=== PATIENT | female | born 1930 | race Caucasian/White ===

== ENCOUNTER 2016-09-05 10:21 | Outpatient (RCR) | payer MEDICARE ==
[~2016-09-05 10:21] MED LIST: AC500T PO; ACET-77 PO; AMLO10TA4 PO; AMLO5TAB2 PO; ASP325T PO; ASPI-586 PO; Acetaminophen PO; CHOL100045 PO; CHOL200041 PO; CHOL500050 PO; DCS100C PO; DENOSUMAB 60 MG/1 ML (PROLIA) CANCER CTR SQ SCH; FOSI10TA PO; FOSI10TA3 PO; HYDR-3812 PO; Hydrocodone Bit/Acetaminophen PO; LETR2.5T5 PO; LISI-552 PO; LOTEMAX 0.5% OS; LVT.025T PO; METO25TA PO; METO25TA2 PO; MULT1CAP27 PO; NIAC250T17 PO; OMG1KC PO; PANT40TA2 PO; SALI45SP MM; SOLI10TA2 PO; SOLI5TAB4 PO; Tramadol Hcl PO; [UNRECOGNIZED DRUG - CODE] PO; [UNRECOGNIZED DRUG - CODE] PO
--- OUTSIDE RECORDS SUMMARY | 2016-09-05 10:24 | XMS REPORT | Continuity of Care Document ---
Author Author [facility] Organization [facility] Address Unknown Phone Unavailable Care Team Providers Care Administrative Technician Name Role Phone CASH GUAN MD PCP Insurance Providers Payer Name Policy Number Subscriber Name Relationship Wps Medicare [id number] Trinity Slade 18 Self / Same As Patient Blue Cross [facility] Supp [id number] Trinity Slade 18 Self / Same As Patient Advance Directives Directive Response Recorded Date/Time Advance Directives No 10/14/14 2:41pm Health Care Power of Canvas Marker No 10/14/14 2:41pm Organ Donor No 10/14/14 2:41pm Problems No known problems or medical conditions. Medications Medication Dose Route Sig Days/Qty Instructions Order Date Discontinued Date Status Levothyroxine Sodium (Levothroid) 1 Each PO DAILY 04/13/12 Active Solifenacin 5 Mg PO DAILY 04/13/12 Active Fosinopril Sodium (Monopril) 2 Each PO DAILY 04/13/12 Active Amlodipine Besylate (Norvasc 5 Mg) 5 Mg PO DAILY 04/13/12 Active Multivitamins 1 Each PO DAILY 04/13/12 Active Cholecalciferol (Vitamin D3) 2,000 Unit PO DAILY 04/13/12 Active Metoprolol Succinate 12.5 Mg PO BEDTIME 04/13/12 10/24/14 Discontinued Calcium Carbonate 1,000 Mg PO BEDTIME 04/13/12 Active Docusate Sodium 100 Mg PO BEDTIME 04/13/12 Active Niacin 250 Mg PO DAILY 05/05/12 Active Aspirin 325 Mg PO DAILY 05/05/12 Active Acetaminophen 500 Mg PO BEDTIME 05/05/12 10/21/14 Discontinued [Acetaminophen] 500 Mg PO THREE TIMES A DAY 100 Qty 10/21/14 Active [Tramadol Hcl] 100 Mg PO GIVE EVERY 6 HR ON SCHEDULE PRN PAIN 60 Qty Active Metoprolol Tartrate 25 Mg PO BEDTIME 30 Qty 10/24/14 Active [Hydrocodone Bit/Acetaminophen] 1 Tab PO EVERY 4HRS PRN PAIN 90 Qty Active Social History Social History Problem Response Recorded Date/Time Alcohol Use Denies Use 10/14/2014 2:47pm Recreational Drug Use No 10/14/2014 2:47pm Recent Foreign Travel N [place] 03/09/2015 10:06am Sexually Transmitted Disease No 10/14/2014 2:47pm Hospital Discharge Instructions No hospital discharge instructions. Plan of Care No plan of care. Functional Status No functional status results. Allergies, Adverse Reactions, Alerts Allergen Type Severity Reaction Status Last Updated No Known Drug Allergies Active 10/15/11 Immunizations No immunization records. Vital Signs No known vital signs results. Results No known relevant diagnostic tests, laboratory data and/or discharge summary. Procedures No known history of procedures. Encounters Encounter Location Date/Time Discharged [facility] 03/09/15 10:06am
[2016-09-05 10:37] LABS: BASOPHILS % (AUTO) 1 % (0-10); EOSINOPHILS # (AUTO) 0.1 10^3/uL (0.0-0.3); EOSINOPHILS % (AUTO) 2 % (0-10); LYMPHOCYTES # (AUTO) 1.2 X 10^3 (1.0-4.0); LYMPHOCYTES % (AUTO) 24 % (12-44); MEAN CORPUSCULAR HEMOGLOBIN 32 PG (25-34); MEAN CORPUSCULAR HGB CONC 32 G/DL (32-36); MEAN CORPUSCULAR VOLUME 100 FL (80-99); MEAN PLATELET VOLUME 9.8 FL (7.4-10.4); MONOCYTES # (AUTO) 0.6 X 10^3 (0.0-1.0); MONOCYTES % (AUTO) 12 % (0-12); NEUTROPHILS # (AUTO) 3.1 X 10^3 (1.8-7.8); NEUTROPHILS % (AUTO) 61 % (42-75); PLATELET COUNT 179 10^3/uL (130-400); RED BLOOD COUNT 4.14 10^6/uL (4.35-5.85); RED CELL DISTRIBUTION WIDTH 13.3 % (10.0-14.5); WHITE BLOOD COUNT 5.1 10^3/uL (4.3-11.0)
[2016-09-05 11:06] LABS: ALANINE AMINOTRANSFERASE 18 U/L (0-55); ALBUMIN 3.9 G/DL (3.2-4.5); ANION GAP 12 MMOL/L (5-14); ASPARTATE AMINO TRANSFERASE 20 U/L (5-34); BILIRUBIN,TOTAL 0.5 MG/DL (0.1-1.0); BLOOD UREA NITROGEN 17 MG/DL (7-18); BUN/CREATININE RATIO 22; CALCIUM 9.6 MG/DL (8.5-10.1); CARBON DIOXIDE 24 MMOL/L (21-32); CHLORIDE 106 MMOL/L (98-107); CREATININE SERUM 0.76 MG/DL (0.60-1.30); GFR ESTIMATED > 60; GLUCOSE 143 MG/DL (70-105); POTASSIUM 4.1 MMOL/L (3.6-5.0); SODIUM 142 MMOL/L (135-145); TOTAL PROTEIN 6.3 G/DL (6.4-8.2)
[2016-12-03] MEDS ORDERED: AMLO10TA2 PO (10:49)
[2016-12-03] MEDS ORDERED: METO-270 PO (10:49)
[2016-12-03] MEDS ORDERED: FOSI20TA3 PO (10:49)
[2016-12-03] MEDS ORDERED: LETR2.5T5 PO (10:49)
[2016-12-03] MEDS ORDERED: LEVO25TA5 PO (10:49)
[2016-12-03] MEDS ORDERED: LOTE5GEL OU (10:49)
[2016-12-03] MEDS ORDERED: OMEG-160 PO (11:01)
[2016-12-03] MEDS ORDERED: VIT1CAPS5 PO (11:01)
[2016-12-03] MEDS ORDERED: NIAC250T8 PO (11:01)
[2016-12-03] MEDS ORDERED: [UNRECOGNIZED DRUG - CODE] OU (11:01)
[2016-12-03] MEDS ORDERED: VITAMIN B12 (11:01)
[2016-12-03] MEDS ORDERED: ASPI-983 PO (11:01)
[2016-12-03] MEDS ORDERED: SOLI10TA2 PO (11:01)
[2016-12-03] MEDS ORDERED: CHOL500050 PO (11:01)
[2016-12-22] MEDS ORDERED: SENN-20 PO (09:44)
[2016-12-22] MEDS ORDERED: ACET-77 PO (09:44)
== END 2016-12-04 | disposition home or self-care (01) ==
LOC: ONC 10:21
PROVIDERS: ATTEND Internal Medicine Hematology & Oncology
DX: C50.411 Malignant neoplasm of upper-outer quadrant of right female breast (principal); M81.0 Age-related osteoporosis without current pathological fracture; Z17.0 Estrogen receptor positive status [ER+]; Z92.3 Personal history of irradiation; Z79.899 Other long term (current) drug therapy
CPT/HCPCS: 36415; 80053; 85025; 96372; 99213

== ENCOUNTER 2016-12-02 11:12 | Inpatient (IN) | payer MEDICARE ==
[~2016-12-02] VITALS: Ht 162.6 cm; Wt 72.6 kg
[~2016-12-02 11:12] MED LIST changes: -DENOSUMAB 60 MG/1 ML (PROLIA) CANCER CTR SQ SCH
--- NOTE | 2016-12-02 12:17 | Diagnostic Imaging Report ---
EXAM: CHEST 1 VIEW, AP/PA ONLY INDICATION: Hip fracture. COMPARISON: FINDINGS: Normal heart size and pulmonary vascularity. Hyperinflation. No focal pulmonary opacity, pleural effusion or pneumothorax. Calcified aorta. Degenerative changes in the spine. Postoperative changes in the right axilla. IMPRESSION: No acute cardiopulmonary findings. Dictated by: Dictated on workstation # [id number]
--- NOTE | 2016-12-02 12:18 | Diagnostic Imaging Report ---
INDICATION: Fall with right hip pain. DISCUSSION: A single AP view of the pelvis was obtained with no comparison. There is an acute comminuted right intertrochanteric fracture with mild displacement of the lesser trochanteric process. Post traumatic valgus deformity is noted. No dislocation. Mild to moderate degenerative changes are present within the bilateral hips. The soft tissues are unremarkable. IMPRESSION: Angulated comminuted right femoral intertrochanteric fracture. Dictated by: Dictated on workstation # [id number]
--- NOTE | 2016-12-02 12:20 | Diagnostic Imaging Report ---
EXAM: HIP, RIGHT, 2 VIEWS. INDICATION: Fall. Right hip pain. COMPARISON: None. FINDINGS: There is a comminuted intertrochanteric moderately displaced hip fracture with varus angulation. No other fractures. Moderate degenerative changes in the right hip. IMPRESSION: Comminuted intertrochanteric moderately displaced hip fracture with varus angulation. Dictated by: Dictated on workstation # [id number]
[2016-12-02 12:22] LABS: BASOPHILS % (AUTO) 0 % (0-10); EOSINOPHILS # (AUTO) 0.1 10^3/uL (0.0-0.3); EOSINOPHILS % (AUTO) 1 % (0-10); LYMPHOCYTES # (AUTO) 1.2 X 10^3 (1.0-4.0); LYMPHOCYTES % (AUTO) 14 % (12-44); MEAN CORPUSCULAR HEMOGLOBIN 33 PG (25-34); MEAN CORPUSCULAR HGB CONC 34 G/DL (32-36); MEAN CORPUSCULAR VOLUME 97 FL (80-99); MEAN PLATELET VOLUME 11.2 FL (7.4-10.4); MONOCYTES # (AUTO) 0.6 X 10^3 (0.0-1.0); MONOCYTES % (AUTO) 7 % (0-12); NEUTROPHILS # (AUTO) 6.4 X 10^3 (1.8-7.8); NEUTROPHILS % (AUTO) 77 % (42-75); PLATELET COUNT 148 10^3/uL (130-400); RED BLOOD COUNT 4.23 10^6/uL (4.35-5.85); RED CELL DISTRIBUTION WIDTH 13.1 % (10.0-14.5); WHITE BLOOD COUNT 8.3 10^3/uL (4.3-11.0)
[2016-12-02 12:26] LABS: PROTHROMBIN TIME PATIENT 12.9 SEC (12.2-14.7)
[2016-12-02 12:36] LABS: ALANINE AMINOTRANSFERASE 20 U/L (0-55); ALBUMIN 4.1 G/DL (3.2-4.5); ANION GAP 8 MMOL/L (5-14); ASPARTATE AMINO TRANSFERASE 22 U/L (5-34); BILIRUBIN,TOTAL 0.5 MG/DL (0.1-1.0); BLOOD UREA NITROGEN 17 MG/DL (7-18); BUN/CREATININE RATIO 23; CALCIUM 9.5 MG/DL (8.5-10.1); CARBON DIOXIDE 28 MMOL/L (21-32); CHLORIDE 105 MMOL/L (98-107); CREATININE SERUM 0.73 MG/DL (0.60-1.30); GFR ESTIMATED > 60; GLUCOSE 149 MG/DL (70-105); POTASSIUM 3.9 MMOL/L (3.6-5.0); SODIUM 141 MMOL/L (135-145); TOTAL PROTEIN 6.5 G/DL (6.4-8.2)
--- NOTE | 2016-12-02 13:25 | Consultation ---
History of Present Illness History of Present Illness Patient Consulted On(anu/time) 12/02/16 13:22 Date of Admission 12/02/16 Reason for Visit: FALL AT HOME WITH HIP FRACTURE History of Present Illness PT IS AN 85 Y/O FEMALE WHO IS WELL KNOWN TO ME FROM CLINIC. TRINITY HAS HISTORY OF OSTEOARTHRITIS - HAS HAD KNEE REPLACEMENT IN THE PAST YEAR. APPARENTLY TRINITY WAS AT HOME DOING THE LAUNDRY - STARTED TO LOOSE HER BALANCE - ATTEMPTED TO SEAT HERSELF ON A STOOL, MISSED THE SEAT AND FELL TO THE FLOOR HITTING HER RIGHT HIP. SHE HAD SIGNIFICANT PAIN AND WAS SENT TO THE EMERGENCY DEPARTMENT WHERE XRAYS SHOWED HIP FRACTURE. PT HAS BEEN ADMITTED TO [facility]GE[facility]. Allergies and Home Medications Allergies Coded Allergies: No Known Drug Allergies (Unverified , 12/02/16) Past Xymqdrh-Yrnldw-Nlsirn Hx Patient Social History Alcohol Use: Denies Use Recreational Drug Use: No Smoking Status: Never a Smoker 2nd Hand Smoke Exposure: No Recent Foreign Travel: No Contact w/Someone Who Travel: No Recent Infectious Disease Expo: No Recent Hopitalizations: No Physical Abuse Screen: No Sexual Abuse: No Seasonal Allergies Seasonal Allergies: No Surgeries HX Surgeries: Yes (CATARACT,) Surgeries: Lumpectomy, Orthopedic Respiratory Hx Respiratory Disorders: No Cardiovascular Hx Cardiac Disorders: Yes Cardiac Disorders: Hypertension Neurological Hx Neurological Disorders: No Reproductive System : No Hx Reproductive Disorders: No Sexually Transmitted Disease: No HIV/AIDS: No Female Reproductive Disorders: Denies 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 Genitourinary Hx Genitourinary Disorders: No Gastrointestinal Hx Gastrointestinal Disorders: No Musculoskeletal Hx Musculoskeletal Disorders: Yes Musculoskeletal Disorders: Arthritis Endocrine Hx Endocrine Disorders: No HEENT Loss of Vision: Denies Hearing Impairment: Denies Cancer Hx Cancer: Yes Cancer: Breast Psychosocial Hx Psychiatric Problems: No Behavioral Health Disorders: Anxiety (INTERMITTENT) Integumentary HX Skin/Integumentary Disorder: No Blood Transfusions Hx Blood Disorders: No Adverse Reaction to a Blood Tr: No Reviewed Nursing Assessment Reviewed/Agree w Nursing PMH: Yes Family Medical History Significant Family History: Heart Disease, Hypertension Review of Systems-General Constitutional: No dizziness, No fever, No malaise, No weakness EENTM: No hoarseness, No mouth pain, No throat pain, No throat swelling Respiratory: No cough, No dyspnea on exertion, No short of breath Cardiovascular: No chest pain, No edema, No palpitations Gastrointestinal: No abdominal pain, No constipation, No diarrhea, No loss of appetite, nausea Genitourinary: no symptoms reported Musculoskeletal: joint pain Skin: No lesions, No rash Psychiatric/Neurological: Denies Anxiety, Denies Depressed, Denies Weakness All Other Systems Reviewed Negative Unless Noted: Yes Physical Exam-General Problems Physical Exam Vital Signs Vital Sign - Last 12Hours 12/02/16 11:12 Temp 98.7 Pulse 73 Resp 18 B/P 176/81 Pulse Ox 94 Capillary Refill : Less Than 3 Seconds General Appearance: WD/WN no apparent distress Eyes: Bilateral Eye EOMI, Bilateral Eye Normal Inspection, Bilateral Eye PERRL HEENT: PERRL/EOMI pharynx normal Neck: non-tender normal inspection Respiratory: chest non-tender lungs clear normal breath sounds no respiratory distress no accessory muscle use Cardiovascular: normal peripheral pulses regular rate, rhythm no gallop other (TRACE EDEMA AT ANKLES) Gastrointestinal: normal bowel sounds non tender soft no organomegaly no pulsatile mass Rectal: deferred Extremities: normal capillary refill other (RIGHT LEG WITH EXTERNAL ROTATION) 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 CASH GUAN MD Dec 02, 2016 13:25
[2016-12-02 13:36] LABS: BILIRUBIN,URINE NEGATIVE (NEGATIVE); KETONES,URINE NEGATIVE (NEGATIVE); LEUKOCYTE ESTERASE ,URINE NEGATIVE (NEGATIVE); NITRITE,URINE NEGATIVE (NEGATIVE); PH,URINE 8 (5-9); PROTEIN,URINE NEGATIVE (NEGATIVE); UROBILINOGEN,URINE NORMAL (NORMAL)
[2016-12-02] MEDS ORDERED: fentaNYL INJECTION 100 MCG/2 ML AMP IVP PRN (13:45)
[2016-12-02] MEDS ORDERED: D5 1/2 NS 1000 ML IV SOLUTION 1,000 ML IV SCH (13:45)
[2016-12-02] MEDS ORDERED: proPOfol 200 MG/20 ML (DIPRIVAN) VIAL IV ONE (15:36)
[2016-12-02] MEDS ORDERED: fentaNYL INJECTION 100 MCG/2 ML AMP ONE (15:36)
[2016-12-02] MEDS ORDERED: ceFAZolin 2 GM IV (SDC ONLY) 50 ML IV NR (16:04)
--- NOTE | 2016-12-02 16:05 | History & Physicial ---
History of Present Illness History of Present Illness Reason for visit/HPI Chief complaint- right hip pain HPI- This in an 85 year old female who ate breakfast at 8:30 AM and then went to sit on a stool and missed it and landed on the floor. She hurt the right hip. She was seen in the ER with an intertrochanteric femur fracture. She denies any other injury or loss of consciousness. Date of Admission Dec 02, 2016 at 12:10 I consulted on this patient on 12/02/16 15:59 Attending Physician Fide Gamboa MD Admitting Physician Fide Gamboa MD Consult Dr. Crow Allergies and Home Medications Allergies Coded Allergies: No Known Drug Allergies (Unverified , 12/02/16) Past Mmqrxol-Lncebi-Mowokx Hx Patient Social History Marrital Status: Employed/Student: retired Alcohol Use: Denies Use Recreational Drug Use: No Smoking Status: Never a Smoker 2nd Hand Smoke Exposure: No Physical Abuse Screen: No Sexual Abuse: No Recent Foreign Travel: No Contact w/other who traveled: No Recent Hopitalizations: No Recent Infectious Disease Expo: No Immunizations Up To Date Date of Pneumonia Vaccine: Dec 02, 2009 Date of Influenza Vaccine: Oct 15, 2017 Seasonal Allergies Seasonal Allergies: No Surgeries HX Surgeries: Yes (CATARACT,) Surgeries: Lumpectomy, Orthopedic Respiratory Hx Respiratory Disorders: No Cardiovascular Hx Cardiovascular Disorders: Yes Cardiac Disorders: Hypertension Neurological Hx Neurological Disorders: No Reproductive System : No Hx Reproductive Disorders: No Sexually Transmitted Disease: No HIV/AIDS: No Female Reproductive Disorders: Denies Genitourinary Hx Genitourinary Disorders: No Gastrointestinal Hx Gastrointestinal Disorders: No Gastrointestinal Disorders: Chronic Constipation Musculoskeletal Hx Musculoskeletal Disorders: Yes Musculoskeletal Disorders: Arthritis Endocrine Hx Endocrine Disorders: No Endocrine Disorders: Hypothyroidsim HEENT HX ENT Disorders: Yes HEENT Disorders: Cataract Loss of Vision: Denies Hearing Impairment: Denies Cancer Hx Cancer: Yes Cancer: Breast Psychosocial Hx Psychiatric Problems: No Behavioral Health Disorders: Anxiety (INTERMITTENT) Integumentary HX Skin/Integumentary Disorder: No Blood Transfusions Hx Blood Disorders: No Adverse Reaction to a Blood Tr: No Reviewed Nursing Assessment Reviewed/Agree w Nursing PMH: Yes Family Medical History Significant Family History: Heart Disease, Hypertension Family Hx: Cardiovascular disease 19 FATHER Osteoporosis 19 MOTHER Constitutional: no symptoms reported EENTM: no symptoms reported Respiratory: no symptoms reported Cardiovascular: no symptoms reported Gastrointestinal: no symptoms reported Musculoskeletal: see HPI Skin: no symptoms reported Psychiatric/Neurological: No Symptoms Reported Physical Exam Vital Signs Vital Sign - Last 12Hours 12/02/16 11:12 Temp 98.7 Pulse 73 Resp 18 B/P 176/81 Pulse Ox 94 Capillary Refill : Less Than 3 SecondsLess Than 3 Seconds General Appearance: No Apparent Distress Eyes: Bilateral Eye Normal Inspection HEENT: PERRL/EOMI Neck: Full Range of Motion Respiratory: Chest Non Tender Lungs Clear Cardiovascular: Regular Rate, Rhythm Gastrointestinal: Normal Bowel Sounds Rectal: Deferred Extremity: No Calf Tenderness No Pedal Edema Other (Right hip tender. Right lower extremity is shortened and externally rotated.) Neurologic/Psychiatric: Oriented x3 No Motor/Sensory Deficits Skin: Normal Color Warm/Dry Assessment/Plan Assessment and Plan Right comminuted intertrochanteric femur fracture-- will go to the OR for surgical repair. She seems very spry for her age and will probably do well going to rehab her in a few days. Admission Diagnosis Right comminuted intertrochanteric femur fracture Clinical Quality Measures DVT/VTE Risk/Contraindication: Risk Factor Score Per Nursin RFS Level Per Nursing on Admit: 4+=Very High FIDE GAMBOA MD Dec 02, 2016 16:05
[2016-12-02] MEDS ORDERED: morphine INJ 4 MG/ML 1 ML (VIAL/SYRINGE) IVP PRN (16:15)
[2016-12-02] MEDS ORDERED: morphine INJ 10 MG/ML 1ML (SYR OR VIAL) ONE (17:02)
[2016-12-02] MEDS ORDERED: LACTATED RINGERS 1,000 ML IV PRN (17:26)
[2016-12-02] MEDS ORDERED: LIDOCAINE 2% 20 ML (XYLOCAINE) VIAL ONE (17:27)
[2016-12-02] MEDS ORDERED: SEVOFLURANE (ULTANE) 15 ML INHAL SOLN ONE (17:27)
[2016-12-02] MEDS ORDERED: LIDOCAINE PF 2% 10 ML (XYLOCAINE) AMP ONE (17:27)
[2016-12-02] MEDS ORDERED: FAMOTIDINE 20MG/2ML IV (PEPCID) ONE (17:27)
[2016-12-02] MEDS ORDERED: ceFAZolin 1,000 MG (ANCEF) VIAL ONE (17:28)
[2016-12-02] MEDS ORDERED: DEXAMETHASONE PF 10 MG/ML (DECADRON) VIAL ONE (17:28)
[2016-12-02] MEDS ORDERED: fentaNYL INJECTION 100 MCG/2 ML AMP IV PRN (17:30)
[2016-12-02] MEDS ORDERED: ONDANSETRON 4 MG/2 ML (SDV) Z0FRAN IV ONE (17:30)
--- NOTE | 2016-12-02 17:34 | Progress Note-Post Operative ---
Post-Operative Progess Note Rn Invasive Gilberto Muller PA-C Pre-Operative Diagnosis Comminuted displaced right intertrochanteric femur fracture Post-Operative Diagnosis same Post-Op Procedure Note Date of Procedure: Dec 02, 2016 Name of Procedure: Open treatment right intertrochanteric femur fracture with trochanteric femoral nail. Procedure Note/Findings See dictation Anesthesia Type General Estimated blood loss (mL): 200 ml Packing: none Specimen(s) collected none FIDE TUCKER MD Dec 02, 2016 17:34
[2016-12-02] MEDS: morphine INJ 10 MG/ML 1ML (SYR OR VIAL) IV PRN ×3 (17:59→18:12)
--- NOTE | 2016-12-02 18:15 | Diagnostic Imaging Report ---
INDICATION: Fracture, undergoing fixation. TECHNIQUE: 4 intraoperative views of the right hip 4:18 PM. CORRELATION STUDY: None FINDINGS: Intraoperative imaging demonstrates placement of the internal fixation hardware to include gamma nail and intramedullary ksenia transfixing the displaced comminuted intertrochanteric femur fracture. There is slight superficial subluxation of the femoral shaft. There is medial displacement of the lesser trochanter. Fluoroscopy time: 2 minutes 38 seconds IMPRESSION: 1. Internal fixation is performed of the multipart proximal right femur fracture. Dictated by: Dictated on workstation # [id number]
[2016-12-02 19:00] VITALS: BP 111/65
[2016-12-02 19:01] VITALS: BP 111/65
[2016-12-02] MEDS: 1/2 NS IV SOLUTION 1,000 ML IV SCH (19:47)
--- NOTE | 2016-12-02 20:06 | ED Hip Pain/Injury ---
General Chief Complaint: Hip/Pelvic Problems Stated Complaint: R HIP FRACTURE Nursing Triage Note: PT ATTEMPTED TO SIT ON STOOL AND MISSED LANDING ON R HIP. ARRIVES PER EMS WITH R HIP PAIN, EXTERNAL ROTATION AND SHORTENING NOTED. Source: patient History of Present Illness Time seen by provider: 11:25 Initial Comments PT ARRIVES VIA EMS FROM HOME PT STATES SHE WAS SORTING CLOTHES AND STARTED TO SIT DOWN ON A VANITY STOOL, BUT MISSED IT/ SAT DOWN ON EDGE OF IT AND LANDED ON RIGHT HIP OCCURRED AT HOME AT 0930 THIS AM PT WAS UNABLE TO GET UP AND WAS ABLE TO GET HER OFF THE FLOOR, PT IS UNABLE TO BEAR WEIGHT ON RIGHT LEG. PT DENIES ANY PAIN WHILE AT REST--PAIN IS ONLY WITH ATTEMPTS TO BEAR WEIGHT NO PARESTHESIAS OR MOTOR DEFICITS PT DENIES HITTING HER HEAD OR LOSS OF CONSCIOUSNESS NO NECK OR BACK PAIN NO PRIOR INJURY TO THIS HIP LAST FOOD INTAKE WAS OATMEAL AT 08:30 Other PCP: DR. GUAN Allergies and Home Medications Allergies Coded Allergies: No Known Drug Allergies (Unverified , 12/02/16) Constitutional: no symptoms reported EENTM: no symptoms reported Respiratory: no symptoms reported Cardiovascular: no symptoms reported Gastrointestinal: no symptoms reported Genitourinary: no symptoms reported Musculoskeletal: see HPI Skin: no symptoms reported Psychiatric/Neurological: No Symptoms Reported Past Pofhhbo-Omcpmd-Siqqgn Hx Patient Social History Alcohol Use: Denies Use Recreational Drug Use: No Smoking Status: Never a Smoker 2nd Hand Smoke Exposure: No Recent Foreign Travel: No Contact w/Someone Who Travel: No Recent Infectious Disease Expo: No Recent Hopitalizations: No Physical Abuse Screen: No Sexual Abuse: No Immunizations Up To Date Date of Pneumonia Vaccine: Dec 02, 2009 Date of Influenza Vaccine: Oct 15, 2017 Seasonal Allergies Seasonal Allergies: No Surgeries HX Surgeries: Yes (CATARACT, BILATERAL TOTAL KNEE REPLACEMENTS; BILATERAL VARICOSE VEIN LIGATION) Surgeries: Lumpectomy, Orthopedic, Vascular Surgery Respiratory Hx Respiratory Disorders: No Cardiovascular Hx Cardiac Disorders: Yes Cardiac Disorders: Hypertension Neurological Hx Neurological Disorders: No Reproductive System : No Hx Reproductive Disorders: No Sexually Transmitted Disease: No HIV/AIDS: No Female 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 Genitourinary Hx Genitourinary Disorders: No Gastrointestinal Hx Gastrointestinal Disorders: No Gastrointestinal Disorders: Chronic Constipation Musculoskeletal Hx Musculoskeletal Disorders: Yes Musculoskeletal Disorders: Arthritis Endocrine Hx Endocrine Disorders: No Endocrine Disorders: Hypothyroidsim HEENT HX ENT Disorders: Yes HEENT Disorders: Cataract Loss of Vision: Denies Hearing Impairment: Denies Cancer Hx Cancer: Yes Cancer: Breast Psychosocial Hx Psychiatric Problems: No Behavioral Health Disorders: Anxiety (INTERMITTENT) Integumentary HX Skin/Integumentary Disorder: No Blood Transfusions Hx Blood Disorders: No Adverse Reaction to a Blood Tr: No Reviewed Nursing Assessment Reviewed/Agree w Nursing PMH: Yes Family Medical History Significant Family History: Heart Disease, Hypertension Family Medial History: Cardiovascular disease 19 FATHER Osteoporosis 19 MOTHER Physical Exam Vital Signs Vital Sign - Last 12Hours 12/02/16 11:12 Temp 98.7 Pulse 73 Resp 18 B/P 176/81 Pulse Ox 94 Capillary Refill : Less Than 3 SecondsLess Than 3 Seconds General Appearance: No Apparent Distress WD/WN HEENT: PERRL/EOMI Neck: Full Range of Motion Normal Inspection Non Tender Supple Cardiovascular: Regular Rate, Rhythm No Edema No JVD No Murmur Normal Peripheral Pulses Respiratory: Chest Non Tender Normal Breath Sounds No Accessory Muscle Use No Respiratory Distress Gastrointestinal: Normal Bowel Sounds No Organomegaly No Pulsatile Mass Non Tender Soft Back: Normal Inspection No CVA Tenderness No Vertebral Tenderness Extremity: Normal Capillary Refill No Pedal Edema Other (RIGHT LEG SHORTENED AND EXTERNALLY ROTATED. 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 Skin: Normal Color Warm/Dry Progress/Results/Core Measures Results/Orders Lab Results Laboratory Tests Test 12/02/16 11:15 12/02/16 11:35 Range/Units Activated Partial Thromboplast Time 30 24-35 SEC Alanine Aminotransferase (ALT/SGPT) 20 0-55 U/L Albumin 4.1 3.2-4.5 G/DL Alkaline Phosphatase 73 40-136 U/L Anion Gap 8 5-14 MMOL/L Aspartate Amino Transf (AST/SGOT) 22 5-34 U/L BUN/Creatinine Ratio 23 Basophils # (Auto) 0.0 0.0-0.1 10^3/uL Basophils (%) (Auto) 0 0-10 % Blood Urea Nitrogen 17 7-18 MG/DL Calcium Level 9.5 8.5-10.1 MG/DL Carbon Dioxide Level 28 21-32 MMOL/L Chloride Level 105 98-107 MMOL/L Creatinine 0.73 0.60-1.30 MG/DL Eosinophils # (Auto) 0.1 0.0-0.3 10^3/uL Eosinophils (%) (Auto) 1 0-10 % Estimat Glomerular Filtration Rate > 60 Glucose Level 149 H 70-105 MG/DL Hematocrit 41 35-52 % Hemoglobin 14.1 11.5-16.0 G/DL INR Comment 1.0 0.8-1.4 Lymphocytes # (Auto) 1.2 1.0-4.0 X 10^3 Lymphocytes (%) (Auto) 14 12-44 % Mean Corpuscular Hemoglobin 33 25-34 PG Mean Corpuscular Hemoglobin Concent 34 32-36 G/DL Mean Corpuscular Volume 97 80-99 FL Mean Platelet Volume 11.2 H 7.4-10.4 FL Monocytes # (Auto) 0.6 0.0-1.0 X 10^3 Monocytes (%) (Auto) 7 0-12 % Neutrophils # (Auto) 6.4 1.8-7.8 X 10^3 Neutrophils (%) (Auto) 77 H 42-75 % Platelet Count 148 130-400 10^3/uL Potassium Level 3.9 3.6-5.0 MMOL/L Prothrombin Time 12.9 12.2-14.7 SEC Red Blood Count 4.23 L 4.35-5.85 10^6/uL Red Cell Distribution Width 13.1 10.0-14.5 % Sodium Level 141 135-145 MMOL/L Total Bilirubin 0.5 0.1-1.0 MG/DL Total Protein 6.5 6.4-8.2 G/DL White Blood Count 8.3 4.3-11.0 10^3/uL Urine Amorphous Sediment LARGE PATSY PHOSPHATE H /LPF Urine Bacteria NEGATIVE /HPF Urine Bilirubin NEGATIVE NEGATIVE Urine Casts NONE /LPF Urine Clarity SLIGHTLY CLOUDY Urine Color YELLOW Urine Crystals NONE /LPF Urine Culture Indicated NO Urine Glucose (UA) NEGATIVE NEGATIVE Urine Ketones NEGATIVE NEGATIVE Urine Leukocyte Esterase NEGATIVE NEGATIVE Urine Mucus NEGATIVE /LPF Urine Nitrite NEGATIVE NEGATIVE Urine Protein NEGATIVE NEGATIVE Urine RBC NONE /HPF Urine RBC (Auto) NEGATIVE NEGATIVE Urine Specific [place] 1.015 L 1.016-1.022 Urine Squamous Epithelial Cells NONE /HPF Urine Urobilinogen NORMAL NORMAL MG/DL Urine WBC NONE /HPF Urine pH 8 5-9 My Orders Orders-MEGA,BRANDY K DO Pelvis (12/02/16 11:29) Hip, Right, 2 Views (12/02/16 11:29) Chest 1 View, Ap/Pa Only (12/02/16 12:01) Vital Signs/I&O Vital Sign - Last 12Hours 12/02/16 11:12 Temp 98.7 Pulse 73 Resp 18 B/P 176/81 Pulse Ox 94 Blood Pressure Mean: 80 Progress Note : Progress Note UNEVENTFUL ER STAY. PT DECLINES PAIN MEDICATIONS DURING ER STAY Diagnostic Imaging Comments XRAYS RIGHT HIP/PELVIS--COMMINUTED, ANGULATED/DISPLACED INTERTROCHANTERIC FRACTURE--PER RADIOLOGIST REPORT @ 1228 CXR--NO ACUTE PROCESS Reviewed: Reviewed by Me Departure Communication Progress Notes 1206--SPOKE WITH DR. TUCKER, ACCEPTS PT FOR ADMIT 1210--SPOKE WITH DR. GUAN, FOR MEDICAL MANAGEMENT Impression Impression: Primary Impression: Fracture, intertrochanteric, right femur Disposition: ADMITTED INPATIENT Condition: Stable Decision to Admit Reason: Admit from ER (Trauma) Decision to Admit/Date: Dec 02, 2016 Time/Decision to Admit Time: 12:10 Departure-Patient Inst. Referrals: CASH GUAN MD (PCP) Primary Care Physician BRANDY AYOUB DO Dec 02, 2016 20:06
[2016-12-02] MEDS: ceFAZolin 2 GM IV (SDC ONLY) 50 ML IV SCH (22:31)
[2016-12-03] VITALS: BP 96/54
[2016-12-03 04:00] VITALS: BP 101/52
[2016-12-03] MEDS: 1/2 NS IV SOLUTION 1,000 ML IV SCH ×3 (05:26→23:47)
[2016-12-03 05:34] LABS: BASOPHILS % (AUTO) 0 % (0-10); EOSINOPHILS % (AUTO) 0 % (0-10); LYMPHOCYTES # (AUTO) 0.9 X 10^3 (1.0-4.0); LYMPHOCYTES % (AUTO) 10 % (12-44); MEAN CORPUSCULAR HEMOGLOBIN 32 PG (25-34); MEAN CORPUSCULAR HGB CONC 32 G/DL (32-36); MEAN CORPUSCULAR VOLUME 99 FL (80-99); MEAN PLATELET VOLUME 10.6 FL (7.4-10.4); MONOCYTES # (AUTO) 0.8 X 10^3 (0.0-1.0); MONOCYTES % (AUTO) 9 % (0-12); NEUTROPHILS # (AUTO) 7.8 X 10^3 (1.8-7.8); NEUTROPHILS % (AUTO) 81 % (42-75); PLATELET COUNT 131 10^3/uL (130-400); RED BLOOD COUNT 3.24 10^6/uL (4.35-5.85); RED CELL DISTRIBUTION WIDTH 12.9 % (10.0-14.5); WHITE BLOOD COUNT 9.5 10^3/uL (4.3-11.0)
[2016-12-03] MEDS: ceFAZolin 2 GM IV (SDC ONLY) 50 ML IV SCH (05:56)
[2016-12-03 05:57] LABS: ALANINE AMINOTRANSFERASE 16 U/L (0-55); ALBUMIN 3.2 G/DL (3.2-4.5); ANION GAP 11 MMOL/L (5-14); ASPARTATE AMINO TRANSFERASE 19 U/L (5-34); BILIRUBIN,TOTAL 0.5 MG/DL (0.1-1.0); BLOOD UREA NITROGEN 25 MG/DL (7-18); BUN/CREATININE RATIO 29; CALCIUM 7.9 MG/DL (8.5-10.1); CARBON DIOXIDE 21 MMOL/L (21-32); CHLORIDE 107 MMOL/L (98-107); CREATININE SERUM 0.87 MG/DL (0.60-1.30); GFR ESTIMATED > 60; GLUCOSE 167 MG/DL (70-105); POTASSIUM 4.7 MMOL/L (3.6-5.0); SODIUM 139 MMOL/L (135-145); TOTAL PROTEIN 4.9 G/DL (6.4-8.2)
[2016-12-03] MEDS: ONDANSETRON 4 MG/2 ML (SDV) Z0FRAN IV PRN ×2 (06:29→13:39)
[2016-12-03] MEDS: HYDROcodone/APAP 5 MG/325 MG (LORTAB) TAB PO PRN ×4 (06:29→23:48)
--- NOTE | 2016-12-03 07:33 | Progress Note (SOAP) ---
Subjective Subjective/Events-last exam PT IS AN 85 Y/O FEMALE WHO IS WELL KNOWN TO ME FROM THE OFFICE. SHE STATES THAT THIS MORNING SHE IS SEVERELY NAUSEATED. SHE REPORTS THAT SHE HAS NOT TAKEN ANY PAIN MEDICATION OTHER THAN TYLENOL AND DOES NOT THINK THIS NAUSEA IS RELATED TO PAIN MEDICATION USAGE. Review of Systems General: No Chills, Fatigue Malaise HEENT: No Head Aches Pulmonary: No Dyspnea, No Cough Cardiovascular: No: Chest Pain Gastrointestinal: : NauseaNo: Abdominal Pain Genitourinary: Other (HERRERA IN PLACE) Musculoskeletal: : leg pain (RIGHT HIP) Neurological: : Weakness Objective Exam Vital Signs Date Time Temp Pulse Resp B/P Pulse Ox O2 Delivery O2 Flow Rate FiO2 12/03/16 04:00 97.2 69 18 101/52 96 Nasal Cannula 2.00 12/03/16 00:00 96.8 68 18 96/54 95 Nasal Cannula 2.00 12/02/16 21:00 Nasal Cannula 2.00 12/02/16 19:08 96 Nasal Cannula 4.00 12/02/16 19:01 98.5 64 18 111/65 95 Nasal Cannula 2.00 12/02/16 13:05 65 16 96 12/02/16 11:12 98.7 73 18 176/81 94 I & O 12/03/16 07:00 Intake Total 1300 ml Output Total 515 ml Balance 785 ml Capillary Refill : Less Than 3 SecondsLess Than 3 Seconds General Appearance: Mild Distress (DUE TO NAUSEA) HEENT: PERRL/EOMI Pharynx Normal Neck: Supple Respiratory: Chest Non Tender Lungs Clear Normal Breath Sounds No Accessory Muscle Use Cardiovascular: Regular Rate, Rhythm Gastrointestinal: normal bowel sounds non tender soft Extremity: No Pedal Edema Neurologic/Psychiatric: Alert Oriented x3 No Motor/Sensory Deficits Normal Mood/Affect application spec II-XII Norm as Tested Skin: Warm/Dry Other (RIGHT HIP WITH SURIGCAL DRESSING IN PLACE) Lymphatic: No Adenopathy Results Lab Laboratory Tests 12/02/16 11:15: Activated Partial Thromboplast Time 30, Alanine Aminotransferase (ALT/SGPT) 20, Albumin 4.1, Alkaline Phosphatase 73, Anion Gap 8, Aspartate Amino Transf (AST/ SGOT) 22, BUN/Creatinine Ratio 23, Basophils # (Auto) 0.0, Basophils (%) (Auto) 0, Blood Urea Nitrogen 17, Calcium Level 9.5, Carbon Dioxide Level 28, Chloride Level 105, Creatinine 0.73, Eosinophils # (Auto) 0.1, Eosinophils (%) (Auto) 1, Estimat Glomerular Filtration Rate > 60, Glucose Level 149H, Hematocrit 41, Hemoglobin 14.1, INR Comment 1.0, Lymphocytes # (Auto) 1.2, Lymphocytes (%) ( Auto) 14, Mean Corpuscular Hemoglobin 33, Mean Corpuscular Hemoglobin Concent 34 , Mean Corpuscular Volume 97, Mean Platelet Volume 11.2H, Monocytes # (Auto) 0.6 , Monocytes (%) (Auto) 7, Neutrophils # (Auto) 6.4, Neutrophils (%) (Auto) 77H, Platelet Count 148, Potassium Level 3.9, Prothrombin Time 12.9, Red Blood Count 4.23L, Red Cell Distribution Width 13.1, Sodium Level 141, Total Bilirubin 0.5, Total Protein 6.5, White Blood Count 8.3 12/02/16 11:35: Urine Amorphous Sediment LARGE PATSY PHOSPHATEH, Urine Bacteria NEGATIVE, Urine Bilirubin NEGATIVE, Urine Casts NONE, Urine Clarity SLIGHTLY CLOUDY, Urine Color YELLOW, Urine Crystals NONE, Urine Culture Indicated NO, Urine Glucose (UA ) NEGATIVE, Urine Ketones NEGATIVE, Urine Leukocyte Esterase NEGATIVE, Urine Mucus NEGATIVE, Urine Nitrite NEGATIVE, Urine Protein NEGATIVE, Urine RBC NONE, Urine RBC (Auto) NEGATIVE, Urine Specific [place] 1.015L, Urine Squamous Epithelial Cells NONE, Urine Urobilinogen NORMAL, Urine WBC NONE, Urine pH 8 12/03/16 04:45: Alanine Aminotransferase (ALT/SGPT) 16, Albumin 3.2, Alkaline Phosphatase 50, Anion Gap 11, Aspartate Amino Transf (AST/SGOT) 19, BUN/Creatinine Ratio 29, Basophils # (Auto) 0.0, Basophils (%) (Auto) 0, Blood Urea Nitrogen 25H, Calcium Level 7.9L, Carbon Dioxide Level 21, Chloride Level 107, Creatinine 0.87 , Eosinophils # (Auto) 0.0, Eosinophils (%) (Auto) 0, Estimat Glomerular Filtration Rate > 60, Glucose Level 167H, Hematocrit 32L, Hemoglobin 10.4#L, Lymphocytes # (Auto) 0.9L, Lymphocytes (%) (Auto) 10L, Mean Corpuscular Hemoglobin 32, Mean Corpuscular Hemoglobin Concent 32, Mean Corpuscular Volume 99, Mean Platelet Volume 10.6H, Monocytes # (Auto) 0.8, Monocytes (%) (Auto) 9, Neutrophils # (Auto) 7.8, Neutrophils (%) (Auto) 81H, Platelet Count 131, Potassium Level 4.7, Red Blood Count 3.24L, Red Cell Distribution Width 12.9, Sodium Level 139, Total Bilirubin 0.5, Total Protein 4.9L, White Blood Count 9.5 Assessment/Plan Assessment/Plan Assess & Plan/Chief Complaint COMMINUTED INTERTROCHANTERIC MODERATELY DISPLACED HIP FRACTURE ON THE RIGHT HYPERTENSION CHRONIC OA HIP FRACTURE -POST-OP HIP FRACTURE REPAIR HTN - WILL RESTART HOME MEDS CHRONIC OA - SUPPORTIVE CARE PT WILL NEED REHAB FOR THERAPIES AND REHAB TO BE ABLE TO BE DISCHARGED TO HOME. Diagnosis/Problems: Clinical Quality Measures DVT/VTE Risk/Contraindication: Risk Factor Score Per Nursin RFS Level Per Nursing on Admit: 4+=Very High CASH GUAN MD Dec 03, 2016 07:33
--- NOTE | 2016-12-03 07:47 | Progress Note (SOAP) ---
Subjective Subjective/Events-last exam Patient complaining of mild nausea. Objective Exam Vital Signs Date Time Temp Pulse Resp B/P Pulse Ox O2 Delivery O2 Flow Rate FiO2 12/03/16 04:00 97.2 69 18 101/52 96 Nasal Cannula 2.00 12/03/16 00:00 96.8 68 18 96/54 95 Nasal Cannula 2.00 12/02/16 21:00 Nasal Cannula 2.00 12/02/16 19:08 96 Nasal Cannula 4.00 12/02/16 19:01 98.5 64 18 111/65 95 Nasal Cannula 2.00 12/02/16 13:05 65 16 96 12/02/16 11:12 98.7 73 18 176/81 94 I & O 12/03/16 06:59 Intake Total 1300 ml Output Total 515 ml Balance 785 ml Capillary Refill : Less Than 3 SecondsLess Than 3 Seconds General Appearance: No Apparent Distress WD/WN Peripheral Pulses: 3+ Dorsalis Pedis (R) Extremity: Normal Capillary Refill Normal Inspection Normal Range of Motion Non Tender No Pedal Edema Neurologic/Psychiatric: Alert Oriented x3 No Motor/Sensory Deficits Normal Mood/Affect Other comments Incision dry clean and intact. Results Lab Laboratory Tests 12/02/16 11:15: Activated Partial Thromboplast Time 30, Alanine Aminotransferase (ALT/SGPT) 20, Albumin 4.1, Alkaline Phosphatase 73, Anion Gap 8, Aspartate Amino Transf (AST/ SGOT) 22, BUN/Creatinine Ratio 23, Basophils # (Auto) 0.0, Basophils (%) (Auto) 0, Blood Urea Nitrogen 17, Calcium Level 9.5, Carbon Dioxide Level 28, Chloride Level 105, Creatinine 0.73, Eosinophils # (Auto) 0.1, Eosinophils (%) (Auto) 1, Estimat Glomerular Filtration Rate > 60, Glucose Level 149H, Hematocrit 41, Hemoglobin 14.1, INR Comment 1.0, Lymphocytes # (Auto) 1.2, Lymphocytes (%) ( Auto) 14, Mean Corpuscular Hemoglobin 33, Mean Corpuscular Hemoglobin Concent 34 , Mean Corpuscular Volume 97, Mean Platelet Volume 11.2H, Monocytes # (Auto) 0.6 , Monocytes (%) (Auto) 7, Neutrophils # (Auto) 6.4, Neutrophils (%) (Auto) 77H, Platelet Count 148, Potassium Level 3.9, Prothrombin Time 12.9, Red Blood Count 4.23L, Red Cell Distribution Width 13.1, Sodium Level 141, Total Bilirubin 0.5, Total Protein 6.5, White Blood Count 8.3 12/02/16 11:35: Urine Amorphous Sediment LARGE PATSY PHOSPHATEH, Urine Bacteria NEGATIVE, Urine Bilirubin NEGATIVE, Urine Casts NONE, Urine Clarity SLIGHTLY CLOUDY, Urine Color YELLOW, Urine Crystals NONE, Urine Culture Indicated NO, Urine Glucose (UA ) NEGATIVE, Urine Ketones NEGATIVE, Urine Leukocyte Esterase NEGATIVE, Urine Mucus NEGATIVE, Urine Nitrite NEGATIVE, Urine Protein NEGATIVE, Urine RBC NONE, Urine RBC (Auto) NEGATIVE, Urine Specific [place] 1.015L, Urine Squamous Epithelial Cells NONE, Urine Urobilinogen NORMAL, Urine WBC NONE, Urine pH 8 12/03/16 04:45: Alanine Aminotransferase (ALT/SGPT) 16, Albumin 3.2, Alkaline Phosphatase 50, Anion Gap 11, Aspartate Amino Transf (AST/SGOT) 19, BUN/Creatinine Ratio 29, Basophils # (Auto) 0.0, Basophils (%) (Auto) 0, Blood Urea Nitrogen 25H, Calcium Level 7.9L, Carbon Dioxide Level 21, Chloride Level 107, Creatinine 0.87 , Eosinophils # (Auto) 0.0, Eosinophils (%) (Auto) 0, Estimat Glomerular Filtration Rate > 60, Glucose Level 167H, Hematocrit 32L, Hemoglobin 10.4#L, Lymphocytes # (Auto) 0.9L, Lymphocytes (%) (Auto) 10L, Mean Corpuscular Hemoglobin 32, Mean Corpuscular Hemoglobin Concent 32, Mean Corpuscular Volume 99, Mean Platelet Volume 10.6H, Monocytes # (Auto) 0.8, Monocytes (%) (Auto) 9, Neutrophils # (Auto) 7.8, Neutrophils (%) (Auto) 81H, Platelet Count 131, Potassium Level 4.7, Red Blood Count 3.24L, Red Cell Distribution Width 12.9, Sodium Level 139, Total Bilirubin 0.5, Total Protein 4.9L, White Blood Count 9.5 Assessment/Plan Assessment/Plan Assess & Plan/Chief Complaint A: right intertrochanteric fracture with ORIF with femoral nail. P: PT today. Patient wants to go to SNU after discharge which should not be a problem. Diagnosis/Problems: Clinical Quality Measures DVT/VTE Risk/Contraindication: Risk Factor Score Per Nursin RFS Level Per Nursing on Admit: 4+=Very High SARA MANN Dec 03, 2016 07:47
[2016-12-03] MEDS: ENOXAPARIN 40 MG/0.4 ML (LOVENOX) SYR SC SCH (07:59)
--- NOTE | 2016-12-03 08:12 | OPERATIVE REPORT ---
PROCEDURE PHYSICIAN: FIDE GAMBOA DATE OF PROCEDURE: 12/02/2016 PREOPERATIVE DIAGNOSIS: Right displaced comminuted intertrochanteric femoral fracture. POSTOPERATIVE DIAGNOSIS: Right displaced comminuted intertrochanteric femoral fracture. PROCEDURE: Open treatment of right intertrochanteric femoral fracture with trochanteric femoral nail. SURGEON: Dr. Gamboa ASSISTING: TEDDY Espino. PROGRAM ANALYST SURGEON DUTIES: Patient positioning, retraction, use of internal fixation devices, wound closure, application sterile dressings. The use of clinical services assistant is medically indicated. ANESTHESIA: General. BLOOD LOSS: 200 mL COMPLICATIONS: None. IMPLANTS: 1. Synthes 11 mm diameter, 340 mm length. 2. Long trochanteric femoral nail with a 130 degree neck angle. 3. 95 mm helical blade. 4. Single 36 mm distal locking screw. INDICATIONS: This lady fell at home fracturing her right hip, comes in for surgical repair. PROCEDURE IN DETAIL: After informed consent, the patient was transported to the operating room. She was placed on the operating table in the supine position where general anesthesia was induced. She is positioned on the fracture table with the pubis against the peroneal post. The left leg in the leg licona and the right foot in the traction boot. Traction was applied to the right lower extremity along with slight internal rotation. The fracture could be reduced. There were some posterior sag present that could be corrected on the lateral view by upward pressure on the buttock. Right lower extremity then was prepped with DuraPrep and draped in the sterile fashion. The C-arm was brought in for AP view. Starting incision was made over the lateral hip proximal to the greater trochanter. The deep fascia was split and the greater trochanter was palpated, it was comminuted. Due to the amount of comminution, multiple attempts were made at that placing the guide pin down the proximal femur down the shaft. This was facilitated by looking upward on the buttock. Placement was confirmed on the C-arm AP and lateral views. The rigid reamer was used to ream over the proximal femur and then the flexible guidewire then was passed through the proximal femur down the shaft of the femur. A guide pin was removed. The shaft was reamed with a 12 mm reamer. Guidepin was placed all the way to the distal femur and it was used to measure off of. The appropriate length trochanteric femoral nail was chosen. It was placed on the insertion device and placed down the femoral shaft. The flexible guidewire was removed. The nail was impacted to the appropriate depth while visualizing C-arm images of the proximal femur. Next, the aiming device was placed on the insertion device and a separate incision was made over the lateral hip. The guide pin then was drilled through the lateral femoral cortex up the femoral neck and after making several adjustments of the ksenia position and rotation, it was drilled into the center portion of the head and neck on the lateral view and slightly inferior to the central portion on the AP view. Pin was measured, the appropriate length helical blade was chosen. The lateral cortex reamer was used and then the helical blade was impacted. The proximal locking screw was tightened down and then the insertion device for the helical blade was used to compress the fracture and this was viewed under the C-arm, the insertion device was removed. The guide pin was removed. Hardcopy AP and lateral C-arm images were saved of the proximal femur documenting satisfactory reduction. An AP view was made at the distal femur. The ksenia appeared to be well above the total knee prosthesis. I then adjusted the C-arm for a lateral view to visualize the circular locking screw hole in the distal femur. A separate incision was made and the drill bit was used to drill across the distal femur under C-arm guidance through the distal locking screw hole. It was measured and the appropriate length distal locking screw was chosen. It was tightened down to the bone and C-arm images were made confirming the screw had gone through the locking hole. These were saved to the PACS system. The wounds were thoroughly irrigated. The deep fascia was closed with interrupted number 1 Vicryl followed by interrupted running 2-0 Vicryl, james on the skin. A bulky dressing was applied. She was then taken to the recovery room in stable condition having tolerated this procedure well. Job ID: [id number] Dictated Date: 12/02/2016 17:30:03 Drawbridge Operator Date: 12/03/2016 08:00:00 / patricio
--- NOTE | 2016-12-03 10:06 | Anesthesia-General Post-Op ---
General Patient Condition Mental Status/LOC: Same as Preop Cardiovascular: Satisfactory Nausea/Vomiting: Absent Respiratory: Satisfactory Pain: Controlled Complications: Absent Post Op Complications Complications None Follow Up Care/Instructions Patient Instructions None needed. Anesthesia/Patient Condition Patient Condition Patient is doing well, no complaints, stable vital signs, no apparent adverse anesthesia problems. No complications reported per nursing. CHASITY IBARRA CRNA Dec 03, 2016 10:06
[2016-12-03] MEDS ORDERED: LETR2.5T5 PO (10:49)
[2016-12-03] MEDS ORDERED: AMLO10TA2 PO (10:49)
[2016-12-03] MEDS ORDERED: METO-270 PO (10:49)
[2016-12-03] MEDS ORDERED: LEVO25TA5 PO (10:49)
[2016-12-03] MEDS ORDERED: FOSI20TA3 PO (10:49)
[2016-12-03] MEDS ORDERED: LOTE5GEL OU (10:49)
[2016-12-03] MEDS ORDERED: ONDANSETRON 4 MG/2 ML (SDV) Z0FRAN IVP NR (11:00)
[2016-12-03] MEDS ORDERED: ASPI-983 PO (11:01)
[2016-12-03] MEDS ORDERED: OMEG-160 PO (11:01)
[2016-12-03] MEDS ORDERED: [UNRECOGNIZED DRUG - CODE] OU (11:01)
[2016-12-03] MEDS ORDERED: NIAC250T8 PO (11:01)
[2016-12-03] MEDS ORDERED: SOLI10TA2 PO (11:01)
[2016-12-03] MEDS ORDERED: VITAMIN B12 (11:01)
[2016-12-03] MEDS ORDERED: VIT1CAPS5 PO (11:01)
[2016-12-03] MEDS ORDERED: CHOL500050 PO (11:01)
--- NOTE | 2016-12-03 11:57 | Physical Therapy Evaluation ---
PT Evaluation-General Medical Diagnosis Admission Date Dec 02, 2016 at 12:10 Medical Diagnosis: right hip fracture Onset Date: Dec 02, 2016 Therapy Diagnosis Therapy Diagnosis: general debility and weakness Height/Weight Height (Feet): 5 Height (Inches): 4.00 Weight (Pounds): 160 Weight (Ounces): 0.0 Precautions Precautions/Isolations: Fall Prevention, Standard Precautions Weight Bear Status Weight Bearing Restriction: Touch Toe Bearing (strict) Location Restriction: R LE Referral Physician: Bee Reason for Referral: Evaluation/Treatment Medical History Pertinent Medical History: HTN, OA (bilateral TKR) Additional Medical History fall at home, LOB doing laundry, tried to sit on stool and missed landing on right hip Current History s/p right ORIF femoral nail Reviewed History: Yes Social History Home: Single Level Current Living Status: Spouse (severely [place]) Entry Into Home: Stairs With Railing PT Steps Into Home: 2 Prior/Core FIM Prior Level of Function Functional [place] Measure 0=Not Assessed/NA 4=Minimal Assistance 1=Total Assistance 5=Supervision or Setup 2=Maximal Assistance 6=Modified [place] 3=Moderate Assistance 7=Complete [place] Bed Mobility: 6 Transfers (B,C,W/C) (FIM): 6 Gait: 6 uses FWW at home PLOF PT Evaluation-Current Subjective Patient is in bed and agrees to PT. Pain Numeric Pain Scale: 5-Moderate Pain Location: Right Location Body Site: Hip Pain Description: Acute Objective Patient Orientation: Person, Time, Situation Problem Solving: Fair Attachments: Oxygen, Coy Catheter, IV ROM/Strength ROM Lower Extremities left LE WFL all planes in supine; right LE limited due to pain and immobility Strenght Lower Extremities left LE 3/5 knee flexion and extension; right LE 3-/5 grossly Integumentary/Posture Integumentary refer to nursing notes Bowel Incontinence: No Bladder Incontinence: Coy Cath Posture kyphotic Neuromuscular (Tone, Coordination, Reflexes) diminished coordination due to age Sensory Vision: Functional Hearing: Impaired Sensation Right Lower Extremit: Intact Sensation Left Lower Extremity: Intact Transfers Functional [place] Measure 0=Not Assessed/NA 4=Minimal Assistance 1=Total Assistance 5=Supervision or Setup 2=Maximal Assistance 6=Modified [place] 3=Moderate Assistance 7=Complete [place] Transfers (B, C, W/C) (FIM): 3 Scootin Rollin Supine to/from Sit: 3 Sit to/from Stand: 4 bed t/f WC(FIM only if WC use): 4 This PT had patient place right foot on my foot to determine TTWB. Patient is unable to maintain TTWB right LE with transfer bed to chair ambulating 3'. Patient is strict TTWB right LE to allow proper healing. Gait Mode of Locomotion: Walk Anticipated Mode of Locomotion: Both Gait (FIM): 1 Distance (FIM): 1=up to 49 ft Distance: 3' Gait Level of Assist: 3 Gait Persons Needed: 2 Gait Assistive Device: FWW Comments/Gait Description SBA x 1 for tubing. Patient unable to safely maintain TTWB right LE. Balance Sitting Static: Normal Sitting Dynamic: Normal Standing Static: Fair Standing Dynamic: Fair Assessment/Needs 85 y.o. female, will benefit from skilled PT to address functional strength and mobility to ensure healing of right hip fracture. From a PT standpoint, patient is unable to maintain TTWB right LE and will require extended time ( skilled LTC) to recover and heal. Rehab Potential: Fair Post Rehab Potential-Barriers: age PT Retirement Goals Retirement Goals PT Rn Emergency Goals Time Frame: Dec 13, 2016 Transfers (B,C,W/C) (FIM): 5 Gait (FIM): 1 Gait distance (FIM): 1=up to 49 ft Distance: 15' Gait Level of Assist: 4 (with patient maintaining TTWB right LE) Gait Assistive Device: FWW PT Plan Problem List Problem List: Activity Tolerance, Functional Strength, Safety, Balance, Gait, Transfer, Bed Mobility, ROM, Other (strict TTWB right LE) Treatment/Plan Treatment Plan: Continue Plan of Care Treatment Plan: Bed Mobility, Education, Functional Activity [place], Functional Strength, Gait, Safety, Therapeutic Exercise, Transfers Treatment Duration: Dec 13, 2016 # of days/week 6 Visits Per Week: 11 Pt/Family Agrees w/Plan: Yes Safety Risks/Education Patient Education: Gait Training, Transfer Techniques, Safety Issues Teaching Recipient: Patient Teaching Methods: Demonstration, Discussion Response to Teaching: Verbalize Understanding, Reinforcement Needed Discharge Recommendations Therapy D/C Recommendations: Fpc (TCU/NH) Time/GCodes Time In: 1010 Time Out: 1035 Total Billed Treatment Time: 25 Total Billed Treatment 1 visit EVM 25 min G Codes Necessary: AMISH Grissom PT Dec 03, 2016 11:57
[2016-12-03] MEDS ORDERED: FLEET ENEMA ADULT 1 EA BTL PR PRN (13:00)
[2016-12-03] MEDS: SENNA W/DOCUSATE (SENOKOT S) TABLET PO SCH ×2 (13:33→20:13)
--- NOTE | 2016-12-03 14:35 | Occupational Therapy Eval ---
OT Evaluation-General/PLF Medical Diagnosis Admission Date Dec 02, 2016 at 12:10 Medical Diagnosis: right hip fracture Onset Date: Dec 02, 2016 Therapy Diagnosis Therapy Diagnosis: weakness, Decreased ADL skills Height/Weight Height (Feet): 5 Height (Inches): 4.00 Weight (Pounds): 160 Weight (Ounces): 0.0 Precautions Precautions/Isolations: Fall Prevention, Standard Precautions Safety Interventions: None Weight Bear Status Weight Bearing Restriction: Touch Toe Bearing (strict) Location Restriction: R LE Referral Physician: Bee Referral Reason: Activity Tolerance, Self Care, Evaluation/Treatment, Strengthening/ROM Medical History Pertinent Medical History: HTN, OA (bilateral TKR) Additional Medical History hypothryroidism, cataracts, diverticulosis, lumpectomy, anxiety. Current History Pt. fell at home folding laundry at home, and fell off of a stool. Had just returned home from her daughters in [place] for [place]. Pt. had nailing in right femur and is TTWB. Reviewed History: Yes Social History Home: Single Level Current Living Status: Spouse (severely [employer]) Entry Into Home: Stairs With Railing Steps Into Home: 5 ADL-Prior Level of Function ADL PLOF Comments Pt. was independent with daily tasks. DME/Equipment: Bath Bench, Bath Chair, Tub/Shower DME/Equipment Comments Pt. states that she has both a transfer tub bench and a bath seat, but does not like either of these. Drive Self: No OT Current Status Subjective Pt. reports a headache, but does not report pain in hip. However, does moan when getting to side of bed. Still does not report pain level. Appearance Pt. is in bed and agrees to spongebathe with assist from OT. Mental Status/Objective Patient Orientation: Person, Place Current Glasses/Contacts: Yes Hand Dominance: Right Upper Extremity ROM WFL Upper Extremity Coordination intact Upper Extremity Strength Pt. demonstrates 2+/5 bilateral UE strength throughout. ADL-Treatment Functional [place] Measure 0=Not Assessed/NA 4=Minimal Assistance 1=Total Assistance 5=Supervision or Setup 2=Maximal Assistance 6=Modified [place] 3=Moderate Assistance 7=Complete IndependenceIRFPAI Quality Coding Scale 6 Independent with activity with or without an assistive device 5 Patient requires set up or clean up by helper. Patient completes activity by themselves 4 Supervision or touching assist (CGA). [place] provide cues , steadying assist 3 The helper provides less than half the effort to complete the activity 2 The helper provides more than half the effort to complete the activity 1 Dependent. The helper does all the effort to complete an activity 7 Patient refused to complete or attempt activity 9 The patient did not perform the activity before the current illness or injury 88 Not attempted due to Medical conditions or safety concerns Bathing (FIM): 3 (Pt. requires assistance to wash front anni area and bilateral feet.) Lower Body Dressing (FIM): 2 (Pt requires max assist to doff socks and to don them.) Transfers (B, C, W/C) (FIM): 2 (Pt. requires mod assist to transfer supine-sit and min assist for sit-stand. Pt. requires mod assist to get bilateral feet back into bed. Dependent assist needed for bed mobility.) Other Treatments No street clothing available. Pt. is able to participate in sponge bathing tasks on side of bed. Requires rest breaks and cues at times. Pt. unable to lift right leg or move it to position it in bed. All needs are met after pt. has participated in spongebathing task on side of bed. Hospital gown and socks applied. Education OT Patient Education: Exercise program, Modified ADL techniques, Progress toward Goal/Update tx plan, Purpose of tx/functional activities, Reviewed precautions, Rehab process, Transfer techniques Teaching Recipient: Patient, Friend Teaching Methods: Demonstration, Discussion Response to Teaching: Verbalize Understanding, Return Demonstration OT Short Term Goals Short Term Goals Time Frame: Dec 10, 2016 Eating(FIM): 5 Grooming(FIM): 5 Bathing(FIM): 4 Upper Body Dressing(FIM): 5 Lower Body Dressing(FIM): 4 Toileting(FIM): 4 Transfers (B,C,W/C) (FIM): 4 Toilet/Commode Transfer(FIM): 4 Additional Short Term Goals: 1-Demonstrate ADL Tasks, 2-Verbalize Understanding , 3-ImproveStrength/[place] 1=Demonstrate adherence to instructed precautions during ADL tasks. 2=Patient will verbalize/demonstrate understanding of assistive devices/ modifications for ADL. 3=Patient will improve strength/tolerance for activity to enable patient to perform ADL's. OT Reed Cleaner Goals Reed Cleaner Goals Time Frame: 12/17/15 Eating (FIM): 6 Grooming(FIM): 6 Bathing(FIM): 5 Upper Body Dressing(FIM): 5 Lower Body Dressing(FIM): 5 Toileting(FIM): 5 Transfers (B,C,W/C) (FIM): 6 Toilet/Commode Transfer(FIM): 6 Shower Transfer(FIM): 5 Additional Goals: 1-Demonstrate ADL Tasks, 2-Verbalize Understanding, 3- ImproveStrength/Corbin 1=Demonstrate adherence to instructed precautions during ADL tasks. 2=Patient will verbalize/demonstrate understanding of assistive devices/ modifications for ADL. 3=Patient will improve strength/tolerance for activity to enable patient to perform ADL's. OT Education/Plan Problem List/Assessment Assessment: Decreased Activ Tolerance, Decreased UE Strength, Dependent Transfers, Impaired Bed Mobility, Impaired Funct Balance, Impaired I ADL's, Impaired Self-Care Skills Discharge Recommendations Plan/Recommendations: Continue POC Therapy D/C Recommendations: Acute Rehab Target Placement Pt. states that she wants to come to acute rehab. Treatment Plan/Plan of Care Treatment,Training & Education: Yes Patient would benefit from OT for education, treatment and training to promote independence in ADL's, mobility, safety and/or upper extremity function for ADL' s. Plan of Care: ADL Retraining, Functional Mobility, UE Funct Exercise/Act Treatment Duration: Dec 17, 2016 # of days/week 5-6 Visits Per Week: 5-6 Agreement: Yes Rehab Potential: Fair Time/GCodes Start Time: 08:30 Stop Time: 09:15 Total Time Billed (hr/min): 45 Billed Treatment Time 1, EVMODCx 15minutes, ADL x 30minutes DEREK WALKER OT Dec 03, 2016 14:35
[2016-12-03] MEDS ORDERED: CATHETER FLUSH 10 ML SYR IV PRN (15:00)
--- NOTE | 2016-12-03 15:16 | Physical Therapy Progress Note ---
Therapy Progress Note Patient is in bed and adamantly declined PT this p.m. stating, "I'm tired and I don't feel like getting up or exercising." PT attempted to encourage patient to participate,however, patient continued to adamantly decline. Plan is to transfer to ARU for extensive therapies. 1 ref AMISH GOODRICH PT Dec 03, 2016 15:16
[2016-12-03 16:00] VITALS: BP 110/59
[2016-12-03 20:00] VITALS: BP 107/57
[2016-12-03] MEDS: EYE WASH 118 ML BTL OU SCH (20:13)
[2016-12-04] VITALS: BP 93/53
[2016-12-04] MEDS: HYDROcodone/APAP 5 MG/325 MG (LORTAB) TAB PO PRN (06:07)
[2016-12-04 07:30] VITALS: BP 111/53
[2016-12-04] MEDS ORDERED: LETROZOLE 2.5 MG (FEMARA) TAB PO SCH (09:00)
[2016-12-04] MEDS ORDERED: ASPIRIN E.C. 81 MG (ECOTRIN) TAB PO SCH (09:00)
[2016-12-04] MEDS ORDERED: NON-FORMULARY MEDICATION 1 EA EA (Cholecalciferol (Vitamin D3) (Vitamin D) 5,000 UNIT) PO SCH (09:00)
[2016-12-04] MEDS ORDERED: VITAMIN D3 5,000 UNITS (CHOLECALCIFEROL ) CAPSULE PO SCH (09:00)
[2016-12-04] MEDS ORDERED: NON-FORMULARY MEDICATION 1 EA EA (Loteprednol Etabonate (Lotemax) 1 DROP) OU SCH (09:00)
[2016-12-04] MEDS ORDERED: PRESERVISION AREDS SOFTGEL (BAUSH & LOMB) PO SCH (09:00)
[2016-12-04] MEDS: EYE WASH 118 ML BTL OU SCH (09:00)
[2016-12-04] MEDS: ENOXAPARIN 40 MG/0.4 ML (LOVENOX) SYR SC SCH (09:12)
[2016-12-04] MEDS: SENNA W/DOCUSATE (SENOKOT S) TABLET PO SCH (09:14)
--- NOTE | 2016-12-04 09:52 | Progress Note (SOAP) ---
Subjective Subjective/Events-last exam PT REPORTS THAT SHE FEELS BETTER AFTER SHE WAS DISIMPACTED YESTERDAY. SHE DENIES NAUSEA TODAY, BUT DOES FEEL FATIGUED TODAY COMPARED TO HER USUAL STATE OF HEALTH SHE DENIES CHEST PAIN, SHORTNESS OF BREATH, DIZZINESS Review of Systems General: No Fatigue, No Malaise HEENT: No Head Aches Pulmonary: No Dyspnea, No Cough Cardiovascular: No: Chest Pain, Palpitations Gastrointestinal: : ConstipationNo: Abdominal Pain, Nausea Musculoskeletal: : leg pain Neurological: : WeaknessNo: Confusion Objective Exam Vital Signs Date Time Temp Pulse Resp B/P Pulse Ox O2 Delivery O2 Flow Rate FiO2 12/04/16 09:00 Nasal Cannula 2.00 12/04/16 07:48 93 Nasal Cannula 2.00 12/04/16 00:00 99.8 78 20 93/53 93 Nasal Cannula 2.00 12/03/16 20:43 Nasal Cannula 2.00 12/03/16 20:00 99.4 89 18 107/57 98 Nasal Cannula 2.00 12/03/16 16:00 98.3 81 18 110/59 98 Nasal Cannula 2.00 I & O 12/04/16 07:00 Intake Total 1490 ml Output Total 1800 ml Balance -310 ml Capillary Refill : Less Than 3 SecondsLess Than 3 Seconds General Appearance: No Apparent Distress WD/WN HEENT: PERRL/EOMI Pharynx Normal Neck: Full Range of Motion Supple Respiratory: Chest Non Tender Lungs Clear Normal Breath Sounds No Accessory Muscle Use No Respiratory Distress Cardiovascular: Regular Rate, Rhythm No Edema Gastrointestinal: normal bowel sounds non tender soft no organomegaly no pulsatile mass Extremity: Pedal Edema (TRACE ON RIGHT LOWER LEG WITH DRESSING C/D/I) Neurologic/Psychiatric: Alert Oriented x3 No Motor/Sensory Deficits Normal 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 PT WILL NEED REHAB FOR THERAPIES - TRANSFER TODAY AND REHAB TO BE ABLE TO BE DISCHARGED TO HOME. Diagnosis/Problems: Clinical Quality Measures DVT/VTE Risk/Contraindication: Risk Factor Score Per Nursin RFS Level Per Nursing on Admit: 4+=Very High CASH GUAN MD Dec 04, 2016 09:52
--- NOTE | 2016-12-05 14:22 | Physician Query-General Query ---
Physician Query-General Query to Physician: 1. Please clarify the type of anemia the patient had. 2. What treatment was given for the anemia? PHYSICIAN RESPONSE: Based on the clinical findings in the record, please respond to the query above on this document as an addendum. Possible, probable, or questionable diagnosis can be coded for INPATIENTS ONLY. Physician Response: Physician Response POST-SURGICAL/HEMORRHAGIC ANEMIA TREATED WITH BLOOD TRANSFUSION If you have questions please contact: Data Security Coordinator: Kena Ext: [phone] Thank you for your time and cooperation. Clinical Card Services Specialist/Data Security Coordinator This is a permanent part of the medical record KENA NAVARRETE Dec 05, 2016 14:22 CASH GUAN MD Dec 23, 2016 16:25
[2016-12-22] MEDS ORDERED: ACET-77 PO (09:44)
[2016-12-22] MEDS ORDERED: SENN-20 PO (09:44)
--- NOTE | 2016-12-24 15:47 | Discharge Summary ---
Diagnosis/Chief Complaint Date of Admission Dec 02, 2016 at 12:10 Date of Discharge Dec 04, 2016 at 10:25 Discharge Date: Dec 04, 2016 Discharge Time: 1000 Admission Diagnosis Admission Diagnosis Right comminuted intertrochanteric femur fracture Discharge Diagnosis same Reason Hospital Visit Chief complaint- right hip pain HPI- This in an 85 year old female who ate breakfast at 8:30 AM and then went to sit on a stool and missed it and landed on the floor. She hurt the right hip. She was seen in the ER with an intertrochanteric femur fracture. She denies any other injury or loss of consciousness. Discharge Summary Procedures: Right trochanteric femoral nail 12/02/2016 Discharge Physical Examination Allergies: Coded Allergies: No Known Drug Allergies (Unverified , 12/02/16) General Appearance: Oriented X3 HEENT: Atraumatic Respiratory: Clear to Auscultation Cardiovascular: Regular Rate Abdominal: Normal Bowel Sounds Skin: No Rashes Neuro: Other (Right hip incision healing well.) Hospital Course This lady fell on the right hip and sustained an intertrochanteric fracture. She went to surgery that evening and had a TFN placed. She was given 24 hours of IV antibiotics postop. She was placed on IV narcotics and then weaned over to oral narcotics for pain control. Dr. Crow was consulted for medical management. She was mobilized with PT and moved slowly due to her age. Her wound healed well while in the hospital. Rehab was consulted and she was discharged and readmitted under rehab on 12-04-2016. Discussion & Recommendations She is DC'd to rehab. Discharge Condition at discharge stable Instructions to patient/family Please see electonic discharge instructions given to patient. Discharge Medications Reviewed and agree with Discharge Medication list on patient's Discharge Instruction sheet Clinical Quality Measures DVT/VTE Risk/Contraindication: Risk Factor Score Per Nursin RFS Level Per Nursing on Admit: 4+=Very High FIDE TUCKER MD Dec 24, 2016 15:46
== END 2016-12-04 10:25 | DRG 481 ==
LOC: EDUNIT# 11:12 → ER 11:16 → MERGE 12:10 → 4TH 12:10
PROVIDERS: ADMIT Orthopaedic Surgery; ATTEND Family Medicine
PROC: 0QS606Z Reposition Right Upper Femur with Intramedullary Internal Fixation Device, Open Approach (ICD-10-PCS; principal; 2016-12-02 15:56)
DX: S72.141A Displaced intertrochanteric fracture of right femur, initial encounter for closed fracture (principal); I10 Essential (primary) hypertension; M19.90 Unspecified osteoarthritis, unspecified site; E03.9 Hypothyroidism, unspecified; D62 Acute posthemorrhagic anemia; K59.00 Constipation, unspecified; W19.XXXA Unspecified fall, initial encounter; Y92.009 Unspecified place in unspecified non-institutional (private) residence as the place of occurrence of the external cause
CPT/HCPCS: 36415; 51702; 71010; 72170; 73502; 80053; 81000; 85014; 85018; 85025; 85027; 85610; 85730; 86850; 86900; 86901; 93005; 94664

== ENCOUNTER 2016-12-04 10:11 | Inpatient (IN) | payer MEDICARE ==
[~2016-12-04] VITALS: Ht 152.4 cm; Wt 67.1 kg
[~2016-12-04 10:11] MED LIST changes: +AMLO10TA2 PO; +ASPI-983 PO; +FOSI20TA3 PO; +LEVO25TA5 PO; +LOTE5GEL OU; +METO-270 PO; +NIAC250T8 PO; +OMEG-160 PO; +VIT1CAPS5 PO; +VITAMIN B12; +[UNRECOGNIZED DRUG - CODE] OU
[2016-12-04 11:00] VITALS: BP 126/62
--- OUTSIDE RECORDS SUMMARY | 2016-12-04 11:22 | XMS REPORT | Continuity of Care Document ---
Author Author [facility] Organization [facility] Address Unknown Phone Unavailable Care Team Providers Care Rack Pusher Name Role Phone CASH GUAN MD PCP Insurance Providers Payer Name Policy Number Subscriber Name Relationship Wps Medicare [id number] Trinity Slade 18 Self / Same As Patient Blue Cross [facility] Supp [id number] Trinity Slade 18 Self / Same As Patient Advance Directives Directive Response Recorded Date/Time Advance Directives No 10/14/14 2:41pm Health Care Power of Video Journalist No 10/14/14 2:41pm Organ Donor No 10/14/14 [...] Encounters Encounter Location Date/Time Discharged Recurring [facility] 03/09/15 10:06am
--- NOTE | 2016-12-04 11:52 | Physical Therapy Evaluation ---
PT Evaluation-General Medical Diagnosis Admission Date Dec 04, 2016 at 10:25 Medical Diagnosis: right hip fracture Onset Date: Dec 02, 2016 Therapy Diagnosis Therapy Diagnosis: impaired mobility, strength, endurance, ROM Height/Weight Height (Feet): 5 Height (Inches): 4.00 Weight (Pounds): 160 Weight (Ounces): 0.0 Weight Bear Status Weight Bearing Restriction: Touch Toe Bearing Location Restriction: R LE Referral Physician: Jer[place]o Reason for Referral: Evaluation/Treatment Medical History Pertinent Medical History: HTN, OA Additional Medical History bilateral TKA Current History fall at home, LOB doing laundry, tried to sit on stool and missed landing on right hip Reviewed History: Yes Social History Home: Single Level Current Living Status: Spouse Entry Into Home: Stairs With Railing PT Steps Into Home: 2 Prior/Core FIM Prior Level of Function Functional [place] Measure 0=Not Assessed/NA 4=Minimal Assistance 1=Total Assistance 5=Supervision or Setup 2=Maximal Assistance 6=Modified [place] 3=Moderate Assistance 7=Complete [place] Bed Mobility: 7 Transfers (B,C,W/C) (FIM): 7 Gait: 7 Patient may have been using a rolling walker at home, she is unclear on this issue and will not give a direct answer to it. PT Daily Note-Current Subjective Patient in bed pre tx, agrees to PT, will be transporting patient to the rehab floor. Pain Numeric Pain Scale: 0-No Pain Appearance Patient in wheelchair in therapy gym post tx, has OT right after PT. Mental Status Patient Orientation: Normal For Age Attachments: Oxygen 2L of O2 nasal canula Transfers Functional [place] Measure 0=Not Assessed/NA 4=Minimal Assistance 1=Total Assistance 5=Supervision or Setup 2=Maximal Assistance 6=Modified [place] 3=Moderate Assistance 7=Complete IndependenceIRFPAI Quality Coding Scale 6 Independent with activity with or without an assistive device 5 Patient requires set up or clean up by helper. Patient completes activity by themselves 4 Supervision or touching assist (CGA). [place] provide cues , steadying assist 3 The helper provides less than half the effort to complete the activity 2 The helper provides more than half the effort to complete the activity 1 Dependent. The helper does all the effort to complete an activity 7 Patient refused to complete or attempt activity 9 The patient did not perform the activity before the current illness or injury 88 Not attempted due to Medical conditions or safety concerns Transfers (B, C, W/C) (FIM): 4 Scootin Rollin Roll Left to Right (QC): 3 Supine to/from Sit: 4 Sit to/from Stand: 4 Bed to/from Chair: 4 Sit to Lying (QC): 3 Lying-Sitting/Side of Bed(QC): 3 Sit to Stand (QC): 3 Chair/Zxu-cg-Flomb Xfer(QC): 3 Car Transfer (QC): 88 Patient needs min assist to go from supine to sit and for sit to stand, needs min assist for guiding the walker and for cues to maintain weight bearing status. Weight Bearing Weight Bearing Restriction: Touch Toe Bearing Location Restriction: R LE Patient seems to bear too much weight on the right side, she does not bear full weight, but more than toe touch. Gait Training Does the Patient Walk?: Yes Gait (FIM): 1 Distance: 15' Walk 10 feet (QC): 3 Walk 50 ft with 2 Turns(QC): 88 Walk 150 ft (QC): 88 Walk 10ft-uneven surface(QC): 88 Gait Level of Assist: 4 Gait Persons Needed: 1 Gait Assistive Device: FWW Min assist to help guide walker when turning and for cues to maintain weight bearing status. Wheelchair Training Does the Pt Use a Wheelchair?: Yes Wheelchair (FIM): 2 Distance: 50' Wheelchair Level of Assist: 4 Wheel 50 ft with 2 turns (QC): 3 Wheel 150 ft (QC): 88 Type of Wheelchair: Manual Patient needs assist with turning, she cannot coordinate her arms to turn effectively Stair Training Stairs (FIM): 0 1 Step (curb) (QC): 88 4 Steps (QC): 88 12 Steps (QC): 88 No steps performed. Patient is not safe to perform steps at this time due to weakness and poor mobility. Balance Balance Sitting Static: Normal Balance Sitting Dynamic: Normal Balance-Standing Static: Fair Balance Standing Dynamic: Fair Picking up an Object (QC): 88 Neuromuscular Patient has intact light touch sensation bilateral lower extremities, strength not tested due to recent surgery. Treatments bed mobility and transfers, ambulation, wheelchair mobility, patient was toileted and required a diaper change and wiping which patient could not help with any of it because she had to hold onto the rail and walker. Assessment Patient has impaired mobility, ROM, strength, endurance post right hip fracture. PT Short Term Goals Short Term Goals Time Frame: Dec 11, 2016 Transfers (B,C,W/C) (FIM): 4 (CGA) Gait (FIM): 2 Gait Distance Comment: 50' Gait Level of Assist: 4 (CGA) Gait Assistive Device: FWW PT Building Architect Goals Building Architect Goals PT Mcc Goals Time Frame: Dec 25, 2016 Transfers (B,C,W/C) (FIM): 5 Sit to Lying (QC): 4 Lying-Sitting on Side/Bed(QC): 4 Sit to Stand (QC): 4 Rollin Roll Left to Right (QC): 4 Chair/[id number]-Vfkwl Xfer(QC): 4 Car Transfer (QC): 4 Does the Patient Walk: Yes Gait (FIM): 5 Distance: 150' Walk 10 feet (QC): 4 Walk 10ft-Uneven Surface(QC): 4 Walk 50ft with 2 Turns (QC): 4 Walk 150 ft (QC): 4 Gait Level of Assist: 5 Gait Assistive Device: FWW Stairs (FIM): 2 # of Steps: 4 1 Step (curb) (QC): 4 4 Steps (QC): 4 12 Steps (QC): 4 Stairs Level Of Assist: 5 Picking up an Object (QC): 88 PT Plan Problem List Problem List: Activity Tolerance, Functional Strength, Safety, Balance, Gait, Transfer, Bed Mobility, ROM Treatment/Plan Treatment Plan: Continue Plan of Care Treatment Plan: Bed Mobility, Education, Functional Activity [place], Functional Strength, Group Therapy, Gait, Safety, Therapeutic Exercise, Transfers Treatment Duration: Dec 25, 2016 # of days/week 5-6 Visits Per Week: 10-11 Minutes/Day (M-F): 60-90 Minutes/Day (Sat/Ortega): 15-30 Pt/Family Agrees w/Plan: Yes Safety Risks/Education Patient Education: Gait Training, Transfer Techniques, Correct Positioning, W/ C Management, Safety Issues Teaching Recipient: Patient Teaching Methods: Demonstration, Discussion Response to Teaching: Reinforcement Needed Discharge Recommendations Plan Patient will perform bed mobility and transfer training, balance and endurance training, functional strengthening, stair training, gait training, education, to improve functional mobility and independence at home. Therapy D/C Recommendations: Home w/ Family Support Time/GCodes Time In: 1025 Time Out: 1115 Total Billed Treatment Time: 50 Total Billed Treatment 1 visit attila low complexity 15' GT 15' FA 20' MIGUEL A MENDES PT Dec 04, 2016 11:52
--- NOTE | 2016-12-04 13:00 | Occupational Therapy Eval ---
OT Evaluation-General/PLF Medical Diagnosis Admission Date Dec 04, 2016 at 10:25 Medical Diagnosis: right hip fracture Onset Date: Dec 02, 2016 Therapy Diagnosis Therapy Diagnosis: decreased self care skills Height/Weight Height (Feet): 5 Height (Inches): 4.00 Weight (Pounds): 160 Weight (Ounces): 0.0 Weight Bear Status Weight Bearing Restriction: Touch Toe Bearing Location Restriction: R LE Referral Physician: Jericho Medical History Pertinent Medical History: Arthritis, HTN, Hypothroidism, OA Additional Medical History lumpectomy, chronic constipation, anxiety Current History Pt fell at home resulting in right hip fracture. Pt. had nailing in right femur and is TTWB. Reviewed History: Yes Social History Home: Single Level Current Living Status: Spouse Entry Into Home: Stairs With Railing Steps Into Home: 5 ADL-Prior Level of Function ADL PLOF Comments Pt reports being independent with basic self care and mobility. Pt states she does not use an AD for mobility. Pt does the cooking and laundry. DME/Equipment: Bath Bench, Tall Toilet, Tub/Shower Drive Self: Yes OT Current Status Subjective Pt agreeable to therapy this am. 01/10 right hip pain reported Mental Status/Objective Patient Orientation: Person, Place, Situation Current Glasses/Contacts: Yes Hearing Aids: No Dentures/Partials: No Hand Dominance: Right Upper Extremity ROM Grossly WFL Upper Extremity Coordination Intact Upper Extremity Sensation Intact per pt report Upper Extremity Strength Grossly 4-/5 ADL-Treatment ADL-Current Pt sitting in w/c for sponge bath. Upper body bathing completed with set up and increased time. Pt able to wash bilateral upper legs, but requires assist for lower legs and feet. Assist required to wash buttocks. Don pullover gown with set up. Pt does not have any pants here at this time. Pt requires total assist to doff/don socks. Grooming tasks completed seated at sink. Pt brushed teeth, combed hair after set up. Transfer to toilet with minimal assistance using FWW. Pt requires assist to pull depends down/ up and for toileting hygiene. Sit to stand from toilet with moderate assistance. Pt has difficulty maintaining TTWB during transfers. Pt requests to return to bed after session. Transfer to EOB with minimal assistance with FWW. Sit to supine with assist for bilateral LE. Pt in bed with needs met after session. Functional [place] Measure 0=Not Assessed/NA 4=Minimal Assistance 1=Total Assistance 5=Supervision or Setup 2=Maximal Assistance 6=Modified [place] 3=Moderate Assistance 7=Complete IndependenceIRFPAI Quality Coding Scale 6 Independent with activity with or without an assistive device 5 Patient requires set up or clean up by helper. Patient completes activity by themselves 4 Supervision or touching assist (CGA). [place] provide cues , steadying assist 3 The helper provides less than half the effort to complete the activity 2 The helper provides more than half the effort to complete the activity 1 Dependent. The helper does all the effort to complete an activity 7 Patient refused to complete or attempt activity 9 The patient did not perform the activity before the current illness or injury 88 Not attempted due to Medical conditions or safety concerns Eating (FIM): 5 (Pt reports receiving assist to open containers, but then feeds self ) Eating (QC): 5 Grooming (FIM): 5 Oral Hygiene (QC): 5 Bathing (FIM): 3 Shower/Bathe Self (QC): 3 Upper Body Dressing (FIM): 5 Upper Body Dressing (QC): 5 On/Off Footwear (QC): 1 Toileting (FIM): 1 Toileting Hygiene (QC): 1 Toilet/Commode Transfer (FIM): 3 Toilet Transfer (QC): 3 Education OT Patient Education: Rehab process Teaching Recipient: Patient Teaching Methods: Discussion Response to Teaching: Verbalize Understanding OT Short Term Goals Short Term Goals Time Frame: Dec 11, 2016 Lower Body Dressing(FIM): 3 Toileting(FIM): 3 Toilet/Commode Transfer(FIM): 4 Additional Short Term Goals: 1-Demonstrate ADL Tasks, 2-Verbalize Understanding , 3-ImproveStrength/[place] 1=Demonstrate adherence to instructed precautions during ADL tasks. 2=Patient will verbalize/demonstrate understanding of assistive devices/ modifications for ADL. 3=Patient will improve strength/tolerance for activity to enable patient to perform ADL's. OT Paleology Teacher Goals Paleology Teacher Goals Time Frame: Dec 25, 2016 Eating (FIM): 6 Eating (QC): 6 Oral Hygiene (QC): 6 Grooming(FIM): 6 Bathing(FIM): 5 Shower/Bathe Self (QC): 5 Upper Body Dressing(FIM): 5 Upper Body Dressing (QC): 5 Lower Body Dressing(FIM): 5 Lower Body Dressing (QC): 5 On/Off Footwear (QC): 5 Toileting(FIM): 5 Toileting Hygiene (QC): 5 Toilet/Commode Transfer(FIM): 5 Toilet/Commode Transfer (QC): 5 Shower Transfer(FIM): 5 Additional Goals: 1-Demonstrate ADL Tasks, 2-Verbalize Understanding, 3- ImproveStrength/[place] 1=Demonstrate adherence to instructed precautions during ADL tasks. 2=Patient will verbalize/demonstrate understanding of assistive devices/ modifications for ADL. 3=Patient will improve strength/tolerance for activity to enable patient to perform ADL's. Goals established to increase functional performance and allow safe return home. OT Education/Plan Problem List/Assessment Assessment: Decreased Activ Tolerance, Decreased UE Strength, Dependent Transfers, Impaired Self-Care Skills Pt demonstrates decreased mobility, strength, activity tolerance, and ADL performance. Pt to benefit from skilled OT intervention for ADL training, transfers, strengthening, and safety education to maximize level of function and allow safe discharge plan. Discharge Recommendations Plan/Recommendations: Continue POC Treatment Plan/Plan of Care Treatment,Training & Education: Yes Patient would benefit from OT for education, treatment and training to promote independence in ADL's, mobility, safety and/or upper extremity function for ADL' s. Plan of Care: ADL Retraining, Functional Mobility, Group Exercise/Act as Ind, UE Funct Exercise/Act Treatment Duration: Dec 25, 2016 # of days/week 5-6 Minutes/Day (M-F): 60-90 Minutes/Day (Sat/Ortega): PRN Agreement: Yes Rehab Potential: Fair Time/GCodes Start Time: 11:15 Stop Time: 12:15 Total Time Billed (hr/min): 60 Billed Treatment Time 1 visit, EVLOWC(15minutes), ADLx3(45minutes) SHRUTI ROBERTS OT Dec 04, 2016 13:00
--- NOTE | 2016-12-04 15:03 | Therapy Group Daily Note ---
Therapy Daily Group Note Patient Education Topic Other List Below (Rehab Process, Benefits of exercise/movement) Exercises LE Seated Exercise, UE Exercise Other/Notes Pt attended OT/PT group this pm. Pt to/from group via w/c. Pt on 2L O2 via nasal cannula. Pt introduced self to group and participated in group discussion. Education provided regarding rehab process/expectations and the benefits of exercise and activity. Pt led group in exercise that was written/ illustrated on card and participated in UE/LE exercises led by other group members. Pt participated in memory activity involving matching images and recalling information from introductions. Pt returned to room after session with needs met. Start Time: 13:00 Stop Time: 14:15 Total Billed Treatment Time: 75 Total Billed Treatment 1 visit, SHRUTI CARLIN OT Dec 04, 2016 15:03
--- NOTE | 2016-12-04 15:28 | Therapy Group Daily Note ---
Therapy Daily Group Note Patient Education Topic Other List Below (Rehab process, Benefits of exercise/movement) Exercises LE Seated Exercise, UE Exercise Other/Notes Pt attended OT/PT group this pm. Pt to/from group via w/c. Pt on 2L O2 via nasal cannula. Pt introduced self to group and participated in group discussion. Education provided regarding rehab process/expectations and the benefits of exercise and activity. Pt led group in exercise that was written/ illustrated on card and participated in UE/LE exercises led by other group members. Pt participated in memory activity involving matching images and recalling information from introductions. Pt returned to room after session with needs met. Start Time: 13:00 Stop Time: 14:15 Total Billed Treatment Time: 75 Total Billed Treatment 1, GRP SHRUTI ROBERTS OT Dec 04, 2016 15:28
--- NOTE | 2016-12-04 15:35 | ST Cognitive Linguistic Eval ---
Speech Evaluation-General Medical Diagnosis right hip fracture Onset Date: Dec 02, 2016 Therapy Diagnosis Therapy Diagnosis: Questionable Cognitive Impairment Precautions Precautions/Isolations: Fall Prevention, Standard Precautions Referral Referring Physician: Dr. Kirby Echavarria Reason for Referral: Evaluation/Treatment Cognitive Screen Medical History Pertinent Medical History: Arthritis, HTN, Hypothroidism, OA Reviewed History: Yes Social History Current Living Status: Spouse Speech PLF-Current Status Prior Level of Function The patient denied any difficulty with speech, language, or cognition prior to admission. Subjective The patient was recently admitted with a right hip fracture. The patient greeted the clinician appropriately and agreed to participate in the cognitive screen on this date. Language Eval: Auditory Comprehends Simple Yes/No Ques: Functional Indent/Objects Multiple June: Functional Ident/Pics in Multiple June: Functional Follows 1-Step Commands: Functional Follows Complex Directions: Functional Follows General Conversations: Functional Language Eval: Verbal Language Completes Spontaneous Greeting: Functional Produces Auto, Serial Info: Functional Imitates Simple Words/Phrases: Functional Word Finding: Functional Requests Basic Needs: Functional States Basic Personal Info: Functional Expresses Complex Ideas: Functional Cognitive Patient Orientation The patient is alert and oriented x3. Objective Cognitive Domain Attention: WNL Memory: WNL Executive Functions: WNL Objective Impression The patient demonstrated cognitive linguistic skills appropriate for completion of ADL's. Communication/Social Cognition Comprehension: 6 Expression: 6 Social Interaction: 6 Problem Solvin Memory: 5 Speech Patient Assess Expression of Ideas/Wants: Expression (4) Understanding [place] Content: Understands (4) Brief Interview-Mental Status: Yes Repetition of Three Words: Three (3) Temporal Orientation: Year: Correct (3) Temporal Orientation: Month: Accurate within 5 days(2) Temporal Orientation: Day: Correct (1) Recall : Wear: Yes, no cue required (2) Recall : Color: Yes, no cue required (2) Recall : Bed: Yes, no cue required (2) Speech-Plan Treatment Plan Speech Therapy Treatment Plan: Discontinue ST (Eval, only.) Rehab Potential: Good Safety Risks/Education Teaching Recipient: Patient Teaching Methods: Discussion Response to Teaching: Verbalize Understanding Education Topics Provided: Plan of Care Time Speech Therapy Time In: 15:15 Speech Therapy Time Out: 15:30 Total Billed Time: 15 Billed Treatment Time 1, RADHA DUONG Dec 04, 2016 15:35
[2016-12-04] MEDS: TROSPIUM 20 MG (SANCTURA) TAB PO SCH (17:56)
[2016-12-04 18:57] VITALS: BP 121/68
[2016-12-04] MEDS: EYE WASH 118 ML BTL OU SCH (20:51)
[2016-12-04] MEDS: SENNA W/DOCUSATE (SENOKOT S) TABLET PO SCH (20:51)
[2016-12-05] MEDS: HYDROcodone/APAP 5 MG/325 MG (LORTAB) TAB PO PRN (01:37)
[2016-12-05] MEDS: TROSPIUM 20 MG (SANCTURA) TAB PO SCH ×2 (05:16→18:31)
[2016-12-05 06:00] VITALS: BP 147/68
[2016-12-05 06:21] LABS: BASOPHILS % (AUTO) 0 % (0-10); EOSINOPHILS % (AUTO) 0 % (0-10); LYMPHOCYTES # (AUTO) 1.3 X 10^3 (1.0-4.0); LYMPHOCYTES % (AUTO) 17 % (12-44); MEAN CORPUSCULAR HEMOGLOBIN 32 PG (25-34); MEAN CORPUSCULAR HGB CONC 32 G/DL (32-36); MEAN CORPUSCULAR VOLUME 102 FL (80-99); MEAN PLATELET VOLUME 10.8 FL (7.4-10.4); MONOCYTES # (AUTO) 0.9 X 10^3 (0.0-1.0); MONOCYTES % (AUTO) 13 % (0-12); NEUTROPHILS # (AUTO) 5.1 X 10^3 (1.8-7.8); NEUTROPHILS % (AUTO) 70 % (42-75); PLATELET COUNT 107 10^3/uL (130-400); RED BLOOD COUNT 2.45 10^6/uL (4.35-5.85); RED CELL DISTRIBUTION WIDTH 13.2 % (10.0-14.5); WHITE BLOOD COUNT 7.4 10^3/uL (4.3-11.0)
[2016-12-05] MEDS: LEVOTHYROXINE 25 MCG (LEVOTHROID) TAB PO SCH (06:47)
[2016-12-05 06:50] LABS: ALANINE AMINOTRANSFERASE 12 U/L (0-55); ALBUMIN 3.1 G/DL (3.2-4.5); ANION GAP 5 MMOL/L (5-14); ASPARTATE AMINO TRANSFERASE 20 U/L (5-34); BILIRUBIN,TOTAL 0.5 MG/DL (0.1-1.0); BLOOD UREA NITROGEN 15 MG/DL (7-18); BUN/CREATININE RATIO 28; CALCIUM 7.7 MG/DL (8.5-10.1); CARBON DIOXIDE 25 MMOL/L (21-32); CHLORIDE 108 MMOL/L (98-107); CREATININE SERUM 0.54 MG/DL (0.60-1.30); GFR ESTIMATED > 60; GLUCOSE 110 MG/DL (70-105); SODIUM 138 MMOL/L (135-145); TOTAL PROTEIN 4.8 G/DL (6.4-8.2)
--- NOTE | 2016-12-05 07:25 | HISTORY AND PHYSICAL ---
DATE OF ADMISSION: 12/04/2016 CHIEF COMPLAINT: Difficulty with walking. HISTORY OF PRESENT ILLNESS: The patient is an 85-year-old female who had been independent living with her spouse in [place], [place] who went to sit on a stool and missed and landed on the floor. She sustained a right hip fracture. She was admitted to [facility] on 12/02 to the service of Dr. Gamboa. The patient had surgical repair of the right comminuted intertrochanteric femur fracture. She was made toe touch weight-bearing right lower extremity postoperatively. She is referred to Inpatient Rehabilitation Unit for ongoing therapies prior to discharge home with spouse. The case was discussed with Dr. Crow and Dr. Echavarria yesterday. Dr. Crow, PCP. The patient had postoperative anemia and Dr. Crow following that with follow-up labs. The patient is on a variety of medications for her blood pressure. PAST MEDICAL HISTORY: 1. Hypertension. 2. Arthritis. PAST SURGICAL HISTORY: Bilateral total knee replacements with rehab on this unit in the past as well. ALLERGIES: No known medication allergies. FAMILY HISTORY: Noncontributory. SOCIAL HISTORY: Retired. No tobacco or alcohol. REVIEW OF SYSTEMS: Ten-point review of systems significant for right hip pain. MEDICATIONS: 1. ASA 81 mg p.o. daily. 2. Letrozole 2.5 mg p.o. daily. 3. PreserVision 1 capsule p.o. daily. 4. Vitamine D3 5,000 units p.o. daily. 5. Lotemax one drop both eyes daily. 6. Amlodipine 10 mg p.o. daily. 7. Lisinopril 20 mg p.o. daily. 8. Toprol-XL 25 mg p.o. daily. 9. Lovenox 40 mg subcutaneous daily for DVT prophylaxis. 10. Synthroid 25 mcg p.o. daily. 11. Senokot-S 1 tablet p.o. b.i.d. 12. Boric acid eye wash 2 drops both eyes b.i.d. 13. Sanctura 20 mg p.o. b.i.d. 14. Lortab 5 one to two tablets p.o. q.4 hours p.r.n. moderate pain. 15. Tramadol 50 mg p.o. every 4 hours p.r.n. lesser pain. PHYSICAL EXAMINATION: Significant for a pleasant female, appearing her stated age, alert and oriented, lying in bed in no acute distress. She did have some postop respiratory insufficiency. She is currently on O2 by nasal cannula and I think that is more than 92%. She is afebrile. Pulse is 82, respirations 18, blood pressure 126/62, O2 sat 92% on 2 liters HEENT: Vision, speech, hearing, grossly intact. No oral lesion is noted. NECK: Supple without mass. HEART: Regular rhythm. LUNGS: Clear. ABDOMEN: Soft, nontender. Bowel sounds present. EXTREMITIES: The right hip has an [place] dressing. No drainage noted. Shows evidence of prior total knee replacement. Surgical incision sites well healed. No calf tenderness. MUSCULOSKELETAL: She has functional active range of motion in both upper extremities and left lower extremity. The right lower extremity limited at the hip due to some pain and guarding. She is able to plantar and dorsiflex at the right ankle. She has active knee flexion. NEUROLOGIC: Sensation is grossly intact to touch. Cognition grossly intact. Strength good in both upper extremities, left lower extremity is limited at the right lower extremity due to recent fracture and repair. Functional status - she is standby assist to set-up for eating and grooming, oral hygiene, dressing, mod assist for bathing, toilet commode transfers. The patient is mod assist for transfers and she ambulates 15 feet toe touch, toe-touch weight-bearing right lower extremity with a walker. She is min assist for bed mobility and she is reported to be continent of bowel and bladder. IMPRESSION: 1. Ambulatory dysfunction secondary to fall, fracture, right hip, status post repair Dr. Gamboa toe touch weight-bearing right lower extremity, [facility]. 2. Postoperative anemia to have follow-up labs. 3. Hypertension, controlled with medication. 4. DVT prophylaxis on Lovenox subcutaneous. 5. Osteoarthritis status post bilateral total knee replacements in recent past. 6. Postoperative respiratory insufficiency. PLAN: The patient will have a comprehensive program of inpatient rehabilitation with goal of maximizing level of functional dependence prior to discharge home with spouse and home health care. The patient will have PT/OT 90 minutes per day, each discipline, 5 days a week for gait strengthening, conditioning, balance, ADLs, any patient/family/caregiver training necessary, any adaptive equipment and training necessary. Speech therapy do cognitive assessment and treat as indicated. Rehabilitation nursing assist with bowel, bladder, skin, wound care, medication administration, pain management . Respiratory therapy to assist with O2 administration and weaning from O2 as able. Continue incentive spirometry. account services representative to assist with discharge planning, community reentry. Follow-up with Dr. Crow, PCP Dr. Gamboa, orthopedics as per their schedule. Check labs in a.m. therapy with cardiac and fall and weight-bearing restrictions. DIET: Regular. CODE STATUS: Full code. POST ADMISSION PHYSICIAN ASSESSMENT: The preadmission screen agrees with the post admission assessment that the patient is a good candidate for inpatient rehabilitation. She appears to be well motivated to participate in 3 hours of therapy a day. She should be able tolerate 3 hours of therapy a day from a medical and orthopedic standpoint. She should benefit from the 3 hours of therapy a day. Due to her limited weight-bearing status right lower extremity and her age, may need to focus on wheelchair level of functional mobility at this time. We will see now she progressed this. She did do well during prior stay on rehab after total knee replacements. Risks for this patient include: 1. Recurrent falls. 2. Fracture. 3. Skin breakdown. 4. Wound infection. 5. Contractures. 6. Poorly controlled pain. 7. Poorly controlled hypertension. 8. Worsening respiratory insufficiency. 9. DVT. 10. Pulmonary embolism. 11. Urinary retention. 12. UTI. 13. Respiratory infection. 14. Aspiration. Barriers to discharge - the patient needs to be prior level of function, modified independent to supervision for ADLs and mobility skills and weaning from O2 hopefully prior to discharge home so as to lessen the burden of the caregivers. Job ID: [id number] Dictated Date: 12/04/2016 15:35:52 [employer] Date: 12/05/2016 07:06:52/humberto
[2016-12-05] MEDS ORDERED: NS IV 500 ML 500 ML IV SCH (08:31)
[2016-12-05] MEDS ORDERED: diphenhydrAMINE 50 MG/ML INJ (BENADRYL) IVP SCH (08:45)
[2016-12-05] MEDS ORDERED: ACETAMINOPHEN 325 MG TABLET/CAPLET (TYLENOL) PO SCH (08:45)
[2016-12-05] MEDS: ONDANSETRON 4 MG/2 ML (SDV) Z0FRAN IVP PRN (08:52)
[2016-12-05] MEDS: EYE WASH 118 ML BTL OU SCH ×2 (09:00→19:33)
[2016-12-05] MEDS ORDERED: NON-FORMULARY MEDICATION 1 EA EA (Loteprednol Etabonate (Lotemax) 1 DROP) OU SCH (09:00)
[2016-12-05] MEDS: LETROZOLE 2.5 MG (FEMARA) TAB PO SCH (09:00)
[2016-12-05] MEDS: ASPIRIN E.C. 81 MG (ECOTRIN) TAB PO SCH (09:05)
[2016-12-05] MEDS: FOSINOPRIL 20 MG PO SCH (09:05)
[2016-12-05] MEDS: VITAMIN D3 5,000 UNITS (CHOLECALCIFEROL ) CAPSULE PO SCH (09:05)
[2016-12-05] MEDS: SENNA W/DOCUSATE (SENOKOT S) TABLET PO SCH ×2 (09:05→19:31)
[2016-12-05] MEDS: amLODIPine 5 MG (NORVASC) TAB PO SCH (09:05)
[2016-12-05] MEDS: PRESERVISION AREDS SOFTGEL (BAUSH & LOMB) PO SCH (09:06)
[2016-12-05] MEDS: ENOXAPARIN 40 MG/0.4 ML (LOVENOX) SYR SC SCH (09:06)
[2016-12-05] MEDS ORDERED: FUROSEMIDE 40 MG/4 ML INJ (LASIX) IVP NR (09:58)
--- NOTE | 2016-12-05 11:22 | Physical Therapy Daily Note ---
PT Daily Note-Current Subjective Pt. in bed with cloth over forehead and emesis montano in lap. C/o nausea and feels she may vomit. Agrees to try to do as much therapy as she can. Pain Numeric Pain Scale: 3 Location: Right Location Body Site: Hip Pain Description: Ache Mental Status Patient Orientation: Normal For Age Attachments: Oxygen (1.5 L) Transfers Functional [place] Measure 0=Not Assessed/NA 4=Minimal Assistance 1=Total Assistance 5=Supervision or Setup 2=Maximal Assistance 6=Modified [place] 3=Moderate Assistance 7=Complete IndependenceIRFPAI Quality Coding Scale 6 Independent with activity with or without an assistive device 5 Patient requires set up or clean up by helper. Patient completes activity by themselves 4 Supervision or touching assist (CGA). [place] provide cues , steadying assist 3 The helper provides less than half the effort to complete the activity 2 The helper provides more than half the effort to complete the activity 1 Dependent. The helper does all the effort to complete an activity 7 Patient refused to complete or attempt activity 9 The patient did not perform the activity before the current illness or injury 88 Not attempted due to Medical conditions or safety concerns Transfers (B, C, W/C) (FIM): 3 Scootin Rollin Supine to/from Sit: 3 Sit to/from Stand: 3 Bed to/from Chair: 4 SPT bed to BSC min assist using FWW TTWB right Weight Bearing Weight Bearing Restriction: Touch Toe Bearing Location Restriction: R LE Gait Training Does the Patient Walk?: Yes Gait (FIM): 1 Distance (FIM): 1=up to 49 ft (5ftx2) Gait Level of Assist: 3 Gait Persons Needed: 1 Gait Assistive Device: FWW maintained TTWB well Exercises Supine Ex: Bridging, Ankle pumps, Quad Set, Rolling, Glut sets, Heel Slides ( assist for right), Short Arc Quads (assist for right), Scooting, Straight leg raise (assist for right), Hip abd/add (assist for right) Supine Reps: 12 Seated Therapy Exercises: Long arc quads Seated Reps: 12 Treatments pt. nauseous entire Rx, Pt. required mod assist for briefs up down and cleaning after toileting Assessment Current Status: Fair Progress pt. with hgb 7.9, apparently to get transfusion, BP139/62, P 80, O2 sats 95% on 1.5 L. PT Short Term Goals Short Term Goals Time Frame: Dec 11, 2016 Transfers (B,C,W/C) (FIM): 4 (CGA) Gait (FIM): 2 Gait Distance Comment: 50' Gait Level of Assist: 4 (CGA) Gait Assistive Device: FWW Wheelchair Distance: 50' PT Assisted Goals Hair Or Beauty Salon Manager Goals PT Assisted Goals Time Frame: Dec 25, 2016 Transfers (B,C,W/C) (FIM): 5 Sit to Lying (QC): 4 Lying-Sitting on Side/Bed(QC): 4 Sit to Stand (QC): 4 Rollin Roll Left to Right (QC): 4 Chair/Iog-ng-Oiprd Xfer(QC): 4 Car Transfer (QC): 4 Does the Patient Walk: Yes Gait (FIM): 5 Distance: 150' Walk 10 feet (QC): 4 Walk 10ft-Uneven Surface(QC): 4 Walk 50ft with 2 Turns (QC): 4 Walk 150 ft (QC): 4 Gait Level of Assist: 5 Gait Assistive Device: FWW Stairs (FIM): 2 # of Steps: 4 1 Step (curb) (QC): 4 4 Steps (QC): 4 12 Steps (QC): 4 Stairs Level Of Assist: 5 Picking up an Object (QC): 88 PT Plan Treatment/Plan Treatment Plan: Continue Plan of Care Treatment Plan: Bed Mobility, Education, Functional Activity [place], Functional Strength, Group Therapy, Gait, Safety, Therapeutic Exercise, Transfers Treatment Duration: Dec 25, 2016 Visits Per Week: 10-11 Minutes/Day (M-F): 60-90 Minutes/Day (Sat/Ortega): 15-30 Safety Risks/Education Patient Education: Gait Training, Transfer Techniques, Correct Positioning, Disease Process, Safety Issues Teaching Recipient: Patient Teaching Methods: Demonstration, Discussion Response to Teaching: Verbalize Understanding, Return Demonstration, Reinforcement Needed Time/GCodes Time In: 1030 Time Out: 1130 Total Billed Treatment Time: 60 Total Billed Treatment 1,EX,FA35 G Codes Necessary: KAMARI Hagen PASTING MACHINE OPERATOR Dec 05, 2016 11:22
--- NOTE | 2016-12-05 13:01 | Occupational Ther Daily Note ---
OT Current Status-Daily Note Subjective Pt in bed, states she feels nauseous this morning, but agrees to therapy. RN notified of nausea and provides medication. At end of session RN reports pt will be receiving blood today. Mental Status/Objective Functional [place] Measure 0=Not Assessed/NA 4=Minimal Assistance 1=Total Assistance 5=Supervision or Setup 2=Maximal Assistance 6=Modified [place] 3=Moderate Assistance 7=Complete [place] Attachments: Oxygen ADL-Treatment Pt feeding self in bed after set up. Pt supine to sit with moderate assistance and increased time. Sit to stand with minimal assistance. Transfer to w/c with minimal assistance using FWW. Skilled cues required for TTWB. To restroom via w/ c. Pt completed grooming tasks while seated at sink. Pt washed face, combed hair , and brushed teeth with SBA and increased time. Pt instructed in use of adaptive equipment for LE dressing. Pt able to doff socks with SBA using dressing stick. Pt donned socks with SBA and increased time using sock aid. Pt transferred w/c to EOB with minimal assistance. Sit to supine with moderate assistance. Pt requires assist to reposition in bed. Pt requires increased time for all ADLs and mobility. Pt in bed with needs met and RN present after session. Functional [place] Measure 0=Not Assessed/NA 4=Minimal Assistance 1=Total Assistance 5=Supervision or Setup 2=Maximal Assistance 6=Modified [place] 3=Moderate Assistance 7=Complete IndependenceIRFPAI Quality Coding Scale 6 Independent with activity with or without an assistive device 5 Patient requires set up or clean up by helper. Patient completes activity by themselves 4 Supervision or touching assist (CGA). [place] provide cues , steadying assist 3 The helper provides less than half the effort to complete the activity 2 The helper provides more than half the effort to complete the activity 1 Dependent. The helper does all the effort to complete an activity 7 Patient refused to complete or attempt activity 9 The patient did not perform the activity before the current illness or injury 88 Not attempted due to Medical conditions or safety concerns Grooming (FIM): 5 OT Short Term Goals Short Term Goals Time Frame: Dec 11, 2016 Lower Body Dressing(FIM): 3 Toileting(FIM): 3 Transfers (B,C,W/C) (FIM): 4 (CGA) Toilet/Commode Transfer(FIM): 4 Additional Short Term Goals: 1-Demonstrate ADL Tasks, 2-Verbalize Understanding , 3-ImproveStrength/[place] 1=Demonstrate adherence to instructed precautions during ADL tasks. 2=Patient will verbalize/demonstrate understanding of assistive devices/ modifications for ADL. 3=Patient will improve strength/tolerance for activity to enable patient to perform ADL's. OT Half-Way Goals Half-Way Goals Time Frame: Dec 25, 2016 Eating (FIM): 6 Eating (QC): 6 Oral Hygiene (QC): 6 Grooming(FIM): 6 Bathing(FIM): 5 Shower/Bathe Self (QC): 5 Upper Body Dressing(FIM): 5 Upper Body Dressing (QC): 5 Lower Body Dressing(FIM): 5 Lower Body Dressing (QC): 5 On/Off Footwear (QC): 5 Toileting(FIM): 5 Toileting Hygiene (QC): 5 Toilet/Commode Transfer(FIM): 5 Toilet/Commode Transfer (QC): 5 Shower Transfer(FIM): 5 Additional Goals: 1-Demonstrate ADL Tasks, 2-Verbalize Understanding, 3- ImproveStrength/[place] 1=Demonstrate adherence to instructed precautions during ADL tasks. 2=Patient will verbalize/demonstrate understanding of assistive devices/ modifications for ADL. 3=Patient will improve strength/tolerance for activity to enable patient to perform ADL's. OT Education/Plan Problem List/Assessment Pt demonstrates decreased mobility, strength, activity tolerance, and ADL performance. Pt to benefit from skilled OT intervention for ADL training, transfers, strengthening, and safety education to maximize level of function and allow safe discharge plan. Discharge Recommendations Plan/Recommendations: Continue POC Treatment Plan/Plan of Care Patient would benefit from OT for education, treatment and training to promote independence in ADL's, mobility, safety and/or upper extremity function for ADL' s. Plan of Care: ADL Retraining, Functional Mobility, Group Exercise/Act as Ind, UE Funct Exercise/Act Treatment Duration: Dec 25, 2016 Minutes/Day (M-F): 60-90 Minutes/Day (Sat/Ortega): PRN Agreement: Yes Rehab Potential: Good Time/GCodes Start Time: 08:00 Stop Time: 09:00 Total Time Billed (hr/min): 60 Billed Treatment Time 1 visit, ADLx4(60minutes) SHRUTI ROBERTS OT Dec 05, 2016 13:01
--- NOTE | 2016-12-05 14:36 | PM & R (SOAP) Progress Note ---
Subjective Subjective/Events-last exam Patient was seen in her room this AM C/O nausea.Zofran provided.Patient also anemic with HGB 7.9 Dr Crow has ordered transfusion of PRBCS Patient participating in therapies as able Patient Mod assist for transfers. Review of Systems General: Fatigue Malaise Gastrointestinal: : Nausea Objective Exam Last Set of Vital Signs Vital Signs Date Time Temp Pulse Resp B/P Pulse Ox O2 Delivery O2 Flow Rate FiO2 12/05/16 06:00 98.4 96 20 147/68 94 Nasal Cannula 1.50 Capillary Refill : Less Than 3 Seconds I&O Bad tableGeneral: Alert, Oriented X3, Cooperative, No Acute Distress HEENT: Atraumatic, PERRLA, EOMI, Mucous Memb Moist/[place]der[place] Neck: Supple, No JVD Lungs: Clear to Auscultation Heart: Regular Rate Abdomen: Normal Bowel Sounds, Soft, No Tenderness Extremities: No Edema Neuro: Other (generalized weakness more so at operated hip) Results Lab Laboratory Tests 12/05/16 06:00: Alanine Aminotransferase (ALT/SGPT) 12, Albumin 3.1L, Alkaline Phosphatase 44, Anion Gap 5, Aspartate Amino Transf (AST/SGOT) 20, BUN/Creatinine Ratio 28, Basophils # (Auto) 0.0, Basophils (%) (Auto) 0, Blood Urea Nitrogen 15, Calcium Level 7.7L, Carbon Dioxide Level 25, Chloride Level 108H, Creatinine 0.54L, Eosinophils # (Auto) 0.0, Eosinophils (%) (Auto) 0, Estimat Glomerular Filtration Rate > 60, Glucose Level 110H, Hematocrit 25L, Hemoglobin 7.9L, Lymphocytes # (Auto) 1.3, Lymphocytes (%) (Auto) 17, Mean Corpuscular Hemoglobin 32, Mean Corpuscular Hemoglobin Concent 32, Mean Corpuscular Volume 102H, Mean Platelet Volume 10.8H, Monocytes # (Auto) 0.9, Monocytes (%) (Auto) 13H, Neutrophils # (Auto) 5.1, Neutrophils (%) (Auto) 70, Platelet Count 107L, Potassium Level 4.0, Red Blood Count 2.45L, Red Cell Distribution Width 13.2, Sodium Level 138, Total Bilirubin 0.5, Total Protein 4.8L, White Blood Count 7.4 Assessment/Plan Assessment S/P hip repair s/p fall Postop anemia Postop Nausea multifactorial Plan Continue PT/OT as tolerated F/U with Dr Crow Transfuse PRBCS Treat Nausea-See orders Team Conference next week MARCELL TYLER MD Dec 05, 2016 14:36
--- NOTE | 2016-12-05 14:37 | Occupational Ther Daily Note ---
OT Current Status-Daily Note Subjective Pt reports she is still having nausea, but agrees to therapy. Mental Status/Objective Functional [place] Measure 0=Not Assessed/NA 4=Minimal Assistance 1=Total Assistance 5=Supervision or Setup 2=Maximal Assistance 6=Modified [place] 3=Moderate Assistance 7=Complete [place] Attachments: Oxygen ADL-Treatment Pt preparing to get up to [facility] when therapist arrives. Pt supine to sit with moderate assistance and increase time. Sit to stand with minimal assistance. Transfer to BSC with minimal assistance using FWW, cues for TTWB status. Pt able to pull depends down, but requires assist for hygiene and to pull depends back up. Transfer back to EOB with min assist. Sit to supine with assist for bilateral LE. Pt moves slowly and requires increased time for mobility. Functional [place] Measure 0=Not Assessed/NA 4=Minimal Assistance 1=Total Assistance 5=Supervision or Setup 2=Maximal Assistance 6=Modified [place] 3=Moderate Assistance 7=Complete IndependenceIRFPAI Quality Coding Scale 6 Independent with activity with or without an assistive device 5 Patient requires set up or clean up by helper. Patient completes activity by themselves 4 Supervision or touching assist (CGA). [place] provide cues , steadying assist 3 The helper provides less than half the effort to complete the activity 2 The helper provides more than half the effort to complete the activity 1 Dependent. The helper does all the effort to complete an activity 7 Patient refused to complete or attempt activity 9 The patient did not perform the activity before the current illness or injury 88 Not attempted due to Medical conditions or safety concerns Toileting (FIM): 2 Toilet/Commode Transfer (FIM): 4 (to [facility]) Other Treatment Pt completed bilateral UE exercises at bed level. Pt performed shoulder flexion , forward press, and biceps curls x20 reps with dowel ksenia. Rest breaks between exercises. Bilateral hand med care manager exercises x 20 reps with resistance therapy foam to increase med care manager strength needed for ADL tasks. Pt supine in bed with needs met after session. Continue POC. OT Short Term Goals Short Term Goals Time Frame: Dec 11, 2016 Lower Body Dressing(FIM): 3 Toileting(FIM): 3 Transfers (B,C,W/C) (FIM): 4 (CGA) Toilet/Commode Transfer(FIM): 4 Additional Short Term Goals: 1-Demonstrate ADL Tasks, 2-Verbalize Understanding , 3-ImproveStrength/[place]bin 1=Demonstrate adherence to instructed precautions during ADL tasks. 2=Patient will verbalize/demonstrate understanding of assistive devices/ modifications for ADL. 3=Patient will improve strength/tolerance for activity to enable patient to perform ADL's. OT Hot Dip Tinning Supervisor Goals Hot Dip Tinning Supervisor Goals Time Frame: Dec 25, 2016 Eating (FIM): 6 Eating (QC): 6 Oral Hygiene (QC): 6 Grooming(FIM): 6 Bathing(FIM): 5 Shower/Bathe Self (QC): 5 Upper Body Dressing(FIM): 5 Upper Body Dressing (QC): 5 Lower Body Dressing(FIM): 5 Lower Body Dressing (QC): 5 On/Off Footwear (QC): 5 Toileting(FIM): 5 Toileting Hygiene (QC): 5 Toilet/Commode Transfer(FIM): 5 Toilet/Commode Transfer (QC): 5 Shower Transfer(FIM): 5 Additional Goals: 1-Demonstrate ADL Tasks, 2-Verbalize Understanding, 3- ImproveStrength/Corbin 1=Demonstrate adherence to instructed precautions during ADL tasks. 2=Patient will verbalize/demonstrate understanding of assistive devices/ modifications for ADL. 3=Patient will improve strength/tolerance for activity to enable patient to perform ADL's. OT Education/Plan Problem List/Assessment Pt demonstrates decreased mobility, strength, activity tolerance, and ADL performance. Pt to benefit from skilled OT intervention for ADL training, transfers, strengthening, and safety education to maximize level of function and allow safe discharge plan. Discharge Recommendations Plan/Recommendations: Continue POC Treatment Plan/Plan of Care Patient would benefit from OT for education, treatment and training to promote independence in ADL's, mobility, safety and/or upper extremity function for ADL' s. Plan of Care: ADL Retraining, Functional Mobility, Group Exercise/Act as Ind, UE Funct Exercise/Act Treatment Duration: Dec 25, 2016 Minutes/Day (M-F): 60-90 Minutes/Day (Sat/Ortega): PRN Agreement: Yes Rehab Potential: Good Time/GCodes Start Time: 13:30 Stop Time: 14:00 Total Time Billed (hr/min): 30 Billed Treatment Time 1 visit, ADL(15minutes), EX(15minutes) SHRUTI ROBERTS OT Dec 05, 2016 14:37
--- NOTE | 2016-12-05 14:39 | Physical Therapy Daily Note ---
PT Daily Note-Current Subjective Pt. c/o she is still nauseous, "but I have never vomited" Pain Numeric Pain Scale: 3 Location: Right Location Body Site: Hip Pain Description: Ache Mental Status Patient Orientation: Normal For Age Transfers Functional [place] Measure 0=Not Assessed/NA 4=Minimal Assistance 1=Total Assistance 5=Supervision or Setup 2=Maximal Assistance 6=Modified [place] 3=Moderate Assistance 7=Complete IndependenceIRFPAI Quality Coding Scale 6 Independent with activity with or without an assistive device 5 Patient requires set up or clean up by helper. Patient completes activity by themselves 4 Supervision or touching assist (CGA). [place] provide cues , steadying assist 3 The helper provides less than half the effort to complete the activity 2 The helper provides more than half the effort to complete the activity 1 Dependent. The helper does all the effort to complete an activity 7 Patient refused to complete or attempt activity 9 The patient did not perform the activity before the current illness or injury 88 Not attempted due to Medical conditions or safety concerns rolling in bed required mod to max assist. scooting up in bed max to mod assist Exercises Supine Ex: Ankle pumps, Quad Set, Rolling, Glut sets, Heel Slides, Short Arc Quads, Scooting, Straight leg raise, Hip abd/add Supine Reps: 15 (with assist for right) Assessment Current Status: Fair Progress continues nauseous, still awaiting blood transfusion PT Short Term Goals Short Term Goals Time Frame: Dec 11, 2016 Transfers (B,C,W/C) (FIM): 4 (CGA) Gait (FIM): 2 Gait Distance Comment: 50' Gait Level of Assist: 4 (CGA) Gait Assistive Device: FWW Wheelchair Distance: 50' PT Care Home Goals Care Home Goals PT Care Home Goals Time Frame: Dec 25, 2016 Transfers (B,C,W/C) (FIM): 5 Sit to Lying (QC): 4 Lying-Sitting on Side/Bed(QC): 4 Sit to Stand (QC): 4 Rollin Roll Left to Right (QC): 4 Chair/Jkj-kl-Hxoeg Xfer(QC): 4 Car Transfer (QC): 4 Does the Patient Walk: Yes Gait (FIM): 5 Distance: 150' Walk 10 feet (QC): 4 Walk 10ft-Uneven Surface(QC): 4 Walk 50ft with 2 Turns (QC): 4 Walk 150 ft (QC): 4 Gait Level of Assist: 5 Gait Assistive Device: FWW Stairs (FIM): 2 # of Steps: 4 1 Step (curb) (QC): 4 4 Steps (QC): 4 12 Steps (QC): 4 Stairs Level Of Assist: 5 Picking up an Object (QC): 88 PT Plan Treatment/Plan Treatment Plan: Continue Plan of Care Treatment Plan: Bed Mobility, Education, Functional Activity Corbin, Functional Strength, Group Therapy, Gait, Safety, Therapeutic Exercise, Transfers Treatment Duration: Dec 25, 2016 Visits Per Week: 10-11 Minutes/Day (M-F): 60-90 Minutes/Day (Sat/Ortega): 15-30 Safety Risks/Education Patient Education: Transfer Techniques, Issued Written HEP Teaching Recipient: Patient Teaching Methods: Demonstration, Discussion Response to Teaching: Verbalize Understanding, Return Demonstration, Reinforcement Needed Time/GCodes Time In: 1400 Time Out: 1430 Total Billed Treatment Time: 30 Total Billed Treatment 1,FA10m,EX20m G Codes Necessary: KAMARI Hagen YACHT CAPTAIN Dec 05, 2016 14:39
--- NOTE | 2016-12-05 15:22 | Individualized Plan of Care ---
Individualized Plan of Care Rehab Nursing IPOC Order Admission Date Dec 04, 2016 at 10:25 Current Orders Orders-MARCELL TYLER MD Admission Arrival Bed Request (12/04/16 10:51) Admission-Acute Rehab Unit (12/04/16 11:37) Vital Signs: Routine 08,16,00 (12/04/16 11:37) Social Service (12/04/16 11:37) Rehab Nursing Orders-Ipoc (12/04/16 11:37) Physical Therapy Rehab Orders (12/04/16 11:37) Occupational Therapy Rehab Ord (12/04/16 11:37) Speech Therapy Rehab Orders (12/04/16 11:37) Intake & Output Shift Assessme 06,14,22 (12/04/16 11:37) Weight Bearing Status (12/04/16 11:37) Precautions (Aru) (12/04/16 11:37) Weekly Weight (Lbs) WEEK (12/04/16 11:37) Code/Resuscitation (12/04/16 11:41) Sequential Compression Device 08,20 (12/04/16 11:41) Tim Hose 09,21 (12/04/16 11:41) Incentive Spirometry (Nursing) Q2H (12/04/16 11:41) Senna S Tablet (Senokot S Tablet) (12/04/16 21:00) Hydrocodone/Apap 5/325 Tablet (Lortab 5 (12/04/16 11:45) Tramadol Tablet (Ultram Tablet) (12/04/16 11:45) Enoxaparin Injection (Lovenox Injection) (12/05/16 08:00) Aspirin Enteric Coated Tablet (Ecotrin T (12/05/16 09:00) Boric Acid/Sodium Borate Ophth (Eye Wash (12/04/16 21:00) Letrozole (Non-Formulary) (Femara (Non-F (12/05/16 09:00) Vit A/C/E/Zinc/Co (Non-Form) (Preservisi (12/05/16 09:00) Cholecalciferol Capsule/Tablet (Vitamin (12/05/16 09:00) (Nf) Loteprednol Etabonate (Lotemax) (12/05/16 09:00) Consult Physician (12/04/16 11:46) Cbc With Automated Diff (12/05/16 06:00) Comprehensive Metabolic Panel (12/05/16 06:00) General/Regular (12/04/16 Lunch) Patient Visit (12/04/16 ) Speech Sound Lang Comp (12/04/16 ) Amlodipine Tablet (Norvasc Tablet) (12/05/16 09:00) Fosinopril Tablet (Monopril Tablet) (12/05/16 09:00) Levothyroxine Tablet (Synthroid Tablet) (12/05/16 06:30) Metoprolol Succinate (Xl) Tab (Toprol Xl (12/05/16 09:00) Pharmacy Communication (Pharmacy Communi (12/04/16 14:15) Oxygen Delivery Rt-Rfs (12/04/16 14:15) Trospium Tablet (Sanctura Tablet) (12/04/16 16:00) Patient Visit (12/04/16 ) Pt Eval Low Complexity (12/04/16 ) Gait Training, Ea 15 Min (12/04/16 ) Functional Activities, Ea 15 (12/04/16 ) Patient Visit (12/04/16 ) Patient Visit (12/05/16 ) Exercise Therap, Ea 15 Min (12/05/16 ) Functional Activities, Ea 15 (12/05/16 ) PT IPOC Problem List: Activity Tolerance, Functional Strength, Safety, Balance, Gait, Transfer, Bed Mobility, ROM Treatment Plan: Continue Plan of Care Bed Mobility, Education, Functional Activity [place], Functional Strength, Group Therapy, Gait, Safety, Therapeutic Exercise, Transfers Treatment Duration: Dec 25, 2016 Visits Per Week: 10-11 Minutes/Day (M-F): 60-90 Minutes/Day (Sat/Ortega): 15-30 OT IPOC Problems: Decreased Activ Tolerance, Decreased UE Strength, Dependent Transfers , Impaired Self-Care Skills OT Problems Pt demonstrates decreased mobility, strength, activity tolerance, and ADL performance. Pt to benefit from skilled OT intervention for ADL training, transfers, strengthening, and safety education to maximize level of function and allow safe discharge plan. Plan of Care: ADL Retraining, Functional Mobility, Group Exercise/Act as Ind, UE Funct Exercise/Act Treatment Duration: Dec 25, 2016 Visits Per Week: 10-11 Minutes/Day (M-F): 60-90 Minutes/Day (Sat/Ortega): PRN ST IPOC Speech Therapy Treatment Plan: Discontinue ST (Eval, only.) Physician IPOC Medical Issues being managed closely and that require the 24 hour availability of a physician: postop anemia requiring transfusion Postop nausea HTN Medical Issues: Bowel/Bladder Function, DVT Prophylaxis, Falls Precautions, Fluid/Electrolyte/Nutrition Balance, Infection Protection, Pain Management, Weight Bearing Precautions, Wound Care, Other (List) (as per above) Brief Synthesis of Preadmission Screen, Post-Admission Evaluation, and Therapy Evaluations: 85 yo female s/p fall with resulting rt comminuted intertrochanteric femur fracture s/p repair Dr [place] Toe touch WB RLE referred to IRU Had been Independent and living with spouse Dr Crow PCP Having postop anemia requiring Transfusion PRBCS today Has postop nausea multifactioral being treated symptomatically Home meds for treatment of HTN resumed. Therapy as tolerated today due to medical issues as per above. Medical Prognosis: good Anticipated Length of Stay: 3 weeks Rehab Goals Modified [place] for adls and Mobility at the W/C level due to limited WBS RLE Anticipated discharge destinat: Home with spouse and [facility] MARCELL TYLER MD Dec 05, 2016 15:22
[2016-12-05] MEDS ORDERED: diphenhydrAMINE 50 MG/ML INJ (BENADRYL) ONE (17:47)
[2016-12-05] MEDS ORDERED: ACETAMINOPHEN 325 MG TABLET/CAPLET (TYLENOL) ONE (17:47)
[2016-12-05] MEDS ORDERED: FLEET ENEMA ADULT 1 EA BTL PR NR (18:15)
[2016-12-05 18:20] VITALS: BP 122/53
[2016-12-05] MEDS: POLYETHYLENE GLYCOL 17 GM (MIRALAX) PACK PO SCH (18:30)
[2016-12-05 19:58] VITALS: BP 108/61
[2016-12-05 20:13] VITALS: BP 113/64
[2016-12-05] MEDS ORDERED: FUROSEMIDE 40 MG/4 ML INJ (LASIX) ONE (22:28)
[2016-12-05 22:31] VITALS: BP 116/62
[2016-12-06 05:49] VITALS: BP 121/67
[2016-12-06] MEDS: TROSPIUM 20 MG (SANCTURA) TAB PO SCH ×2 (06:14→16:39)
[2016-12-06] MEDS: LEVOTHYROXINE 25 MCG (LEVOTHROID) TAB PO SCH (06:14)
[2016-12-06] MEDS: FOSINOPRIL 20 MG PO SCH (08:36)
[2016-12-06] MEDS: LETROZOLE 2.5 MG (FEMARA) TAB PO SCH (08:36)
[2016-12-06] MEDS: ENOXAPARIN 40 MG/0.4 ML (LOVENOX) SYR SC SCH (08:36)
[2016-12-06] MEDS: ASPIRIN E.C. 81 MG (ECOTRIN) TAB PO SCH (08:36)
[2016-12-06] MEDS: VITAMIN D3 5,000 UNITS (CHOLECALCIFEROL ) CAPSULE PO SCH (08:37)
[2016-12-06] MEDS: SENNA W/DOCUSATE (SENOKOT S) TABLET PO SCH ×2 (08:37→20:39)
[2016-12-06] MEDS: amLODIPine 5 MG (NORVASC) TAB PO SCH (08:37)
[2016-12-06] MEDS: PRESERVISION AREDS SOFTGEL (BAUSH & LOMB) PO SCH (08:39)
[2016-12-06] MEDS: EYE WASH 118 ML BTL OU SCH ×2 (08:39→20:39)
--- NOTE | 2016-12-06 10:27 | Occupational Ther Daily Note ---
OT Current Status-Daily Note Subjective Pt sitting in chair, agrees to treatment,states she is feeling a much better today. Pt states she is not currently having any pain. Mental Status/Objective Functional [place] Measure 0=Not Assessed/NA 4=Minimal Assistance 1=Total Assistance 5=Supervision or Setup 2=Maximal Assistance 6=Modified [place] 3=Moderate Assistance 7=Complete [place] ADL-Treatment Pt states she would like a sponge bath today, not sure if she feels ready to try a shower. Pt completed sponge bath seated in chair. Upper body bathing completed with set up. Pt requires assist with lower body bathing. Stood with minimal assistance to wash buttocks. Pt donned bra and pullover shirt with set up. Pt used nub card tender to start pants over feet. Stood with minimal assistance for pant hike using FWW for balance, cues for weight bearing status. Doff socks with SBA using dressing stick. Don socks with SBA using sock aid. Sit to stand and transfer to w/c with minimal assistance using FWW. Grooming completed with SBA while seated at sink. Increased time required for ADLs. Functional [place] Measure 0=Not Assessed/NA 4=Minimal Assistance 1=Total Assistance 5=Supervision or Setup 2=Maximal Assistance 6=Modified [place] 3=Moderate Assistance 7=Complete IndependenceIRFPAI Quality Coding Scale 6 Independent with activity with or without an assistive device 5 Patient requires set up or clean up by helper. Patient completes activity by themselves 4 Supervision or touching assist (CGA). [place] provide cues , steadying assist 3 The helper provides less than half the effort to complete the activity 2 The helper provides more than half the effort to complete the activity 1 Dependent. The helper does all the effort to complete an activity 7 Patient refused to complete or attempt activity 9 The patient did not perform the activity before the current illness or injury 88 Not attempted due to Medical conditions or safety concerns Grooming (FIM): 5 Upper Body (FIM): 5 Lower Body Dressing (FIM): 4 Other Treatment To therapy gym via w/c. Pt performed bilateral UE exercises to increase strength needed for ADLs and transfers. Pt performed shoulder flexion, abduction , biceps curls, and triceps extension exercises x20 reps with mild resistance ( yellow) theraband. Rest breaks between exercises. Pt returned to room, transferred to chair with minimal assistance. Pt sitting in chair with needs met after session. OT Short Term Goals Short Term Goals Time Frame: Dec 11, 2016 Lower Body Dressing(FIM): 3 Toileting(FIM): 3 Transfers (B,C,W/C) (FIM): 4 (CGA) Toilet/Commode Transfer(FIM): 4 Additional Short Term Goals: 1-Demonstrate ADL Tasks, 2-Verbalize Understanding , 3-ImproveStrength/[place] 1=Demonstrate adherence to instructed precautions during ADL tasks. 2=Patient will verbalize/demonstrate understanding of assistive devices/ modifications for ADL. 3=Patient will improve strength/tolerance for activity to enable patient to perform ADL's. OT Detention Goals Detention Goals Time Frame: Dec 25, 2016 Eating (FIM): 6 Eating (QC): 6 Oral Hygiene (QC): 6 Grooming(FIM): 6 Bathing(FIM): 5 Shower/Bathe Self (QC): 5 Upper Body Dressing(FIM): 5 Upper Body Dressing (QC): 5 Lower Body Dressing(FIM): 5 Lower Body Dressing (QC): 5 On/Off Footwear (QC): 5 Toileting(FIM): 5 Toileting Hygiene (QC): 5 Toilet/Commode Transfer(FIM): 5 Toilet/Commode Transfer (QC): 5 Shower Transfer(FIM): 5 Additional Goals: 1-Demonstrate ADL Tasks, 2-Verbalize Understanding, 3- ImproveStrength/Corbin 1=Demonstrate adherence to instructed precautions during ADL tasks. 2=Patient will verbalize/demonstrate understanding of assistive devices/ modifications for ADL. 3=Patient will improve strength/tolerance for activity to enable patient to perform ADL's. OT Education/Plan Problem List/Assessment Pt demonstrates decreased mobility, strength, activity tolerance, and ADL performance. Pt to benefit from skilled OT intervention for ADL training, transfers, strengthening, and safety education to maximize level of function and allow safe discharge plan. Discharge Recommendations Plan/Recommendations: Continue POC Treatment Plan/Plan of Care Patient would benefit from OT for education, treatment and training to promote independence in ADL's, mobility, safety and/or upper extremity function for ADL' s. Plan of Care: ADL Retraining, Functional Mobility, Group Exercise/Act as Ind, UE Funct Exercise/Act Treatment Duration: Dec 25, 2016 Visits Per Week: 10-11 Minutes/Day (M-F): 60-90 Minutes/Day (Sat/Ortega): PRN Agreement: Yes Rehab Potential: Good Time/GCodes Start Time: 09:00 Stop Time: 10:00 Total Time Billed (hr/min): 60 Billed Treatment Time 1 visit, ADLx3(40minutes), EX(20minutes) SHRUTI ROBERTS OT Dec 06, 2016 10:27
--- NOTE | 2016-12-06 11:34 | Physical Therapy Daily Note ---
PT Daily Note-Current Subjective Pt. agrees to Rx. States she feels much better today. Comments that she fatigues during gait. Rates pain in right hip at 4/10 but increases at times with exercise. Pain Numeric Pain Scale: 4 Location: Right Location Body Site: Hip Pain Description: Ache Mental Status Patient Orientation: Normal For Age Transfers Functional [place] Measure 0=Not Assessed/NA 4=Minimal Assistance 1=Total Assistance 5=Supervision or Setup 2=Maximal Assistance 6=Modified [place] 3=Moderate Assistance 7=Complete IndependenceIRFPAI Quality Coding Scale 6 Independent with activity with or without an assistive device 5 Patient requires set up or clean up by helper. Patient completes activity by themselves 4 Supervision or touching assist (CGA). [place] provide cues , steadying assist 3 The helper provides less than half the effort to complete the activity 2 The helper provides more than half the effort to complete the activity 1 Dependent. The helper does all the effort to complete an activity 7 Patient refused to complete or attempt activity 9 The patient did not perform the activity before the current illness or injury 88 Not attempted due to Medical conditions or safety concerns Transfers (B, C, W/C) (FIM): 3 Scootin Rollin Supine to/from Sit: 3 Sit to/from Stand: 4 Bed to/from Chair: 4 trialed entering bed L and R as pt. enters bed at home with right 1st Weight Bearing Weight Bearing Restriction: Touch Toe Bearing Location Restriction: R LE Gait Training Does the Patient Walk?: Yes Gait (FIM): 2 Distance (FIM): 1=up to 49 ft (25x4) Gait Level of Assist: 4 Gait Persons Needed: 1 Gait Assistive Device: FWW w/c f/u Wheelchair Training Does the Pt Use a Wheelchair?: Yes Wheelchair (FIM): 2 Wheelchair Distance: 1=977-15 ft ([id number]) Wheelchair Level of Assist: 5 Exercises Supine Ex: Bridging, Ankle pumps, Quad Set, Rolling, Glut sets, Heel Slides, Short Arc Quads, Scooting, Straight leg raise, Hip abd/add Supine Reps: 15 (with assist) Assessment Current Status: Good Progress tolerated Rx well PT Short Term Goals Short Term Goals Time Frame: Dec 11, 2016 Transfers (B,C,W/C) (FIM): 4 (CGA) Gait (FIM): 2 Gait Distance Comment: 50' Gait Level of Assist: 4 (CGA) Gait Assistive Device: FWW Wheelchair Distance: 50' PT [facility] Goals Soil Science Professor Goals PT Soil Science Professor Goals Time Frame: Dec 25, 2016 Transfers (B,C,W/C) (FIM): 5 Sit to Lying (QC): 4 Lying-Sitting on Side/Bed(QC): 4 Sit to Stand (QC): 4 Rollin Roll Left to Right (QC): 4 Chair/[id number]-yc-Xvtzi Xfer(QC): 4 Car Transfer (QC): 4 Does the Patient Walk: Yes Gait (FIM): 5 Distance: 150' Walk 10 feet (QC): 4 Walk 10ft-Uneven Surface(QC): 4 Walk 50ft with 2 Turns (QC): 4 Walk 150 ft (QC): 4 Gait Level of Assist: 5 Gait Assistive Device: FWW Stairs (FIM): 2 # of Steps: 4 1 Step (curb) (QC): 4 4 Steps (QC): 4 12 Steps (QC): 4 Stairs Level Of Assist: 5 Picking up an Object (QC): 88 PT Plan Treatment/Plan Treatment Plan: Continue Plan of Care Treatment Plan: Bed Mobility, Education, Functional Activity [place], Functional Strength, Group Therapy, Gait, Safety, Therapeutic Exercise, Transfers Treatment Duration: Dec 25, 2016 Visits Per Week: 10-11 Minutes/Day (M-F): 60-90 Minutes/Day (Sat/Ortega): 15-30 Safety Risks/Education Patient Education: Gait Training, Transfer Techniques, Issued Written HEP, Correct Positioning, W/C Management, Disease Process, Safety Issues Teaching Recipient: Patient Teaching Methods: Demonstration, Discussion Response to Teaching: Verbalize Understanding, Return Demonstration, Reinforcement Needed Time/GCodes Time In: 1030 Time Out: 1130 Total Billed Treatment Time: 60 Total Billed Treatment 1,GT30,FA15,EX15 G Codes Necessary: KAMARI Hagen STRADDLE BUGGY OPERATOR Dec 06, 2016 11:34
--- NOTE | 2016-12-06 14:41 | Therapy Group Daily Note ---
Therapy Daily Group Note Patient Education Topic Other List Below ( review of Rehab process, music for relaxation) Exercises Other (relaxation and breathing) Other/Notes Pt. attended group PT OT session this date. Pt. to/from group in w/c with assist.. Pt. was very friendly and participated well. Explanation of Rehab and expectations were part of education this date. Focus of group was on relaxation through music with guest demonstration by [facility] family day care worker who played [employer] flute. Utilization of music through playing instrument, dancing and singing were all mentioned. Managing stress during time of medical crisis to facilitate healing was also covered. Pt. to room with jacob at hand after Rx. Start Time: 13:00 Stop Time: 14:15 Total Billed Treatment Time: 75 Total Billed Treatment 1,GRP KAMARI PAZ PRIZE FIGHTER Dec 06, 2016 14:41
[2016-12-06] MEDS: LOTEMAX 0.5% OU SCH (14:51)
[2016-12-06 17:29] VITALS: BP 130/67
[2016-12-06] MEDS: POLYETHYLENE GLYCOL 17 GM (MIRALAX) PACK PO SCH (20:39)
[2016-12-07] MEDS: TROSPIUM 20 MG (SANCTURA) TAB PO SCH ×2 (06:06→17:14)
[2016-12-07] MEDS: LEVOTHYROXINE 25 MCG (LEVOTHROID) TAB PO SCH (06:06)
[2016-12-07 06:38] VITALS: BP 122/62
[2016-12-07] MEDS: ASPIRIN E.C. 81 MG (ECOTRIN) TAB PO SCH (08:58)
[2016-12-07] MEDS: ENOXAPARIN 40 MG/0.4 ML (LOVENOX) SYR SC SCH (08:58)
[2016-12-07] MEDS: SENNA W/DOCUSATE (SENOKOT S) TABLET PO SCH ×2 (08:58→21:06)
[2016-12-07] MEDS: VITAMIN D3 5,000 UNITS (CHOLECALCIFEROL ) CAPSULE PO SCH (08:58)
[2016-12-07] MEDS: FOSINOPRIL 20 MG PO SCH (08:58)
[2016-12-07] MEDS: amLODIPine 5 MG (NORVASC) TAB PO SCH (08:59)
[2016-12-07] MEDS: LOTEMAX 0.5% OU SCH (09:00)
[2016-12-07] MEDS: PRESERVISION AREDS SOFTGEL (BAUSH & LOMB) PO SCH (09:00)
[2016-12-07] MEDS: EYE WASH 118 ML BTL OU SCH ×2 (09:00→21:06)
[2016-12-07] MEDS: LETROZOLE 2.5 MG (FEMARA) TAB PO SCH (09:01)
[2016-12-07 10:45] LABS: MEAN PLATELET VOLUME 10.3 FL (7.4-10.4); RED BLOOD COUNT 3.02 10^6/uL (4.35-5.85); WHITE BLOOD COUNT 9.1 10^3/uL (4.3-11.0)
[2016-12-07 11:01] LABS: ALANINE AMINOTRANSFERASE 19 U/L (0-55); ALBUMIN 3.5 G/DL (3.2-4.5); ANION GAP 9 MMOL/L (5-14); ASPARTATE AMINO TRANSFERASE 25 U/L (5-34); BILIRUBIN,TOTAL 1.1 MG/DL (0.1-1.0); BLOOD UREA NITROGEN 18 MG/DL (7-18); BUN/CREATININE RATIO 31; CALCIUM 8.6 MG/DL (8.5-10.1); CARBON DIOXIDE 25 MMOL/L (21-32); CHLORIDE 103 MMOL/L (98-107); CREATININE SERUM 0.59 MG/DL (0.60-1.30); GFR ESTIMATED > 60; GLUCOSE 118 MG/DL (70-105); POTASSIUM 4.2 MMOL/L (3.6-5.0); SODIUM 137 MMOL/L (135-145); TOTAL PROTEIN 5.7 G/DL (6.4-8.2)
--- NOTE | 2016-12-07 11:51 | Physical Therapy Daily Note ---
PT Daily Note-Current Subjective Pt. states she got up early and is ready to work and then nap. Pain Numeric Pain Scale: 0-No Pain Mental Status Patient Orientation: Normal For Age Transfers Functional [place] Measure 0=Not Assessed/NA 4=Minimal Assistance 1=Total Assistance 5=Supervision or Setup 2=Maximal Assistance 6=Modified [place] 3=Moderate Assistance 7=Complete IndependenceIRFPAI Quality Coding Scale 6 Independent with activity with or without an assistive device 5 Patient requires set up or clean up by helper. Patient completes activity by themselves 4 Supervision or touching assist (CGA). [place] provide cues , steadying assist 3 The helper provides less than half the effort to complete the activity 2 The helper provides more than half the effort to complete the activity 1 Dependent. The helper does all the effort to complete an activity 7 Patient refused to complete or attempt activity 9 The patient did not perform the activity before the current illness or injury 88 Not attempted due to Medical conditions or safety concerns Transfers (B, C, W/C) (FIM): 4 Scootin Rollin Supine to/from Sit: 4 Sit to/from Stand: 5 Bed to/from Chair: 4 Weight Bearing Weight Bearing Restriction: Touch Toe Bearing Location Restriction: R LE Gait Training Does the Patient Walk?: Yes Gait (FIM): 2 Distance (FIM): 1=807-96 ft (50,35x2) Gait Level of Assist: 4 Gait Persons Needed: 1 Gait Assistive Device: FWW skilled verbal instruction for sequence and safety Exercises Seated Therapy Exercises: Ankle pumps, Sit to stand, Long arc quads, Hip abd/ add Seated Reps: 10 Assessment Current Status: Good Progress PT Short Term Goals Short Term Goals Time Frame: Dec 11, 2016 Transfers (B,C,W/C) (FIM): 4 (CGA) Gait (FIM): 2 Gait Distance Comment: 50' Gait Level of Assist: 4 (CGA) Gait Assistive Device: FWW Wheelchair Distance: 50' PT Residential Goals Residential Goals PT [place] Goals Time Frame: Dec 25, 2016 Transfers (B,C,W/C) (FIM): 5 Sit to Lying (QC): 4 Lying-Sitting on Side/Bed(QC): 4 Sit to Stand (QC): 4 Rollin Roll Left to Right (QC): 4 Chair/Gba-vv-Frzdw Xfer(QC): 4 Car Transfer (QC): 4 Does the Patient Walk: Yes Gait (FIM): 5 Distance: 150' Walk 10 feet (QC): 4 Walk 10ft-Uneven Surface(QC): 4 Walk 50ft with 2 Turns (QC): 4 Walk 150 ft (QC): 4 Gait Level of Assist: 5 Gait Assistive Device: FWW Stairs (FIM): 2 # of Steps: 4 1 Step (curb) (QC): 4 4 Steps (QC): 4 12 Steps (QC): 4 Stairs Level Of Assist: 5 Picking up an Object (QC): 88 PT Plan Treatment/Plan Treatment Plan: Continue Plan of Care Treatment Plan: Bed Mobility, Education, Functional Activity [place], Functional Strength, Group Therapy, Gait, Safety, Therapeutic Exercise, Transfers Treatment Duration: Dec 25, 2016 Visits Per Week: 10-11 Minutes/Day (M-F): 60-90 Minutes/Day (Sat/Ortega): 15-30 Safety Risks/Education Patient Education: Gait Training, Transfer Techniques Teaching Recipient: Patient Teaching Methods: Demonstration, Discussion Response to Teaching: Verbalize Understanding, Return Demonstration, Reinforcement Needed Time/GCodes Time In: 1040 Time Out: 1100 Total Billed Treatment Time: 20 Total Billed Treatment 12,FA20m G Codes Necessary: No KAMARI PAZ CLOTH WORKER Dec 07, 2016 11:51
[2016-12-07] MEDS: HYDROcodone/APAP 5 MG/325 MG (LORTAB) TAB PO PRN (12:35)
[2016-12-07 18:20] VITALS: BP 123/54
[2016-12-07] MEDS: POLYETHYLENE GLYCOL 17 GM (MIRALAX) PACK PO SCH (21:06)
[2016-12-08 05:54] VITALS: BP 161/70
[2016-12-08] MEDS: TROSPIUM 20 MG (SANCTURA) TAB PO SCH ×2 (06:33→17:12)
[2016-12-08] MEDS: LEVOTHYROXINE 25 MCG (LEVOTHROID) TAB PO SCH (06:33)
[2016-12-08] MEDS: ENOXAPARIN 40 MG/0.4 ML (LOVENOX) SYR SC SCH (09:50)
[2016-12-08] MEDS: SENNA W/DOCUSATE (SENOKOT S) TABLET PO SCH ×2 (09:52→20:41)
[2016-12-08] MEDS: VITAMIN D3 5,000 UNITS (CHOLECALCIFEROL ) CAPSULE PO SCH (09:52)
[2016-12-08] MEDS: ASPIRIN E.C. 81 MG (ECOTRIN) TAB PO SCH (09:52)
[2016-12-08] MEDS: amLODIPine 5 MG (NORVASC) TAB PO SCH (09:52)
[2016-12-08] MEDS: FOSINOPRIL 20 MG PO SCH (09:52)
[2016-12-08] MEDS: LETROZOLE 2.5 MG (FEMARA) TAB PO SCH (09:54)
[2016-12-08] MEDS: EYE WASH 118 ML BTL OU SCH ×2 (10:23→20:42)
[2016-12-08] MEDS: PRESERVISION AREDS SOFTGEL (BAUSH & LOMB) PO SCH (10:23)
[2016-12-08] MEDS: LOTEMAX 0.5% OU SCH (10:24)
[2016-12-08 18:17] VITALS: BP 110/65
[2016-12-08] MEDS: POLYETHYLENE GLYCOL 17 GM (MIRALAX) PACK PO SCH (20:41)
[2016-12-08] MEDS: HYDROcodone/APAP 5 MG/325 MG (LORTAB) TAB PO PRN (21:48)
[2016-12-09 05:44] VITALS: BP 161/71
[2016-12-09] MEDS: LEVOTHYROXINE 25 MCG (LEVOTHROID) TAB PO SCH (06:18)
[2016-12-09] MEDS: TROSPIUM 20 MG (SANCTURA) TAB PO SCH ×2 (06:18→16:16)
[2016-12-09] MEDS: ENOXAPARIN 40 MG/0.4 ML (LOVENOX) SYR SC SCH (08:11)
[2016-12-09] MEDS: FOSINOPRIL 20 MG PO SCH (08:11)
[2016-12-09] MEDS: VITAMIN D3 5,000 UNITS (CHOLECALCIFEROL ) CAPSULE PO SCH (08:11)
[2016-12-09] MEDS: SENNA W/DOCUSATE (SENOKOT S) TABLET PO SCH ×2 (08:11→20:57)
[2016-12-09] MEDS: amLODIPine 5 MG (NORVASC) TAB PO SCH (08:11)
[2016-12-09] MEDS: ASPIRIN E.C. 81 MG (ECOTRIN) TAB PO SCH (08:11)
[2016-12-09] MEDS: LOTEMAX 0.5% OU SCH (08:12)
[2016-12-09] MEDS: PRESERVISION AREDS SOFTGEL (BAUSH & LOMB) PO SCH (08:13)
[2016-12-09] MEDS: EYE WASH 118 ML BTL OU SCH ×2 (08:13→20:57)
[2016-12-09] MEDS: LETROZOLE 2.5 MG (FEMARA) TAB PO SCH (08:45)
--- NOTE | 2016-12-09 10:54 | Occupational Ther Daily Note ---
OT Current Status-Daily Note Subjective Pt sitting in chair, agrees to treatment. Pt reports 1/10 pain in right LE Mental Status/Objective Functional [place] Measure 0=Not Assessed/NA 4=Minimal Assistance 1=Total Assistance 5=Supervision or Setup 2=Maximal Assistance 6=Modified [place] 3=Moderate Assistance 7=Complete [place] ADL-Treatment Pt requests shower this am. Sit to stand from chair with minimal assistance. Transfer to w/c with minimal assistance. To restroom via w/c. Transfer w/c <-> shower bench with minimal assistance using FWW and grab bars for balance. Seated bathing completed using hand held shower. Upper body bathing with set up. Pt able to wash bilateral upper legs, uses long handled sponge to wash lower legs and feet. Assist to wash buttocks. Pt requires assist to dry lower legs and feet. Don pullover shirt with set up. Pt donned depends and pants with minimal assistance using fly tier to start over feet. Stood with minimal assistance for balance during pant hike, cues for WB status. Minimal assistance to don socks using sock aid. Toilet transfer completed with minimal assistance. Pt requires assist for hygiene. Grooming completed with set up while seated at sink. Pt requires increased time for ADL and mobility tasks. Pt requests to return to bed after session. Transfer w/c to EOB with minimal assistance. Sit to supine with assist for LE. Pt in bed with needs met after session. Functional [place] Measure 0=Not Assessed/NA 4=Minimal Assistance 1=Total Assistance 5=Supervision or Setup 2=Maximal Assistance 6=Modified [place] 3=Moderate Assistance 7=Complete IndependenceIRFPAI Quality Coding Scale 6 Independent with activity with or without an assistive device 5 Patient requires set up or clean up by helper. Patient completes activity by themselves 4 Supervision or touching assist (CGA). [place] provide cues , steadying assist 3 The helper provides less than half the effort to complete the activity 2 The helper provides more than half the effort to complete the activity 1 Dependent. The helper does all the effort to complete an activity 7 Patient refused to complete or attempt activity 9 The patient did not perform the activity before the current illness or injury 88 Not attempted due to Medical conditions or safety concerns Grooming (FIM): 5 Bathing (FIM): 3 Bathing Location: L Arm, R Arm, L Upper Leg, R Upper Leg, Chest, Abdomen, Perineal Area Upper Body (FIM): 5 Lower Body Dressing (FIM): 4 Toileting (FIM): 3 Toilet/Commode Transfer (FIM): 4 Shower Transfer(FIM): 4 Education OT Patient Education: Modified ADL techniques Teaching Recipient: Patient Teaching Methods: Demonstration Response to Teaching: Return Demonstration OT Short Term Goals Short Term Goals Time Frame: Dec 11, 2016 Lower Body Dressing(FIM): 3 Toileting(FIM): 3 Transfers (B,C,W/C) (FIM): 4 (CGA) Toilet/Commode Transfer(FIM): 4 Additional Short Term Goals: 1-Demonstrate ADL Tasks, 2-Verbalize Understanding , 3-ImproveStrength/[place] 1=Demonstrate adherence to instructed precautions during ADL tasks. 2=Patient will verbalize/demonstrate understanding of assistive devices/ modifications for ADL. 3=Patient will improve strength/tolerance for activity to enable patient to perform ADL's. OT [facility] Goals [facility] Goals Time Frame: Dec 25, 2016 Eating (FIM): 6 Eating (QC): 6 Oral Hygiene (QC): 6 Grooming(FIM): 6 Bathing(FIM): 5 Shower/Bathe Self (QC): 5 Upper Body Dressing(FIM): 5 Upper Body Dressing (QC): 5 Lower Body Dressing(FIM): 5 Lower Body Dressing (QC): 5 On/Off Footwear (QC): 5 Toileting(FIM): 5 Toileting Hygiene (QC): 5 Toilet/Commode Transfer(FIM): 5 Toilet/Commode Transfer (QC): 5 Shower Transfer(FIM): 5 Additional Goals: 1-Demonstrate ADL Tasks, 2-Verbalize Understanding, 3- ImproveStrength/[place] 1=Demonstrate adherence to instructed precautions during ADL tasks. 2=Patient will verbalize/demonstrate understanding of assistive devices/ modifications for ADL. 3=Patient will improve strength/tolerance for activity to enable patient to perform ADL's. OT Education/Plan Problem List/Assessment Pt demonstrates decreased mobility, strength, activity tolerance, and ADL performance. Pt to benefit from skilled OT intervention for ADL training, transfers, strengthening, and safety education to maximize level of function and allow safe discharge plan. Discharge Recommendations Plan/Recommendations: Continue POC Treatment Plan/Plan of Care Patient would benefit from OT for education, treatment and training to promote independence in ADL's, mobility, safety and/or upper extremity function for ADL' s. Plan of Care: ADL Retraining, Functional Mobility, Group Exercise/Act as Ind, UE Funct Exercise/Act Treatment Duration: Dec 25, 2016 Visits Per Week: 10-11 Minutes/Day (M-F): 60-90 Minutes/Day (Sat/Ortega): PRN Agreement: Yes Rehab Potential: Good Time/GCodes Start Time: 07:45 Stop Time: 08:45 Total Time Billed (hr/min): 60 Billed Treatment Time 1 visit, ADLx4(60minutes) SHRUTI ROBERTS OT Dec 09, 2016 10:54
[2016-12-09] MEDS: HYDROcodone/APAP 5 MG/325 MG (LORTAB) TAB PO PRN (11:22)
--- NOTE | 2016-12-09 11:30 | Physical Therapy Daily Note ---
PT Daily Note-Current Subjective Pt. agrees to Rx but states she had pain this date at at level she has not had before. Pt. yelping out during movement. Nursing notified and states her pain meds have changed at that may be the reason. Pain Numeric Pain Scale: 5-Moderate Pain Location: Right Location Body Site: Hip Pain Description: Stabbing Comment: with movement, AAROM Mental Status Patient Orientation: Normal For Age Transfers Functional [place] Measure 0=Not Assessed/NA 4=Minimal Assistance 1=Total Assistance 5=Supervision or Setup 2=Maximal Assistance 6=Modified [place] 3=Moderate Assistance 7=Complete IndependenceIRFPAI Quality Coding Scale 6 Independent with activity with or without an assistive device 5 Patient requires set up or clean up by helper. Patient completes activity by themselves 4 Supervision or touching assist (CGA). [place] provide cues , steadying assist 3 The helper provides less than half the effort to complete the activity 2 The helper provides more than half the effort to complete the activity 1 Dependent. The helper does all the effort to complete an activity 7 Patient refused to complete or attempt activity 9 The patient did not perform the activity before the current illness or injury 88 Not attempted due to Medical conditions or safety concerns Transfers (B, C, W/C) (FIM): 3 Scootin Rollin Supine to/from Sit: 3 Sit to/from Stand: 4 Bed to/from Chair: 4 requires assist for RLE in out bed Weight Bearing Weight Bearing Restriction: Touch Toe Bearing Location Restriction: R LE appears to maintain well Gait Training Does the Patient Walk?: Yes Gait (FIM): 1 Distance (FIM): 1=up to 49 ft (15ftx3) Gait Level of Assist: 4 Gait Persons Needed: 1 Gait Assistive Device: FWW slow with c/o pain while advancing RLE Wheelchair Training Does the Pt Use a Wheelchair?: Yes Wheelchair (FIM): 2 Wheelchair Distance: 0=770-57 ft (75x2) Wheelchair Level of Assist: 4 Type of Wheelchair: Manual Exercises Supine Ex: Ankle pumps, Quad Set, Rolling, Glut sets, Heel Slides, Short Arc Quads, Scooting, Straight leg raise, Hip abd/add Supine Reps: 12 (with assist) Seated Therapy Exercises: Ankle pumps, Sit to stand, Long arc quads Seated Reps: 12 NuStep Minutes: 12 NuStep Workload: 3 Assessment Current Status: Fair Progress R hip and distal limb noted to be swollen, this was discussed with nursing as well as increased pain c/o PT Short Term Goals Short Term Goals Time Frame: Dec 11, 2016 Transfers (B,C,W/C) (FIM): 4 (CGA) Gait (FIM): 2 Gait Distance Comment: 50' Gait Level of Assist: 4 (CGA) Gait Assistive Device: FWW Wheelchair Distance: 50' PT Dictaphone Transcriber Goals Dictaphone Transcriber Goals PT Custodial Goals Time Frame: Dec 25, 2016 Transfers (B,C,W/C) (FIM): 5 Sit to Lying (QC): 4 Lying-Sitting on Side/Bed(QC): 4 Sit to Stand (QC): 4 Rollin Roll Left to Right (QC): 4 Chair/Qcx-rr-[place] Xfer(QC): 4 Car Transfer (QC): 4 Does the Patient Walk: Yes Gait (FIM): 5 Distance: 150' Walk 10 feet (QC): 4 Walk 10ft-Uneven Surface(QC): 4 Walk 50ft with 2 Turns (QC): 4 Walk 150 ft (QC): 4 Gait Level of Assist: 5 Gait Assistive Device: FWW Stairs (FIM): 2 # of Steps: 4 1 Step (curb) (QC): 4 4 Steps (QC): 4 12 Steps (QC): 4 Stairs Level Of Assist: 5 Picking up an Object (QC): 88 PT Plan Treatment/Plan Treatment Plan: Continue Plan of Care Treatment Plan: Bed Mobility, Education, Functional Activity [place], Functional Strength, Group Therapy, Gait, Safety, Therapeutic Exercise, Transfers Treatment Duration: Dec 25, 2016 Visits Per Week: 10-11 Minutes/Day (M-F): 60-90 Minutes/Day (Sat/Ortega): 15-30 Safety Risks/Education Patient Education: Gait Training, Transfer Techniques, Correct Positioning, W/ C Management, Safety Issues Teaching Recipient: Patient Teaching Methods: Demonstration, Discussion Response to Teaching: Verbalize Understanding, Return Demonstration, Reinforcement Needed Time/GCodes Time In: 1030 Time Out: 1130 Total Billed Treatment Time: 60 Total Billed Treatment 1,EX30m,GT15m,FA15m G Codes Necessary: KAMARI Hagen SENIOR ELECTRICAL CONTROLS ENGINEER Dec 09, 2016 11:30
--- NOTE | 2016-12-09 13:14 | PM & R (SOAP) Progress Note ---
Subjective Subjective/Events-last exam Patient was seen in her room this afternoon Patient c/o increased pain in rt hip with WB and PT note appreciated patient Mod assist for transfers Rt hip/ thigh does appear swollen will check Xray. Review of Systems Musculoskeletal: : leg pain Objective Exam Last Set of Vital Signs Vital Signs Date Time Temp Pulse Resp B/P Pulse Ox O2 Delivery O2 Flow Rate FiO2 12/09/16 09:00 Room Air 12/09/16 05:44 98.4 73 18 161/71 95 12/06/16 06:46 2.00 Capillary Refill : Less Than 3 Seconds I&O Intake and Output 12/09/16 00:00 Intake Total 1280 ml Balance 1280 ml Intake Oral 1280 ml # Voids 7 General: Alert, Oriented X3, Cooperative, No Acute Distress HEENT: Atraumatic, PERRLA, EOMI, Mucous Memb Moist/[place] Neck: Supple, No JVD Lungs: Clear to Auscultation Heart: Regular Rate Abdomen: Normal Bowel Sounds, Soft, No Tenderness Extremities: No Edema, Other (rt hip as per above) Neuro: Other (generalized weakness more so at operated hip) Results Lab Laboratory Tests 12/07/16 10:35: Alanine Aminotransferase (ALT/SGPT) 19, Albumin 3.5, Alkaline Phosphatase 60, Anion Gap 9, Aspartate Amino Transf (AST/SGOT) 25, BUN/Creatinine Ratio 31, Blood Urea Nitrogen 18, Calcium Level 8.6, Carbon Dioxide Level 25, Chloride Level 103, Creatinine 0.59L, Estimat Glomerular Filtration Rate > 60, Glucose Level 118H, Hematocrit 30L, Hemoglobin 9.6#L, Mean Corpuscular Hemoglobin 32, Mean Corpuscular Hemoglobin Concent 32, Mean Corpuscular Volume 99, Mean Platelet Volume 10.3, Platelet Count 191, Potassium Level 4.2, Red Blood Count 3.02L, Red Cell Distribution Width 15.0H, Sodium Level 137, Total Bilirubin 1.1H , Total Protein 5.7L, White Blood Count 9.1 Assessment/Plan Assessment S/P hip repair s/p fall with increased pain today Postop anemia Postop Nausea multifactorial-resolved Plan Continue PT/OT as tolerated F/U with Dr Crow Transfuse PRBCS-done labs noted Treat Nausea-See orders-done improved Team Conference 12/11/16 Xray rt hip see orders. MARCELL TYLER MD Dec 09, 2016 13:14
--- NOTE | 2016-12-09 13:20 | Physical Therapy Daily Note ---
PT Daily Note-Current Subjective Pt. up in w/c for lunch states she is not comfortable in the clothes she has on and doesnt really have any here that fit. Pt. requests to be changed back in to night gown. Pt asks to donate the crop blue kofi pants she has on to the unit clothing donation box Pain Numeric Pain Scale: 4 Location: Right Location Body Site: Hip Pain Description: Ache Mental Status Patient Orientation: Normal For Age Transfers Functional [place] Measure 0=Not Assessed/NA 4=Minimal Assistance 1=Total Assistance 5=Supervision or Setup 2=Maximal Assistance 6=Modified [place] 3=Moderate Assistance 7=Complete IndependenceIRFPAI Quality Coding Scale 6 Independent with activity with or without an assistive device 5 Patient requires set up or clean up by helper. Patient completes activity by themselves 4 Supervision or touching assist (CGA). [place] provide cues , steadying assist 3 The helper provides less than half the effort to complete the activity 2 The helper provides more than half the effort to complete the activity 1 Dependent. The helper does all the effort to complete an activity 7 Patient refused to complete or attempt activity 9 The patient did not perform the activity before the current illness or injury 88 Not attempted due to Medical conditions or safety concerns mod assist TRF sit to sup, sit to stand min to CGA Weight Bearing Weight Bearing Restriction: Touch Toe Bearing Location Restriction: R LE Gait Training Gait Assistive Device: FWW gait 25ft x1 CGA TTWB RLE Exercises Supine Ex: Ankle pumps, Quad Set, Glut sets, Heel Slides Supine Reps: 8 PT Short Term Goals Short Term Goals Time Frame: Dec 11, 2016 Transfers (B,C,W/C) (FIM): 4 (CGA) Gait (FIM): 2 Gait Distance Comment: 50' Gait Level of Assist: 4 (CGA) Gait Assistive Device: FWW Wheelchair Distance: 50' PT Fdc Goals Fdc Goals PT Plastic Top Assembler Goals Time Frame: Dec 25, 2016 Transfers (B,C,W/C) (FIM): 5 Sit to Lying (QC): 4 Lying-Sitting on Side/Bed(QC): 4 Sit to Stand (QC): 4 Rollin Roll Left to Right (QC): 4 Chair/Wrh-xo-[place] Xfer(QC): 4 Car Transfer (QC): 4 Does the Patient Walk: Yes Gait (FIM): 5 Distance: 150' Walk 10 feet (QC): 4 Walk 10ft-Uneven Surface(QC): 4 Walk 50ft with 2 Turns (QC): 4 Walk 150 ft (QC): 4 Gait Level of Assist: 5 Gait Assistive Device: FWW Stairs (FIM): 2 # of Steps: 4 1 Step (curb) (QC): 4 4 Steps (QC): 4 12 Steps (QC): 4 Stairs Level Of Assist: 5 Picking up an Object (QC): 88 PT Plan Treatment/Plan Treatment Plan: Continue Plan of Care Treatment Plan: Bed Mobility, Education, Functional Activity [place], Functional Strength, Group Therapy, Gait, Safety, Therapeutic Exercise, Transfers Treatment Duration: Dec 25, 2016 Visits Per Week: 10-11 Minutes/Day (M-F): 60-90 Minutes/Day (Sat/Ortega): 15-30 Safety Risks/Education Patient Education: Gait Training, Transfer Techniques, Correct Positioning, Safety Issues Teaching Recipient: Patient Teaching Methods: Demonstration, Discussion Response to Teaching: Verbalize Understanding, Return Demonstration, Reinforcement Needed Time/GCodes Time In: 1245 Time Out: 1315 Total Billed Treatment Time: 30 Total Billed Treatment 1,FA30m G Codes Necessary: KAMARI Hagen SERVICE OR WORK DISPATCHER CHIEF Dec 09, 2016 13:20
--- NOTE | 2016-12-09 14:42 | Occupational Ther Daily Note ---
OT Current Status-Daily Note Subjective Pt sitting in w/c, agrees to treatment. Pt reports 1/10 right hip pain. Mental Status/Objective Functional [place] Measure 0=Not Assessed/NA 4=Minimal Assistance 1=Total Assistance 5=Supervision or Setup 2=Maximal Assistance 6=Modified [place] 3=Moderate Assistance 7=Complete [place] ADL-Treatment Functional [place] Measure 0=Not Assessed/NA 4=Minimal Assistance 1=Total Assistance 5=Supervision or Setup 2=Maximal Assistance 6=Modified [place] 3=Moderate Assistance 7=Complete IndependenceIRFPAI Quality Coding Scale 6 Independent with activity with or without an assistive device 5 Patient requires set up or clean up by helper. Patient completes activity by themselves 4 Supervision or touching assist (CGA). [place] provide cues , steadying assist 3 The helper provides less than half the effort to complete the activity 2 The helper provides more than half the effort to complete the activity 1 Dependent. The helper does all the effort to complete an activity 7 Patient refused to complete or attempt activity 9 The patient did not perform the activity before the current illness or injury 88 Not attempted due to Medical conditions or safety concerns Other Treatment Pt performed w/c mobility to therapy gym with SBA and much increased time. Rest breaks as needed secondary to fatigue. Arm bike x10 minutes to increase overall strength and activity tolerance. Pt completed task with minimal resistance and slow pace. No rest breaks were taken during activity. Pt returned to room, sitting in w/c with needs met after session. OT Short Term Goals Short Term Goals Time Frame: Dec 11, 2016 Lower Body Dressing(FIM): 3 Toileting(FIM): 3 Transfers (B,C,W/C) (FIM): 4 (CGA) Toilet/Commode Transfer(FIM): 4 Additional Short Term Goals: 1-Demonstrate ADL Tasks, 2-Verbalize Understanding , 3-ImproveStrength/[place] 1=Demonstrate adherence to instructed precautions during ADL tasks. 2=Patient will verbalize/demonstrate understanding of assistive devices/ modifications for ADL. 3=Patient will improve strength/tolerance for activity to enable patient to perform ADL's. OT Meteorology Teacher Goals Meteorology Teacher Goals Time Frame: Dec 25, 2016 Eating (FIM): 6 Eating (QC): 6 Oral Hygiene (QC): 6 Grooming(FIM): 6 Bathing(FIM): 5 Shower/Bathe Self (QC): 5 Upper Body Dressing(FIM): 5 Upper Body Dressing (QC): 5 Lower Body Dressing(FIM): 5 Lower Body Dressing (QC): 5 On/Off Footwear (QC): 5 Toileting(FIM): 5 Toileting Hygiene (QC): 5 Toilet/Commode Transfer(FIM): 5 Toilet/Commode Transfer (QC): 5 Shower Transfer(FIM): 5 Additional Goals: 1-Demonstrate ADL Tasks, 2-Verbalize Understanding, 3- ImproveStrength/[place] 1=Demonstrate adherence to instructed precautions during ADL tasks. 2=Patient will verbalize/demonstrate understanding of assistive devices/ modifications for ADL. 3=Patient will improve strength/tolerance for activity to enable patient to perform ADL's. OT Education/Plan Problem List/Assessment Pt demonstrates decreased mobility, strength, activity tolerance, and ADL performance. Pt to benefit from skilled OT intervention for ADL training, transfers, strengthening, and safety education to maximize level of function and allow safe discharge plan. Discharge Recommendations Plan/Recommendations: Continue POC Treatment Plan/Plan of Care Patient would benefit from OT for education, treatment and training to promote independence in ADL's, mobility, safety and/or upper extremity function for ADL' s. Plan of Care: ADL Retraining, Functional Mobility, Group Exercise/Act as Ind, UE Funct Exercise/Act Treatment Duration: Dec 25, 2016 Visits Per Week: 10-11 Minutes/Day (M-F): 60-90 Minutes/Day (Sat/Ortega): PRN Agreement: Yes Rehab Potential: Good Time/GCodes Start Time: 11:45 Stop Time: 12:15 Total Time Billed (hr/min): 30 Billed Treatment Time 1 visit, FA(15minutes), EX(15minutes) SHRUTI ROBERTS OT Dec 09, 2016 14:42
--- NOTE | 2016-12-09 15:02 | Diagnostic Imaging Report ---
EXAMINATION: AP and frog lateral views of the right hip. INDICATION: Right hip fracture status post internal fixation with increasing right hip pain. FINDINGS: There is a right intertrochanteric fracture with comminution. The greater and lesser trochanters are fractured and mildly displaced. There is internal fixation locked intramedullary ksenia and femoral neck nailing with near-anatomic alignment of the major fragments. This appears stable from the intraoperative fluoroscopic view during hardware placement. No subluxation or dislocation. IMPRESSION: Stable open reduction and internal fixation for the intertrochanteric fracture. Dictated by: Dictated on workstation # [id number]
[2016-12-09 18:52] VITALS: BP 162/71
[2016-12-09] MEDS: POLYETHYLENE GLYCOL 17 GM (MIRALAX) PACK PO SCH (20:57)
[2016-12-09] MEDS: ONDANSETRON 4 MG/2 ML (SDV) Z0FRAN IVP PRN (21:01)
[2016-12-10 06:00] VITALS: BP 125/72
[2016-12-10] MEDS: LEVOTHYROXINE 25 MCG (LEVOTHROID) TAB PO SCH (06:25)
[2016-12-10] MEDS: TROSPIUM 20 MG (SANCTURA) TAB PO SCH ×2 (06:32→17:21)
[2016-12-10] MEDS: VITAMIN D3 5,000 UNITS (CHOLECALCIFEROL ) CAPSULE PO SCH (09:04)
[2016-12-10] MEDS: amLODIPine 5 MG (NORVASC) TAB PO SCH (09:04)
[2016-12-10] MEDS: ASPIRIN E.C. 81 MG (ECOTRIN) TAB PO SCH (09:04)
[2016-12-10] MEDS: ENOXAPARIN 40 MG/0.4 ML (LOVENOX) SYR SC SCH (09:04)
[2016-12-10] MEDS: FOSINOPRIL 20 MG PO SCH (09:04)
[2016-12-10] MEDS: SENNA W/DOCUSATE (SENOKOT S) TABLET PO SCH ×2 (09:05→20:52)
--- NOTE | 2016-12-10 09:05 | Physical Therapy Daily Note ---
PT Daily Note-Current Subjective Agreesl to PT. had pain meds prior to treatment. Pain Numeric Pain Scale: 2 Location: Right Location Body Site: Hip Pain Description: Ache (sore) Mental Status Patient Orientation: Person, Place, Time, Situation Transfers Functional [place] Measure 0=Not Assessed/NA 4=Minimal Assistance 1=Total Assistance 5=Supervision or Setup 2=Maximal Assistance 6=Modified [place] 3=Moderate Assistance 7=Complete IndependenceIRFPAI Quality Coding Scale 6 Independent with activity with or without an assistive device 5 Patient requires set up or clean up by helper. Patient completes activity by themselves 4 Supervision or touching assist (CGA). [place] provide cues , steadying assist 3 The helper provides less than half the effort to complete the activity 2 The helper provides more than half the effort to complete the activity 1 Dependent. The helper does all the effort to complete an activity 7 Patient refused to complete or attempt activity 9 The patient did not perform the activity before the current illness or injury 88 Not attempted due to Medical conditions or safety concerns Transfers (B, C, W/C) (FIM): 4 Supine to/from Sit: 4 (assist with right LE) Sit to/from Stand: 4 (CGa and skilled reminders for safety and hand placement) SPT x 2 with FWW with SBA and cues for safety. TTWB Weight Bearing Weight Bearing Restriction: Touch Toe Bearing Location Restriction: R LE Gait Training Gait (FIM): 2 Distance: 15 ft x 3 Gait Assistive Device: FWW Pt able to maintain TTWB with short distances Exercises Supine Ex: Ankle pumps, Quad Set, Heel Slides, Short Arc Quads, Hip abd/add Supine Reps: 15 (requires min assist with R LE) Seated Therapy Exercises: Ankle pumps, Long arc quads, Hip abd/add Seated Reps: 15 Assessment Current Status: Good Progress Progressing with fruncitonal mobility. PT Short Term Goals Short Term Goals Time Frame: Dec 11, 2016 Transfers (B,C,W/C) (FIM): 4 (CGA) Gait (FIM): 2 (met 12/10/16) Gait Distance Comment: 50' Gait Level of Assist: 4 (CGA) Gait Assistive Device: FWW Wheelchair Distance: 50' PT Alf Goals Alf Goals PT Alf Goals Time Frame: Dec 25, 2016 Transfers (B,C,W/C) (FIM): 5 Sit to Lying (QC): 4 Lying-Sitting on Side/Bed(QC): 4 Sit to Stand (QC): 4 Rollin Roll Left to Right (QC): 4 Chair/Fha-nc-Lmffd Xfer(QC): 4 Car Transfer (QC): 4 Does the Patient Walk: Yes Gait (FIM): 5 Distance: 150' Walk 10 feet (QC): 4 Walk 10ft-Uneven Surface(QC): 4 Walk 50ft with 2 Turns (QC): 4 Walk 150 ft (QC): 4 Gait Level of Assist: 5 Gait Assistive Device: FWW Stairs (FIM): 2 # of Steps: 4 1 Step (curb) (QC): 4 4 Steps (QC): 4 12 Steps (QC): 4 Stairs Level Of Assist: 5 Picking up an Object (QC): 88 PT Plan Problem List Problem List: Activity Tolerance, Functional Strength, Safety, Gait, Transfer Treatment/Plan Treatment Plan: Continue Plan of Care Treatment Plan: Bed Mobility, Education, Functional Activity [place], Functional Strength, Group Therapy, Gait, Safety, Therapeutic Exercise, Transfers Treatment Duration: Dec 25, 2016 Visits Per Week: 10-11 Minutes/Day (M-F): 60-90 Minutes/Day (Sat/Ortega): 15-30 Safety Risks/Education Patient Education: Transfer Techniques, Safety Issues Teaching Recipient: Patient Teaching Methods: Demonstration, Discussion Response to Teaching: Return Demonstration Time/GCodes Time In: 800 Time Out: 900 Total Billed Treatment Time: 60 Total Billed Treatment visit GT 25 EX 20 FA 15 ELLIOTT MIKE PT Dec 10, 2016 09:05
[2016-12-10] MEDS: PRESERVISION AREDS SOFTGEL (BAUSH & LOMB) PO SCH (09:06)
[2016-12-10] MEDS: LETROZOLE 2.5 MG (FEMARA) TAB PO SCH (09:14)
[2016-12-10] MEDS: EYE WASH 118 ML BTL OU SCH ×2 (09:16→20:52)
[2016-12-10] MEDS: LOTEMAX 0.5% OU SCH (09:16)
[2016-12-10] MEDS: ONDANSETRON 4 MG/2 ML (SDV) Z0FRAN IVP PRN (09:57)
--- NOTE | 2016-12-10 10:49 | PM & R (SOAP) Progress Note ---
Subjective Subjective/Events-last exam Patient was seen in her room this AM Patient min assist for transfers Rt Hip pain improved this AM Repeat Hip Xray done yesterday revealed satisfactory alignment Objective Exam Last Set of Vital Signs Vital Signs Date Time Temp Pulse Resp B/P Pulse Ox O2 Delivery O2 Flow Rate FiO2 12/10/16 08:21 97.4 12/10/16 06:00 71 19 125/72 98 Room Air 12/06/16 06:46 2.00 Capillary Refill : Less Than 3 Seconds I&O Intake and Output 12/10/16 00:00 Intake Total 1240 ml Balance 1240 ml Intake Oral 1240 ml # Voids 8 # Bowel Movements 1 General: Alert, Oriented X3, Cooperative, No Acute Distress HEENT: Atraumatic, PERRLA, EOMI, Mucous Memb Moist/[place] Neck: Supple, No JVD Lungs: Clear to Auscultation Heart: Regular Rate Abdomen: Normal Bowel Sounds, Soft, No Tenderness Extremities: No Edema, Other (rt hip as per above) Neuro: Other (generalized weakness more so at operated hip) Assessment/Plan Assessment S/P hip repair s/p fall with increased pain today Postop anemia Postop Nausea multifactorial-resolved Postop constipation meds adjusted Plan Continue PT/OT as tolerated F/U with Dr Crow Transfuse PRBCS-done labs noted Treat Nausea-See orders-done improved Team Conference tomorrow 12/11/16 Xray rt hip see orders-done no change rt hip pain improved. MARCELL TYLER MD Dec 10, 2016 10:49
--- NOTE | 2016-12-10 12:09 | Occupational Ther Daily Note ---
OT Current Status-Daily Note Subjective Pt sitting in chair, agrees to treatment. Pt reports 1/10 right hip pain. Toward end of session pt reports mild nausea. RN was notified and provided medication. Mental Status/Objective Functional [place] Measure 0=Not Assessed/NA 4=Minimal Assistance 1=Total Assistance 5=Supervision or Setup 2=Maximal Assistance 6=Modified [place] 3=Moderate Assistance 7=Complete [place] ADL-Treatment Pt transferred chair to w/c with minimal assistance using FWW, TTWB. Pt declined shower, but completed partial sponge bath seated at sink. Doff night gown without assistance. Pt bathed upper body with set up. Don pullover shirt with set up. Pt states she changed pants already this morning. Grooming completed seated in w/c. Pt brushed teeth, combed hair, and washed face with modified independence. Increased time for ADL tasks. Functional [place] Measure 0=Not Assessed/NA 4=Minimal Assistance 1=Total Assistance 5=Supervision or Setup 2=Maximal Assistance 6=Modified [place] 3=Moderate Assistance 7=Complete IndependenceIRFPAI Quality Coding Scale 6 Independent with activity with or without an assistive device 5 Patient requires set up or clean up by helper. Patient completes activity by themselves 4 Supervision or touching assist (CGA). [place] provide cues , steadying assist 3 The helper provides less than half the effort to complete the activity 2 The helper provides more than half the effort to complete the activity 1 Dependent. The helper does all the effort to complete an activity 7 Patient refused to complete or attempt activity 9 The patient did not perform the activity before the current illness or injury 88 Not attempted due to Medical conditions or safety concerns Upper Body (FIM): 5 Other Treatment Pt performed w/c mobility to therapy gym with increased time. Minimal assistance required to maneuver around corners. Pt performed bilateral UE exercises to increase strength needed for ADLs and transfers. Pt completed shoulder flexion, abduction, biceps curls, and triceps extension exercises x20 reps with moderate resistance (red) theraband. Rest breaks between exercises. Pt returned to room, transferred to EOB with minimal assistance. Sit to supine with minimal assistance for right LE. Pt in bed with needs met after session. OT Short Term Goals Short Term Goals Time Frame: Dec 11, 2016 Lower Body Dressing(FIM): 3 Toileting(FIM): 3 Transfers (B,C,W/C) (FIM): 4 (CGA) Toilet/Commode Transfer(FIM): 4 Additional Short Term Goals: 1-Demonstrate ADL Tasks, 2-Verbalize Understanding , 3-ImproveStrength/[place] 1=Demonstrate adherence to instructed precautions during ADL tasks. 2=Patient will verbalize/demonstrate understanding of assistive devices/ modifications for ADL. 3=Patient will improve strength/tolerance for activity to enable patient to perform ADL's. OT Fpc Goals Fpc Goals Time Frame: Dec 25, 2016 Eating (FIM): 6 Eating (QC): 6 Oral Hygiene (QC): 6 Grooming(FIM): 6 Bathing(FIM): 5 Shower/Bathe Self (QC): 5 Upper Body Dressing(FIM): 5 Upper Body Dressing (QC): 5 Lower Body Dressing(FIM): 5 Lower Body Dressing (QC): 5 On/Off Footwear (QC): 5 Toileting(FIM): 5 Toileting Hygiene (QC): 5 Toilet/Commode Transfer(FIM): 5 Toilet/Commode Transfer (QC): 5 Shower Transfer(FIM): 5 Additional Goals: 1-Demonstrate ADL Tasks, 2-Verbalize Understanding, 3- ImproveStrength/[place] 1=Demonstrate adherence to instructed precautions during ADL tasks. 2=Patient will verbalize/demonstrate understanding of assistive devices/ modifications for ADL. 3=Patient will improve strength/tolerance for activity to enable patient to perform ADL's. OT Education/Plan Problem List/Assessment Pt demonstrates decreased mobility, strength, activity tolerance, and ADL performance. Pt to benefit from skilled OT intervention for ADL training, transfers, strengthening, and safety education to maximize level of function and allow safe discharge plan. Discharge Recommendations Plan/Recommendations: Continue POC Treatment Plan/Plan of Care Patient would benefit from OT for education, treatment and training to promote independence in ADL's, mobility, safety and/or upper extremity function for ADL' s. Plan of Care: ADL Retraining, Functional Mobility, Group Exercise/Act as Ind, UE Funct Exercise/Act Treatment Duration: Dec 25, 2016 Visits Per Week: 10-11 Minutes/Day (M-F): 60-90 Minutes/Day (Sat/Ortega): PRN Agreement: Yes Rehab Potential: Good Time/GCodes Start Time: 09:05 Stop Time: 10:05 Total Time Billed (hr/min): 60 Billed Treatment Time 1 visit, ADLx2(30minutes), FA(10minutes), EX(20minutes) SHRUTI ROBERTS OT Dec 10, 2016 12:09
--- NOTE | 2016-12-10 14:45 | Occupational Ther Daily Note ---
OT Current Status-Daily Note Subjective Pt sitting in chair, agrees to treatment. Pt states she still has mild nausea. Mental Status/Objective Functional [place] Measure 0=Not Assessed/NA 4=Minimal Assistance 1=Total Assistance 5=Supervision or Setup 2=Maximal Assistance 6=Modified [place] 3=Moderate Assistance 7=Complete [place] ADL-Treatment Functional [place] Measure 0=Not Assessed/NA 4=Minimal Assistance 1=Total Assistance 5=Supervision or Setup 2=Maximal Assistance 6=Modified [place] 3=Moderate Assistance 7=Complete IndependenceIRFPAI Quality Coding Scale 6 Independent with activity with or without an assistive device 5 Patient requires set up or clean up by helper. Patient completes activity by themselves 4 Supervision or touching assist (CGA). [place] provide cues , steadying assist 3 The helper provides less than half the effort to complete the activity 2 The helper provides more than half the effort to complete the activity 1 Dependent. The helper does all the effort to complete an activity 7 Patient refused to complete or attempt activity 9 The patient did not perform the activity before the current illness or injury 88 Not attempted due to Medical conditions or safety concerns Other Treatment Sit to stand and transfer to w/c with minimal assistance using FWW, TTWB. To therapy gym via w/c. Pt performed fine motor activity with nuts and bolts with 1 # weights in place on bilateral UE to increase strength needed for ADLs and transfers. Graded clothespins with bilateral hands to increase dye automation operator/pinch strength. Arm bike x8 minutes to increase overall strength and activity tolerance. Pt performed activity with minimal resistance and slow pace, no rest breaks needed. Pt returned to room, transferred to EOB with minimal assistance. Sit to supine with minimal assistance for right LE. Pt in bed with needs met after session. OT Short Term Goals Short Term Goals Time Frame: Dec 11, 2016 Lower Body Dressing(FIM): 3 Toileting(FIM): 3 Transfers (B,C,W/C) (FIM): 4 (CGA) Toilet/Commode Transfer(FIM): 4 Additional Short Term Goals: 1-Demonstrate ADL Tasks, 2-Verbalize Understanding , 3-ImproveStrength/[place] 1=Demonstrate adherence to instructed precautions during ADL tasks. 2=Patient will verbalize/demonstrate understanding of assistive devices/ modifications for ADL. 3=Patient will improve strength/tolerance for activity to enable patient to perform ADL's. OT Fpc Goals Fpc Goals Time Frame: Dec 25, 2016 Eating (FIM): 6 Eating (QC): 6 Oral Hygiene (QC): 6 Grooming(FIM): 6 Bathing(FIM): 5 Shower/Bathe Self (QC): 5 Upper Body Dressing(FIM): 5 Upper Body Dressing (QC): 5 Lower Body Dressing(FIM): 5 Lower Body Dressing (QC): 5 On/Off Footwear (QC): 5 Toileting(FIM): 5 Toileting Hygiene (QC): 5 Toilet/Commode Transfer(FIM): 5 Toilet/Commode Transfer (QC): 5 Shower Transfer(FIM): 5 Additional Goals: 1-Demonstrate ADL Tasks, 2-Verbalize Understanding, 3- ImproveStrength/[place] 1=Demonstrate adherence to instructed precautions during ADL tasks. 2=Patient will verbalize/demonstrate understanding of assistive devices/ modifications for ADL. 3=Patient will improve strength/tolerance for activity to enable patient to perform ADL's. OT Education/Plan Problem List/Assessment Pt demonstrates decreased mobility, strength, activity tolerance, and ADL performance. Pt to benefit from skilled OT intervention for ADL training, transfers, strengthening, and safety education to maximize level of function and allow safe discharge plan. Discharge Recommendations Plan/Recommendations: Continue POC Treatment Plan/Plan of Care Patient would benefit from OT for education, treatment and training to promote independence in ADL's, mobility, safety and/or upper extremity function for ADL' s. Plan of Care: ADL Retraining, Functional Mobility, Group Exercise/Act as Ind, UE Funct Exercise/Act Treatment Duration: Dec 25, 2016 Visits Per Week: 10-11 Minutes/Day (M-F): 60-90 Minutes/Day (Sat/Ortega): PRN Agreement: Yes Rehab Potential: Good Time/GCodes Start Time: 13:30 Stop Time: 14:00 Total Time Billed (hr/min): 30 Billed Treatment Time 1 visit, EXx2(30minutes) SHRUTI ROBERTS OT Dec 10, 2016 14:45
--- NOTE | 2016-12-10 15:12 | Physical Therapy Daily Note ---
PT Daily Note-Current Subjective Pt sitting in recliner upon arrival. Pt reports feeling a little nauseated but agrees to PT. Pain Numeric Pain Scale: 0-No Pain Location: No Pain Reported Mental Status Patient Orientation: Person, Normal For Age Transfers Functional [place] Measure 0=Not Assessed/NA 4=Minimal Assistance 1=Total Assistance 5=Supervision or Setup 2=Maximal Assistance 6=Modified [place] 3=Moderate Assistance 7=Complete IndependenceIRFPAI Quality Coding Scale 6 Independent with activity with or without an assistive device 5 Patient requires set up or clean up by helper. Patient completes activity by themselves 4 Supervision or touching assist ([facility]). [place] provide cues , steadying assist 3 The helper provides less than half the effort to complete the activity 2 The helper provides more than half the effort to complete the activity 1 Dependent. The helper does all the effort to complete an activity 7 Patient refused to complete or attempt activity 9 The patient did not perform the activity before the current illness or injury 88 Not attempted due to Medical conditions or safety concerns Scootin Sit to/from Stand: 5 Weight Bearing Weight Bearing Restriction: Touch Toe Bearing Location Restriction: R LE Gait Training Does the Patient Walk?: Yes Distance (FIM): 1=up to 49 ft Distance: 30' Gait Level of Assist: 4 Gait Persons Needed: 1 Gait Assistive Device: FWW Pt walks short distances of approx. 15' using FWW at [facility]. Pt needs few VC for hand placement and remembering WB status. Pt has slow but steady gait with no LOB. Wheelchair Training Does the Pt Use a Wheelchair?: Yes Wheelchair Distance: 1=up to 49 ft Distance: 20' Wheelchair Level of Assist: 4 Type of Wheelchair: Manual Pt needs some VC for maneuvering W/C to correct location. Exercises Seated Therapy Exercises: Sit to stand Seated Reps: 10 Treatments Pt transfers from recliner to standing using FWW at [facility]. Pt ambulated using FWW at [facility] to room door before resting in W/C. Pt then propelled to [facility] for more transfer training. Pt practiced sit to stand transfers from W/ C to chair with arms and back for more practice. Pt then propelled back to room door to ambulate back to recliner to rest at end of tx. Pt practiced a couple more sit to stands from recliner using FWW at [facility]. Pt was left with all needs met at end of tx. Assessment Current Status: Good Progress Pt was able to complete transfers and ambulation with increased independence and strength. PT Short Term Goals Short Term Goals Time Frame: Dec 11, 2016 Transfers (B,C,W/C) (FIM): 4 (CGA) Gait (FIM): 2 (met 12/10/16) Gait Distance Comment: 50' Gait Level of Assist: 4 (CGA) Gait Assistive Device: FWW Wheelchair Distance: 50' PT Plastic Top Assembler Goals Usp Goals PT Plastic Top Assembler Goals Time Frame: Dec 25, 2016 Transfers (B,C,W/C) (FIM): 5 Sit to Lying (QC): 4 Lying-Sitting on Side/Bed(QC): 4 Sit to Stand (QC): 4 Rollin Roll Left to Right (QC): 4 Chair/Nle-zn-Dnikc Xfer(QC): 4 Car Transfer (QC): 4 Does the Patient Walk: Yes Gait (FIM): 5 Distance: 150' Walk 10 feet (QC): 4 Walk 10ft-Uneven Surface(QC): 4 Walk 50ft with 2 Turns (QC): 4 Walk 150 ft (QC): 4 Gait Level of Assist: 5 Gait Assistive Device: FWW Stairs (FIM): 2 # of Steps: 4 1 Step (curb) (QC): 4 4 Steps (QC): 4 12 Steps (QC): 4 Stairs Level Of Assist: 5 Picking up an Object (QC): 88 PT Plan Problem List Problem List: Activity Tolerance, Functional Strength, Safety, Balance, Gait, Transfer Treatment/Plan Treatment Plan: Continue Plan of Care Treatment Plan: Bed Mobility, Education, Functional Activity [place], Functional Strength, Group Therapy, Gait, Safety, Therapeutic Exercise, Transfers Treatment Duration: Dec 25, 2016 Visits Per Week: 10-11 Minutes/Day (M-F): 60-90 Minutes/Day (Sat/Ortega): 15-30 Safety Risks/Education Patient Education: Gait Training, Transfer Techniques, Reviewed Precautions, Correct Positioning, Safety Issues Teaching Recipient: Patient Teaching Methods: Discussion Response to Teaching: Verbalize Understanding Time/GCodes Time In: 1245 Time Out: 1315 Total Billed Treatment Time: 30 Total Billed Treatment visit, FA (15m) & GT (15m) AUSTEN FLORES TELEMETRY TECHNICIAN Dec 10, 2016 15:12
[2016-12-10] MEDS: ONDANSETRON 4 MG (ZOFRAN) ORAL DISSOLVE TAB PO PRN (17:50)
[2016-12-10 18:43] VITALS: BP 118/66
[2016-12-10] MEDS: POLYETHYLENE GLYCOL 17 GM (MIRALAX) PACK PO SCH (20:52)
[2016-12-11 06:00] VITALS: BP 129/69
[2016-12-11] MEDS: TROSPIUM 20 MG (SANCTURA) TAB PO SCH ×2 (06:00→15:32)
[2016-12-11] MEDS: LEVOTHYROXINE 25 MCG (LEVOTHROID) TAB PO SCH (06:26)
[2016-12-11] MEDS: ENOXAPARIN 40 MG/0.4 ML (LOVENOX) SYR SC SCH (08:59)
[2016-12-11] MEDS: LETROZOLE 2.5 MG (FEMARA) TAB PO SCH (09:00)
[2016-12-11] MEDS: VITAMIN D3 5,000 UNITS (CHOLECALCIFEROL ) CAPSULE PO SCH (09:00)
[2016-12-11] MEDS: amLODIPine 5 MG (NORVASC) TAB PO SCH (09:00)
[2016-12-11] MEDS: FOSINOPRIL 20 MG PO SCH (09:00)
[2016-12-11] MEDS: ASPIRIN E.C. 81 MG (ECOTRIN) TAB PO SCH (09:00)
[2016-12-11] MEDS: SENNA W/DOCUSATE (SENOKOT S) TABLET PO SCH ×2 (09:01→20:46)
[2016-12-11] MEDS: EYE WASH 118 ML BTL OU SCH ×2 (09:02→20:47)
[2016-12-11] MEDS: PRESERVISION AREDS SOFTGEL (BAUSH & LOMB) PO SCH (09:02)
[2016-12-11] MEDS: LOTEMAX 0.5% OU SCH (10:04)
--- NOTE | 2016-12-11 11:09 | Physical Therapy Daily Note ---
PT Daily Note-Current Subjective Agrees to Rx. had XR yesterday and it was "good' States she has 3/10 pain before and after Rx. Pain Numeric Pain Scale: 3 Location: Right Location Body Site: Hip Pain Description: Throbbing Mental Status Patient Orientation: Normal For Age Transfers Functional [place] Measure 0=Not Assessed/NA 4=Minimal Assistance 1=Total Assistance 5=Supervision or Setup 2=Maximal Assistance 6=Modified [place] 3=Moderate Assistance 7=Complete IndependenceIRFPAI Quality Coding Scale 6 Independent with activity with or without an assistive device 5 Patient requires set up or clean up by helper. Patient completes activity by themselves 4 Supervision or touching assist (CGA). [place] provide cues , steadying assist 3 The helper provides less than half the effort to complete the activity 2 The helper provides more than half the effort to complete the activity 1 Dependent. The helper does all the effort to complete an activity 7 Patient refused to complete or attempt activity 9 The patient did not perform the activity before the current illness or injury 88 Not attempted due to Medical conditions or safety concerns Transfers (B, C, W/C) (FIM): 4 Scootin Rollin Supine to/from Sit: 4 (assist RLE CGA in out bed) Sit to/from Stand: 5 Bed to/from Chair: 5 Weight Bearing Weight Bearing Restriction: Touch Toe Bearing Location Restriction: R LE Gait Training Does the Patient Walk?: Yes Gait (FIM): 2 Distance (FIM): 1=up to 49 ft (35ftx3) Gait Level of Assist: 4 Gait Persons Needed: 1 Gait Assistive Device: FWW w/c f/u Exercises Supine Ex: Ankle pumps, Quad Set, Rolling, Glut sets, Heel Slides, Short Arc Quads, Scooting, Straight leg raise (with assist), Hip abd/add (assist) Supine Reps: 15 Seated Therapy Exercises: Ankle pumps, Sit to stand, Long arc quads Seated Reps: 15 Assessment Current Status: Good Progress gait maintaining TTWB as well as further gait PT Short Term Goals Short Term Goals Time Frame: Dec 11, 2016 Transfers (B,C,W/C) (FIM): 4 (CGA) Gait (FIM): 2 (met 12/10/16) Gait Distance Comment: 50' Gait Level of Assist: 4 (CGA) Gait Assistive Device: FWW Wheelchair Distance: 20' PT Fpc Goals Fpc Goals PT [place] Roofer Helper Goals Time Frame: Dec 25, 2016 Transfers (B,C,W/C) (FIM): 5 Sit to Lying (QC): 4 Lying-Sitting on Side/Bed(QC): 4 Sit to Stand (QC): 4 Rollin Roll Left to Right (QC): 4 Chair/Xto-ss-Flatn Xfer(QC): 4 Car Transfer (QC): 4 Does the Patient Walk: Yes Gait (FIM): 5 Distance: 150' Walk 10 feet (QC): 4 Walk 10ft-Uneven Surface(QC): 4 Walk 50ft with 2 Turns (QC): 4 Walk 150 ft (QC): 4 Gait Level of Assist: 5 Gait Assistive Device: FWW Stairs (FIM): 2 # of Steps: 4 1 Step (curb) (QC): 4 4 Steps (QC): 4 12 Steps (QC): 4 Stairs Level Of Assist: 5 Picking up an Object (QC): 88 PT Plan Treatment/Plan Treatment Plan: Continue Plan of Care Treatment Plan: Bed Mobility, Education, Functional Activity [place], Functional Strength, Group Therapy, Gait, Safety, Therapeutic Exercise, Transfers Treatment Duration: Dec 25, 2016 Visits Per Week: 10-11 Minutes/Day (M-F): 60-90 Minutes/Day (Sat/Ortega): 15-30 Safety Risks/Education Patient Education: Gait Training, Transfer Techniques, Correct Positioning, Safety Issues Teaching Recipient: Patient Teaching Methods: Demonstration, Discussion Response to Teaching: Verbalize Understanding, Return Demonstration, Reinforcement Needed Time/GCodes Time In: 1015 Time Out: 1115 Total Billed Treatment Time: 60 Total Billed Treatment 1,EX20,FA15,GT25 G Codes Necessary: KAMARI Hagen TACKING MACHINE OPERATOR Dec 11, 2016 11:09
--- NOTE | 2016-12-11 11:51 | PM & R (SOAP) Progress Note ---
Subjective Subjective/Events-last exam Patient was seen in her room this AM Progressing well despite having limited WB in RLE.Patient is CGA for transfers Objective Exam Last Set of Vital Signs Vital Signs Date Time Temp Pulse Resp B/P Pulse Ox O2 Delivery O2 Flow Rate FiO2 12/11/16 06:00 98.7 75 18 129/69 92 Room Air 12/06/16 06:46 2.00 Capillary Refill : Less Than 3 Seconds I&O Intake and Output 12/11/16 00:00 Intake Total 730 ml Balance 730 ml Intake Oral 730 ml # Voids 5 # Bowel Movements 1 General: Alert, Oriented X3, Cooperative, No Acute Distress HEENT: Atraumatic, PERRLA, EOMI, Mucous Memb Moist/[place] Neck: Supple, No JVD Lungs: Clear to Auscultation Heart: Regular Rate Abdomen: Normal Bowel Sounds, Soft, No Tenderness Extremities: No Edema, Other (rt hip as per above) Neuro: Other (generalized weakness more so at operated hip) Assessment/Plan Assessment S/P rt hip frxsecondary to fall s/p repair with increased pain today Postop anemia Postop Nausea multifactorial-resolved Postop constipation meds adjusted Plan Continue PT/OT as tolerated F/U with Dr Crow Transfuse PRBCS-done labs noted Treat Nausea-See orders-done improved Xray rt hip see orders-done no change rt hip pain improved. Team Conference later today-See report for full functional update and POC and MARCELL PEREZ MD Dec 11, 2016 11:50
--- NOTE | 2016-12-11 12:01 | Occupational Ther Daily Note ---
OT Current Status-Daily Note Subjective Pt sitting in chair, agrees to treatment. Pt reports "very little" pain in right hip, but does not rate. Mental Status/Objective Functional [place] Measure 0=Not Assessed/NA 4=Minimal Assistance 1=Total Assistance 5=Supervision or Setup 2=Maximal Assistance 6=Modified [place] 3=Moderate Assistance 7=Complete [place] ADL-Treatment Pt sit to stand with supervision. Transfer to w/c with CGA with FWW. Pt transferred to walk in shower with CGA and cues for safety. Doffed clothing with SBA; uses dressing stick to doff pants and socks. Seated bathing completed using hand held shower. Upper body bathing completed with SBA. Pt uses long handled sponge to wash lower legs and feet. Pt requires assist to dry right LE. Don pullover shirt with SBA. Pt donned Depends and pants with CGA for balance during pant hike. Uses life support technician to start pants over feet. Assist required to don NANCY hose. Pt donned socks with SBA using sock aid. Grooming completed seated at sink with modified independence. Increased time required for ADLs. Pt sitting in w/c with needs met after session. Functional [place] Measure 0=Not Assessed/NA 4=Minimal Assistance 1=Total Assistance 5=Supervision or Setup 2=Maximal Assistance 6=Modified [place] 3=Moderate Assistance 7=Complete IndependenceIRFPAI Quality Coding Scale 6 Independent with activity with or without an assistive device 5 Patient requires set up or clean up by helper. Patient completes activity by themselves 4 Supervision or touching assist (CGA). [place] provide cues , steadying assist 3 The helper provides less than half the effort to complete the activity 2 The helper provides more than half the effort to complete the activity 1 Dependent. The helper does all the effort to complete an activity 7 Patient refused to complete or attempt activity 9 The patient did not perform the activity before the current illness or injury 88 Not attempted due to Medical conditions or safety concerns Grooming (FIM): 6 Bathing (FIM): 4 Upper Body (FIM): 5 Lower Body Dressing (FIM): 4 (CGA) Shower Transfer(FIM): 4 (CGA) OT Short Term Goals Short Term Goals Time Frame: Dec 11, 2016 Lower Body Dressing(FIM): 3 Toileting(FIM): 3 Transfers (B,C,W/C) (FIM): 4 (CGA) Toilet/Commode Transfer(FIM): 4 Additional Short Term Goals: 1-Demonstrate ADL Tasks, 2-Verbalize Understanding , 3-ImproveStrength/Corbin 1=Demonstrate adherence to instructed precautions during ADL tasks. 2=Patient will verbalize/demonstrate understanding of assistive devices/ modifications for ADL. 3=Patient will improve strength/tolerance for activity to enable patient to perform ADL's. OT Momd Teacher Goals Momd Teacher Goals Time Frame: Dec 25, 2016 Eating (FIM): 6 Eating (QC): 6 Oral Hygiene (QC): 6 Grooming(FIM): 6 Bathing(FIM): 5 Shower/Bathe Self (QC): 5 Upper Body Dressing(FIM): 5 Upper Body Dressing (QC): 5 Lower Body Dressing(FIM): 5 Lower Body Dressing (QC): 5 On/Off Footwear (QC): 5 Toileting(FIM): 5 Toileting Hygiene (QC): 5 Toilet/Commode Transfer(FIM): 5 Toilet/Commode Transfer (QC): 5 Shower Transfer(FIM): 5 Additional Goals: 1-Demonstrate ADL Tasks, 2-Verbalize Understanding, 3- ImproveStrength/Corbin 1=Demonstrate adherence to instructed precautions during ADL tasks. 2=Patient will verbalize/demonstrate understanding of assistive devices/ modifications for ADL. 3=Patient will improve strength/tolerance for activity to enable patient to perform ADL's. OT Education/Plan Problem List/Assessment Pt demonstrates decreased mobility, strength, activity tolerance, and ADL performance. Pt to benefit from skilled OT intervention for ADL training, transfers, strengthening, and safety education to maximize level of function and allow safe discharge plan. Discharge Recommendations Plan/Recommendations: Continue POC Treatment Plan/Plan of Care Patient would benefit from OT for education, treatment and training to promote independence in ADL's, mobility, safety and/or upper extremity function for ADL' s. Plan of Care: ADL Retraining, Functional Mobility, Group Exercise/Act as Ind, UE Funct Exercise/Act Treatment Duration: Dec 25, 2016 Visits Per Week: 10-11 Minutes/Day (M-F): 60-90 Minutes/Day (Sat/Ortega): PRN Agreement: Yes Rehab Potential: Good Time/GCodes Start Time: 09:00 Stop Time: 10:00 Total Time Billed (hr/min): 60 Billed Treatment Time 1 visit, ADLx4(60minutes) SHRUTI ROBERTS OT Dec 11, 2016 12:01
--- NOTE | 2016-12-11 14:13 | Occupational Ther Daily Note ---
OT Current Status-Daily Note Subjective Pt agrees to treatment this pm. Mental Status/Objective Functional [place] Measure 0=Not Assessed/NA 4=Minimal Assistance 1=Total Assistance 5=Supervision or Setup 2=Maximal Assistance 6=Modified [place] 3=Moderate Assistance 7=Complete [place] ADL-Treatment Pt sitting on BSC when therapist arrives. Pt completes toileting hygiene with SBA. Pt sit to stand with supervision. Pt able to pull pants up with SBA. Transfer to w/c with FWW, TTWB with CGA and cues for safety. Pt performed w/c mobility to therapy gym with SBA and increased time. Functional [place] Measure 0=Not Assessed/NA 4=Minimal Assistance 1=Total Assistance 5=Supervision or Setup 2=Maximal Assistance 6=Modified [place] 3=Moderate Assistance 7=Complete IndependenceIRFPAI Quality Coding Scale 6 Independent with activity with or without an assistive device 5 Patient requires set up or clean up by helper. Patient completes activity by themselves 4 Supervision or touching assist (CGA). [place] provide cues , steadying assist 3 The helper provides less than half the effort to complete the activity 2 The helper provides more than half the effort to complete the activity 1 Dependent. The helper does all the effort to complete an activity 7 Patient refused to complete or attempt activity 9 The patient did not perform the activity before the current illness or injury 88 Not attempted due to Medical conditions or safety concerns Other Treatment Arm bike x10 minutes to increase overall strength and activity tolerance needed for functional tasks. Pt completed task with minimal resistance and slow pace. No rest breaks needed. Pt completed peg activity with 1# weights in place to increase strength for ADLs and transfers. Pt has good participation in all activities. Pt sitting in w/c in commons area talking to visitor after session. OT Short Term Goals Short Term Goals Time Frame: Dec 11, 2016 Lower Body Dressing(FIM): 3 Toileting(FIM): 3 Transfers (B,C,W/C) (FIM): 4 (CGA) Toilet/Commode Transfer(FIM): 4 Additional Short Term Goals: 1-Demonstrate ADL Tasks, 2-Verbalize Understanding , 3-ImproveStrength/Corbin 1=Demonstrate adherence to instructed precautions during ADL tasks. 2=Patient will verbalize/demonstrate understanding of assistive devices/ modifications for ADL. 3=Patient will improve strength/tolerance for activity to enable patient to perform ADL's. OT Prison Goals Work Station Support Specialist Goals Time Frame: Dec 25, 2016 Eating (FIM): 6 Eating (QC): 6 Oral Hygiene (QC): 6 Grooming(FIM): 6 Bathing(FIM): 5 Shower/Bathe Self (QC): 5 Upper Body Dressing(FIM): 5 Upper Body Dressing (QC): 5 Lower Body Dressing(FIM): 5 Lower Body Dressing (QC): 5 On/Off Footwear (QC): 5 Toileting(FIM): 5 Toileting Hygiene (QC): 5 Toilet/Commode Transfer(FIM): 5 Toilet/Commode Transfer (QC): 5 Shower Transfer(FIM): 5 Additional Goals: 1-Demonstrate ADL Tasks, 2-Verbalize Understanding, 3- ImproveStrength/Corbin 1=Demonstrate adherence to instructed precautions during ADL tasks. 2=Patient will verbalize/demonstrate understanding of assistive devices/ modifications for ADL. 3=Patient will improve strength/tolerance for activity to enable patient to perform ADL's. OT Education/Plan Problem List/Assessment Pt demonstrates decreased mobility, strength, activity tolerance, and ADL performance. Pt to benefit from skilled OT intervention for ADL training, transfers, strengthening, and safety education to maximize level of function and allow safe discharge plan. Discharge Recommendations Plan/Recommendations: Continue POC Treatment Plan/Plan of Care Patient would benefit from OT for education, treatment and training to promote independence in ADL's, mobility, safety and/or upper extremity function for ADL' s. Plan of Care: ADL Retraining, Functional Mobility, Group Exercise/Act as Ind, UE Funct Exercise/Act Treatment Duration: Dec 25, 2016 Visits Per Week: 10-11 Minutes/Day (M-F): 60-90 Minutes/Day (Sat/Ortega): PRN Agreement: Yes Rehab Potential: Good Time/GCodes Start Time: 13:30 Stop Time: 14:00 Total Time Billed (hr/min): 30 Billed Treatment Time 1 visit, ADL(15minutes), EX(15minutes) SHRUTI ROBERTS OT Dec 11, 2016 14:13
--- NOTE | 2016-12-11 14:37 | Physical Therapy Daily Note ---
PT Daily Note-Current Subjective Pt. agrees to Rx. States she has 2/10 pain right hip Pain Numeric Pain Scale: 2 Location: Right Location Body Site: Hip Pain Description: Ache Mental Status Patient Orientation: Normal For Age Transfers Functional [place] Measure 0=Not Assessed/NA 4=Minimal Assistance 1=Total Assistance 5=Supervision or Setup 2=Maximal Assistance 6=Modified [place] 3=Moderate Assistance 7=Complete IndependenceIRFPAI Quality Coding Scale 6 Independent with activity with or without an assistive device 5 Patient requires set up or clean up by helper. Patient completes activity by themselves 4 Supervision or touching assist (CGA). [place] provide cues , steadying assist 3 The helper provides less than half the effort to complete the activity 2 The helper provides more than half the effort to complete the activity 1 Dependent. The helper does all the effort to complete an activity 7 Patient refused to complete or attempt activity 9 The patient did not perform the activity before the current illness or injury 88 Not attempted due to Medical conditions or safety concerns all TRFs sit to stand SBA Weight Bearing Weight Bearing Restriction: Touch Toe Bearing Location Restriction: R LE Gait Training Gait Assistive Device: FWW 35ftx4 CGA Exercises Seated Therapy Exercises: Ankle pumps, Sit to stand, Long arc quads Seated Reps: 10 Assessment Current Status: Good Progress PT Short Term Goals Short Term Goals Time Frame: Dec 11, 2016 Transfers (B,C,W/C) (FIM): 4 (CGA) Gait (FIM): 2 (met 12/10/16) Gait Distance Comment: 50' Gait Level of Assist: 4 (CGA) Gait Assistive Device: FWW Wheelchair Distance: 20' PT Waste Baler Goals Waste Baler Goals PT Waste Baler Goals Time Frame: Dec 25, 2016 Transfers (B,C,W/C) (FIM): 5 Sit to Lying (QC): 4 Lying-Sitting on Side/Bed(QC): 4 Sit to Stand (QC): 4 Rollin Roll Left to Right (QC): 4 Chair/Wef-bf-Mljpo Xfer(QC): 4 Car Transfer (QC): 4 Does the Patient Walk: Yes Gait (FIM): 5 Distance: 150' Walk 10 feet (QC): 4 Walk 10ft-Uneven Surface(QC): 4 Walk 50ft with 2 Turns (QC): 4 Walk 150 ft (QC): 4 Gait Level of Assist: 5 Gait Assistive Device: FWW Stairs (FIM): 2 # of Steps: 4 1 Step (curb) (QC): 4 4 Steps (QC): 4 12 Steps (QC): 4 Stairs Level Of Assist: 5 Picking up an Object (QC): 88 PT Plan Treatment/Plan Treatment Plan: Continue Plan of Care Treatment Plan: Bed Mobility, Education, Functional Activity [place], Functional Strength, Group Therapy, Gait, Safety, Therapeutic Exercise, Transfers Treatment Duration: Dec 25, 2016 Visits Per Week: 10-11 Minutes/Day (M-F): 60-90 Minutes/Day (Sat/Ortega): 15-30 Safety Risks/Education Patient Education: Gait Training, Transfer Techniques Teaching Recipient: Patient Teaching Methods: Demonstration, Discussion Response to Teaching: Verbalize Understanding, Return Demonstration, Reinforcement Needed Time/GCodes Time In: 1400 Time Out: 1430 Total Billed Treatment Time: 30 Total Billed Treatment 1,GT30m G Codes Necessary: KAMARI Hagen BUYER AGENT Dec 11, 2016 14:37
[2016-12-11 18:00] VITALS: BP 140/65
[2016-12-11] MEDS ORDERED: MILK OF MAGNESIA 400 MG/5 ML 30 ML UDC PO PRN (20:15)
[2016-12-11] MEDS ORDERED: BISACODYL 10 MG SUPP (DULCOLAX) PR PRN (20:15)
[2016-12-11] MEDS: POLYETHYLENE GLYCOL 17 GM (MIRALAX) PACK PO SCH (20:46)
[2016-12-12] MEDS: TROSPIUM 20 MG (SANCTURA) TAB PO SCH ×2 (05:44→16:00)
[2016-12-12] MEDS: LEVOTHYROXINE 25 MCG (LEVOTHROID) TAB PO SCH (05:45)
[2016-12-12 06:00] VITALS: BP 133/63
[2016-12-12 06:14] LABS: BASOPHILS % (AUTO) 0 % (0-10); EOSINOPHILS # (AUTO) 0.1 10^3/uL (0.0-0.3); EOSINOPHILS % (AUTO) 1 % (0-10); LYMPHOCYTES # (AUTO) 1.1 X 10^3 (1.0-4.0); LYMPHOCYTES % (AUTO) 10 % (12-44); MEAN CORPUSCULAR HEMOGLOBIN 32 PG (25-34); MEAN CORPUSCULAR HGB CONC 32 G/DL (32-36); MEAN CORPUSCULAR VOLUME 101 FL (80-99); MEAN PLATELET VOLUME 10.2 FL (7.4-10.4); MONOCYTES # (AUTO) 1.2 X 10^3 (0.0-1.0); MONOCYTES % (AUTO) 12 % (0-12); NEUTROPHILS % (AUTO) 77 % (42-75); PLATELET COUNT 256 10^3/uL (130-400); RED BLOOD COUNT 3.13 10^6/uL (4.35-5.85); RED CELL DISTRIBUTION WIDTH 15.4 % (10.0-14.5); WHITE BLOOD COUNT 10.4 10^3/uL (4.3-11.0)
[2016-12-12 06:39] LABS: ALANINE AMINOTRANSFERASE 33 U/L (0-55); ALBUMIN 3.7 G/DL (3.2-4.5); ANION GAP 9 MMOL/L (5-14); ASPARTATE AMINO TRANSFERASE 33 U/L (5-34); BILIRUBIN,TOTAL 1.5 MG/DL (0.1-1.0); BLOOD UREA NITROGEN 15 MG/DL (7-18); BUN/CREATININE RATIO 25; CALCIUM 8.8 MG/DL (8.5-10.1); CARBON DIOXIDE 26 MMOL/L (21-32); CHLORIDE 103 MMOL/L (98-107); CREATININE SERUM 0.59 MG/DL (0.60-1.30); GFR ESTIMATED > 60; GLUCOSE 120 MG/DL (70-105); POTASSIUM 4.1 MMOL/L (3.6-5.0); SODIUM 138 MMOL/L (135-145); TOTAL PROTEIN 5.9 G/DL (6.4-8.2)
[2016-12-12] MEDS: ENOXAPARIN 40 MG/0.4 ML (LOVENOX) SYR SC SCH (09:00)
[2016-12-12] MEDS: EYE WASH 118 ML BTL OU SCH ×2 (09:00→20:09)
--- NOTE | 2016-12-12 09:00 | Physical Therapy Daily Note ---
PT Daily Note-Current Subjective Patient needs to have a bowel movement, she has been up all night due to bowel issues. Has pain of 2/10 in her right hip. Appearance Patient in recliner post tx with feet up, has nurse call, phone, tray, all needs met. Mental Status Patient Orientation: Normal For Age Transfers Functional [place] Measure 0=Not Assessed/NA 4=Minimal Assistance 1=Total Assistance 5=Supervision or Setup 2=Maximal Assistance 6=Modified [place] 3=Moderate Assistance 7=Complete IndependenceIRFPAI Quality Coding Scale 6 Independent with activity with or without an assistive device 5 Patient requires set up or clean up by helper. Patient completes activity by themselves 4 Supervision or touching assist (CGA). [place] provide cues , steadying assist 3 The helper provides less than half the effort to complete the activity 2 The helper provides more than half the effort to complete the activity 1 Dependent. The helper does all the effort to complete an activity 7 Patient refused to complete or attempt activity 9 The patient did not perform the activity before the current illness or injury 88 Not attempted due to Medical conditions or safety concerns Transfers (B, C, W/C) (FIM): 4 Sit to/from Stand: 4 (CGA) cues for safety and hand placement, patient has a tendency to plop down into chair when sitting Gait Training Gait (FIM): 1 Distance: 40', 20'x2 Gait Level of Assist: 4 (CGA) Gait Persons Needed: 1 Gait Assistive Device: FWW patient fatigues quickly but seems to be much better at complying with her weight bearing status Wheelchair Training Does the Pt Use a Wheelchair?: Yes Wheelchair (FIM): 5 Distance: 150'x2 Wheelchair Level of Assist: 5 Type of Wheelchair: Manual Exercises Seated Therapy Exercises: Ankle pumps, Long arc quads, Hip flexion, Hip abd/add Seated Reps: 20 Treatments wheelchair mobility, ambulation, functional strengthening, patient was toileted once for a BM Assessment Current Status: Fair Progress poor endurance, could be better with safety when sitting PT Short Term Goals Short Term Goals Time Frame: Dec 11, 2016 Transfers (B,C,W/C) (FIM): 4 (CGA) Gait (FIM): 2 (met 12/10/16) Gait Distance Comment: 50' Gait Level of Assist: 4 (CGA) Gait Assistive Device: FWW Wheelchair Distance: 20' PT Detention Goals Gear Generator Set Up Operator Goals PT Gear Generator Set Up Operator Goals Time Frame: Dec 25, 2016 Transfers (B,C,W/C) (FIM): 5 Sit to Lying (QC): 4 Lying-Sitting on Side/Bed(QC): 4 Sit to Stand (QC): 4 Rollin Roll Left to Right (QC): 4 Chair/Bgb-az-Rwogp Xfer(QC): 4 Car Transfer (QC): 4 Does the Patient Walk: Yes Gait (FIM): 5 Distance: 150' Walk 10 feet (QC): 4 Walk 10ft-Uneven Surface(QC): 4 Walk 50ft with 2 Turns (QC): 4 Walk 150 ft (QC): 4 Gait Level of Assist: 5 Gait Assistive Device: FWW Stairs (FIM): 2 # of Steps: 4 1 Step (curb) (QC): 4 4 Steps (QC): 4 12 Steps (QC): 4 Stairs Level Of Assist: 5 Picking up an Object (QC): 88 PT Plan Problem List Problem List: Activity Tolerance, Functional Strength, Safety, Balance, Gait, Transfer, Bed Mobility Treatment/Plan Treatment Plan: Continue Plan of Care Treatment Plan: Bed Mobility, Education, Functional Activity [place], Functional Strength, Group Therapy, Gait, Safety, Therapeutic Exercise, Transfers Treatment Duration: Dec 25, 2016 Visits Per Week: 10-11 Minutes/Day (M-F): 60-90 Minutes/Day (Sat/Ortega): 15-30 Safety Risks/Education Patient Education: Gait Training, Transfer Techniques, W/C Management, Safety Issues Teaching Recipient: Patient Teaching Methods: Demonstration, Discussion Response to Teaching: Reinforcement Needed Time/GCodes Time In: 800 Time Out: 900 Total Billed Treatment Time: 60 Total Billed Treatment 1 visit FA 15 min WCH 15 min GT 15 min EX 15 min MIGUEL A MENDES PT Dec 12, 2016 09:00
--- NOTE | 2016-12-12 09:13 | PM & R (SOAP) Progress Note ---
Subjective Subjective/Events-last exam Patient was seen in her room this AM Patient had BM with Bowel meds adjusted using BSC.Patient min assist for transfers Objective Exam Last Set of Vital Signs Vital Signs Date Time Temp Pulse Resp B/P Pulse Ox O2 Delivery O2 Flow Rate FiO2 12/12/16 06:00 97.9 77 22 133/63 95 Room Air 12/06/16 06:46 2.00 Capillary Refill : Less Than 3 Seconds I&O Intake and Output 12/12/16 00:00 Intake Total 1020 ml Balance 1020 ml Intake Oral 1020 ml # Voids 9 # Bowel Movements 1 General: Alert, Oriented X3, Cooperative, No Acute Distress HEENT: Atraumatic, PERRLA, EOMI, Mucous Memb Moist/Manuel Garcia Ii Neck: Supple, No JVD Lungs: Clear to Auscultation Heart: Regular Rate Abdomen: Normal Bowel Sounds, Soft, No Tenderness Extremities: No Edema, Other (rt hip as per above) Neuro: Other (generalized weakness more so at operated hip) Results Lab Laboratory Tests 12/12/16 05:56: Alanine Aminotransferase (ALT/SGPT) 33, Albumin 3.7, Alkaline Phosphatase 80, Anion Gap 9, Aspartate Amino Transf (AST/SGOT) 33, BUN/Creatinine Ratio 25, Basophils # (Auto) 0.0, Basophils (%) (Auto) 0, Blood Urea Nitrogen 15, Calcium Level 8.8, Carbon Dioxide Level 26, Chloride Level 103, Creatinine 0.59L, Eosinophils # (Auto) 0.1, Eosinophils (%) (Auto) 1, Estimat Glomerular Filtration Rate > 60, Glucose Level 120H, Hematocrit 32L, Hemoglobin 10.0L, Lymphocytes # (Auto) 1.1, Lymphocytes (%) (Auto) 10L, Mean Corpuscular Hemoglobin 32, Mean Corpuscular Hemoglobin Concent 32, Mean Corpuscular Volume 101H, Mean Platelet Volume 10.2, Monocytes # (Auto) 1.2H, Monocytes (%) (Auto) 12, Neutrophils # (Auto) 8.0H, Neutrophils (%) (Auto) 77H, Platelet Count 256, Potassium Level 4.1, Red Blood Count 3.13L, Red Cell Distribution Width 15.4H, Sodium Level 138, Total Bilirubin 1.5H, Total Protein 5.9L, White Blood Count 10.4 Assessment/Plan Assessment S/P rt hip frxsecondary to fall s/p repair with increased pain today Postop anemia Postop Nausea multifactorial-resolved Postop constipation meds adjusted-improved Plan Continue PT/OT as tolerated F/U with Dr Crow Transfuse PRBCS-done labs noted Treat Nausea-See orders-done improved Xray rt hip see orders-done no change rt hip pain improved. Team Conference held yesterday-See report for full functional update and POC and ELOS Constipation improved with med adjustment MARCELL TYLER MD Dec 12, 2016 09:13
[2016-12-12] MEDS: VITAMIN D3 5,000 UNITS (CHOLECALCIFEROL ) CAPSULE PO SCH (09:59)
[2016-12-12] MEDS: FOSINOPRIL 20 MG PO SCH (10:00)
[2016-12-12] MEDS: ASPIRIN E.C. 81 MG (ECOTRIN) TAB PO SCH (10:00)
[2016-12-12] MEDS: LETROZOLE 2.5 MG (FEMARA) TAB PO SCH (10:00)
[2016-12-12] MEDS: amLODIPine 5 MG (NORVASC) TAB PO SCH (10:00)
[2016-12-12] MEDS: SENNA W/DOCUSATE (SENOKOT S) TABLET PO SCH ×2 (10:01→20:08)
[2016-12-12] MEDS: POLYETHYLENE GLYCOL 17 GM (MIRALAX) PACK PO SCH ×2 (10:01→20:09)
[2016-12-12] MEDS: LOTEMAX 0.5% OU SCH (10:02)
[2016-12-12] MEDS: PRESERVISION AREDS SOFTGEL (BAUSH & LOMB) PO SCH (10:02)
--- NOTE | 2016-12-12 12:56 | Occupational Ther Daily Note ---
OT Current Status-Daily Note Subjective Pt reports not sleeping well last night. Agrees to treatment this am. No pain reported. Mental Status/Objective Functional [place] Measure 0=Not Assessed/NA 4=Minimal Assistance 1=Total Assistance 5=Supervision or Setup 2=Maximal Assistance 6=Modified [place] 3=Moderate Assistance 7=Complete [place] ADL-Treatment Pt sit to stand with supervision. Transfer to w/c with CGA using FWW, TTWB. Pt sat at sink for ADL tasks. Pt doffed/donned shirt with SBA. Pt bathed upper body with set up. Pt has already donned pants, declined to change them at this time. Pt flossed and brushed teeth without assistance. Washed face and brushed hair with modified independence. Increased time for ADLs. Functional [place] Measure 0=Not Assessed/NA 4=Minimal Assistance 1=Total Assistance 5=Supervision or Setup 2=Maximal Assistance 6=Modified [place] 3=Moderate Assistance 7=Complete IndependenceIRFPAI Quality Coding Scale 6 Independent with activity with or without an assistive device 5 Patient requires set up or clean up by helper. Patient completes activity by themselves 4 Supervision or touching assist (CGA). [place] provide cues , steadying assist 3 The helper provides less than half the effort to complete the activity 2 The helper provides more than half the effort to complete the activity 1 Dependent. The helper does all the effort to complete an activity 7 Patient refused to complete or attempt activity 9 The patient did not perform the activity before the current illness or injury 88 Not attempted due to Medical conditions or safety concerns Grooming (FIM): 6 Upper Body (FIM): 5 Other Treatment Pt performed w/c mobility to therapy gym with increased time. Arm bike x10 minutes to increase overall strength and activity tolerance. Pt completed task with minimal assistance and slow pace. No rest breaks needed. Arc activity with bilateral UE with 1# weights in place to increase strength. Fine motor activity with nuts and bolts with 1# weights in place to increase strength and fine motor coordination. Pt performed bilateral UE exercises to increase strength needed for functional tasks. Pt performed shoulder flexion, abduction, biceps curls, and triceps extension exercises x20 reps with moderate resistance (red) theraband. Rest breaks between exercises. Putty activity to increase hand strength. Pt able to remove small beads from putty using bilateral hands. Hand cullet crusher and washer exercises x20 reps using resistance foam. Pt performed sit to stand x5 reps to increase strength and safety with transfers. Pt performed sit to stand with supervision; is TTWB right LE. Pt transferred w/c to chair with CGA using FWW. Pt sitting in chair with needs met after session. OT Short Term Goals Short Term Goals Time Frame: Dec 11, 2016 Lower Body Dressing(FIM): 3 Toileting(FIM): 3 Transfers (B,C,W/C) (FIM): 4 (CGA) Toilet/Commode Transfer(FIM): 4 Additional Short Term Goals: 1-Demonstrate ADL Tasks, 2-Verbalize Understanding , 3-ImproveStrength/[place]bin 1=Demonstrate adherence to instructed precautions during ADL tasks. 2=Patient will verbalize/demonstrate understanding of assistive devices/ modifications for ADL. 3=Patient will improve strength/tolerance for activity to enable patient to perform ADL's. OT Convention Planner Goals Care Home Goals Time Frame: Dec 25, 2016 Eating (FIM): 6 Eating (QC): 6 Oral Hygiene (QC): 6 Grooming(FIM): 6 Bathing(FIM): 5 Shower/Bathe Self (QC): 5 Upper Body Dressing(FIM): 5 Upper Body Dressing (QC): 5 Lower Body Dressing(FIM): 5 Lower Body Dressing (QC): 5 On/Off Footwear (QC): 5 Toileting(FIM): 5 Toileting Hygiene (QC): 5 Toilet/Commode Transfer(FIM): 5 Toilet/Commode Transfer (QC): 5 Shower Transfer(FIM): 5 Additional Goals: 1-Demonstrate ADL Tasks, 2-Verbalize Understanding, 3- ImproveStrength/Corbin 1=Demonstrate adherence to instructed precautions during ADL tasks. 2=Patient will verbalize/demonstrate understanding of assistive devices/ modifications for ADL. 3=Patient will improve strength/tolerance for activity to enable patient to perform ADL's. OT Education/Plan Problem List/Assessment Pt demonstrates decreased mobility, strength, activity tolerance, and ADL performance. Pt to benefit from skilled OT intervention for ADL training, transfers, strengthening, and safety education to maximize level of function and allow safe discharge plan. Discharge Recommendations Plan/Recommendations: Continue POC Treatment Plan/Plan of Care Patient would benefit from OT for education, treatment and training to promote independence in ADL's, mobility, safety and/or upper extremity function for ADL' s. Plan of Care: ADL Retraining, Functional Mobility, Group Exercise/Act as Ind, UE Funct Exercise/Act Treatment Duration: Dec 25, 2016 Visits Per Week: 10-11 Minutes/Day (M-F): 60-90 Minutes/Day (Sat/Ortega): PRN Agreement: Yes Rehab Potential: Good Time/GCodes Start Time: 09:00 Stop Time: 10:30 Total Time Billed (hr/min): 90 Billed Treatment Time 1 visit, ADLx2(30minutes), FA(15minutes), EXx3(45minutes) SHRUTI ROBERTS OT Dec 12, 2016 12:55
--- NOTE | 2016-12-12 14:46 | Physical Therapy Daily Note ---
PT Daily Note-Current Subjective Patient in bed pre tx, agrees to PT, pleasant and cooperative. Pain Numeric Pain Scale: 0-No Pain Appearance Patient in bed post tx, has nurse call, phone, tray, all needs met. Mental Status Patient Orientation: Normal For Age Transfers Functional [place] Measure 0=Not Assessed/NA 4=Minimal Assistance 1=Total Assistance 5=Supervision or Setup 2=Maximal Assistance 6=Modified [place] 3=Moderate Assistance 7=Complete IndependenceIRFPAI Quality Coding Scale 6 Independent with activity with or without an assistive device 5 Patient requires set up or clean up by helper. Patient completes activity by themselves 4 Supervision or touching assist (CGA). [place] provide cues , steadying assist 3 The helper provides less than half the effort to complete the activity 2 The helper provides more than half the effort to complete the activity 1 Dependent. The helper does all the effort to complete an activity 7 Patient refused to complete or attempt activity 9 The patient did not perform the activity before the current illness or injury 88 Not attempted due to Medical conditions or safety concerns Transfers (B, C, W/C) (FIM): 4 Scootin Rollin Supine to/from Sit: 4 Sit to/from Stand: 4 Bed to/from Chair: 4 cues for hand placement, tends to put hands on walker when standing up Gait Training Gait (FIM): 1 Distance: 25'x2 Gait Level of Assist: 4 Gait Persons Needed: 1 Gait Assistive Device: FWW slow ambulation, fatigues quickly Exercises no resistance on nustep due to weight bearing precautions NuStep Minutes: 15 NuStep Workload: 1 Treatments bed mobility and transfers, ambulation, functional strengthening Assessment Current Status: Fair Progress steady improvement PT Short Term Goals Short Term Goals Time Frame: Dec 11, 2016 Transfers (B,C,W/C) (FIM): 4 (CGA) Gait (FIM): 2 (met 12/10/16) Gait Distance Comment: 50' Gait Level of Assist: 4 (CGA) Gait Assistive Device: FWW Wheelchair Distance: 150'x2 PT Machinist Helper Marine Goals Machinist Helper Marine Goals PT Mcc Goals Time Frame: Dec 25, 2016 Transfers (B,C,W/C) (FIM): 5 Sit to Lying (QC): 4 Lying-Sitting on Side/Bed(QC): 4 Sit to Stand (QC): 4 Rollin Roll Left to Right (QC): 4 Chair/Rxd-ze-Hqlsr Xfer(QC): 4 Car Transfer (QC): 4 Does the Patient Walk: Yes Gait (FIM): 5 Distance: 150' Walk 10 feet (QC): 4 Walk 10ft-Uneven Surface(QC): 4 Walk 50ft with 2 Turns (QC): 4 Walk 150 ft (QC): 4 Gait Level of Assist: 5 Gait Assistive Device: FWW Stairs (FIM): 2 # of Steps: 4 1 Step (curb) (QC): 4 4 Steps (QC): 4 12 Steps (QC): 4 Stairs Level Of Assist: 5 Picking up an Object (QC): 88 PT Plan Problem List Problem List: Activity Tolerance, Functional Strength, Safety, Balance, Gait, Transfer, Bed Mobility Treatment/Plan Treatment Plan: Continue Plan of Care Treatment Plan: Bed Mobility, Education, Functional Activity [place], Functional Strength, Group Therapy, Gait, Safety, Therapeutic Exercise, Transfers Treatment Duration: Dec 25, 2016 Visits Per Week: 10-11 Minutes/Day (M-F): 60-90 Minutes/Day (Sat/Ortega): 15-30 Safety Risks/Education Patient Education: Gait Training, Transfer Techniques, Safety Issues Teaching Recipient: Patient Teaching Methods: Demonstration, Discussion Response to Teaching: Reinforcement Needed Time/GCodes Time In: 1411 Time Out: 1441 Total Billed Treatment Time: 30 Total Billed Treatment 1 visit EX 15 min GT 15 min MIGUEL A MENDES PT Dec 12, 2016 14:46
--- NOTE | 2016-12-12 18:16 | Consultation ---
History of Present Illness History of Present Illness Patient Consulted On(anu/time) 12/12/16 18:16 Date of Admission History of Present Illness PT IS AN 85 Y/O FEMALE WHO IS KNOWN TO ME FROM CLINIC. HAS RECENTLY HAD HIP FRACTURE WITH REPAIR. PT HAS WEAKNESS AND NEEDED TO BE TRANSFERRED FROM INPATIENT TO INPATIENT REHAB Allergies and Home Medications Allergies Coded Allergies: simvastatin (Verified Allergy, Unknown, 09/21/15) Home Medications 1 EACH OS UD (Reported) SL DAILY (Reported) Acetaminophen 500 Mg Tablet #100 500 MG PO Q4H PRN PRN MILD PAIN Prescribed by: MARCELL TYLER on 12/22/16 0944 Amlodipine Besylate 10 Mg Tablet 10 MG PO DAILY (Reported) Amlodipine Besylate 10 Mg Tablet 10 MG PO DAILY (Reported) Aspirin 81 Mg Tablet.dr 81 MG PO DAILY (Reported) Aspirin 81 Mg Tablet.dr 81 MG PO DAILY (Reported) Cholecalciferol (Vitamin D3) 5,000 Unit Capsule 5,000 UNIT PO DAILY (Reported) Cholecalciferol (Vitamin D3) 5,000 Unit Capsule 5,000 UNIT PO DAILY (Reported) Fosinopril Sodium 20 Mg Tablet 20 MG PO DAILY (Reported) Letrozole 2.5 Mg Tablet 2.5 MG PO HS (Reported) Letrozole 2.5 Mg Tablet 2.5 MG PO DAILY (Reported) Levothyroxine Sodium 25 Mcg Tablet 1 EACH PO DAILY (Reported) Levothyroxine Sodium 25 Mcg Tablet 25 MG PO DAILY (Reported) Lisinopril 20 Mg Tablet 20 MG PO DAILY (Reported) Loteprednol Etabonate 5 Gm Drops.gel 1 DROP OU DAILY (Reported) Metoprolol Succinate 25 Mg Tab.er.24h 25 MG PO HS (Reported) Metoprolol Tartrate 25 Mg Tablet #30 25 MG PO HS Prescribed by: CASH GUAN on 10/24/14 0927 Multivitamins 1 Each Capsule 1 EACH PO DAILY (Reported) Niacin 250 Mg Tablet 250 MG PO DAILY (Reported) Niacin 250 Mg Tablet 250 MG PO DAILY (Reported) [place] 3 Polyunsat Fatty Acids 1,000 Mg Cap 1,000 MG PO TID (Reported) [place]-3/Dha/Epa/Fish Oil 1 Each Capsule 1,000 MG PO TID (Reported) Sennosides/Docusate Sodium 1 Each Tablet #60 1 EA PO BID Prescribed by: MARCELL TYLER on 12/22/16 0944 Sod Borate/Boric AC/Water/NaCl 118 Ml Irrig.soln OU BID (Reported) Solifenacin Succinate 10 Mg Tablet 10 MG PO DAILY (Reported) Solifenacin Succinate 10 Mg Tablet 10 MG PO HS (Reported) Vit A/C/E/Zinc/Co 1 Cap Capsule 1 CAP PO DAILY (Reported) Past Tnagxdd-Qeqeue-Nvzwnh Hx Patient Social History Alcohol Use: Denies Use Recreational Drug Use: No Smoking Status: Never a Smoker 2nd Hand Smoke Exposure: No Recent Foreign Travel: No Contact w/Someone Who Travel: No Recent Infectious Disease Expo: No Recent Hopitalizations: Yes (right ORIF) Physical Abuse Screen: No Sexual Abuse: No Immunizations Up To Date PED Vaccines UTD: Yes Date of Pneumonia Vaccine: Dec 02, 2009 Date of Influenza Vaccine: Oct 01, 2016 Seasonal Allergies Seasonal Allergies: No Surgeries HX Surgeries: Yes Surgeries: Lumpectomy, Orthopedic, Vascular Surgery Respiratory Hx Respiratory Disorders: No Cardiovascular Hx Cardiac Disorders: Yes Cardiac Disorders: Hypertension Neurological Hx Neurological Disorders: No Reproductive System Hx Reproductive Disorders: No Sexually Transmitted Disease: No HIV/AIDS: No Female Reproductive Disorders: Denies FITTER UP History: Menopausal Genitourinary Hx Genitourinary Disorders: No Gastrointestinal Hx Gastrointestinal Disorders: No Gastrointestinal Disorders: Chronic Constipation Musculoskeletal Hx Musculoskeletal Disorders: Yes Musculoskeletal Disorders: Arthritis Endocrine Hx Endocrine Disorders: No Endocrine Disorders: Hypothyroidsim HEENT HX ENT Disorders: Yes HEENT Disorders: Cataract, Macular Degeneration Loss of Vision: Denies Hearing Impairment: Denies Cancer Hx Cancer: Yes Cancer: Breast Psychosocial Hx Psychiatric Problems: No Behavioral Health Disorders: Anxiety Integumentary HX Skin/Integumentary Disorder: No Blood Transfusions Hx Blood Disorders: No Adverse Reaction to a Blood Tr: No Reviewed Nursing Assessment Reviewed/Agree w Nursing PMH: Yes Family Medical History Significant Family History: Heart Disease, Hypertension Family Medial History: Cardiovascular disease 19 FATHER Osteoporosis 19 MOTHER Review of Systems-General Constitutional: No chills, No fever, No malaise, weakness EENTM: No hoarseness, No mouth pain, No throat pain, No throat swelling Respiratory: No cough, No dyspnea on exertion, No orthopnea, No short of breath Cardiovascular: No chest pain, No palpitations Gastrointestinal: No abdominal pain, constipation (CHRONIC) Genitourinary: no symptoms reported Musculoskeletal: No back pain Skin: other (HEALING INCISION) Psychiatric/Neurological: Denies Anxiety, Denies Depressed All Other Systems Reviewed Negative Unless Noted: Yes Physical Exam-General Problems Physical Exam Vital Signs Vital Sign - Last 12Hours 12/06/16 05:49 Temp 99.2 Pulse 71 Resp 22 B/P 121/67 Pulse Ox 97 O2 Delivery Nasal Cannula O2 Flow Rate 2.00 Capillary Refill : Less Than 3 Seconds General Appearance: WD/WN no apparent distress Eyes: Bilateral Eye EOMI, Bilateral Eye Normal Inspection, Bilateral Eye PERRL HEENT: PERRL/EOMI pharynx normal Neck: non-tender supple normal inspection Respiratory: chest non-tender lungs clear normal breath sounds Cardiovascular: regular rate, rhythm Gastrointestinal: normal bowel sounds non tender soft no organomegaly no pulsatile mass Extremities: normal range of motion non-tender normal capillary refill 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 as tested no motor/sensory deficits alert normal mood/affect oriented x 3 Skin: normal color warm/dry Lymphatic: no adenopathy Assessment/Plan Assessment/Plan Admission Diagnosis/Plan COMMINUTED INTERTROCHANTERIC MODERATELY DISPLACED HIP FRACTURE ON THE RIGHT HYPERTENSION CHRONIC OA ANEMIA CONSTIPATION HIP FRACTURE -POST-OP HIP FRACTURE REPAIR - CONTINUE WITH INPATIENT REHAB HTN - MONITOR PRESSURE CHRONIC OA - SUPPORTIVE CARE ANEMIA - STABILIZED CONSTIPATION -CHRONIC - CONTINUE WITH SUPPORTIVE CARE Clinical Quality Measures DVT/VTE Risk/Contraindication: Risk Factor Score Per Nursin RFS Level Per Nursing on Admit: 4+=Very High CASH GUAN MD Dec 12, 2016 18:16
[2016-12-12 18:20] VITALS: BP 101/64
[2016-12-13] MEDS: TROSPIUM 20 MG (SANCTURA) TAB PO SCH ×2 (05:31→16:00)
[2016-12-13] MEDS: LEVOTHYROXINE 25 MCG (LEVOTHROID) TAB PO SCH (05:31)
[2016-12-13 05:46] VITALS: BP 131/71
[2016-12-13 09:00] VITALS: BP 115/69
[2016-12-13] MEDS: POLYETHYLENE GLYCOL 17 GM (MIRALAX) PACK PO SCH ×2 (09:00→21:05)
[2016-12-13] MEDS: HYDROcodone/APAP 5 MG/325 MG (LORTAB) TAB PO PRN (09:10)
[2016-12-13] MEDS: amLODIPine 5 MG (NORVASC) TAB PO SCH (09:11)
[2016-12-13] MEDS: VITAMIN D3 5,000 UNITS (CHOLECALCIFEROL ) CAPSULE PO SCH (09:11)
[2016-12-13] MEDS: FOSINOPRIL 20 MG PO SCH (09:11)
[2016-12-13] MEDS: ASPIRIN E.C. 81 MG (ECOTRIN) TAB PO SCH (09:12)
[2016-12-13] MEDS: SENNA W/DOCUSATE (SENOKOT S) TABLET PO SCH ×2 (09:12→21:05)
[2016-12-13] MEDS: ENOXAPARIN 40 MG/0.4 ML (LOVENOX) SYR SC SCH (09:14)
[2016-12-13] MEDS: LOTEMAX 0.5% OU SCH (09:16)
[2016-12-13] MEDS: PRESERVISION AREDS SOFTGEL (BAUSH & LOMB) PO SCH (09:26)
[2016-12-13] MEDS: EYE WASH 118 ML BTL OU SCH ×2 (09:27→21:05)
--- NOTE | 2016-12-13 09:28 | PM & R (SOAP) Progress Note ---
Subjective Subjective/Events-last exam Patient was seen in her room this AM Appreciate Dr Isidro note and orders.Patient Min assist for transfers.Pain decreasing Review of Systems Musculoskeletal: : leg pain Objective Exam Last Set of Vital Signs Vital Signs Date Time Temp Pulse Resp B/P Pulse Ox O2 Delivery O2 Flow Rate FiO2 12/13/16 05:46 100.0 76 20 131/71 94 Room Air Capillary Refill : Less Than 3 Seconds I&O Intake and Output 12/13/16 00:00 Intake Total 1450 ml Balance 1450 ml Intake Oral 1450 ml # Voids 10 # Bowel Movements 9 General: Alert, Oriented X3, Cooperative, No Acute Distress HEENT: Atraumatic, PERRLA, EOMI, Mucous Memb Moist/[place] Neck: Supple, No JVD Lungs: Clear to Auscultation Heart: Regular Rate Abdomen: Normal Bowel Sounds, Soft, No Tenderness Extremities: No Edema, Other (rt hip as per above) Neuro: Other (generalized weakness more so at operated hip) Results Lab Laboratory Tests 12/12/16 05:56: Alanine Aminotransferase (ALT/SGPT) 33, Albumin 3.7, Alkaline Phosphatase 80, Anion Gap 9, Aspartate Amino Transf (AST/SGOT) 33, BUN/Creatinine Ratio 25, Basophils # (Auto) 0.0, Basophils (%) (Auto) 0, Blood Urea Nitrogen 15, Calcium Level 8.8, Carbon Dioxide Level 26, Chloride Level 103, Creatinine 0.59L, Eosinophils # (Auto) 0.1, Eosinophils (%) (Auto) 1, Estimat Glomerular Filtration Rate > 60, Glucose Level 120H, Hematocrit 32L, Hemoglobin 10.0L, Lymphocytes # (Auto) 1.1, Lymphocytes (%) (Auto) 10L, Mean Corpuscular Hemoglobin 32, Mean Corpuscular Hemoglobin Concent 32, Mean Corpuscular Volume 101H, Mean Platelet Volume 10.2, Monocytes # (Auto) 1.2H, Monocytes (%) (Auto) 12, Neutrophils # (Auto) 8.0H, Neutrophils (%) (Auto) 77H, Platelet Count 256, Potassium Level 4.1, Red Blood Count 3.13L, Red Cell Distribution Width 15.4H, Sodium Level 138, Total Bilirubin 1.5H, Total Protein 5.9L, White Blood Count 10.4 Assessment/Plan Assessment S/P rt hip frx secondary to fall s/p repair with decreasing postop pain Postop anemia Postop Nausea multifactorial-improved Postop constipation meds adjusted-improved Plan Continue PT/OT as tolerated F/U with Dr Crow-done Transfuse PRBCS-done labs noted Treat Nausea-See orders-done improved Xray rt hip see orders-done no change rt hip pain improved. Team Conference held 12-11-16-See report for full functional update and POC and ELOS Constipation improved with med adjustment MARECLL TYLER MD Dec 13, 2016 09:28
[2016-12-13] MEDS: LETROZOLE 2.5 MG (FEMARA) TAB PO SCH (09:34)
--- NOTE | 2016-12-13 10:21 | Physical Therapy Daily Note ---
PT Daily Note-Current Subjective Pt. agrees to Rx. States she has a left shoe to try to see if it makes TTWBing easier on right foot Pain Numeric Pain Scale: 0-No Pain Mental Status Patient Orientation: Normal For Age Transfers Functional [place] Measure 0=Not Assessed/NA 4=Minimal Assistance 1=Total Assistance 5=Supervision or Setup 2=Maximal Assistance 6=Modified [place] 3=Moderate Assistance 7=Complete IndependenceIRFPAI Quality Coding Scale 6 Independent with activity with or without an assistive device 5 Patient requires set up or clean up by helper. Patient completes activity by themselves 4 Supervision or touching assist (CGA). [place] provide cues , steadying assist 3 The helper provides less than half the effort to complete the activity 2 The helper provides more than half the effort to complete the activity 1 Dependent. The helper does all the effort to complete an activity 7 Patient refused to complete or attempt activity 9 The patient did not perform the activity before the current illness or injury 88 Not attempted due to Medical conditions or safety concerns Transfers (B, C, W/C) (FIM): 5 Scootin Rollin Supine to/from Sit: 5 Sit to/from Stand: 5 Bed to/from Chair: 5 pt. for first time was able to bring RLE up into bed and back out. Weight Bearing Weight Bearing Restriction: Touch Toe Bearing Location Restriction: R LE Gait Training Does the Patient Walk?: Yes Gait (FIM): 1 Distance (FIM): 1=up to 49 ft (40 ft) Gait Level of Assist: 5 Gait Persons Needed: 1 Gait Assistive Device: FWW maintains TTWB well, needs rest breaks, used shoe on LLE only today to assist with this Exercises Supine Ex: Ankle pumps, Quad Set, Rolling, Glut sets, Heel Slides, Short Arc Quads, Scooting, Straight leg raise (ssist required on RLE), Hip abd/add ( assist RLE) Supine Reps: 15 Seated Therapy Exercises: Ankle pumps, Sit to stand, Long arc quads, Hip flexion Seated Reps: 15 Assessment Current Status: Good Progress TRFs with improved indep, gait further maintaining TTWB PT Short Term Goals Short Term Goals Time Frame: Dec 11, 2016 Transfers (B,C,W/C) (FIM): 4 (CGA) Gait (FIM): 2 (met 12/10/16) Gait Distance Comment: 50' Gait Level of Assist: 4 (CGA) Gait Assistive Device: FWW Wheelchair Distance: 150'x2 PT Kennel Assistant Goals Kennel Assistant Goals PT Alf Goals Time Frame: Dec 25, 2016 Transfers (B,C,W/C) (FIM): 5 Sit to Lying (QC): 4 Lying-Sitting on Side/Bed(QC): 4 Sit to Stand (QC): 4 Rollin Roll Left to Right (QC): 4 Chair/Vnn-ek-Bnmhu Xfer(QC): 4 Car Transfer (QC): 4 Does the Patient Walk: Yes Gait (FIM): 5 Distance: 150' Walk 10 feet (QC): 4 Walk 10ft-Uneven Surface(QC): 4 Walk 50ft with 2 Turns (QC): 4 Walk 150 ft (QC): 4 Gait Level of Assist: 5 Gait Assistive Device: FWW Stairs (FIM): 2 # of Steps: 4 1 Step (curb) (QC): 4 4 Steps (QC): 4 12 Steps (QC): 4 Stairs Level Of Assist: 5 Picking up an Object (QC): 88 PT Plan Treatment/Plan Treatment Plan: Continue Plan of Care Treatment Plan: Bed Mobility, Education, Functional Activity [place], Functional Strength, Group Therapy, Gait, Safety, Therapeutic Exercise, Transfers Treatment Duration: Dec 25, 2016 Visits Per Week: 10-11 Minutes/Day (M-F): 60-90 Minutes/Day (Sat/Ortega): 15-30 Safety Risks/Education Patient Education: Gait Training, Transfer Techniques, Correct Positioning, Safety Issues Teaching Recipient: Patient Teaching Methods: Demonstration Response to Teaching: Verbalize Understanding, Return Demonstration, Reinforcement Needed Time/GCodes Time In: 930 Time Out: 1030 Total Billed Treatment Time: 60 Total Billed Treatment 1,GT30m,EX30m G Codes Necessary: KAMARI Hagen WOVEN BLIND LOOM TENDER Dec 13, 2016 10:21
--- NOTE | 2016-12-13 11:43 | Occupational Ther Daily Note ---
OT Current Status-Daily Note Subjective Pt sitting in chair, agrees to treatment. Mental Status/Objective Functional [place] Measure 0=Not Assessed/NA 4=Minimal Assistance 1=Total Assistance 5=Supervision or Setup 2=Maximal Assistance 6=Modified [place] 3=Moderate Assistance 7=Complete [place] ADL-Treatment Pt requests to transfer to BSC. Sit to stand and transfer to BSC with supervision using FWW. Pt able to maintain TTWB right LE. Pt able to complete toileting hygiene with SBA. Pt transferred to walk in shower with CGA for balance using FWW and grab bars for safety. Seated bathing completed using hand held shower. Upper body bathing completed with SBA. Pt requires minimal assistance for lower body bathing. Don pullover shirt with set up. Pt donned Depends and pants with supervision using business test analyst to start over feet. Stood with supervision for pant hike using FWW for balance. Don socks with set up using sock aid. Pt completed grooming tasks with modified independence while seated at sink. Pt sitting in w/c with RN present after session. Functional [place] Measure 0=Not Assessed/NA 4=Minimal Assistance 1=Total Assistance 5=Supervision or Setup 2=Maximal Assistance 6=Modified [place] 3=Moderate Assistance 7=Complete IndependenceIRFPAI Quality Coding Scale 6 Independent with activity with or without an assistive device 5 Patient requires set up or clean up by helper. Patient completes activity by themselves 4 Supervision or touching assist (CGA). [place] provide cues , steadying assist 3 The helper provides less than half the effort to complete the activity 2 The helper provides more than half the effort to complete the activity 1 Dependent. The helper does all the effort to complete an activity 7 Patient refused to complete or attempt activity 9 The patient did not perform the activity before the current illness or injury 88 Not attempted due to Medical conditions or safety concerns Bathing (FIM): 4 Upper Body (FIM): 5 Lower Body Dressing (FIM): 5 Toilet/Commode Transfer (FIM): 5 Shower Transfer(FIM): 4 (CGA) OT Short Term Goals Short Term Goals Time Frame: Dec 11, 2016 Lower Body Dressing(FIM): 3 Toileting(FIM): 3 Transfers (B,C,W/C) (FIM): 4 (CGA) Toilet/Commode Transfer(FIM): 4 Additional Short Term Goals: 1-Demonstrate ADL Tasks, 2-Verbalize Understanding , 3-ImproveStrength/[place] 1=Demonstrate adherence to instructed precautions during ADL tasks. 2=Patient will verbalize/demonstrate understanding of assistive devices/ modifications for ADL. 3=Patient will improve strength/tolerance for activity to enable patient to perform ADL's. OT Road Manager Goals Road Manager Goals Time Frame: Dec 25, 2016 Eating (FIM): 6 Eating (QC): 6 Oral Hygiene (QC): 6 Grooming(FIM): 6 Bathing(FIM): 5 Shower/Bathe Self (QC): 5 Upper Body Dressing(FIM): 5 Upper Body Dressing (QC): 5 Lower Body Dressing(FIM): 5 Lower Body Dressing (QC): 5 On/Off Footwear (QC): 5 Toileting(FIM): 5 Toileting Hygiene (QC): 5 Toilet/Commode Transfer(FIM): 5 Toilet/Commode Transfer (QC): 5 Shower Transfer(FIM): 5 Additional Goals: 1-Demonstrate ADL Tasks, 2-Verbalize Understanding, 3- ImproveStrength/[place] 1=Demonstrate adherence to instructed precautions during ADL tasks. 2=Patient will verbalize/demonstrate understanding of assistive devices/ modifications for ADL. 3=Patient will improve strength/tolerance for activity to enable patient to perform ADL's. OT Education/Plan Problem List/Assessment Pt demonstrates decreased mobility, strength, activity tolerance, and ADL performance. Pt to benefit from skilled OT intervention for ADL training, transfers, strengthening, and safety education to maximize level of function and allow safe discharge plan. Discharge Recommendations Plan/Recommendations: Continue POC Treatment Plan/Plan of Care Patient would benefit from OT for education, treatment and training to promote independence in ADL's, mobility, safety and/or upper extremity function for ADL' s. Plan of Care: ADL Retraining, Functional Mobility, Group Exercise/Act as Ind, UE Funct Exercise/Act Treatment Duration: Dec 25, 2016 Visits Per Week: 10-11 Minutes/Day (M-F): 60-90 Minutes/Day (Sat/Ortega): PRN Agreement: Yes Rehab Potential: Good Time/GCodes Start Time: 08:00 Stop Time: 09:00 Total Time Billed (hr/min): 60 Billed Treatment Time 1 visit, ADLx4(60minutes) SHRUTI ROBERTS OT Dec 13, 2016 11:43
--- NOTE | 2016-12-13 14:09 | Therapy Group Daily Note ---
Therapy Daily Group Note Patient Education Topic Home Safety, Other List Below (review of ARU practices, home safety during inclement weather) Other/Notes Pt. attended group PT OT session. Pt. delightful, social and introduces self as well as making conversation. Pts. were reviewed on ARU practices. Lunch group session with topics begun by therapists to create socialization and have pts share their experiences with home safety during inclement weather. Pt. to room after group. Pt. up in chair with ball at hand. Start Time: 12:00 Stop Time: 13:00 Total Billed Treatment Time: 60 Total Billed Treatment 1,GRP KAMARI PAZ CONCRETE POINTER Dec 13, 2016 14:09
[2016-12-13 18:22] VITALS: BP 104/54
[2016-12-14] MEDS: LEVOTHYROXINE 25 MCG (LEVOTHROID) TAB PO SCH (05:29)
[2016-12-14 06:00] VITALS: BP 123/67
[2016-12-14] MEDS: TROSPIUM 20 MG (SANCTURA) TAB PO SCH ×3 (06:00→16:00)
[2016-12-14] MEDS: HYDROcodone/APAP 5 MG/325 MG (LORTAB) TAB PO PRN (06:10)
[2016-12-14] MEDS: ENOXAPARIN 40 MG/0.4 ML (LOVENOX) SYR SC SCH (07:59)
[2016-12-14 09:00] VITALS: BP 138/70
[2016-12-14] MEDS: POLYETHYLENE GLYCOL 17 GM (MIRALAX) PACK PO SCH ×2 (09:00→19:55)
[2016-12-14] MEDS: EYE WASH 118 ML BTL OU SCH ×2 (09:00→20:48)
[2016-12-14] MEDS: ASPIRIN E.C. 81 MG (ECOTRIN) TAB PO SCH (09:42)
[2016-12-14] MEDS: FOSINOPRIL 20 MG PO SCH (09:42)
[2016-12-14] MEDS: SENNA W/DOCUSATE (SENOKOT S) TABLET PO SCH ×2 (09:43→20:47)
[2016-12-14] MEDS: LETROZOLE 2.5 MG (FEMARA) TAB PO SCH (09:43)
[2016-12-14] MEDS: amLODIPine 5 MG (NORVASC) TAB PO SCH (09:43)
[2016-12-14] MEDS: VITAMIN D3 5,000 UNITS (CHOLECALCIFEROL ) CAPSULE PO SCH (09:43)
[2016-12-14] MEDS: PRESERVISION AREDS SOFTGEL (BAUSH & LOMB) PO SCH (09:45)
[2016-12-14] MEDS: LOTEMAX 0.5% OU SCH (09:46)
[2016-12-14] MEDS: ONDANSETRON 4 MG (ZOFRAN) ORAL DISSOLVE TAB PO PRN (10:40)
--- NOTE | 2016-12-14 11:23 | Physical Therapy Daily Note ---
PT Daily Note-Current Subjective Agreeable to Rx . Wants to keleey more clothing before Rx. Pain Numeric Pain Scale: 3 Location: Right Location Body Site: Hip Pain Description: Ache Mental Status Patient Orientation: Normal For Age Transfers Functional [place] Measure 0=Not Assessed/NA 4=Minimal Assistance 1=Total Assistance 5=Supervision or Setup 2=Maximal Assistance 6=Modified [place] 3=Moderate Assistance 7=Complete IndependenceIRFPAI Quality Coding Scale 6 Independent with activity with or without an assistive device 5 Patient requires set up or clean up by helper. Patient completes activity by themselves 4 Supervision or touching assist (CGA). [place] provide cues , steadying assist 3 The helper provides less than half the effort to complete the activity 2 The helper provides more than half the effort to complete the activity 1 Dependent. The helper does all the effort to complete an activity 7 Patient refused to complete or attempt activity 9 The patient did not perform the activity before the current illness or injury 88 Not attempted due to Medical conditions or safety concerns Transfers (B, C, W/C) (FIM): 5 Scootin Rollin Supine to/from Sit: 5 Sit to/from Stand: 5 Bed to/from Chair: 5 Weight Bearing Weight Bearing Restriction: Touch Toe Bearing Location Restriction: R LE Gait Training Does the Patient Walk?: Yes Gait (FIM): 2 Distance (FIM): 5=553-53 ft (50ftx2) Gait Level of Assist: 4 Gait Persons Needed: 1 Gait Assistive Device: FWW Wheelchair Training Does the Pt Use a Wheelchair?: Yes Wheelchair (FIM): 4 Wheelchair Distance: 2=687-65 ft Wheelchair Level of Assist: 4 Type of Wheelchair: Manual occasional assist for brakes etc Exercises Supine Ex: Quad Set, Glut sets, Heel Slides, Short Arc Quads, Hip abd/add Supine Reps: 8 Treatments toileted, required min to CGA for cleaning and pants up. stood at sink for washing face and hands CGA Assessment Current Status: Good Progress PT Short Term Goals Short Term Goals Time Frame: Dec 11, 2016 Transfers (B,C,W/C) (FIM): 4 (CGA) Gait (FIM): 2 (met 12/10/16) Gait Distance Comment: 50' Gait Level of Assist: 4 (CGA) Gait Assistive Device: FWW Wheelchair Distance: 150'x2 PT Chcf Goals Chcf Goals PT Chcf Goals Time Frame: Dec 25, 2016 Transfers (B,C,W/C) (FIM): 5 Sit to Lying (QC): 4 Lying-Sitting on Side/Bed(QC): 4 Sit to Stand (QC): 4 Rollin Roll Left to Right (QC): 4 Chair/Idm-hf-Tmfkr Xfer(QC): 4 Car Transfer (QC): 4 Does the Patient Walk: Yes Gait (FIM): 5 Distance: 150' Walk 10 feet (QC): 4 Walk 10ft-Uneven Surface(QC): 4 Walk 50ft with 2 Turns (QC): 4 Walk 150 ft (QC): 4 Gait Level of Assist: 5 Gait Assistive Device: FWW Stairs (FIM): 2 # of Steps: 4 1 Step (curb) (QC): 4 4 Steps (QC): 4 12 Steps (QC): 4 Stairs Level Of Assist: 5 Picking up an Object (QC): 88 PT Plan Treatment/Plan Treatment Plan: Continue Plan of Care Treatment Plan: Bed Mobility, Education, Functional Activity [place], Functional Strength, Group Therapy, Gait, Safety, Therapeutic Exercise, Transfers Treatment Duration: Dec 25, 2016 Visits Per Week: 10-11 Minutes/Day (M-F): 60-90 Minutes/Day (Sat/Ortega): 15-30 Safety Risks/Education Patient Education: Gait Training, Transfer Techniques, Correct Positioning, Safety Issues Teaching Recipient: Patient Teaching Methods: Demonstration, Discussion Response to Teaching: Verbalize Understanding, Return Demonstration, Reinforcement Needed Time/GCodes Time In: 905 Time Out: 930 Total Billed Treatment Time: 25 Total Billed Treatment 1,GT13,FA12 G Codes Necessary: KAMARI Hagen [facility] Dec 14, 2016 11:23
[2016-12-14 18:00] VITALS: BP 93/58
[2016-12-15 06:00] VITALS: BP 125/74
[2016-12-15] MEDS: TROSPIUM 20 MG (SANCTURA) TAB PO SCH ×3 (06:00→16:00)
[2016-12-15] MEDS: LEVOTHYROXINE 25 MCG (LEVOTHROID) TAB PO SCH (06:10)
[2016-12-15] MEDS: ACETAMINOPHEN 500 MG TAB (TYLENOL) PO PRN (07:48)
[2016-12-15] MEDS: ENOXAPARIN 40 MG/0.4 ML (LOVENOX) SYR SC SCH (07:50)
[2016-12-15] MEDS: SENNA W/DOCUSATE (SENOKOT S) TABLET PO SCH ×2 (08:42→20:24)
[2016-12-15] MEDS: VITAMIN D3 5,000 UNITS (CHOLECALCIFEROL ) CAPSULE PO SCH (08:42)
[2016-12-15] MEDS: ASPIRIN E.C. 81 MG (ECOTRIN) TAB PO SCH (08:42)
[2016-12-15] MEDS: POLYETHYLENE GLYCOL 17 GM (MIRALAX) PACK PO SCH ×2 (08:42→19:54)
[2016-12-15] MEDS: amLODIPine 5 MG (NORVASC) TAB PO SCH (08:42)
[2016-12-15] MEDS: FOSINOPRIL 20 MG PO SCH (08:42)
[2016-12-15] MEDS: LETROZOLE 2.5 MG (FEMARA) TAB PO SCH (08:43)
[2016-12-15] MEDS: PRESERVISION AREDS SOFTGEL (BAUSH & LOMB) PO SCH (08:45)
[2016-12-15] MEDS: LOTEMAX 0.5% OU SCH (08:46)
[2016-12-15] MEDS: EYE WASH 118 ML BTL OU SCH ×2 (08:47→19:55)
[2016-12-15 09:00] VITALS: BP 119/73
[2016-12-15 17:46] VITALS: BP 111/82
[2016-12-16] MEDS: ACETAMINOPHEN 500 MG TAB (TYLENOL) PO PRN ×3 (01:53→21:33)
[2016-12-16] MEDS: LEVOTHYROXINE 25 MCG (LEVOTHROID) TAB PO SCH (05:59)
[2016-12-16] MEDS: TROSPIUM 20 MG (SANCTURA) TAB PO SCH ×3 (05:59→20:24)
[2016-12-16 06:00] VITALS: BP 145/66
[2016-12-16] MEDS: amLODIPine 5 MG (NORVASC) TAB PO SCH (08:27)
[2016-12-16] MEDS: FOSINOPRIL 20 MG PO SCH (08:27)
[2016-12-16] MEDS: VITAMIN D3 5,000 UNITS (CHOLECALCIFEROL ) CAPSULE PO SCH (08:27)
[2016-12-16] MEDS: SENNA W/DOCUSATE (SENOKOT S) TABLET PO SCH ×2 (08:27→20:24)
[2016-12-16] MEDS: ASPIRIN E.C. 81 MG (ECOTRIN) TAB PO SCH (08:27)
[2016-12-16] MEDS: ENOXAPARIN 40 MG/0.4 ML (LOVENOX) SYR SC SCH (08:28)
[2016-12-16] MEDS: LOTEMAX 0.5% OU SCH (08:29)
[2016-12-16] MEDS: POLYETHYLENE GLYCOL 17 GM (MIRALAX) PACK PO SCH ×2 (09:00→20:24)
[2016-12-16] MEDS: EYE WASH 118 ML BTL OU SCH ×3 (09:34→21:00)
--- NOTE | 2016-12-16 09:34 | Physical Therapy Daily Note ---
PT Daily Note-Current Subjective Pt agrees to rx. States she has pain 1-2/10 in right hip and ankle at times. Pain Numeric Pain Scale: 2 Location: Right Location Body Site: Hip Pain Description: Ache Mental Status Patient Orientation: Normal For Age Transfers Functional [place] Measure 0=Not Assessed/NA 4=Minimal Assistance 1=Total Assistance 5=Supervision or Setup 2=Maximal Assistance 6=Modified [place] 3=Moderate Assistance 7=Complete IndependenceIRFPAI Quality Coding Scale 6 Independent with activity with or without an assistive device 5 Patient requires set up or clean up by helper. Patient completes activity by themselves 4 Supervision or touching assist (CGA). [place] provide cues , steadying assist 3 The helper provides less than half the effort to complete the activity 2 The helper provides more than half the effort to complete the activity 1 Dependent. The helper does all the effort to complete an activity 7 Patient refused to complete or attempt activity 9 The patient did not perform the activity before the current illness or injury 88 Not attempted due to Medical conditions or safety concerns Transfers (B, C, W/C) (FIM): 6 Scootin Rollin Supine to/from Sit: 6 Sit to/from Stand: 6 Bed to/from Chair: 6 pt. able to scoot up in bed and sit to sup at Rx table in gym, this is more challenging in her bed Weight Bearing Weight Bearing Restriction: Touch Toe Bearing Location Restriction: R LE Gait Training Does the Patient Walk?: Yes Gait (FIM): 5 Distance (FIM): 2=889-59 ft Gait Level of Assist: 5 Gait Persons Needed: 1 Gait Assistive Device: FWW household 50ft distance maintaining TTWB right well Wheelchair Training Does the Pt Use a Wheelchair?: Yes Wheelchair (FIM): 5 Wheelchair Distance: 3=150 ft Wheelchair Level of Assist: 5 Type of Wheelchair: Manual Exercises Supine Ex: Ankle pumps, Quad Set, Rolling, Glut sets, Heel Slides, Short Arc Quads, Scooting, Straight leg raise (indep x 5), Hip abd/add NuStep Minutes: 12 NuStep Workload: 3 Treatments pt. requested to dress before rx and was Mod I, required set up only and then assist to keeley left shoe. Assessment Current Status: Good Progress marked progress in all phases of PT PT Short Term Goals Short Term Goals Time Frame: Dec 11, 2016 Transfers (B,C,W/C) (FIM): 4 (CGA) Gait (FIM): 2 (met 12/10/16) Gait Distance Comment: 50' Gait Level of Assist: 4 (CGA) Gait Assistive Device: FWW Wheelchair Distance: 150'x2 PT Grind Operator Goals Nursing Home Goals PT Nursing Home Goals Time Frame: Dec 25, 2016 Transfers (B,C,W/C) (FIM): 5 Sit to Lying (QC): 4 Lying-Sitting on Side/Bed(QC): 4 Sit to Stand (QC): 4 Rollin Roll Left to Right (QC): 4 Chair/Rbu-xs-Nwlmd Xfer(QC): 4 Car Transfer (QC): 4 Does the Patient Walk: Yes Gait (FIM): 5 Distance: 150' Walk 10 feet (QC): 4 Walk 10ft-Uneven Surface(QC): 4 Walk 50ft with 2 Turns (QC): 4 Walk 150 ft (QC): 4 Gait Level of Assist: 5 Gait Assistive Device: FWW Stairs (FIM): 2 # of Steps: 4 1 Step (curb) (QC): 4 4 Steps (QC): 4 12 Steps (QC): 4 Stairs Level Of Assist: 5 Picking up an Object (QC): 88 PT Plan Treatment/Plan Treatment Plan: Continue Plan of Care Treatment Plan: Bed Mobility, Education, Functional Activity [place], Functional Strength, Group Therapy, Gait, Safety, Therapeutic Exercise, Transfers Treatment Duration: Dec 25, 2016 Visits Per Week: 10-11 Minutes/Day (M-F): 60-90 Minutes/Day (Sat/Ortega): 15-30 Safety Risks/Education Patient Education: Gait Training, Transfer Techniques, Correct Positioning, W/ C Management, Disease Process, Safety Issues Teaching Recipient: Patient Teaching Methods: Demonstration, Discussion Response to Teaching: Verbalize Understanding, Return Demonstration, Reinforcement Needed Time/GCodes Time In: 835 Time Out: 935 Total Billed Treatment Time: 60 Total Billed Treatment 1,EX30m,FA15m,GT15m G Codes Necessary: KAMARI Hagen VACUUM WORKER Dec 16, 2016 09:34
[2016-12-16] MEDS: LETROZOLE 2.5 MG (FEMARA) TAB PO SCH (09:37)
[2016-12-16] MEDS: PRESERVISION AREDS SOFTGEL (BAUSH & LOMB) PO SCH (09:38)
--- NOTE | 2016-12-16 12:40 | Occupational Ther Daily Note ---
OT Current Status-Daily Note Subjective Pt in bed, agrees to treatment. Pt reports 2/10 right LE pain. Mental Status/Objective Functional [place] Measure 0=Not Assessed/NA 4=Minimal Assistance 1=Total Assistance 5=Supervision or Setup 2=Maximal Assistance 6=Modified [place] 3=Moderate Assistance 7=Complete [place] ADL-Treatment Pt declined bathing today, already dressed this morning. Agrees to shower tomorrow. Pt requests to use BSC. Supine to sit with supervision and increased time. Sit to stand and transfer to BSC with SBA using FWW. Pt able to complete toileting hygiene and clothing management with SBA. Able to maintain TTWB during mobility and transfers. Pt transferred to w/c with SBA. Pt performed w/c mobility to shower room without assistance. Pt states she has a tub/shower combo at home and an extended shower bench. Pt instructed in safe transfer using extended shower bench. Pt demonstrates ability to perform transfer to tub with minimal assistance and cues for safety using shower bench. Functional [place] Measure 0=Not Assessed/NA 4=Minimal Assistance 1=Total Assistance 5=Supervision or Setup 2=Maximal Assistance 6=Modified [place] 3=Moderate Assistance 7=Complete IndependenceIRFPAI Quality Coding Scale 6 Independent with activity with or without an assistive device 5 Patient requires set up or clean up by helper. Patient completes activity by themselves 4 Supervision or touching assist (CGA). [place] provide cues , steadying assist 3 The helper provides less than half the effort to complete the activity 2 The helper provides more than half the effort to complete the activity 1 Dependent. The helper does all the effort to complete an activity 7 Patient refused to complete or attempt activity 9 The patient did not perform the activity before the current illness or injury 88 Not attempted due to Medical conditions or safety concerns Other Treatment W/c mobility to therapy gym with slow pace. Pt performed bilateral UE exercises to increase strength needed for ADLs and transfers. Pt performed shoulder flexion, abduction, horizontal abduction, biceps curls, and triceps extension exercises x20 reps with moderate resistance(red) theraband. Rest breaks between exercises. Pt has no difficulty tracking reps. Arm bike x10 minutes to increase overall strength and activity tolerance. Pt completed task with slow pace, no rest breaks needed. Pt performed peg activity with bilateral UE with 1# weights in place to increase strength and fine motor coordination. Graded clothespin activity with bilateral hands to increase manager energy/pinch strength. Pt has good participation in all activities. Pt performed sit to stand x8 reps during session to increase strength and safety for transfers. Pt able to perform with SBA. Pt returned to room, transferred to chair with SBA using FWW. Pt sitting in chair with needs met aftr session. Continue POC. OT Short Term Goals Short Term Goals Time Frame: Dec 11, 2016 Lower Body Dressing(FIM): 3 Toileting(FIM): 3 Transfers (B,C,W/C) (FIM): 4 (CGA) Toilet/Commode Transfer(FIM): 4 Additional Short Term Goals: 1-Demonstrate ADL Tasks, 2-Verbalize Understanding , 3-ImproveStrength/[place] 1=Demonstrate adherence to instructed precautions during ADL tasks. 2=Patient will verbalize/demonstrate understanding of assistive devices/ modifications for ADL. 3=Patient will improve strength/tolerance for activity to enable patient to perform ADL's. OT Production Sanitizer Goals Production Sanitizer Goals Time Frame: Dec 25, 2016 Eating (FIM): 6 Eating (QC): 6 Oral Hygiene (QC): 6 Grooming(FIM): 6 Bathing(FIM): 5 Shower/Bathe Self (QC): 5 Upper Body Dressing(FIM): 5 Upper Body Dressing (QC): 5 Lower Body Dressing(FIM): 5 Lower Body Dressing (QC): 5 On/Off Footwear (QC): 5 Toileting(FIM): 5 Toileting Hygiene (QC): 5 Toilet/Commode Transfer(FIM): 5 Toilet/Commode Transfer (QC): 5 Shower Transfer(FIM): 5 Additional Goals: 1-Demonstrate ADL Tasks, 2-Verbalize Understanding, 3- ImproveStrength/[place] 1=Demonstrate adherence to instructed precautions during ADL tasks. 2=Patient will verbalize/demonstrate understanding of assistive devices/ modifications for ADL. 3=Patient will improve strength/tolerance for activity to enable patient to perform ADL's. OT Education/Plan Problem List/Assessment Pt demonstrates decreased mobility, strength, activity tolerance, and ADL performance. Pt to benefit from skilled OT intervention for ADL training, transfers, strengthening, and safety education to maximize level of function and allow safe discharge plan. Discharge Recommendations Plan/Recommendations: Continue POC Treatment Plan/Plan of Care Patient would benefit from OT for education, treatment and training to promote independence in ADL's, mobility, safety and/or upper extremity function for ADL' s. Plan of Care: ADL Retraining, Functional Mobility, Group Exercise/Act as Ind, UE Funct Exercise/Act Treatment Duration: Dec 25, 2016 Visits Per Week: 10-11 Minutes/Day (M-F): 60-90 Minutes/Day (Sat/Ortega): PRN Agreement: Yes Rehab Potential: Good Time/GCodes Start Time: 10:30 Stop Time: 12:00 Total Time Billed (hr/min): 90 Billed Treatment Time 1 visit, ADL(20minutes), FA(15minutes), EXx4(55minutes) SHRUTI ROBERTS OT Dec 16, 2016 12:40
--- NOTE | 2016-12-16 13:45 | Physical Therapy Daily Note ---
PT Daily Note-Current Subjective Agrees to Rx. States she has been contemplating how she will get up the stairs in to the house when she gets home. Has 5 steps. has considered a ramp Pain Numeric Pain Scale: 0-No Pain Mental Status Patient Orientation: Normal For Age Transfers Functional [place] Measure 0=Not Assessed/NA 4=Minimal Assistance 1=Total Assistance 5=Supervision or Setup 2=Maximal Assistance 6=Modified [place] 3=Moderate Assistance 7=Complete IndependenceIRFPAI Quality Coding Scale 6 Independent with activity with or without an assistive device 5 Patient requires set up or clean up by helper. Patient completes activity by themselves 4 Supervision or touching assist (CGA). [place] provide cues , steadying assist 3 The helper provides less than half the effort to complete the activity 2 The helper provides more than half the effort to complete the activity 1 Dependent. The helper does all the effort to complete an activity 7 Patient refused to complete or attempt activity 9 The patient did not perform the activity before the current illness or injury 88 Not attempted due to Medical conditions or safety concerns sit to sup and sit to stand all SBA Weight Bearing Weight Bearing Restriction: Touch Toe Bearing Location Restriction: R LE Gait Training Does the Patient Walk?: Yes Gait Assistive Device: FWW 75ft x1 FWW TTWB RLE Exercises Supine Ex: Ankle pumps, Quad Set, Rolling, Glut sets, Heel Slides, Short Arc Quads, Scooting, Straight leg raise, Hip abd/add Supine Reps: 15 Assessment Current Status: Good Progress fatigued, in bed with jacob after Rx PT Short Term Goals Short Term Goals Time Frame: Dec 11, 2016 Transfers (B,C,W/C) (FIM): 4 (CGA) Gait (FIM): 2 (met 12/10/16) Gait Distance Comment: 50' Gait Level of Assist: 4 (CGA) Gait Assistive Device: FWW Wheelchair Distance: 150'x2 PT Sanitary Aide Goals Mcc Goals PT Sanitary Aide Goals Time Frame: Dec 25, 2016 Transfers (B,C,W/C) (FIM): 5 Sit to Lying (QC): 4 Lying-Sitting on Side/Bed(QC): 4 Sit to Stand (QC): 4 Rollin Roll Left to Right (QC): 4 Chair/Jyi-hh-Gtoxm Xfer(QC): 4 Car Transfer (QC): 4 Does the Patient Walk: Yes Gait (FIM): 5 Distance: 150' Walk 10 feet (QC): 4 Walk 10ft-Uneven Surface(QC): 4 Walk 50ft with 2 Turns (QC): 4 Walk 150 ft (QC): 4 Gait Level of Assist: 5 Gait Assistive Device: FWW Stairs (FIM): 2 # of Steps: 4 1 Step (curb) (QC): 4 4 Steps (QC): 4 12 Steps (QC): 4 Stairs Level Of Assist: 5 Picking up an Object (QC): 88 PT Plan Treatment/Plan Treatment Plan: Continue Plan of Care Treatment Plan: Bed Mobility, Education, Functional Activity [place], Functional Strength, Group Therapy, Gait, Safety, Therapeutic Exercise, Transfers Treatment Duration: Dec 25, 2016 Visits Per Week: 10-11 Minutes/Day (M-F): 60-90 Minutes/Day (Sat/Ortega): 15-30 Safety Risks/Education Patient Education: Gait Training, Transfer Techniques, Issued Written HEP, Correct Positioning, Disease Process, Safety Issues (discussed that pt. needs to maintain TTWB and ascending steps will be difficult, considering ramp install ) Teaching Recipient: Patient, Family Teaching Methods: Demonstration, Discussion Response to Teaching: Verbalize Understanding, Return Demonstration, Reinforcement Needed Time/GCodes Time In: 1315 Time Out: 1345 Total Billed Treatment Time: 30 Total Billed Treatment 1,GT15m,EX15m G Codes Necessary: KAMARI Hagen RACECOURSE BARRIER ATTENDANT Dec 16, 2016 13:45
[2016-12-16 17:53] VITALS: BP 127/67
--- NOTE | 2016-12-16 20:53 | PM & R (SOAP) Progress Note ---
Subjective Subjective/Events-last exam Patient was seen in her room this evening Concerned re possible discharge for this Friday the Reassured.Patient SBA for transfers Objective Exam Last Set of Vital Signs Vital Signs Date Time Temp Pulse Resp B/P Pulse Ox O2 Delivery O2 Flow Rate FiO2 12/16/16 17:53 98.1 72 16 127/67 96 Room Air Capillary Refill : Less Than 3 Seconds I&O Intake and Output 12/16/16 00:00 Intake Total 1040 ml Balance 1040 ml Intake Oral 1040 ml # Voids 8 # Bowel Movements 3 General: Alert, Oriented X3, Cooperative, No Acute Distress HEENT: Atraumatic, PERRLA, EOMI, Mucous Memb Moist/[place] Neck: Supple, No JVD Lungs: Clear to Auscultation Heart: Regular Rate Abdomen: Normal Bowel Sounds, Soft, No Tenderness Extremities: No Edema, Other (rt hip as per above) Neuro: Other (generalized weakness more so at operated hip) Assessment/Plan Assessment S/P rt hip frx secondary to fall s/p repair with decreasing postop pain Postop anemia Postop Nausea multifactorial-improved Postop constipation meds adjusted-improved Plan Continue PT/OT as tolerated F/U with Dr Crow-done Transfuse PRBCS-done upon admission to rehab labs noted Treat Nausea-See orders-done improved Xray rt hip see orders-done no change rt hip pain improved. Team Conference held 12-11-16-See report for full functional update and POC and ELOS Constipation improved with med adjustment Next Team Conference 12/18/16 Hopefully discharge to home with spouse and HHC by end of week. MARCELL TYLER MD Dec 16, 2016 20:53
[2016-12-17] MEDS: LEVOTHYROXINE 25 MCG (LEVOTHROID) TAB PO SCH (05:43)
[2016-12-17 06:00] VITALS: BP 123/69
[2016-12-17] MEDS: POLYETHYLENE GLYCOL 17 GM (MIRALAX) PACK PO SCH ×2 (07:34→20:18)
[2016-12-17] MEDS: SENNA W/DOCUSATE (SENOKOT S) TABLET PO SCH ×2 (07:34→20:18)
[2016-12-17] MEDS: LETROZOLE 2.5 MG (FEMARA) TAB PO SCH (08:43)
[2016-12-17] MEDS: PRESERVISION AREDS SOFTGEL (BAUSH & LOMB) PO SCH (08:43)
[2016-12-17] MEDS: ENOXAPARIN 40 MG/0.4 ML (LOVENOX) SYR SC SCH (08:43)
[2016-12-17] MEDS: ASPIRIN E.C. 81 MG (ECOTRIN) TAB PO SCH (08:44)
[2016-12-17] MEDS: amLODIPine 5 MG (NORVASC) TAB PO SCH (08:44)
[2016-12-17] MEDS: FOSINOPRIL 20 MG PO SCH (08:44)
[2016-12-17] MEDS: VITAMIN D3 5,000 UNITS (CHOLECALCIFEROL ) CAPSULE PO SCH (08:45)
[2016-12-17] MEDS: EYE WASH 118 ML BTL OU SCH ×2 (08:51→20:19)
[2016-12-17] MEDS: LOTEMAX 0.5% OU SCH (08:52)
--- NOTE | 2016-12-17 09:30 | Physical Therapy Daily Note ---
PT Daily Note-Current Subjective Pt. states she is in no pain. Agrees to Rx. States she is a little concerned about her very small bathroom at home. Not sure it will accommodate a BSC. Feels certain her will be willing to have a ramp installed if she needs this. Pain Numeric Pain Scale: 0-No Pain Mental Status Patient Orientation: Normal For Age Transfers Functional [place] Measure 0=Not Assessed/NA 4=Minimal Assistance 1=Total Assistance 5=Supervision or Setup 2=Maximal Assistance 6=Modified [place] 3=Moderate Assistance 7=Complete IndependenceIRFPAI Quality Coding Scale 6 Independent with activity with or without an assistive device 5 Patient requires set up or clean up by helper. Patient completes activity by themselves 4 Supervision or touching assist (CGA). [place] provide cues , steadying assist 3 The helper provides less than half the effort to complete the activity 2 The helper provides more than half the effort to complete the activity 1 Dependent. The helper does all the effort to complete an activity 7 Patient refused to complete or attempt activity 9 The patient did not perform the activity before the current illness or injury 88 Not attempted due to Medical conditions or safety concerns Transfers (B, C, W/C) (FIM): 5 Scootin Rollin Supine to/from Sit: 5 Sit to/from Stand: 5 Bed to/from Chair: 5 pt. required skilled verbal instruction for toilet TRF from w/c and back, use of bars on wall etc Weight Bearing Weight Bearing Restriction: Touch Toe Bearing Location Restriction: R LE Gait Training Does the Patient Walk?: Yes Gait (FIM): 2 Distance (FIM): 1=209-18 ft Gait Level of Assist: 5 Gait Persons Needed: 1 Gait Assistive Device: FWW 50ft even surfaces, 50 feet on ramp up and down Wheelchair Training Does the Pt Use a Wheelchair?: Yes Wheelchair (FIM): 2 Wheelchair Distance: 8=861-50 ft Wheelchair Level of Assist: 4 Type of Wheelchair: Manual pt required min assist to manage w/c on ramp emmie for using hands on wrungs to slow/stop . pt. has some difficulty guiding/turning and needs some instruction for this Exercises Seated Therapy Exercises: Ankle pumps, Sit to stand, Long arc quads Seated Reps: 10 Treatments pt. toileted with min assist after BM, managing pants up down and cleaning in standing position Assessment Current Status: Good Progress progressing well but still TTWB. will request 1 more week on rehab and perhaps begin discussion of ramp installation PT Short Term Goals Short Term Goals Time Frame: Dec 11, 2016 Transfers (B,C,W/C) (FIM): 4 (CGA) Gait (FIM): 2 (met 12/10/16) Gait Distance Comment: 50' Gait Level of Assist: 4 (CGA) Gait Assistive Device: FWW Wheelchair Distance: 150'x2 PT Fpc Goals Spares Scheduler Goals PT Fpc Goals Time Frame: Dec 25, 2016 Transfers (B,C,W/C) (FIM): 5 Sit to Lying (QC): 4 Lying-Sitting on Side/Bed(QC): 4 Sit to Stand (QC): 4 Rollin Roll Left to Right (QC): 4 Chair/Xvn-rt-Zprxh Xfer(QC): 4 Car Transfer (QC): 4 Does the Patient Walk: Yes Gait (FIM): 5 Distance: 150' Walk 10 feet (QC): 4 Walk 10ft-Uneven Surface(QC): 4 Walk 50ft with 2 Turns (QC): 4 Walk 150 ft (QC): 4 Gait Level of Assist: 5 Gait Assistive Device: FWW Stairs (FIM): 2 # of Steps: 4 1 Step (curb) (QC): 4 4 Steps (QC): 4 12 Steps (QC): 4 Stairs Level Of Assist: 5 Picking up an Object (QC): 88 PT Plan Treatment/Plan Treatment Plan: Continue Plan of Care Treatment Plan: Bed Mobility, Education, Functional Activity [place], Functional Strength, Group Therapy, Gait, Safety, Therapeutic Exercise, Transfers Treatment Duration: Dec 25, 2016 Visits Per Week: 10-11 Minutes/Day (M-F): 60-90 Minutes/Day (Sat/Ortega): 15-30 Safety Risks/Education Patient Education: Gait Training, Transfer Techniques, Correct Positioning, W/ C Management, Safety Issues Teaching Recipient: Patient Teaching Methods: Demonstration, Discussion Response to Teaching: Verbalize Understanding, Return Demonstration, Reinforcement Needed Time/GCodes Time In: 830 Time Out: 930 Total Billed Treatment Time: 60 Total Billed Treatment 1,FA60m G Codes Necessary: KAMARI Hagen LACE ROLLER OPERATOR Dec 17, 2016 09:30
--- NOTE | 2016-12-17 11:01 | Physical Therapy Daily Note ---
PT Daily Note-Current Subjective Agrees to Rx. Feels she is making good progress. No pain c/o Mental Status Patient Orientation: Normal For Age Transfers Functional [place] Measure 0=Not Assessed/NA 4=Minimal Assistance 1=Total Assistance 5=Supervision or Setup 2=Maximal Assistance 6=Modified [place] 3=Moderate Assistance 7=Complete IndependenceIRFPAI Quality Coding Scale 6 Independent with activity with or without an assistive device 5 Patient requires set up or clean up by helper. Patient completes activity by themselves 4 Supervision or touching assist (CGA). [place] provide cues , steadying assist 3 The helper provides less than half the effort to complete the activity 2 The helper provides more than half the effort to complete the activity 1 Dependent. The helper does all the effort to complete an activity 7 Patient refused to complete or attempt activity 9 The patient did not perform the activity before the current illness or injury 88 Not attempted due to Medical conditions or safety concerns TRFs sit to stand and sup to sit SBA Gait Training Gait Assistive Device: FWW TTWB RLE 50ft,25ft Exercises Supine Ex: Ankle pumps, Quad Set, Rolling, Glut sets, Heel Slides, Short Arc Quads, Scooting, Straight leg raise (indep), Hip abd/add (indep) Supine Reps: 15 Seated Therapy Exercises: Ankle pumps, Sit to stand, Long arc quads Seated Reps: 10 Assessment Current Status: Good Progress PT Short Term Goals Short Term Goals Time Frame: Dec 11, 2016 Transfers (B,C,W/C) (FIM): 4 (CGA) Gait (FIM): 2 (met 12/10/16) Gait Distance Comment: 50' Gait Level of Assist: 4 (CGA) Gait Assistive Device: FWW Wheelchair Distance: 150'x2 PT Intermediate Goals Drop Wire Aligner Goals PT Drop Wire Aligner Goals Time Frame: Dec 25, 2016 Transfers (B,C,W/C) (FIM): 5 Sit to Lying (QC): 4 Lying-Sitting on Side/Bed(QC): 4 Sit to Stand (QC): 4 Rollin Roll Left to Right (QC): 4 Chair/Cwi-dk-Ayiot Xfer(QC): 4 Car Transfer (QC): 4 Does the Patient Walk: Yes Gait (FIM): 5 Distance: 150' Walk 10 feet (QC): 4 Walk 10ft-Uneven Surface(QC): 4 Walk 50ft with 2 Turns (QC): 4 Walk 150 ft (QC): 4 Gait Level of Assist: 5 Gait Assistive Device: FWW Stairs (FIM): 2 # of Steps: 4 1 Step (curb) (QC): 4 4 Steps (QC): 4 12 Steps (QC): 4 Stairs Level Of Assist: 5 Picking up an Object (QC): 88 PT Plan Treatment/Plan Treatment Plan: Continue Plan of Care Treatment Plan: Bed Mobility, Education, Functional Activity [place], Functional Strength, Group Therapy, Gait, Safety, Therapeutic Exercise, Transfers Treatment Duration: Dec 25, 2016 Visits Per Week: 10-11 Minutes/Day (M-F): 60-90 Minutes/Day (Sat/Ortega): 15-30 Safety Risks/Education Patient Education: Gait Training, Transfer Techniques, Issued Written HEP Teaching Recipient: Patient Teaching Methods: Demonstration, Discussion Response to Teaching: Verbalize Understanding, Return Demonstration, Reinforcement Needed Time/GCodes Time In: 1025 Time Out: 1055 Total Billed Treatment Time: 30 Total Billed Treatment 1,FA15m,EX15m G Codes Necessary: KAMARI Hagen CIVIL CAD DESIGNER Dec 17, 2016 11:01
--- NOTE | 2016-12-17 14:15 | Occupational Ther Daily Note ---
OT Current Status-Daily Note Subjective Pt in w/c at sink when therapist arrives. Pt agrees to treatment. Mental Status/Objective Functional [place] Measure 0=Not Assessed/NA 4=Minimal Assistance 1=Total Assistance 5=Supervision or Setup 2=Maximal Assistance 6=Modified [place] 3=Moderate Assistance 7=Complete [place] ADL-Treatment Functional [place] Measure 0=Not Assessed/NA 4=Minimal Assistance 1=Total Assistance 5=Supervision or Setup 2=Maximal Assistance 6=Modified [place] 3=Moderate Assistance 7=Complete IndependenceIRFPAI Quality Coding Scale 6 Independent with activity with or without an assistive device 5 Patient requires set up or clean up by helper. Patient completes activity by themselves 4 Supervision or touching assist (CGA). [place] provide cues , steadying assist 3 The helper provides less than half the effort to complete the activity 2 The helper provides more than half the effort to complete the activity 1 Dependent. The helper does all the effort to complete an activity 7 Patient refused to complete or attempt activity 9 The patient did not perform the activity before the current illness or injury 88 Not attempted due to Medical conditions or safety concerns Other Treatment Pt performed w/c mobility to therapy gym with increased time. Pt performed bilateral UE exercises to increase strength needed for ADLs and transfers. Pt performed shoulder flexion, forward press, biceps curls, and wrist flexion/ extension x20 reps with 1# dowel ksenia. Rest breaks between exercises. Pt returned to room, sitting in w/c with needs met after session. OT Short Term Goals Short Term Goals Time Frame: Dec 11, 2016 Lower Body Dressing(FIM): 3 Toileting(FIM): 3 Transfers (B,C,W/C) (FIM): 4 (CGA) Toilet/Commode Transfer(FIM): 4 Additional Short Term Goals: 1-Demonstrate ADL Tasks, 2-Verbalize Understanding , 3-ImproveStrength/[place] 1=Demonstrate adherence to instructed precautions during ADL tasks. 2=Patient will verbalize/demonstrate understanding of assistive devices/ modifications for ADL. 3=Patient will improve strength/tolerance for activity to enable patient to perform ADL's. OT Group Home Goals Case Briefer Goals Time Frame: Dec 25, 2016 Eating (FIM): 6 Eating (QC): 6 Oral Hygiene (QC): 6 Grooming(FIM): 6 Bathing(FIM): 5 Shower/Bathe Self (QC): 5 Upper Body Dressing(FIM): 5 Upper Body Dressing (QC): 5 Lower Body Dressing(FIM): 5 Lower Body Dressing (QC): 5 On/Off Footwear (QC): 5 Toileting(FIM): 5 Toileting Hygiene (QC): 5 Toilet/Commode Transfer(FIM): 5 Toilet/Commode Transfer (QC): 5 Shower Transfer(FIM): 5 Additional Goals: 1-Demonstrate ADL Tasks, 2-Verbalize Understanding, 3- ImproveStrength/[place] 1=Demonstrate adherence to instructed precautions during ADL tasks. 2=Patient will verbalize/demonstrate understanding of assistive devices/ modifications for ADL. 3=Patient will improve strength/tolerance for activity to enable patient to perform ADL's. OT Education/Plan Problem List/Assessment Pt demonstrates decreased mobility, strength, activity tolerance, and ADL performance. Pt to benefit from skilled OT intervention for ADL training, transfers, strengthening, and safety education to maximize level of function and allow safe discharge plan. Discharge Recommendations Plan/Recommendations: Continue POC Treatment Plan/Plan of Care Patient would benefit from OT for education, treatment and training to promote independence in ADL's, mobility, safety and/or upper extremity function for ADL' s. Plan of Care: ADL Retraining, Functional Mobility, Group Exercise/Act as Ind, UE Funct Exercise/Act Treatment Duration: Dec 25, 2016 Visits Per Week: 10-11 Minutes/Day (M-F): 60-90 Minutes/Day (Sat/Ortega): PRN Agreement: Yes Rehab Potential: Good Time/GCodes Start Time: 08:00 Stop Time: 08:30 Total Time Billed (hr/min): 30 Billed Treatment Time 1 visit, EXx2(30minutes) SHRUTI ROBERTS OT Dec 17, 2016 14:15
--- NOTE | 2016-12-17 14:24 | Occupational Ther Daily Note ---
OT Current Status-Daily Note Subjective Pt reports fatigue, but agrees to treatment. Mental Status/Objective Functional [place] Measure 0=Not Assessed/NA 4=Minimal Assistance 1=Total Assistance 5=Supervision or Setup 2=Maximal Assistance 6=Modified [place] 3=Moderate Assistance 7=Complete [place] ADL-Treatment Pt doffed clothing with SBA, uses dressing stick to doff pants and socks. Transfer to walk in shower with SBA using FWW and grab bars. Bathing completed using hand held shower and long handled sponge. Pt able to wash/dry all areas with SBA and increased time. Pt donned pullover shirt with set up. Don Depends and pants with supervision using furnace process plant operator to start over feet. Stood with supervision for balance during pant hike. Able to maintain TTWB. Don socks with SBA using sock aid. Pt transferred to toilet with SBA. Pt able to complete toileting hygiene and clothing management with SBA. Transfer to bed with SBA using FWW. Sit to supine with SBA. Functional [place] Measure 0=Not Assessed/NA 4=Minimal Assistance 1=Total Assistance 5=Supervision or Setup 2=Maximal Assistance 6=Modified [place] 3=Moderate Assistance 7=Complete IndependenceIRFPAI Quality Coding Scale 6 Independent with activity with or without an assistive device 5 Patient requires set up or clean up by helper. Patient completes activity by themselves 4 Supervision or touching assist (CGA). [place] provide cues , steadying assist 3 The helper provides less than half the effort to complete the activity 2 The helper provides more than half the effort to complete the activity 1 Dependent. The helper does all the effort to complete an activity 7 Patient refused to complete or attempt activity 9 The patient did not perform the activity before the current illness or injury 88 Not attempted due to Medical conditions or safety concerns Bathing (FIM): 5 Upper Body (FIM): 5 Lower Body Dressing (FIM): 5 Toileting (FIM): 5 Toilet/Commode Transfer (FIM): 5 Other Treatment Pt completed putty activity to increase hand strength and coordination. Pt able to remove small beads from putty using bilateral hands. Pt in bed with needs met after session. OT Short Term Goals Short Term Goals Time Frame: Dec 11, 2016 Lower Body Dressing(FIM): 3 Toileting(FIM): 3 Transfers (B,C,W/C) (FIM): 4 (CGA) Toilet/Commode Transfer(FIM): 4 Additional Short Term Goals: 1-Demonstrate ADL Tasks, 2-Verbalize Understanding , 3-ImproveStrength/[place] 1=Demonstrate adherence to instructed precautions during ADL tasks. 2=Patient will verbalize/demonstrate understanding of assistive devices/ modifications for ADL. 3=Patient will improve strength/tolerance for activity to enable patient to perform ADL's. OT Tire Setter Goals Detention Goals Time Frame: Dec 25, 2016 Eating (FIM): 6 Eating (QC): 6 Oral Hygiene (QC): 6 Grooming(FIM): 6 Bathing(FIM): 5 Shower/Bathe Self (QC): 5 Upper Body Dressing(FIM): 5 Upper Body Dressing (QC): 5 Lower Body Dressing(FIM): 5 Lower Body Dressing (QC): 5 On/Off Footwear (QC): 5 Toileting(FIM): 5 Toileting Hygiene (QC): 5 Toilet/Commode Transfer(FIM): 5 Toilet/Commode Transfer (QC): 5 Shower Transfer(FIM): 5 Additional Goals: 1-Demonstrate ADL Tasks, 2-Verbalize Understanding, 3- ImproveStrength/[place] 1=Demonstrate adherence to instructed precautions during ADL tasks. 2=Patient will verbalize/demonstrate understanding of assistive devices/ modifications for ADL. 3=Patient will improve strength/tolerance for activity to enable patient to perform ADL's. OT Education/Plan Problem List/Assessment Pt demonstrates decreased mobility, strength, activity tolerance, and ADL performance. Pt to benefit from skilled OT intervention for ADL training, transfers, strengthening, and safety education to maximize level of function and allow safe discharge plan. Discharge Recommendations Plan/Recommendations: Continue POC Treatment Plan/Plan of Care Patient would benefit from OT for education, treatment and training to promote independence in ADL's, mobility, safety and/or upper extremity function for ADL' s. Plan of Care: ADL Retraining, Functional Mobility, Group Exercise/Act as Ind, UE Funct Exercise/Act Treatment Duration: Dec 25, 2016 Visits Per Week: 10-11 Minutes/Day (M-F): 60-90 Minutes/Day (Sat/Ortega): PRN Agreement: Yes Rehab Potential: Good Time/GCodes Start Time: 11:00 Stop Time: 12:00 Total Time Billed (hr/min): 60 Billed Treatment Time 1 visit, ADLx3(50minutes), EX(10minutes) SHRUTI ROBERTS OT Dec 17, 2016 14:24
[2016-12-17] MEDS: TROSPIUM 20 MG (SANCTURA) TAB PO SCH (16:00)
--- NOTE | 2016-12-17 18:10 | PM & R (SOAP) Progress Note ---
Subjective Subjective/Events-last exam Patient was seen in her room this noonhour.Patient SBA for transfers Constipation improved and pain decreasing Objective Exam Last Set of Vital Signs Vital Signs Date Time Temp Pulse Resp B/P Pulse Ox O2 Delivery O2 Flow Rate FiO2 12/17/16 08:40 Room Air 12/17/16 06:00 98.4 72 18 123/69 95 Capillary Refill : Less Than 3 Seconds I&O Intake and Output 12/17/16 00:00 Intake Total 880 ml Output Total 6 ml Balance 874 ml Intake Oral 880 ml Urine/Stool Mix 6 ml # Voids 5 General: Alert, Oriented X3, Cooperative, No Acute Distress HEENT: Atraumatic, PERRLA, EOMI, Mucous Memb Moist/[place] Neck: Supple, No JVD Lungs: Clear to Auscultation Heart: Regular Rate Abdomen: Normal Bowel Sounds, Soft, No Tenderness Extremities: No Edema, Other (rt hip as per above) Neuro: Other (generalized weakness more so at operated hip) Assessment/Plan Assessment S/P rt hip frx secondary to fall s/p repair with decreasing postop pain Postop anemia Postop Nausea multifactorial-improved Postop constipation meds adjusted-improved Plan Continue PT/OT as tolerated F/U with Dr Crow-done Transfused PRBCS-done upon admission to rehab labs noted Treat Nausea-See orders-done improved Xray rt hip see orders-done no change rt hip pain improved. Team Conference held 12-11-16-See report for full functional update and POC and ELOS Constipation improved with med adjustment Next Team Conference tomorrow12/18/16 Hopefully discharge to home with spouse and HHC by end of week. MARCELL TYLER MD Dec 17, 2016 18:10
[2016-12-17 18:11] VITALS: BP 135/81
[2016-12-18 04:35] VITALS: BP 146/70
[2016-12-18] MEDS: LEVOTHYROXINE 25 MCG (LEVOTHROID) TAB PO SCH (06:29)
[2016-12-18] MEDS: TROSPIUM 20 MG (SANCTURA) TAB PO SCH (06:29)
[2016-12-18] MEDS: EYE WASH 118 ML BTL OU SCH ×2 (08:36→20:57)
[2016-12-18] MEDS: amLODIPine 5 MG (NORVASC) TAB PO SCH (08:36)
[2016-12-18] MEDS: VITAMIN D3 5,000 UNITS (CHOLECALCIFEROL ) CAPSULE PO SCH (08:36)
[2016-12-18] MEDS: ASPIRIN E.C. 81 MG (ECOTRIN) TAB PO SCH (08:36)
[2016-12-18] MEDS: LOTEMAX 0.5% OU SCH (08:36)
[2016-12-18] MEDS: SENNA W/DOCUSATE (SENOKOT S) TABLET PO SCH ×2 (08:36→20:48)
[2016-12-18] MEDS: LETROZOLE 2.5 MG (FEMARA) TAB PO SCH (08:36)
[2016-12-18] MEDS: POLYETHYLENE GLYCOL 17 GM (MIRALAX) PACK PO SCH ×2 (08:36→19:11)
[2016-12-18] MEDS: FOSINOPRIL 20 MG PO SCH (08:36)
[2016-12-18] MEDS: PRESERVISION AREDS SOFTGEL (BAUSH & LOMB) PO SCH (08:36)
[2016-12-18] MEDS: ENOXAPARIN 40 MG/0.4 ML (LOVENOX) SYR SC SCH (08:37)
--- NOTE | 2016-12-18 09:14 | Physical Therapy Daily Note ---
PT Daily Note-Current Subjective Pt; agrees to Rx, wants to get some personal hygeine done in bthrm and dress. Feels she has made significant progress Pain Numeric Pain Scale: 0-No Pain Mental Status Patient Orientation: Normal For Age Transfers Functional [place] Measure 0=Not Assessed/NA 4=Minimal Assistance 1=Total Assistance 5=Supervision or Setup 2=Maximal Assistance 6=Modified [place] 3=Moderate Assistance 7=Complete IndependenceIRFPAI Quality Coding Scale 6 Independent with activity with or without an assistive device 5 Patient requires set up or clean up by helper. Patient completes activity by themselves 4 Supervision or touching assist (CGA). [place] provide cues , steadying assist 3 The helper provides less than half the effort to complete the activity 2 The helper provides more than half the effort to complete the activity 1 Dependent. The helper does all the effort to complete an activity 7 Patient refused to complete or attempt activity 9 The patient did not perform the activity before the current illness or injury 88 Not attempted due to Medical conditions or safety concerns Transfers (B, C, W/C) (FIM): 6 Scootin Rollin Supine to/from Sit: 6 Sit to/from Stand: 6 TRFs in gym on mat (flat with firm surface all SBA) Weight Bearing Weight Bearing Restriction: Touch Toe Bearing Location Restriction: R LE Gait Training Does the Patient Walk?: Yes Distance (FIM): 3=150 ft (150x1,75x2) Gait Level of Assist: 5 Gait Persons Needed: 1 Gait Assistive Device: FWW improved gait distance, improved arm shoulder strength , maintains TTWB well Wheelchair Training Does the Pt Use a Wheelchair?: Yes Wheelchair Distance: 0=236-06 ft Wheelchair Level of Assist: 4 Type of Wheelchair: Manual needs assist to manage foot rest Exercises Supine Ex: Ankle pumps, Quad Set, Rolling, Glut sets, Heel Slides, Short Arc Quads, Scooting, Straight leg raise, Hip abd/add Supine Reps: 15 Seated Therapy Exercises: Ankle pumps, Sit to stand, Long arc quads Seated Reps: 12 Treatments mod assist to lower body dress, indep for oral care at sink in bthrm at w/c level Assessment Current Status: Excellent Progress PT Short Term Goals Short Term Goals Time Frame: Dec 11, 2016 Transfers (B,C,W/C) (FIM): 4 (CGA) Gait (FIM): 2 (met 12/10/16) Gait Distance Comment: 50' Gait Level of Assist: 4 (CGA) Gait Assistive Device: FWW Wheelchair Distance: 150'x2 PT Shelter Goals Shelter Goals PT Boy'S Adviser Goals Time Frame: Dec 25, 2016 Transfers (B,C,W/C) (FIM): 5 Sit to Lying (QC): 4 Lying-Sitting on Side/Bed(QC): 4 Sit to Stand (QC): 4 Rollin Roll Left to Right (QC): 4 Chair/Flu-if-Kvgdq Xfer(QC): 4 Car Transfer (QC): 4 Does the Patient Walk: Yes Gait (FIM): 5 Distance: 150' Walk 10 feet (QC): 4 Walk 10ft-Uneven Surface(QC): 4 Walk 50ft with 2 Turns (QC): 4 Walk 150 ft (QC): 4 Gait Level of Assist: 5 Gait Assistive Device: FWW Stairs (FIM): 2 # of Steps: 4 1 Step (curb) (QC): 4 4 Steps (QC): 4 12 Steps (QC): 4 Stairs Level Of Assist: 5 Picking up an Object (QC): 88 PT Plan Treatment/Plan Treatment Plan: Continue Plan of Care Treatment Plan: Bed Mobility, Education, Functional Activity [place], Functional Strength, Group Therapy, Gait, Safety, Therapeutic Exercise, Transfers Treatment Duration: Dec 25, 2016 Visits Per Week: 10-11 Minutes/Day (M-F): 60-90 Minutes/Day (Sat/Ortega): 15-30 Safety Risks/Education Patient Education: Gait Training, Transfer Techniques, Steps, Correct Positioning, Disease Process, Safety Issues Teaching Recipient: Patient Teaching Methods: Demonstration, Discussion Response to Teaching: Verbalize Understanding, Return Demonstration, Reinforcement Needed Time/GCodes Time In: 815 Time Out: 915 Total Billed Treatment Time: 60 Total Billed Treatment 1,GT30m,FA15m,EX15m G Codes Necessary: KAMARI Hagen TRAINING PROGRAM ASSISTANT Dec 18, 2016 09:14
--- NOTE | 2016-12-18 10:49 | Occupational Ther Daily Note ---
OT Current Status-Daily Note Subjective Pt sitting in chair, agrees to treatment. Mental Status/Objective Functional [place] Measure 0=Not Assessed/NA 4=Minimal Assistance 1=Total Assistance 5=Supervision or Setup 2=Maximal Assistance 6=Modified [place] 3=Moderate Assistance 7=Complete [place] ADL-Treatment Pt sit to stand with modified independence. Gait to restroom with FWW, able to maintain TTWB. Transfer to toilet with verbal cues for safety. Pt able to complete toileting hygiene and clothing management with SBA. Stood at sink to wash hands with SBA. Functional [place] Measure 0=Not Assessed/NA 4=Minimal Assistance 1=Total Assistance 5=Supervision or Setup 2=Maximal Assistance 6=Modified [place] 3=Moderate Assistance 7=Complete IndependenceIRFPAI Quality Coding Scale 6 Independent with activity with or without an assistive device 5 Patient requires set up or clean up by helper. Patient completes activity by themselves 4 Supervision or touching assist (CGA). [place] provide cues , steadying assist 3 The helper provides less than half the effort to complete the activity 2 The helper provides more than half the effort to complete the activity 1 Dependent. The helper does all the effort to complete an activity 7 Patient refused to complete or attempt activity 9 The patient did not perform the activity before the current illness or injury 88 Not attempted due to Medical conditions or safety concerns Toileting (FIM): 5 Toilet/Commode Transfer (FIM): 5 Other Treatment Pt performed w/c mobility to therapy gym with increased time. Pt completed bilateral UE exercises to increase strength needed for ADLs and transfers. Pt performed shoulder flexion, forward press, biceps curls, and wrist flex/ext x20 reps with 2# dowel. Rest breaks between exercises. Arm bike x12 minutes to increase overall strength and activity tolerance. Pt completed task with minimal resistance and steady pace. No rest breaks needed. Pt performed fine motor task with nuts and bolts with 1# wrist weights in place to increase strength and fine motor coordination. Graded clothespin activity with bilateral hands to increase air traffic instructor/pinch strength. Pt returned to room, transferred to EOB with SBA. Sit to supine with supervision. Pt in bed with needs met after session. OT Short Term Goals Short Term Goals Time Frame: Dec 11, 2016 Lower Body Dressing(FIM): 3 Toileting(FIM): 3 Transfers (B,C,W/C) (FIM): 4 (CGA) Toilet/Commode Transfer(FIM): 4 Additional Short Term Goals: 1-Demonstrate ADL Tasks, 2-Verbalize Understanding , 3-ImproveStrength/[place] 1=Demonstrate adherence to instructed precautions during ADL tasks. 2=Patient will verbalize/demonstrate understanding of assistive devices/ modifications for ADL. 3=Patient will improve strength/tolerance for activity to enable patient to perform ADL's. OT V Belt Skiver Goals V Belt Skiver Goals Time Frame: Dec 25, 2016 Eating (FIM): 6 Eating (QC): 6 Oral Hygiene (QC): 6 Grooming(FIM): 6 Bathing(FIM): 5 Shower/Bathe Self (QC): 5 Upper Body Dressing(FIM): 5 Upper Body Dressing (QC): 5 Lower Body Dressing(FIM): 5 Lower Body Dressing (QC): 5 On/Off Footwear (QC): 5 Toileting(FIM): 5 Toileting Hygiene (QC): 5 Toilet/Commode Transfer(FIM): 5 Toilet/Commode Transfer (QC): 5 Shower Transfer(FIM): 5 Additional Goals: 1-Demonstrate ADL Tasks, 2-Verbalize Understanding, 3- ImproveStrength/[place] 1=Demonstrate adherence to instructed precautions during ADL tasks. 2=Patient will verbalize/demonstrate understanding of assistive devices/ modifications for ADL. 3=Patient will improve strength/tolerance for activity to enable patient to perform ADL's. OT Education/Plan Problem List/Assessment Pt demonstrates decreased mobility, strength, activity tolerance, and ADL performance. Pt to benefit from skilled OT intervention for ADL training, transfers, strengthening, and safety education to maximize level of function and allow safe discharge plan. Discharge Recommendations Plan/Recommendations: Continue POC Treatment Plan/Plan of Care Patient would benefit from OT for education, treatment and training to promote independence in ADL's, mobility, safety and/or upper extremity function for ADL' s. Plan of Care: ADL Retraining, Functional Mobility, Group Exercise/Act as Ind, UE Funct Exercise/Act Treatment Duration: Dec 25, 2016 Visits Per Week: 10-11 Minutes/Day (M-F): 60-90 Minutes/Day (Sat/Ortega): PRN Agreement: Yes Rehab Potential: Good Time/GCodes Start Time: 09:30 Stop Time: 10:30 Total Time Billed (hr/min): 60 Billed Treatment Time 1 visit, ADL(15minutes). EXx3(45minutes) SHRUTI ROBERTS OT Dec 18, 2016 10:49
--- NOTE | 2016-12-18 14:03 | PM & R (SOAP) Progress Note ---
Subjective Subjective/Events-last exam Patient was seen in her room this AM C/O dryness of mouth and relates to santura and wants d/cd Patient SBA for ambulation Objective Exam Last Set of Vital Signs Vital Signs Date Time Temp Pulse Resp B/P Pulse Ox O2 Delivery O2 Flow Rate FiO2 12/18/16 04:35 98.8 82 16 146/70 96 Room Air Capillary Refill : Less Than 3 Seconds I&O Intake and Output 12/18/16 00:00 Intake Total 1170 ml Output Total 7 ml Balance 1163 ml Intake Oral 1170 ml Urine/Stool Mix 7 ml # Voids 9 General: Alert, Oriented X3, Cooperative, No Acute Distress HEENT: Atraumatic, PERRLA, EOMI, Mucous Memb Moist/[place] Neck: Supple, No JVD Lungs: Clear to Auscultation Heart: Regular Rate Abdomen: Normal Bowel Sounds, Soft, No Tenderness Extremities: No Edema, Other (rt hip as per above) Neuro: Other (generalized weakness more so at operated hip) Assessment/Plan Assessment S/P rt hip frx secondary to fall s/p repair with decreasing postop pain Postop anemia Postop Nausea multifactorial-improved Postop constipation meds adjusted-improved Intolerance to santura for hyperactive bladder Plan Continue PT/OT as tolerated F/U with Dr Crow-done Transfused PRBCS-done upon admission to rehab labs noted Treat Nausea-See orders-done improved Xray rt hip see orders-done no change rt hip pain improv Constipation improved with med adjustment Team Conference held earlier today -See report for full functional update and POC and ELOS D/C Sant[place]-See orders MARCELL TYLER MD Dec 18, 2016 14:03
--- NOTE | 2016-12-18 14:41 | Therapy Group Daily Note ---
Therapy Daily Group Note Patient Education Topic Other List Below (ARU description and expectations) Exercises LE Seated Exercise, UE Exercise Other/Notes Pt attended OT group this pm. Pt performed w/c mobility to/from group without assistance. Pt introduced self to group and actively participated in group discussion questions. Education provided regarding ARU and expectations. Pt attentive to education topics and added to discussion. Pt participated in group activity focusing on problem solving and peer interaction. Pt had good participation and demonstrated good problem solving and teamwork. UE/LE exercises completed while seated and pt participated in hand-eye coordination balloon bat activity. Pt participated in memory activity and had no difficulty recalling information from previous group activity. Pt returned to room, in bed with needs met after session. Start Time: 13:00 Stop Time: 14:00 Total Billed Treatment Time: 60 Total Billed Treatment 1 visit, GRP(60minutes) SHRUTI ROBERTS OT Dec 18, 2016 14:41
[2016-12-18 17:41] VITALS: BP 151/71
[2016-12-19] MEDS: HYDROcodone/APAP 5 MG/325 MG (LORTAB) TAB PO PRN (03:10)
[2016-12-19 06:00] VITALS: BP 150/69
[2016-12-19] MEDS: LEVOTHYROXINE 25 MCG (LEVOTHROID) TAB PO SCH (06:18)
[2016-12-19] MEDS: FOSINOPRIL 20 MG PO SCH (08:33)
[2016-12-19] MEDS: VITAMIN D3 5,000 UNITS (CHOLECALCIFEROL ) CAPSULE PO SCH (08:33)
[2016-12-19] MEDS: ASPIRIN E.C. 81 MG (ECOTRIN) TAB PO SCH (08:33)
[2016-12-19] MEDS: amLODIPine 5 MG (NORVASC) TAB PO SCH (08:33)
[2016-12-19] MEDS: ENOXAPARIN 40 MG/0.4 ML (LOVENOX) SYR SC SCH (08:34)
[2016-12-19] MEDS: SENNA W/DOCUSATE (SENOKOT S) TABLET PO SCH ×2 (08:38→21:00)
[2016-12-19] MEDS: PRESERVISION AREDS SOFTGEL (BAUSH & LOMB) PO SCH (08:38)
[2016-12-19] MEDS: POLYETHYLENE GLYCOL 17 GM (MIRALAX) PACK PO SCH ×2 (08:38→21:00)
[2016-12-19] MEDS: EYE WASH 118 ML BTL OU SCH ×2 (09:00→21:09)
--- NOTE | 2016-12-19 09:14 | Physical Therapy Daily Note ---
PT Daily Note-Current Subjective Pt up and ready to work, requests to go to bathroom first and get dressed. Long discussion this AM regarding DC possibilities, building a ramp and returning home vs 2-3 weeks in skilled care for more therapies until pt. is released to bear more weight and then train to go up down steps again. Pt. seemed open either way and SW will visit with pt. about her options Pain Numeric Pain Scale: 2 Mental Status Patient Orientation: Normal For Age Transfers Functional [place] Measure 0=Not Assessed/NA 4=Minimal Assistance 1=Total Assistance 5=Supervision or Setup 2=Maximal Assistance 6=Modified [place] 3=Moderate Assistance 7=Complete IndependenceIRFPAI Quality Coding Scale 6 Independent with activity with or without an assistive device 5 Patient requires set up or clean up by helper. Patient completes activity by themselves 4 Supervision or touching assist (CGA). [place] provide cues , steadying assist 3 The helper provides less than half the effort to complete the activity 2 The helper provides more than half the effort to complete the activity 1 Dependent. The helper does all the effort to complete an activity 7 Patient refused to complete or attempt activity 9 The patient did not perform the activity before the current illness or injury 88 Not attempted due to Medical conditions or safety concerns Transfers (B, C, W/C) (FIM): 5 Scootin Rollin Supine to/from Sit: 5 Bed to/from Chair: 5 Weight Bearing Weight Bearing Restriction: Touch Toe Bearing Location Restriction: R LE Gait Training Does the Patient Walk?: Yes Gait (FIM): 5 Distance (FIM): 5=520-51 ft (50ftx2) Gait Level of Assist: 5 Gait Persons Needed: 1 Gait Assistive Device: FWW Exercises Supine Ex: Ankle pumps, Quad Set, Rolling, Glut sets, Heel Slides, Short Arc Quads, Scooting, Straight leg raise, Hip abd/add Supine Reps: 15 Treatments toileted SBA, mod assist for clothing LE and shoe Assessment Current Status: Good Progress pt. has likely reached goals until she can once again wt bear RLE PT Short Term Goals Short Term Goals Time Frame: Dec 11, 2016 Transfers (B,C,W/C) (FIM): 4 (CGA) Gait (FIM): 2 (met 12/10/16) Gait Distance Comment: 50' Gait Level of Assist: 4 (CGA) Gait Assistive Device: FWW Wheelchair Distance: 150'x2 PT [facility] Goals [facility] Goals PT Hosiery Mater Goals Time Frame: Dec 25, 2016 Transfers (B,C,W/C) (FIM): 5 Sit to Lying (QC): 4 Lying-Sitting on Side/Bed(QC): 4 Sit to Stand (QC): 4 Rollin Roll Left to Right (QC): 4 Chair/Jwh-pp-Bvbym Xfer(QC): 4 Car Transfer (QC): 4 Does the Patient Walk: Yes Gait (FIM): 5 Distance: 150' Walk 10 feet (QC): 4 Walk 10ft-Uneven Surface(QC): 4 Walk 50ft with 2 Turns (QC): 4 Walk 150 ft (QC): 4 Gait Level of Assist: 5 Gait Assistive Device: FWW Stairs (FIM): 2 # of Steps: 4 1 Step (curb) (QC): 4 4 Steps (QC): 4 12 Steps (QC): 4 Stairs Level Of Assist: 5 Picking up an Object (QC): 88 PT Plan Treatment/Plan Treatment Plan: Continue Plan of Care Treatment Plan: Bed Mobility, Education, Functional Activity [place], Functional Strength, Group Therapy, Gait, Safety, Therapeutic Exercise, Transfers Treatment Duration: Dec 25, 2016 Visits Per Week: 10-11 Minutes/Day (M-F): 60-90 Minutes/Day (Sat/Ortega): 15-30 Safety Risks/Education Patient Education: Gait Training, Transfer Techniques, Correct Positioning, W/ C Management, Safety Issues Teaching Recipient: Patient Teaching Methods: Demonstration, Discussion Response to Teaching: Verbalize Understanding, Return Demonstration, Reinforcement Needed Time/GCodes Time In: 815 Time Out: 915 Total Billed Treatment Time: 60 Total Billed Treatment 1,EX20m,FA40m G Codes Necessary: KAMARI Hagen CHIEF OF PEDIATRIC UROLOGY Dec 19, 2016 09:14
[2016-12-19] MEDS: LOTEMAX 0.5% OU SCH (09:30)
--- NOTE | 2016-12-19 10:07 | Occupational Ther Daily Note ---
OT Current Status-Daily Note Subjective Pt sitting in w/c, agrees to treatment. No c/o pain. Mental Status/Objective Functional [place] Measure 0=Not Assessed/NA 4=Minimal Assistance 1=Total Assistance 5=Supervision or Setup 2=Maximal Assistance 6=Modified [place] 3=Moderate Assistance 7=Complete [place] ADL-Treatment Pt declined bathing today, has already dressed prior to OT arrival. Pt performed w/c mobility to shower room. Reviewed transfer to tub/shower. Pt transferred to tub using extended shower bench with supervision and cues for technique. Pt transferred back to w/c with SBA using FWW, able to maintain TTWB. Functional [place] Measure 0=Not Assessed/NA 4=Minimal Assistance 1=Total Assistance 5=Supervision or Setup 2=Maximal Assistance 6=Modified [place] 3=Moderate Assistance 7=Complete IndependenceIRFPAI Quality Coding Scale 6 Independent with activity with or without an assistive device 5 Patient requires set up or clean up by helper. Patient completes activity by themselves 4 Supervision or touching assist (CGA). [place] provide cues , steadying assist 3 The helper provides less than half the effort to complete the activity 2 The helper provides more than half the effort to complete the activity 1 Dependent. The helper does all the effort to complete an activity 7 Patient refused to complete or attempt activity 9 The patient did not perform the activity before the current illness or injury 88 Not attempted due to Medical conditions or safety concerns Other Treatment Pt performed w/c mobility to therapy gym without assistance. Pt performed fine motor peg task with 1# weights in place on bilateral UE to increase strength and fine motor coordination. Arc activity with bilateral UE with 1# weights in place to promote reaching and UE strength. Arm bike x12 minutes to increase overall strength and activity tolerance. Pt completed task with minimal resistance and slow pace. No rest breaks needed. Pt returned to room and performed transfers w/c <-> EOB x3 trials with SBA using FWW. Rest breaks between trials secondary to fatigue. Sit to supine with SBA. Pt in bed with needs met after session. OT Short Term Goals Short Term Goals Time Frame: Dec 11, 2016 Lower Body Dressing(FIM): 3 Toileting(FIM): 3 Transfers (B,C,W/C) (FIM): 4 (CGA) Toilet/Commode Transfer(FIM): 4 Additional Short Term Goals: 1-Demonstrate ADL Tasks, 2-Verbalize Understanding , 3-ImproveStrength/[place] 1=Demonstrate adherence to instructed precautions during ADL tasks. 2=Patient will verbalize/demonstrate understanding of assistive devices/ modifications for ADL. 3=Patient will improve strength/tolerance for activity to enable patient to perform ADL's. OT Clerical Order Filler Goals Assisted Goals Time Frame: Dec 25, 2016 Eating (FIM): 6 Eating (QC): 6 Oral Hygiene (QC): 6 Grooming(FIM): 6 Bathing(FIM): 5 Shower/Bathe Self (QC): 5 Upper Body Dressing(FIM): 5 Upper Body Dressing (QC): 5 Lower Body Dressing(FIM): 5 Lower Body Dressing (QC): 5 On/Off Footwear (QC): 5 Toileting(FIM): 5 Toileting Hygiene (QC): 5 Toilet/Commode Transfer(FIM): 5 Toilet/Commode Transfer (QC): 5 Shower Transfer(FIM): 5 Additional Goals: 1-Demonstrate ADL Tasks, 2-Verbalize Understanding, 3- ImproveStrength/[place] 1=Demonstrate adherence to instructed precautions during ADL tasks. 2=Patient will verbalize/demonstrate understanding of assistive devices/ modifications for ADL. 3=Patient will improve strength/tolerance for activity to enable patient to perform ADL's. OT Education/Plan Problem List/Assessment Pt demonstrates decreased mobility, strength, activity tolerance, and ADL performance. Pt to benefit from skilled OT intervention for ADL training, transfers, strengthening, and safety education to maximize level of function and allow safe discharge plan. Discharge Recommendations Plan/Recommendations: Continue POC Treatment Plan/Plan of Care Patient would benefit from OT for education, treatment and training to promote independence in ADL's, mobility, safety and/or upper extremity function for ADL' s. Plan of Care: ADL Retraining, Functional Mobility, Group Exercise/Act as Ind, UE Funct Exercise/Act Treatment Duration: Dec 25, 2016 Visits Per Week: 10-11 Minutes/Day (M-F): 60-90 Minutes/Day (Sat/Ortega): PRN Agreement: Yes Rehab Potential: Good Time/GCodes Start Time: 09:30 Stop Time: 10:30 Total Time Billed (hr/min): 60 Billed Treatment Time 1 visit, ADL(15minutes), FA(15minutes), EXx2(30minutes) SHRUTI ROBERTS OT Dec 19, 2016 10:07
--- NOTE | 2016-12-19 11:50 | PM & R (SOAP) Progress Note ---
Subjective Subjective/Events-last exam Patient was seen in her room this AM Patient SBA for transfers had c/o rt foot ankle pain earlier using only tylenol for pain Foot feeling better now. Objective Exam Last Set of Vital Signs Vital Signs Date Time Temp Pulse Resp B/P Pulse Ox O2 Delivery O2 Flow Rate FiO2 12/19/16 08:23 Room Air 12/19/16 06:00 99.6 79 18 150/69 93 Capillary Refill : Less Than 3 Seconds I&O Intake and Output 12/19/16 00:00 Intake Total 910 ml Balance 910 ml Intake Oral 910 ml # Voids 11 # Bowel Movements 1 General: Alert, Oriented X3, Cooperative, No Acute Distress HEENT: Atraumatic, PERRLA, EOMI, Mucous Memb Moist/[place] Neck: Supple, No JVD Lungs: Clear to Auscultation Heart: Regular Rate Abdomen: Normal Bowel Sounds, Soft, No Tenderness Extremities: No Edema, Other (rt hip as per above) Neuro: Other (generalized weakness more so at operated hip) Assessment/Plan Assessment S/P rt hip frx secondary to fall s/p repair with decreasing postop pain Postop anemia Postop Nausea multifactorial-improved Postop constipation meds adjusted-improved Intolerance to santura for hyperactive bladder Plan Continue PT/OT as tolerated F/U with Dr Crow-done Transfused PRBCS-done upon admission to rehab labs noted Treat Nausea-See orders-done improved Xray rt hip see orders-done no change rt hip pain improved Constipation improved with med adjustment Team Conference held yesterday -See report for full functional update and POC and ELOS D/C Santura-See orders-done this was an autosub for vesicare which patient took at home -she may use home med if needed. MARCELL TYLER MD Dec 19, 2016 11:50
[2016-12-19] MEDS: LETROZOLE 2.5 MG (FEMARA) TAB PO SCH (12:20)
--- NOTE | 2016-12-19 14:07 | Physical Therapy Daily Note ---
PT Daily Note-Current Subjective Agrees to Rx. Has 4WW in her room she is interested in seeing what this [employer] thinks about her using it. This was demonstrated in pros and cons with pt. ultimately concurring that for the time being she is safest with FWW Pain Numeric Pain Scale: 0-No Pain Mental Status Patient Orientation: Normal For Age Transfers Functional [place] Measure 0=Not Assessed/NA 4=Minimal Assistance 1=Total Assistance 5=Supervision or Setup 2=Maximal Assistance 6=Modified [place] 3=Moderate Assistance 7=Complete IndependenceIRFPAI Quality Coding Scale 6 Independent with activity with or without an assistive device 5 Patient requires set up or clean up by helper. Patient completes activity by themselves 4 Supervision or touching assist (CGA). [place] provide cues , steadying assist 3 The helper provides less than half the effort to complete the activity 2 The helper provides more than half the effort to complete the activity 1 Dependent. The helper does all the effort to complete an activity 7 Patient refused to complete or attempt activity 9 The patient did not perform the activity before the current illness or injury 88 Not attempted due to Medical conditions or safety concerns TRFs on off toilet with BSC over it (utilizing height and arm rest for push off/ up) all SBA. all sit to sup SBA, slow but with good technique Weight Bearing Weight Bearing Restriction: Touch Toe Bearing Location Restriction: R LE Gait Training Gait Assistive Device: FWW 150ft,100ft FWW TTWB RLE pt. with good technique , safe, no LOB, pt. continues to wear shoe on left for slight lift during gait to prohibit RLE wt bearing Exercises Supine Ex: Rolling, Heel Slides, Hip abd/add Supine Reps: 15 Seated Therapy Exercises: Ankle pumps, Sit to stand, Long arc quads Seated Reps: 8 Treatments toileted with min assist to manage outer pants up, pt. manages cleaning efficiently Assessment Current Status: Good Progress PT Short Term Goals Short Term Goals Time Frame: Dec 11, 2016 Transfers (B,C,W/C) (FIM): 4 (CGA) Gait (FIM): 2 (met 12/10/16) Gait Distance Comment: 50' Gait Level of Assist: 4 (CGA) Gait Assistive Device: FWW Wheelchair Distance: 150'x2 PT [employer] Operator Goals Care Home Goals PT Care Home Goals Time Frame: Dec 25, 2016 Transfers (B,C,W/C) (FIM): 5 Sit to Lying (QC): 4 Lying-Sitting on Side/Bed(QC): 4 Sit to Stand (QC): 4 Rollin Roll Left to Right (QC): 4 Chair/Ddw-pd-Qkaqm Xfer(QC): 4 Car Transfer (QC): 4 Does the Patient Walk: Yes Gait (FIM): 5 Distance: 150' Walk 10 feet (QC): 4 Walk 10ft-Uneven Surface(QC): 4 Walk 50ft with 2 Turns (QC): 4 Walk 150 ft (QC): 4 Gait Level of Assist: 5 Gait Assistive Device: FWW Stairs (FIM): 2 # of Steps: 4 1 Step (curb) (QC): 4 4 Steps (QC): 4 12 Steps (QC): 4 Stairs Level Of Assist: 5 Picking up an Object (QC): 88 PT Plan Treatment/Plan Treatment Plan: Continue Plan of Care Treatment Plan: Bed Mobility, Education, Functional Activity [place], Functional Strength, Group Therapy, Gait, Safety, Therapeutic Exercise, Transfers Treatment Duration: Dec 25, 2016 Visits Per Week: 10-11 Minutes/Day (M-F): 60-90 Minutes/Day (Sat/Ortega): 15-30 Safety Risks/Education Patient Education: Gait Training, Transfer Techniques, Correct Positioning, Safety Issues Teaching Recipient: Patient Teaching Methods: Demonstration, Discussion Response to Teaching: Verbalize Understanding, Return Demonstration, Reinforcement Needed discussed and demonstrated 4WW , pros: has seat and carrying space cons: heavy to lift, cant move sideways in tight spaces, too heavy to lift up steps and into car Time/GCodes Time In: 1330 Time Out: 1400 Total Billed Treatment Time: 30 Total Billed Treatment 1,GT18,FA12 G Codes Necessary: KAMARI Hagen [employer] Dec 19, 2016 14:07
--- NOTE | 2016-12-19 14:31 | Occupational Ther Daily Note ---
OT Current Status-Daily Note Subjective Pt sitting in chair eating lunch, agrees to treatment. Mental Status/Objective Functional [place] Measure 0=Not Assessed/NA 4=Minimal Assistance 1=Total Assistance 5=Supervision or Setup 2=Maximal Assistance 6=Modified [place] 3=Moderate Assistance 7=Complete [place] ADL-Treatment Sit to stand from chair with supervision. Gait to restroom with FWW, TTWB right LE. Transfer to [facility] [place] with SBA. Pt able to complete toileting hygiene and clothing management with supervision. Pt stood at sink to wash hands with SBA. Functional [place] Measure 0=Not Assessed/NA 4=Minimal Assistance 1=Total Assistance 5=Supervision or Setup 2=Maximal Assistance 6=Modified [place] 3=Moderate Assistance 7=Complete IndependenceIRFPAI Quality Coding Scale 6 Independent with activity with or without an assistive device 5 Patient requires set up or clean up by helper. Patient completes activity by themselves 4 Supervision or touching assist (CGA). [place] provide cues , steadying assist 3 The helper provides less than half the effort to complete the activity 2 The helper provides more than half the effort to complete the activity 1 Dependent. The helper does all the effort to complete an activity 7 Patient refused to complete or attempt activity 9 The patient did not perform the activity before the current illness or injury 88 Not attempted due to Medical conditions or safety concerns Toileting (FIM): 5 Toilet/Commode Transfer (FIM): 5 Other Treatment Pt performed w/c mobility to therapy gym with occasional cues for safety. Pt performed bilateral UE exercises to increase strength needed for ADLs and transfers. Pt performed shoulder flexion, abduction, biceps curls, and triceps extension exercises x20 reps with red theraband. Short rest breaks between exercises. Pt returned to room, transferred to chair with supervision. Pt sitting in chair with needs met after session. OT Short Term Goals Short Term Goals Time Frame: Dec 11, 2016 Lower Body Dressing(FIM): 3 Toileting(FIM): 3 Transfers (B,C,W/C) (FIM): 4 (CGA) Toilet/Commode Transfer(FIM): 4 Additional Short Term Goals: 1-Demonstrate ADL Tasks, 2-Verbalize Understanding , 3-ImproveStrength/[place] 1=Demonstrate adherence to instructed precautions during ADL tasks. 2=Patient will verbalize/demonstrate understanding of assistive devices/ modifications for ADL. 3=Patient will improve strength/tolerance for activity to enable patient to perform ADL's. OT Chemical Inspector Goals Chemical Inspector Goals Time Frame: Dec 25, 2016 Eating (FIM): 6 Eating (QC): 6 Oral Hygiene (QC): 6 Grooming(FIM): 6 Bathing(FIM): 5 Shower/Bathe Self (QC): 5 Upper Body Dressing(FIM): 5 Upper Body Dressing (QC): 5 Lower Body Dressing(FIM): 5 Lower Body Dressing (QC): 5 On/Off Footwear (QC): 5 Toileting(FIM): 5 Toileting Hygiene (QC): 5 Toilet/Commode Transfer(FIM): 5 Toilet/Commode Transfer (QC): 5 Shower Transfer(FIM): 5 Additional Goals: 1-Demonstrate ADL Tasks, 2-Verbalize Understanding, 3- ImproveStrength/[place] 1=Demonstrate adherence to instructed precautions during ADL tasks. 2=Patient will verbalize/demonstrate understanding of assistive devices/ modifications for ADL. 3=Patient will improve strength/tolerance for activity to enable patient to perform ADL's. OT Education/Plan Problem List/Assessment Pt demonstrates decreased mobility, strength, activity tolerance, and ADL performance. Pt to benefit from skilled OT intervention for ADL training, transfers, strengthening, and safety education to maximize level of function and allow safe discharge plan. Discharge Recommendations Plan/Recommendations: Continue POC Treatment Plan/Plan of Care Patient would benefit from OT for education, treatment and training to promote independence in ADL's, mobility, safety and/or upper extremity function for ADL' s. Plan of Care: ADL Retraining, Functional Mobility, Group Exercise/Act as Ind, UE Funct Exercise/Act Treatment Duration: Dec 25, 2016 Visits Per Week: 10-11 Minutes/Day (M-F): 60-90 Minutes/Day (Sat/Ortega): PRN Agreement: Yes Rehab Potential: Good Time/GCodes Start Time: 13:00 Stop Time: 13:30 Total Time Billed (hr/min): 30 Billed Treatment Time 1 visit, ADL(15minutes), EX(15minutes) SHRUTI ROBERTS OT Dec 19, 2016 14:31
[2016-12-19 17:30] VITALS: BP 146/62
[2016-12-20] MEDS: LEVOTHYROXINE 25 MCG (LEVOTHROID) TAB PO SCH (05:40)
[2016-12-20 06:00] VITALS: BP 155/75
[2016-12-20] MEDS: ASPIRIN E.C. 81 MG (ECOTRIN) TAB PO SCH (07:58)
[2016-12-20] MEDS: FOSINOPRIL 20 MG PO SCH (07:59)
[2016-12-20] MEDS: SENNA W/DOCUSATE (SENOKOT S) TABLET PO SCH ×2 (07:59→20:11)
[2016-12-20] MEDS: VITAMIN D3 5,000 UNITS (CHOLECALCIFEROL ) CAPSULE PO SCH (07:59)
[2016-12-20] MEDS: amLODIPine 5 MG (NORVASC) TAB PO SCH (07:59)
[2016-12-20] MEDS: ENOXAPARIN 40 MG/0.4 ML (LOVENOX) SYR SC SCH (08:00)
[2016-12-20] MEDS: POLYETHYLENE GLYCOL 17 GM (MIRALAX) PACK PO SCH ×2 (08:00→20:10)
[2016-12-20] MEDS: LETROZOLE 2.5 MG (FEMARA) TAB PO SCH (08:03)
[2016-12-20] MEDS: PRESERVISION AREDS SOFTGEL (BAUSH & LOMB) PO SCH (08:04)
[2016-12-20] MEDS: EYE WASH 118 ML BTL OU SCH ×2 (08:05→20:10)
[2016-12-20] MEDS: LOTEMAX 0.5% OU SCH (08:08)
--- NOTE | 2016-12-20 08:30 | PM & R (SOAP) Progress Note ---
Subjective Subjective/Events-last exam Patient was seen in her room Patient SBA for transfers Objective Exam Last Set of Vital Signs Vital Signs Date Time Temp Pulse Resp B/P Pulse Ox O2 Delivery O2 Flow Rate FiO2 12/20/16 06:00 98.2 84 18 155/75 96 Room Air Capillary Refill : Less Than 3 Seconds I&O Intake and Output 12/20/16 00:00 Intake Total 980 ml Balance 980 ml Intake Oral 980 ml # Voids 10 General: Alert, Oriented X3, Cooperative, No Acute Distress HEENT: Atraumatic, PERRLA, EOMI, Mucous Memb Moist/[place] Neck: Supple, No JVD Lungs: Clear to Auscultation Heart: Regular Rate Abdomen: Normal Bowel Sounds, Soft, No Tenderness Extremities: No Edema, Other (rt hip as per above) Neuro: Other (generalized weakness more so at operated hip) Assessment/Plan Assessment S/P rt hip frx secondary to fall s/p repair with decreasing postop pain Postop anemia Postop Nausea multifactorial-improved Postop constipation meds adjusted-improved Intolerance to santura for hyperactive bladder Plan Continue PT/OT as tolerated F/U with Dr Crow-done Transfused PRBCS-done upon admission to rehab labs noted Treat Nausea-See orders-done improved Xray rt hip see orders-done no change rt hip pain improved Constipation improved with med adjustment Team Conference held 12-18-16 -See report for full functional update and POC and ELOS D/C Santura-See orders-done this was an autosub for vesicare which patient took at home -she may use home med if needed. MARCELL TYLER MD Dec 20, 2016 08:30
--- NOTE | 2016-12-20 09:09 | Physical Therapy Daily Note ---
PT Daily Note-Current Subjective Pt. states she is doing well and remarks on the progress she feels she has made. Pain Numeric Pain Scale: 0-No Pain Mental Status Patient Orientation: Normal For Age Transfers Functional [place] Measure 0=Not Assessed/NA 4=Minimal Assistance 1=Total Assistance 5=Supervision or Setup 2=Maximal Assistance 6=Modified [place] 3=Moderate Assistance 7=Complete IndependenceIRFPAI Quality Coding Scale 6 Independent with activity with or without an assistive device 5 Patient requires set up or clean up by helper. Patient completes activity by themselves 4 Supervision or touching assist (CGA). [place] provide cues , steadying assist 3 The helper provides less than half the effort to complete the activity 2 The helper provides more than half the effort to complete the activity 1 Dependent. The helper does all the effort to complete an activity 7 Patient refused to complete or attempt activity 9 The patient did not perform the activity before the current illness or injury 88 Not attempted due to Medical conditions or safety concerns Transfers (B, C, W/C) (FIM): 5 Scootin Rollin Roll Left to Right (QC): 6 Supine to/from Sit: 6 Sit to/from Stand: 6 Sit to Lying (QC): 6 Sit to Stand (QC): 6 Chair/Cfp-fc-Zenmm Xfer(QC): 5 Bed to/from Chair: 5 pt. requires only SBA assist only to ensure safety as she remains TTWB RLE Weight Bearing Weight Bearing Restriction: Touch Toe Bearing Location Restriction: R LE Gait Training Does the Patient Walk?: Yes Gait (FIM): 5 Distance (FIM): 3=150 ft (x2) Walk 10 feet (QC): 5 Walk 50 ft with 2 Turns(QC): 5 Walk 150 ft (QC): 5 Walking 10ft/uneven surface-QC: 5 Gait Level of Assist: 5 Gait Persons Needed: 1 Gait Assistive Device: FWW maintains TTWB consistently with good safe gait technique Wheelchair Training Does the Pt Use a Wheelchair?: Yes Wheelchair (FIM): 5 Wheelchair Distance: 3=150 ft Wheelchair Level of Assist: 5 Wheel 50 ft with 2 turns (QC): 5 Wheel 150 ft (QC): 5 Type of Wheelchair: Manual some brakes are stiff and pt needs assist to brake. also requires assist to place RLE foot rest in place Exercises Supine Ex: Ankle pumps, Quad Set, Rolling, Glut sets, Heel Slides, Short Arc Quads, Scooting, Straight leg raise, Hip abd/add Supine Reps: 15 Treatments toileted x 2 during Rx managing cleaning and pants very well. stood at sink for AM care indep , no LOB Assessment Current Status: Excellent Progress has met goals, further progress will be possible after pt. is able to bear more weight on RLE PT Short Term Goals Short Term Goals Time Frame: Dec 11, 2016 Transfers (B,C,W/C) (FIM): 4 (CGA) Gait (FIM): 2 (met 12/10/16) Gait Distance Comment: 50' Gait Level of Assist: 4 (CGA) Gait Assistive Device: FWW Wheelchair Distance: 150'x2 PT Retirement Goals Retirement Goals PT Retirement Goals Time Frame: Dec 25, 2016 Transfers (B,C,W/C) (FIM): 5 Sit to Lying (QC): 4 Lying-Sitting on Side/Bed(QC): 4 Sit to Stand (QC): 4 Rollin Roll Left to Right (QC): 4 Chair/Usg-ry-Yowro Xfer(QC): 4 Car Transfer (QC): 4 Does the Patient Walk: Yes Gait (FIM): 5 Distance: 150' Walk 10 feet (QC): 4 Walk 10ft-Uneven Surface(QC): 4 Walk 50ft with 2 Turns (QC): 4 Walk 150 ft (QC): 4 Gait Level of Assist: 5 Gait Assistive Device: FWW Stairs (FIM): 2 # of Steps: 4 1 Step (curb) (QC): 4 4 Steps (QC): 4 12 Steps (QC): 4 Stairs Level Of Assist: 5 Picking up an Object (QC): 88 PT Plan Treatment/Plan Treatment Plan: Continue Plan of Care Treatment Plan: Bed Mobility, Education, Functional Activity [place], Functional Strength, Group Therapy, Gait, Safety, Therapeutic Exercise, Transfers Treatment Duration: Dec 25, 2016 Visits Per Week: 10-11 Minutes/Day (M-F): 60-90 Minutes/Day (Sat/Ortega): 15-30 Safety Risks/Education Patient Education: Gait Training, Transfer Techniques, Issued Written HEP, Correct Positioning, W/C Management, Disease Process, Safety Issues Teaching Recipient: Patient Teaching Methods: Demonstration, Discussion Response to Teaching: Verbalize Understanding, Return Demonstration, Reinforcement Needed Time/GCodes Time In: 815 Time Out: 915 Total Billed Treatment Time: 60 Total Billed Treatment 1,EX25m,FA20,GT15m G Codes Necessary: KAMARI Hagen EMOTIONALLY IMPAIRED TEACHER Dec 20, 2016 09:09
--- NOTE | 2016-12-20 10:10 | Occupational Ther Daily Note ---
OT Current Status-Daily Note Subjective Pt agrees to treatment this am. States she will be discharging to [facility] on Friday. Mental Status/Objective Functional [place] Measure 0=Not Assessed/NA 4=Minimal Assistance 1=Total Assistance 5=Supervision or Setup 2=Maximal Assistance 6=Modified [place] 3=Moderate Assistance 7=Complete [place] ADL-Treatment Pt in restroom when therapist arrives. Pt completed toileting with SBA. Sit to stand from toilet with SBA. Transfer to walk in shower with cues for safety using FWW and grab bars. Pt able to wash/dry all areas with SBA. Uses long handled sponge to wash lower legs and feet. Don pullover shirt with set up. Pt required assist to don NANCY hose. Don Depends and pants with SBA using sketch maker to start over feet. Stood with supervision for balance during pant hike using FWW, cues for TTWB. Don right sock with set up using sock aid. Pt required minimal assistance to don left shoe using long shoe horn. Increased time for dressing tasks. Functional [place] Measure 0=Not Assessed/NA 4=Minimal Assistance 1=Total Assistance 5=Supervision or Setup 2=Maximal Assistance 6=Modified [place] 3=Moderate Assistance 7=Complete IndependenceIRFPAI Quality Coding Scale 6 Independent with activity with or without an assistive device 5 Patient requires set up or clean up by helper. Patient completes activity by themselves 4 Supervision or touching assist (CGA). [place] provide cues , steadying assist 3 The helper provides less than half the effort to complete the activity 2 The helper provides more than half the effort to complete the activity 1 Dependent. The helper does all the effort to complete an activity 7 Patient refused to complete or attempt activity 9 The patient did not perform the activity before the current illness or injury 88 Not attempted due to Medical conditions or safety concerns Bathing (FIM): 5 Upper Body (FIM): 5 Lower Body Dressing (FIM): 4 Toileting (FIM): 5 Toilet/Commode Transfer (FIM): 5 Shower Transfer(FIM): 5 Other Treatment Pt performed bilateral UE exercises while seated to increase strength needed for ADLs and transfers. Pt performed four exercises x20 reps focusing on shoulder and elbow movements. Rest breaks between exercises. Pt able to track reps independently. Pt sitting in chair with needs met after session. OT Short Term Goals Short Term Goals Time Frame: Dec 11, 2016 Lower Body Dressing(FIM): 3 Toileting(FIM): 3 Transfers (B,C,W/C) (FIM): 4 (CGA) Toilet/Commode Transfer(FIM): 4 Additional Short Term Goals: 1-Demonstrate ADL Tasks, 2-Verbalize Understanding , 3-ImproveStrength/[place] 1=Demonstrate adherence to instructed precautions during ADL tasks. 2=Patient will verbalize/demonstrate understanding of assistive devices/ modifications for ADL. 3=Patient will improve strength/tolerance for activity to enable patient to perform ADL's. OT [facility] Goals [facility] Goals Time Frame: Dec 25, 2016 Eating (FIM): 6 Eating (QC): 6 Oral Hygiene (QC): 6 Grooming(FIM): 6 Bathing(FIM): 5 Shower/Bathe Self (QC): 5 Upper Body Dressing(FIM): 5 Upper Body Dressing (QC): 5 Lower Body Dressing(FIM): 5 Lower Body Dressing (QC): 5 On/Off Footwear (QC): 5 Toileting(FIM): 5 Toileting Hygiene (QC): 5 Toilet/Commode Transfer(FIM): 5 Toilet/Commode Transfer (QC): 5 Shower Transfer(FIM): 5 Additional Goals: 1-Demonstrate ADL Tasks, 2-Verbalize Understanding, 3- ImproveStrength/Corbin 1=Demonstrate adherence to instructed precautions during ADL tasks. 2=Patient will verbalize/demonstrate understanding of assistive devices/ modifications for ADL. 3=Patient will improve strength/tolerance for activity to enable patient to perform ADL's. OT Education/Plan Problem List/Assessment Pt demonstrates decreased mobility, strength, activity tolerance, and ADL performance. Pt to benefit from skilled OT intervention for ADL training, transfers, strengthening, and safety education to maximize level of function and allow safe discharge plan. Discharge Recommendations Plan/Recommendations: Continue POC Treatment Plan/Plan of Care Patient would benefit from OT for education, treatment and training to promote independence in ADL's, mobility, safety and/or upper extremity function for ADL' s. Plan of Care: ADL Retraining, Functional Mobility, Group Exercise/Act as Ind, UE Funct Exercise/Act Treatment Duration: Dec 25, 2016 Visits Per Week: 10-11 Minutes/Day (M-F): 60-90 Minutes/Day (Sat/Ortega): PRN Agreement: Yes Rehab Potential: Good Time/GCodes Start Time: 09:15 Stop Time: 10:15 Total Time Billed (hr/min): 60 Billed Treatment Time 1 visit, ADLx3(45minutes), Ex(15minutes) SHRUTI ROBERTS OT Dec 20, 2016 10:10
--- NOTE | 2016-12-20 15:02 | Therapy Group Daily Note ---
Therapy Daily Group Note Exercises Fine Motor, Other (reaching, core stability) Other/Notes Pt. attended PT OT group this date. Pt. ambulated to and from with CGA FWW . Socialization was initiated through introductions and conversation. This pt. was very social and expressed that she very much like visiting and laughing and sharing with other ladies at her table Pt. sat at [facility] table , which facilitated critical thinking and problem solving. Pt stated she had not played these games in years and needed some guidance but quickly did well and helped others. Her quick math skills addition were on [place]. Pt smiled, laughed and expressed that she very much enjoyed socialization . Pt. shared a one word encouragement to others at end..."glo". Pt. to room after group. Settled in bed, jacob at hand Start Time: 13:00 Stop Time: 14:00 Total Billed Treatment Time: 60 Total Billed Treatment 1,GRP KAMARI PAZ SOFT IRON INSPECTOR Dec 20, 2016 15:02
[2016-12-20 18:33] VITALS: BP 149/66
[2016-12-21 06:01] VITALS: BP 132/65
[2016-12-21] MEDS: LEVOTHYROXINE 25 MCG (LEVOTHROID) TAB PO SCH (06:53)
[2016-12-21] MEDS: SENNA W/DOCUSATE (SENOKOT S) TABLET PO SCH ×2 (09:00→20:11)
[2016-12-21] MEDS: POLYETHYLENE GLYCOL 17 GM (MIRALAX) PACK PO SCH ×2 (09:00→20:10)
[2016-12-21] MEDS: amLODIPine 5 MG (NORVASC) TAB PO SCH (09:34)
[2016-12-21] MEDS: FOSINOPRIL 20 MG PO SCH (09:34)
[2016-12-21] MEDS: ASPIRIN E.C. 81 MG (ECOTRIN) TAB PO SCH (09:34)
[2016-12-21] MEDS: VITAMIN D3 5,000 UNITS (CHOLECALCIFEROL ) CAPSULE PO SCH (09:34)
[2016-12-21] MEDS: ENOXAPARIN 40 MG/0.4 ML (LOVENOX) SYR SC SCH (09:34)
[2016-12-21] MEDS: EYE WASH 118 ML BTL OU SCH ×2 (09:35→20:10)
[2016-12-21] MEDS: PRESERVISION AREDS SOFTGEL (BAUSH & LOMB) PO SCH (09:35)
[2016-12-21] MEDS: LOTEMAX 0.5% OU SCH (09:35)
[2016-12-21] MEDS: LETROZOLE 2.5 MG (FEMARA) TAB PO SCH (09:37)
--- NOTE | 2016-12-21 10:10 | Physical Therapy Daily Note ---
PT Daily Note-Current Subjective Pt up in [facility] in [place] upon PT arrival. Agreeable. Denied pain. Mental Status Patient Orientation: Person, Place, Time, Situation Transfers Functional [place] Measure 0=Not Assessed/NA 4=Minimal Assistance 1=Total Assistance 5=Supervision or Setup 2=Maximal Assistance 6=Modified [place] 3=Moderate Assistance 7=Complete IndependenceIRFPAI Quality Coding Scale 6 Independent with activity with or without an assistive device 5 Patient requires set up or clean up by helper. Patient completes activity by themselves 4 Supervision or touching assist (CGA). [place] provide cues , steadying assist 3 The helper provides less than half the effort to complete the activity 2 The helper provides more than half the effort to complete the activity 1 Dependent. The helper does all the effort to complete an activity 7 Patient refused to complete or attempt activity 9 The patient did not perform the activity before the current illness or injury 88 Not attempted due to Medical conditions or safety concerns Transfers (B, C, W/C) (FIM): 5 Scootin Supine to/from Sit: 5 (with great effort to (L) but without assist) Sit to/from Stand: 5 Weight Bearing Weight Bearing Restriction: Touch Toe Bearing Location Restriction: R LE Gait Training Does the Patient Walk?: Yes Gait (FIM): 5 Distance (FIM): 3=150 ft Distance: 150 Walk 10 feet (QC): 4 Walk 50 ft with 2 Turns(QC): 4 Walk 150 ft (QC): 4 Gait Level of Assist: 5 Gait Persons Needed: 1 Gait Assistive Device: FWW Pt does excellent job of maintaining TTWB on (R) LE with ambulation with FWW. No LOB Exercises Supine Ex: Quad Set, Glut sets, Heel Slides, Hip abd/add Supine Reps: 15 Treatments Gait training and LE functional strengthening. Pt returned to bed with all needs met. Assessment Current Status: Good Progress Pt tolerated very well. Maintaining TTWB very well. Great effort but (I) with sit<->supine TFR to (L). PT Short Term Goals Short Term Goals Time Frame: Dec 11, 2016 Transfers (B,C,W/C) (FIM): 4 (CGA) Gait (FIM): 2 (met 12/10/16) Gait Distance Comment: 50' Gait Level of Assist: 4 (CGA) Gait Assistive Device: FWW Wheelchair Distance: 150'x2 PT Group Home Goals Machine Biller Goals PT Group Home Goals Time Frame: Dec 25, 2016 Transfers (B,C,W/C) (FIM): 5 Sit to Lying (QC): 4 Lying-Sitting on Side/Bed(QC): 4 Sit to Stand (QC): 4 Rollin Roll Left to Right (QC): 4 Chair/Ddg-jo-Ojgqb Xfer(QC): 4 Car Transfer (QC): 4 Does the Patient Walk: Yes Gait (FIM): 5 Distance: 150' Walk 10 feet (QC): 4 Walk 10ft-Uneven Surface(QC): 4 Walk 50ft with 2 Turns (QC): 4 Walk 150 ft (QC): 4 Gait Level of Assist: 5 Gait Assistive Device: FWW Stairs (FIM): 2 # of Steps: 4 1 Step (curb) (QC): 4 4 Steps (QC): 4 12 Steps (QC): 4 Stairs Level Of Assist: 5 Picking up an Object (QC): 88 PT Plan Problem List Problem List: Activity Tolerance, Functional Strength, Safety, Balance, Gait, Transfer, Bed Mobility Treatment/Plan Treatment Plan: Continue Plan of Care Treatment Plan: Bed Mobility, Education, Functional Activity [place], Functional Strength, Group Therapy, Gait, Safety, Therapeutic Exercise, Transfers Treatment Duration: Dec 25, 2016 Visits Per Week: 10-11 Minutes/Day (M-F): 60-90 Minutes/Day (Sat/Ortega): 15-30 Pt/Family Agrees w/Plan: Yes Safety Risks/Education Patient Education: Transfer Techniques Teaching Recipient: Patient Teaching Methods: Discussion Response to Teaching: Verbalize Understanding, Return Demonstration Time/GCodes Time In: 51 Time Out: 918 Total Billed Treatment Time: 28 Total Billed Treatment 1, Gt x 18', Ex x 10' G Codes Necessary: KELLIE Rodriguez DPJose M Dec 21, 2016 10:10
[2016-12-21 18:51] VITALS: BP 147/60
[2016-12-22 04:02] VITALS: BP 174/68
[2016-12-22] MEDS: LEVOTHYROXINE 25 MCG (LEVOTHROID) TAB PO SCH (06:30)
[2016-12-22] MEDS: POLYETHYLENE GLYCOL 17 GM (MIRALAX) PACK PO SCH ×2 (09:00→20:30)
[2016-12-22] MEDS: ENOXAPARIN 40 MG/0.4 ML (LOVENOX) SYR SC SCH (09:01)
[2016-12-22] MEDS: LETROZOLE 2.5 MG (FEMARA) TAB PO SCH (09:01)
[2016-12-22] MEDS: SENNA W/DOCUSATE (SENOKOT S) TABLET PO SCH ×2 (09:02→20:30)
[2016-12-22] MEDS: PRESERVISION AREDS SOFTGEL (BAUSH & LOMB) PO SCH (09:02)
[2016-12-22] MEDS: ASPIRIN E.C. 81 MG (ECOTRIN) TAB PO SCH (09:02)
[2016-12-22] MEDS: amLODIPine 5 MG (NORVASC) TAB PO SCH (09:02)
[2016-12-22] MEDS: VITAMIN D3 5,000 UNITS (CHOLECALCIFEROL ) CAPSULE PO SCH (09:02)
[2016-12-22] MEDS: LOTEMAX 0.5% OU SCH (09:02)
[2016-12-22] MEDS: FOSINOPRIL 20 MG PO SCH (09:02)
[2016-12-22] MEDS: EYE WASH 118 ML BTL OU SCH (09:03)
[2016-12-22] MEDS ORDERED: ACET-77 PO (09:44)
[2016-12-22] MEDS ORDERED: SENN-20 PO (09:44)
[2016-12-22 18:19] VITALS: BP 117/68
[2016-12-23] MEDS: EYE WASH 118 ML BTL OU SCH ×2 (04:02→09:37)
[2016-12-23 04:37] VITALS: BP 159/70
[2016-12-23 06:00] VITALS: BP 159/70
[2016-12-23] MEDS: LEVOTHYROXINE 25 MCG (LEVOTHROID) TAB PO SCH (06:12)
[2016-12-23] MEDS: ENOXAPARIN 40 MG/0.4 ML (LOVENOX) SYR SC SCH (09:34)
[2016-12-23] MEDS: amLODIPine 5 MG (NORVASC) TAB PO SCH (09:35)
[2016-12-23] MEDS: POLYETHYLENE GLYCOL 17 GM (MIRALAX) PACK PO SCH (09:35)
[2016-12-23] MEDS: VITAMIN D3 5,000 UNITS (CHOLECALCIFEROL ) CAPSULE PO SCH (09:35)
[2016-12-23] MEDS: FOSINOPRIL 20 MG PO SCH (09:35)
[2016-12-23] MEDS: ASPIRIN E.C. 81 MG (ECOTRIN) TAB PO SCH (09:36)
[2016-12-23] MEDS: SENNA W/DOCUSATE (SENOKOT S) TABLET PO SCH (09:36)
[2016-12-23] MEDS: PRESERVISION AREDS SOFTGEL (BAUSH & LOMB) PO SCH (09:37)
[2016-12-23] MEDS: LETROZOLE 2.5 MG (FEMARA) TAB PO SCH (09:40)
[2016-12-23] MEDS: LOTEMAX 0.5% OU SCH (09:40)
--- NOTE | 2016-12-23 12:53 | Occupational Ther Daily Note ---
OT Current Status-Daily Note Subjective Pt sitting in chair, agrees to treatment. Plan is for pt to d/c to [facility] today. Mental Status/Objective Functional [place] Measure 0=Not Assessed/NA 4=Minimal Assistance 1=Total Assistance 5=Supervision or Setup 2=Maximal Assistance 6=Modified [place] 3=Moderate Assistance 7=Complete [place] ADL-Treatment Pt finishing breakfast when therapist arrives. Pt reports managing containers, cutting food, and feeding self independently. Pt sit to stand with modified independence. Gait to restroom with FWW, able to maintain TTWB right LE. Transfer to walk in shower with skilled cues for technique and safety. Pt able to wash/dry all areas with set up. Uses long handled sponge to wash lower legs/ feet. Don pullover shirt after set up. Pt donned Depends and pants with SBA; uses photographic colorist to start pants over feet. Stood with good balance during pant hike using FWW. Don right sock with set up using sock aid. Don left shoe with set up using long handled shoe horn. Shoe has elastic shoelaces. Grooming tasks (brush teeth, comb hair, apply lipstick) completed with modified independence while seated at sink. Transfer to [facility] over toilet with SBA. Pt able to complete toileting hygiene and clothing management with SBA. Pt transferred to chair, sitting with needs met after session. Functional [place] Measure 0=Not Assessed/NA 4=Minimal Assistance 1=Total Assistance 5=Supervision or Setup 2=Maximal Assistance 6=Modified [place] 3=Moderate Assistance 7=Complete IndependenceIRFPAI Quality Coding Scale 6 Independent with activity with or without an assistive device 5 Patient requires set up or clean up by helper. Patient completes activity by themselves 4 Supervision or touching assist (CGA). [place] provide cues , steadying assist 3 The helper provides less than half the effort to complete the activity 2 The helper provides more than half the effort to complete the activity 1 Dependent. The helper does all the effort to complete an activity 7 Patient refused to complete or attempt activity 9 The patient did not perform the activity before the current illness or injury 88 Not attempted due to Medical conditions or safety concerns Eating (FIM): 7 (Pt reports feeding self, managing containers, and cutting food without assistance.) Eating (QC): 6 Grooming (FIM): 6 Oral Hygiene (QC): 6 Toileting Hygiene (QC): 4 Bathing (FIM): 5 Upper Body (FIM): 5 Upper Body Dressing (QC): 5 Lower Body Dressing (FIM): 5 Lower Body Dressing (QC): 4 On/Off Footwear (QC): 5 Toileting (FIM): 5 Toilet/Commode Transfer (FIM): 5 Toilet Transfer (QC): 4 Shower Transfer(FIM): 5 Shower/Bathe Self (QC): 5 OT Short Term Goals Short Term Goals Time Frame: Dec 11, 2016 Lower Body Dressing(FIM): 3 Toileting(FIM): 3 Transfers (B,C,W/C) (FIM): 4 (CGA) Toilet/Commode Transfer(FIM): 4 Additional Short Term Goals: 1-Demonstrate ADL Tasks, 2-Verbalize Understanding , 3-ImproveStrength/[place] 1=Demonstrate adherence to instructed precautions during ADL tasks. 2=Patient will verbalize/demonstrate understanding of assistive devices/ modifications for ADL. 3=Patient will improve strength/tolerance for activity to enable patient to perform ADL's. OT Curriculum Director Goals Curriculum Director Goals Time Frame: Dec 25, 2016 Eating (FIM): 6 (met 12/23/16) Eating (QC): 6 (6-met 12/23/16) Oral Hygiene (QC): 6 (6-met 12/23/16) Grooming(FIM): 6 (met 12/23/16) Bathing(FIM): 5 (met 12/23/16) Shower/Bathe Self (QC): 5 (5-met 12/23/16) Upper Body Dressing(FIM): 5 (met 12/23/16) Upper Body Dressing (QC): 5 (5-met 12/23/16 ) Lower Body Dressing(FIM): 5 (met 12/23/16) Lower Body Dressing (QC): 5 (4-not met) On/Off Footwear (QC): 5 (5-met 12/23/16) Toileting(FIM): 5 (met 12/23/16) Toileting Hygiene (QC): 5 (4-not met) Toilet/Commode Transfer(FIM): 5 (met 12/23/16) Toilet/Commode Transfer (QC): 5 (4-not met) Shower Transfer(FIM): 5 (met 12/23/16) Additional Goals: 1-Demonstrate ADL Tasks, 2-Verbalize Understanding, 3- ImproveStrength/[place] 1=Demonstrate adherence to instructed precautions during ADL tasks. 2=Patient will verbalize/demonstrate understanding of assistive devices/ modifications for ADL. 3=Patient will improve strength/tolerance for activity to enable patient to perform ADL's. OT Education/Plan Problem List/Assessment Pt demonstrates decreased mobility, strength, activity tolerance, and ADL performance. Pt to benefit from skilled OT intervention for ADL training, transfers, strengthening, and safety education to maximize level of function and allow safe discharge plan. Discharge Recommendations Plan/Recommendations: Continue POC Treatment Plan/Plan of Care Patient would benefit from OT for education, treatment and training to promote independence in ADL's, mobility, safety and/or upper extremity function for ADL' s. Plan of Care: ADL Retraining, Functional Mobility, Group Exercise/Act as Ind, UE Funct Exercise/Act Treatment Duration: Dec 25, 2016 Visits Per Week: 10-11 Minutes/Day (M-F): 60-90 Minutes/Day (Sat/Ortega): PRN Agreement: Yes Rehab Potential: Good Time/GCodes Start Time: 08:00 Stop Time: 08:55 Total Time Billed (hr/min): 55 Billed Treatment Time 1 visit, ADLx4(55minutes) SHRUTI ROBERTS OT Dec 23, 2016 12:53
--- NOTE | 2016-12-23 13:21 | Therapy Team Discharge Summary ---
Therapy Discharge Summary Discharge Recommendations Date of Discharge Therapy D/C Recommendations: Home w/ Family Support Physical Therapy Patient came to rehab following a right hip fracture. Upon evaluation patient performed bed mobility with min assist and transfers with min assist, ambulated 15' with a rolling walker with min assist, and could propel a wheelchair 50' with min assist. Patient has been performing bed mobility and transfers, balance and endurance training, functional strengthening, stair training, gait training, and education. 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 Now, patient performs bed mobility with mod I and transfers with standby assist, ambulates 150' with a rolling walker with standby assist including 10' over uneven surfaces like carpet and 50' with at least 2 turns of 90 degrees, she can propel a wheelchair 150' with standby assist, she will not perform stairs. Patient is being discharged from this facility and will be discharged from PT at this time. PT Fdc Goals Fdc Goals PT Fdc Goals Time Frame: Dec 25, 2016 Transfers (B,C,W/C) (FIM): 5 Roll Left to Right (QC): 4 Sit to Lying (QC): 4 Lying-Sitting on Side/Bed(QC): 4 Sit to Stand (QC): 4 Chair/Wxn-eq-Icyuq Xfer(QC): 4 Car Transfer (QC): 4 Does the Patient Walk: Yes Gait (FIM): 5 Distance: 150' Walk 10 feet (QC): 4 Walk 10ft-Uneven Surface(QC): 4 Walk 50ft with 2 Turns (QC): 4 Walk 150 ft (QC): 4 Gait Level of Assist: 5 Gait Assistive Device: FWW Stairs (FIM): 2 # of Steps: 4 1 Step (curb) (QC): 4 4 Steps (QC): 4 12 Steps (QC): 4 Stairs Level Of Assist: 5 Picking up an Object (QC): 88 OT Fdc Goals Fdc Goals Time Frame: Dec 25, 2016 Eating (FIM): 6 (met 12/23/16) Eating (QC): 6 (6-met 12/23/16) Oral Hygiene (QC): 6 (6-met 12/23/16) Grooming(FIM): 6 (met 12/23/16) Bathing(FIM): 5 (met 12/23/16) Shower/Bathe Self (QC): 5 (5-met 12/23/16) Upper Body Dressing(FIM): 5 (met 12/23/16) Upper Body Dressing (QC): 5 (5-met 12/23/16 ) Lower Body Dressing(FIM): 5 (met 12/23/16) Lower Body Dressing (QC): 5 (4-not met) On/Off Footwear (QC): 5 (5-met 12/23/16) Toileting(FIM): 5 (met 12/23/16) Toileting Hygiene (QC): 5 (4-not met) Toilet/Commode Transfer(FIM): 5 (met 12/23/16) Toilet/Commode Transfer (QC): 5 (4-not met) Shower Transfer(FIM): 5 (met 12/23/16) Additional Goals: 1-Demonstrate ADL Tasks, 2-Verbalize Understanding, 3- ImproveStrength/[place] 1=Demonstrate adherence to instructed precautions during ADL tasks. 2=Patient will verbalize/demonstrate understanding of assistive devices/ modifications for ADL. 3=Patient will improve strength/tolerance for activity to enable patient to perform ADL's. MIGUEL A MENDES PT Dec 23, 2016 13:21
--- NOTE | 2016-12-23 15:45 | Therapy Team Discharge Summary ---
Therapy Discharge Summary Discharge Recommendations Date of Discharge Therapy D/C Recommendations: Home w/ Family Support Occupational Therapy Pt admitted to ARU following right hip fracture. Pt is TTWB on right LE. On admission pt required maximal assistance for LE dressing and toileting and mod assist for transfers. Skilled OT intervention focused on ADL training, transfers , strengthening, adaptive equipment education, and safety education. Pt progressed with therapy and by discharge is completing basic self care and mobility with SBA/set up. Pt met OT LTG of being SBA for ADLs and transfers. Pt is to discharge to [facility] for continued care secondary to TTWB. D/C ARU OT at this time. PT Gasoline Tractor Operator Goals Longterm Goals PT Longterm Goals Time Frame: Dec 25, 2016 Transfers (B,C,W/C) (FIM): 5 Roll Left to Right (QC): 4 Sit to Lying (QC): 4 Lying-Sitting on Side/Bed(QC): 4 Sit to Stand (QC): 4 Chair/[id number] Xfer(QC): 4 Car Transfer (QC): 4 Does the Patient Walk: Yes Gait (FIM): 5 Distance: 150' Walk 10 feet (QC): 4 Walk 10ft-Uneven Surface(QC): 4 Walk 50ft with 2 Turns (QC): 4 Walk 150 ft (QC): 4 Gait Level of Assist: 5 Gait Assistive Device: FWW Stairs (FIM): 2 # of Steps: 4 1 Step (curb) (QC): 4 4 Steps (QC): 4 12 Steps (QC): 4 Stairs Level Of Assist: 5 Picking up an Object (QC): 88 OT Gasoline Tractor Operator Goals Gasoline Tractor Operator Goals Time Frame: Dec 25, 2016 Eating (FIM): 6 (met 12/23/16) Eating (QC): 6 (6-met 12/23/16) Oral Hygiene (QC): 6 (6-met 12/23/16) Grooming(FIM): 6 (met 12/23/16) Bathing(FIM): 5 (met 12/23/16) Shower/Bathe Self (QC): 5 (5-met 12/23/16) Upper Body Dressing(FIM): 5 (met 12/23/16) Upper Body Dressing (QC): 5 (5-met 12/23/16 ) Lower Body Dressing(FIM): 5 (met 12/23/16) Lower Body Dressing (QC): 5 (4-not met) On/Off Footwear (QC): 5 (5-met 12/23/16) Toileting(FIM): 5 (met 12/23/16) Toileting Hygiene (QC): 5 (4-not met) Toilet/Commode Transfer(FIM): 5 (met 12/23/16) Toilet/Commode Transfer (QC): 5 (4-not met) Shower Transfer(FIM): 5 (met 12/23/16) Additional Goals: 1-Demonstrate ADL Tasks, 2-Verbalize Understanding, 3- ImproveStrength/[place] 1=Demonstrate adherence to instructed precautions during ADL tasks. 2=Patient will verbalize/demonstrate understanding of assistive devices/ modifications for ADL. 3=Patient will improve strength/tolerance for activity to enable patient to perform ADL's. SHRUTI ROBERTS OT Dec 23, 2016 15:45
--- NOTE | 2016-12-23 18:21 | PM & R (SOAP) Progress Note ---
Subjective Subjective/Events-last exam Patient was discharged to home today with HHC Has progressed well Discharge meds reviewed, Objective Exam Last Set of Vital Signs Vital Signs Date Time Temp Pulse Resp B/P Pulse Ox O2 Delivery O2 Flow Rate FiO2 12/23/16 09:00 Room Air 12/23/16 06:00 97.7 74 16 159/70 93 Capillary Refill : Less Than 3 Seconds I&O Intake and Output 12/23/16 00:00 Intake Total 1220 ml Balance 1220 ml Intake Oral 1220 ml # Voids 8 # Bowel Movements 1 General: Alert, Oriented X3, Cooperative, No Acute Distress HEENT: Atraumatic, PERRLA, EOMI, Mucous Memb Moist/[place] Neck: Supple, No JVD Lungs: Clear to Auscultation Heart: Regular Rate Abdomen: Normal Bowel Sounds, Soft, No Tenderness Extremities: No Edema, Other (rt hip as per above) Neuro: Other (generalized weakness more so at operated hip) Assessment/Plan Assessment S/P rt hip frx secondary to fall s/p repair with decreasing postop pain Postop anemia Postop Nausea multifactorial-improved Postop constipation meds adjusted-improved Intolerance to santura for hyperactive bladder Plan Discharge to home with family and HHC F/U with PCP and ortho Home Vesicare resumed See orders.. MARCELL TYLER MD Dec 23, 2016 18:21
--- NOTE | 2016-12-31 11:47 | DISCHARGE SUMMARY ---
DATE OF ADMISSION: 12/04/2016 DATE OF DISCHARGE: 12/23/2016 HISTORY OF PRESENT ILLNESS: The patient is an 85-year-old female who had been independent, living with her spouse in [place], [place]. She went to sit on a stool and missed and landed on the floor. She sustained a right hip fracture. She was admitted to [facility] on 12/02 to the service of Dr. Gamboa. The patient's surgical repair of the right comminuted intertrochanteric femur fracture. She was made toe touch weight-bearing right lower extremity postoperatively. She was referred to Inpatient Rehabilitation Unit and for ongoing therapies prior to discharge home with spouse. The patient had postoperative anemia and Dr. Crow following that with follow-up labs. The patient was on a variety of medications for her blood pressure control. PAST MEDICAL HISTORY: 1. Hypertension. 2. Arthritis. 3. She has had bilateral total knee replacement with rehab on this unit in the past as well and did well. SOCIAL HISTORY: She is retired. Her spouse is retired teacher of the emotionally disturbed from [employer]. MEDICAL COURSE: The patient was followed by Dr. Echavarria and Dr. Crow while on rehab unit. Her admission H&H was 7.9/25 on 12/05. She was on continue on Lovenox subcutaneous for DVT prophylaxis. She had transfusion 2 units packed red blood cells with improvement in her anemia. H&H on 12/12 was 10/32, WBC 10.4, platelet count 256,000. She had postoperative constipation, associated with nausea and nausea and constipation, treated with improvement. Chemistry on 12/12 showed normal electrolytes, BUN. Creatinine was low at 0.59, total protein low at 5.9, albumin 3.7, bilirubin total 1.5, elevated blood glucose 120 elevated. Calcium 8.8. She tolerated the blood transfusion well. She was placed on [place]ura for overactive bladder in lieu of VESIcare which was not on formulary here. She complained of dry mouth and this was discontinued and VESIcare was resumed upon discharge. She had postoperative respiratory insufficiency and was weaned from O2. She was afebrile during her stay. O2 sat 93% on room air. Blood pressure 159/70 and 123, respirations 16, pulse 74. She did not care for pain medications and tended to use Tylenol in lieu of something stronger. Her incision site healed well. The sutures were removed on 12/[address] Gamboa's orders. REHABILITATION COURSE: She was assessed by speech therapy upon admission and found to be cognitively intact and they signed off. PT notes upon admission, the patient performed bed mobility with min assist for transfers and was min assist for ambulation 50 feet with a wheeled walker. She could propel wheelchair 50 feet with min assist. She was able to maintain her limited weight-bearing right lower extremity toe touch weight-bearing. Upon discharge the patient was modified independent with transfers, bed mobility, standby assist for ambulation 150 feet with a wheeled walker. Standby assist for propelling a wheelchair more than 100 feet. She did not perform stairs. OT notes upon admission, the patient required max assist for lower body dressing and toileting. Mod assist for transfers. By discharge the patient was completing basic self-care, mobility, standby assist to set-up.The patient decided upon discharge to a Local SNU at the last moment due to the fact that she didnt want to have a W/C ramp installed at her house. DISCHARGE INSTRUCTIONS: [facility]. She will have follow-up with her PCP and orthopedics, continue current limited weight-bearing status. Continue current diet, resumed VESIcare. DISCHARGE MEDICATIONS: 1. Tylenol 500 mg p.o. q.4 hours p.r.n. mild pain. 2. Senokot-S 1 tablet p.o. b.i.d. 3. Amlodipine 10 mg p.o. daily. 4. ASA 81 mg p.o. q.d. 5. Vitamin D3 5000 units p.o. daily. 6. Lisinopril 20 mg p.o. daily. 7. Letrozole 2.5 mg p.o. daily. 8. Levothyroxine 25 mcg p.o. daily. 9. Lotemax one drop both eyes daily. 10. Metoprolol 25 mg p.o. at bedtime. 11. Niacin 250 mg p.o. daily. 12. Fish oil 1000 mg p.o. t.i.d. 13. Sodium Khai eye wash both eyes b.i.d. 14. VESIcare 10 mg p.o. at bedtime. 15. PreserVision 1 capsule p.o. daily. 16. Vitamin B12 sublingual daily. DISCHARGE DIAGNOSES: 1. Rehabilitation ambulatory dysfunction, secondary to fall with fracture right intertrochanteric femur status post nailing Dr. Gamboa toe touch weight-bearing right lower extremity. 2. Postoperative anemia, improved, status post transfusion. 3. Hypertension, controlled with medication. 4. Bilateral total knee replacement history. 5. Postoperative respiratory insufficiency, improved. 6. Postoperative constipation, associated with nausea improved. 7. Overactive bladder back on VESIcare. CONDITION AT DISCHARGE: Improved and stable. PROGNOSIS: Rehab prognosis appears good for continued improvement and return independent living once her WBS advances to as tolerated at a later time as determined by orthopedics. She may eventually benefit from a more formal assisted living setting due to her history of falls, orthopedic repairs and other comorbidities and her age rather then returning to home once SNU rehab completed Job ID: [id number] Dictated Date: 12/31/2016 09:13:56 Rn Corrections Date: 12/31/2016 11:24:05/humberto CASTRO
== END 2016-12-23 13:20 | DRG 561 ==
LOC: MERGE 10:25
PROVIDERS: ADMIT Physical Medicine & Rehabilitation; ATTEND Physical Medicine & Rehabilitation
DX: S72.141D Displaced intertrochanteric fracture of right femur, subsequent encounter for closed fracture with routine healing (principal); D64.9 Anemia, unspecified; I10 Essential (primary) hypertension; Z96.653 Presence of artificial knee joint, bilateral; R06.89 Other abnormalities of breathing; K59.00 Constipation, unspecified; N32.81 Overactive bladder; W19.XXXD Unspecified fall, subsequent encounter
CPT/HCPCS: 36415; 73502; 80053; 85025; 85027; 86850; 86900; 86901; 86920

== ENCOUNTER → 2017-03-31 | Outpatient (CLI) | payer MEDICARE ==
[~2017-03-31] MED LIST changes: +SENN-20 PO
--- NOTE | 2017-03-31 17:13 | Diagnostic Imaging Report ---
Bilateral screening mammogram. The current study was also evaluated with a Computer Aided Detection (CAD) system. INDICATION: Screening. No current complaints stated on the questionnaire. COMPARISON: 03/27/2016. FINDINGS: The breasts are composed of heterogeneously dense parenchyma which may decrease mammographic sensitivity. There are scattered benign-appearing calcifications. There is skin thickening and post lumpectomy changes noted in the right breast. Allowing for technique and positional differences, no suspicious change is seen. IMPRESSION: No significant change. ACR BI-RADS Category 2: Benign findings. Result letter will be mailed to the patient. Note: At least 10% of breast cancer is not imaged by mammography. Dictated by: Dictated on workstation # [id number]
== END ==
LOC: RAD 10:04
PROVIDERS: ATTEND Internal Medicine Hematology & Oncology
DX: Z12.31 Encounter for screening mammogram for malignant neoplasm of breast (principal); Z85.3 Personal history of malignant neoplasm of breast
CPT/HCPCS: 77067

== ENCOUNTER 2017-05-14 13:58 | Outpatient (RCR) | payer MEDICARE ==
[2017-04-02 10:25] LABS: BASOPHILS % (AUTO) 1 % (0-10); EOSINOPHILS # (AUTO) 0.2 10^3/uL (0.0-0.3); EOSINOPHILS % (AUTO) 4 % (0-10); LYMPHOCYTES # (AUTO) 1.5 X 10^3 (1.0-4.0); LYMPHOCYTES % (AUTO) 26 % (12-44); MEAN CORPUSCULAR HEMOGLOBIN 31 PG (25-34); MEAN CORPUSCULAR HGB CONC 32 G/DL (32-36); MEAN CORPUSCULAR VOLUME 98 FL (80-99); MEAN PLATELET VOLUME 10.1 FL (7.4-10.4); MONOCYTES # (AUTO) 0.6 X 10^3 (0.0-1.0); MONOCYTES % (AUTO) 10 % (0-12); NEUTROPHILS # (AUTO) 3.3 X 10^3 (1.8-7.8); NEUTROPHILS % (AUTO) 59 % (42-75); PLATELET COUNT 203 10^3/uL (130-400); RED BLOOD COUNT 4.32 10^6/uL (4.35-5.85); WHITE BLOOD COUNT 5.6 10^3/uL (4.3-11.0)
[2017-04-02 11:14] LABS: ALANINE AMINOTRANSFERASE 16 U/L (0-55); ALBUMIN 4.1 G/DL (3.2-4.5); ANION GAP 8 MMOL/L (5-14); ASPARTATE AMINO TRANSFERASE 19 U/L (5-34); BILIRUBIN,TOTAL 0.5 MG/DL (0.1-1.0); BLOOD UREA NITROGEN 17 MG/DL (7-18); BUN/CREATININE RATIO 23; CARBON DIOXIDE 29 MMOL/L (21-32); CHLORIDE 105 MMOL/L (98-107); CREATININE SERUM 0.73 MG/DL (0.60-1.30); GFR ESTIMATED > 60; GLUCOSE 91 MG/DL (70-105); POTASSIUM 3.7 MMOL/L (3.6-5.0); SODIUM 142 MMOL/L (135-145); TOTAL PROTEIN 6.8 G/DL (6.4-8.2)
[~2017-05-14 13:58] MED LIST changes: +[UNRECOGNIZED DRUG - CODE] OU; -[UNRECOGNIZED DRUG - CODE] OU
[2017-05-14] MEDS ORDERED: DENOSUMAB 60 MG/1 ML (PROLIA) CANCER CTR SQ SCH (14:30)
== END 2017-07-01 | disposition home or self-care (01) ==
LOC: ONC 13:58
PROVIDERS: ATTEND Internal Medicine Hematology & Oncology
DX: C50.411 Malignant neoplasm of upper-outer quadrant of right female breast (principal); M81.0 Age-related osteoporosis without current pathological fracture; Z17.0 Estrogen receptor positive status [ER+]; Z92.3 Personal history of irradiation; Z79.899 Other long term (current) drug therapy
CPT/HCPCS: 36415; 80053; 82306; 85025; 96372; 99213

== ENCOUNTER → 2017-09-23 | Outpatient (CLI) | payer MEDICARE ==
--- NOTE | 2017-09-23 12:14 | Diagnostic Imaging Report ---
EXAMINATION: AP and frog leg lateral views of the right hip. INDICATION: Right hip pain. FINDINGS: There is no acute fracture, dislocation, or radiopaque foreign body. There is a deformity at the intertrochanteric region related to an old fracture with internal fixation hardware in good position. Mild degenerative changes of the right hip joint are seen. IMPRESSION: No acute fracture. Dictated by: Dictated on workstation # [id number]
== END ==
LOC: RAD 11:25
PROVIDERS: ATTEND Family Medicine
DX: M25.551 Pain in right hip (principal)
CPT/HCPCS: 73502

== ENCOUNTER → 2017-11-06 | Outpatient (CLI) | payer MEDICARE ==
[~2017-11-06] MED LIST changes: -METO-270 PO; +METO-387 PO
--- NOTE | 2017-11-06 13:31 | Diagnostic Imaging Report ---
EXAMINATION: DEXA scan. INDICATION: Osteopenia. TECHNIQUE: Bone mineral density estimated based on dual energy radiography over the lumbar spine and femoral necks, was performed. FINDINGS: The lumbar spine T-score is -2.6. This is 4.7% increased density measurement from August 2015. The right hip is not measured due to internal fixation hardware. T score over the left femoral neck is -1.6. This is 1.5% increased density measurement compared to 2014. IMPRESSION: Osteoporosis. Dictated by: Dictated on workstation # [id number]
== END ==
LOC: RAD 11:20
PROVIDERS: ATTEND Nurse Practitioner Adult Health
DX: M81.0 Age-related osteoporosis without current pathological fracture (principal); M40.209 Unspecified kyphosis, site unspecified; Z87.81 Personal history of (healed) traumatic fracture
CPT/HCPCS: 77080

== ENCOUNTER 2018-01-30 10:11 | Outpatient (RCR) | payer MEDICARE ==
[2017-11-13 14:28] LABS: BASOPHILS % (AUTO) 1 % (0-10); EOSINOPHILS # (AUTO) 0.1 10^3/uL (0.0-0.3); EOSINOPHILS % (AUTO) 2 % (0-10); HEMATOCRIT 41 % (35-52); HEMOGLOBIN 13.2 G/DL (11.5-16.0); LYMPHOCYTES # (AUTO) 1.6 X 10^3 (1.0-4.0); LYMPHOCYTES % (AUTO) 29 % (12-44); MEAN CORPUSCULAR HEMOGLOBIN 33 PG (25-34); MEAN CORPUSCULAR HGB CONC 33 G/DL (32-36); MEAN CORPUSCULAR VOLUME 102 FL (80-99); MEAN PLATELET VOLUME 10.6 FL (7.4-10.4); MONOCYTES # (AUTO) 0.6 X 10^3 (0.0-1.0); MONOCYTES % (AUTO) 11 % (0-12); NEUTROPHILS # (AUTO) 3.2 X 10^3 (1.8-7.8); NEUTROPHILS % (AUTO) 57 % (42-75); PLATELET COUNT 149 10^3/uL (130-400); RED CELL DISTRIBUTION WIDTH 12.7 % (10.0-14.5); WHITE BLOOD COUNT 5.6 10^3/uL (4.3-11.0)
[2017-11-13 14:48] LABS: ALANINE AMINOTRANSFERASE 15 U/L (0-55); ALBUMIN 3.9 GM/DL (3.2-4.5); ALKALINE PHOSPHATASE 93 U/L (40-136); BILIRUBIN,TOTAL 0.5 MG/DL (0.1-1.0); BUN/CREATININE RATIO 25; CALCIUM 9.6 MG/DL (8.5-10.1); CARBON DIOXIDE 31 MMOL/L (21-32); CHLORIDE 102 MMOL/L (98-107); CREATININE SERUM 0.73 MG/DL (0.60-1.30); GFR ESTIMATED > 60; GLUCOSE 128 MG/DL (70-105); SODIUM 141 MMOL/L (135-145); TOTAL PROTEIN 6.7 GM/DL (6.4-8.2)
[~2018-01-30 10:11] MED LIST changes: +ACHD5005 PO; -HYDR-3812 PO; +[UNRECOGNIZED DRUG - CODE] OU; -[UNRECOGNIZED DRUG - CODE] OU
[2018-01-30] MEDS ORDERED: DENOSUMAB 60 MG/1 ML (PROLIA) CANCER CTR SQ SCH (10:45)
== END 2018-02-11 | disposition home or self-care (01) ==
LOC: ONC 10:11
PROVIDERS: ATTEND Internal Medicine Hematology & Oncology
DX: C50.411 Malignant neoplasm of upper-outer quadrant of right female breast (principal); M81.0 Age-related osteoporosis without current pathological fracture; I10 Essential (primary) hypertension; E03.9 Hypothyroidism, unspecified; M19.91 Primary osteoarthritis, unspecified site; K59.09 Other constipation; Z17.0 Estrogen receptor positive status [ER+]; Z79.811 Long term (current) use of aromatase inhibitors; Z79.899 Other long term (current) drug therapy; Z79.82 Long term (current) use of aspirin; Z92.3 Personal history of irradiation
CPT/HCPCS: 36415; 80053; 82306; 85025; 96372; 99213

== ENCOUNTER → 2018-02-25 | Outpatient (CLI) | payer MEDICARE ==
--- NOTE | 2018-02-25 13:01 | Diagnostic Imaging Report ---
PROCEDURE: CT head without contrast. TECHNIQUE: Multiple contiguous axial images were obtained through the brain without the use of intravenous contrast. INDICATION: Frequent falls and weakness. No prior studies are available for comparison. FINDINGS: The ventricles and sulci are consistent with the patient's age. No sulcal effacement is identified. There is no midline shift. No acute intra-axial or extra-axial hemorrhage is seen. There is moderate periventricular hypodensity noted consistent with senescent change. The cisterns are patent. The visualized paranasal sinuses are clear. IMPRESSION: Senescent changes. No acute intracranial process is detected. Dictated by: Dictated on workstation # [id number]
== END ==
LOC: RAD 11:45
PROVIDERS: ATTEND Family Medicine
DX: R29.6 Repeated falls (principal); M62.81 Muscle weakness (generalized)
CPT/HCPCS: 70450

== ENCOUNTER → 2018-04-02 | Outpatient (CLI) | payer MEDICARE ==
--- NOTE | 2018-04-03 13:48 | Diagnostic Imaging Report ---
INDICATION: Routine screening. Comparison is made with prior study from 03/31/2017 and 03/27/2016. 2-D and 3-D bilateral screening mammography was performed with CAD. The current study was also evaluated with a Computer Aided Detection (CAD) system. FINDINGS: There are some scattered fibroglandular densities bilaterally. Post lumpectomy changes in the upper outer right breast. No dominant mass or malignant-appearing microcalcifications are seen. The axillae are unremarkable. IMPRESSION: No mammographic features suspicious for malignancy are identified. ACR BI-RADS Category 2: Benign findings. Result letter will be mailed to the patient. Note: At least 10% of breast cancer is not imaged by mammography. Dictated by: Dictated on workstation # [id number]
== END ==
LOC: RAD 10:08
PROVIDERS: ATTEND Nurse Practitioner Adult Health
DX: Z12.31 Encounter for screening mammogram for malignant neoplasm of breast (principal); C50.411 Malignant neoplasm of upper-outer quadrant of right female breast
CPT/HCPCS: 77067

== ENCOUNTER 2018-07-23 10:06 | Outpatient (RCR) | payer MEDICARE ==
[~2018-07-23 10:06] MED LIST changes: -AMLO10TA2 PO; +AMLO10TA6 PO; -FOSI20TA3 PO; +FOSI20TA4 PO
[2018-07-23 10:20] LABS: BASOPHILS % (AUTO) 1 % (0-10); EOSINOPHILS # (AUTO) 0.1 10^3/uL (0.0-0.3); EOSINOPHILS % (AUTO) 2 % (0-10); HEMATOCRIT 40 % (35-52); HEMOGLOBIN 13.4 G/DL (11.5-16.0); LYMPHOCYTES # (AUTO) 1.5 X 10^3 (1.0-4.0); LYMPHOCYTES % (AUTO) 32 % (12-44); MEAN CORPUSCULAR HEMOGLOBIN 33 PG (25-34); MEAN CORPUSCULAR HGB CONC 33 G/DL (32-36); MEAN CORPUSCULAR VOLUME 98 FL (80-99); MEAN PLATELET VOLUME 10.2 FL (7.4-10.4); MONOCYTES # (AUTO) 0.6 X 10^3 (0.0-1.0); MONOCYTES % (AUTO) 11 % (0-12); NEUTROPHILS # (AUTO) 2.6 X 10^3 (1.8-7.8); NEUTROPHILS % (AUTO) 54 % (42-75); PLATELET COUNT 142 10^3/uL (130-400); RED CELL DISTRIBUTION WIDTH 13.4 % (10.0-14.5); WHITE BLOOD COUNT 4.8 10^3/uL (4.3-11.0)
[2018-07-23 10:39] LABS: ALANINE AMINOTRANSFERASE 15 U/L (0-55); ALBUMIN 4.2 GM/DL (3.2-4.5); ALKALINE PHOSPHATASE 82 U/L (40-136); BILIRUBIN,TOTAL 0.6 MG/DL (0.1-1.0); BUN/CREATININE RATIO 20; CARBON DIOXIDE 29 MMOL/L (21-32); CHLORIDE 107 MMOL/L (98-107); CREATININE SERUM 0.69 MG/DL (0.60-1.30); GFR ESTIMATED > 60; GLUCOSE 102 MG/DL (70-105); POTASSIUM 4.1 MMOL/L (3.6-5.0); SODIUM 144 MMOL/L (135-145); TOTAL PROTEIN 6.7 GM/DL (6.4-8.2)
[2018-07-23] MEDS ORDERED: DENOSUMAB 60 MG/1 ML (PROLIA) CANCER CTR SQ SCH (10:45)
== END 2018-07-31 | disposition home or self-care (01) ==
LOC: ONC 10:06
PROVIDERS: ATTEND Internal Medicine Hematology & Oncology
DX: C50.411 Malignant neoplasm of upper-outer quadrant of right female breast (principal); M81.0 Age-related osteoporosis without current pathological fracture; I10 Essential (primary) hypertension; E03.9 Hypothyroidism, unspecified; M19.91 Primary osteoarthritis, unspecified site; K59.09 Other constipation; Z17.0 Estrogen receptor positive status [ER+]; Z79.811 Long term (current) use of aromatase inhibitors; Z79.899 Other long term (current) drug therapy; Z79.82 Long term (current) use of aspirin; Z92.3 Personal history of irradiation; Z87.81 Personal history of (healed) traumatic fracture
CPT/HCPCS: 36415; 80053; 85025; 96372

== ENCOUNTER 2018-08-15 17:39 | Emergency (ER) | payer MEDICARE ==
[~2018-08-15] VITALS: Ht 152.4 cm; Wt 63.8 kg
--- OUTSIDE RECORDS SUMMARY | 2018-08-15 17:45 | XMS REPORT | Continuity of Care Document ---
Author Author [facility] Organization [facility] Address Unknown Phone Unavailable Care Team Providers Care Pneumatic Hoist Operator Name Role Phone CASH CROW MD PCP Insurance Providers Payer Name Policy Number Subscriber Name Relationship [employer] [id number] Trinity Slade 18 Self / Same As Patient Blue [employer] [facility] Supp [id number] Trinity Slade 18 Self / Same As Patient Advance Directives Directive Response Recorded Date/Time Advance Directives Yes 12/04/16 2:29pm Health Care Power of Glove [employer] Sewer No 12/04/16 2:29pm Organ Donor No 12/04/16 2:29pm Resuscitation Status Full Code 12/04/16 2:29pm Chief Complaint and Reason for Visit Chief Complaint R HIP FRACTURE Reason for Visit Fracture, intertrochanteric, right femur Problems Active Problems Medical Problem Onset Date Status Fracture, intertrochanteric, right femur Unknown Acute Medications Current Home Medications Medication Dose Units Route Directions Days/Qty Instructions Start Date Fosinopril Sodium 20 Mg 20 Mg Oral Daily 12/03/16 Metoprolol Succinate 25 Mg 25 Mg Oral Bedtime 12/03/16 Levothyroxine Sodium 25 Mcg 25 Mg Oral Daily 12/03/16 Letrozole 2.5 Mg 2.5 Mg Oral Daily 12/03/16 Loteprednol Etabonate 5 Gm 1 Drop Each Eye Daily 12/03/16 Amlodipine Besylate 10 Mg 10 Mg Oral Daily 12/03/16 [place]-3/Dha/Epa/Fish Oil 1 Each 1,000 Mg Oral Three Times A Day 02/14 Vit A/C/E/Zinc/Co 1 Cap 1 Cap Oral Daily 12/03/16 Cholecalciferol (Vitamin D3) 5,000 Unit 5,000 Unit Oral Daily Aspirin 81 Mg 81 Mg Oral Daily 12/03/16 Niacin 250 Mg 250 Mg Oral Daily 12/03/16 [Vitamin B-12 Sl] Sublingual Daily 12/03/16 Solifenacin Succinate 10 Mg 10 Mg Oral Bedtime 12/03/16 Sod Borate/Boric Ac/Water/Nacl 118 Ml Each Eye Twice A Day 12/03 Acetaminophen 500 Mg 500 Mg Oral Every 4HRS as needed for Mild Pain 100 12/22/16 Sennosides/Docusate Sodium 1 Each 1 Ea Oral Twice A Day 60 12/22/16 Social History Social History Problem Response Recorded Date/Time Alcohol Use Denies Use 12/04/2016 2:34pm Recreational Drug Use No 12/04/2016 2:34pm Recent Foreign Travel No 12/04/2016 2:45pm Recent Infectious Disease Exposure No 12/04/2016 2:45pm Hospitalization with Isolation Denies 12/23/2016 4:27pm Sexually Transmitted Disease No 12/04/2016 2:34pm HIV/AIDS No 12/04/2016 2:34pm Smoking Status Never a Smoker 12/04/2016 4:27pm Recent Hopitalizations Y right ORIF 12/04/2016 2:34pm Sexually Transmitted Disease No 12/04/2016 2:34pm Hospitalization with Isolation Denies 12/23/2016 4:27pm Query Response Start Date Stop Date Smoking Status Never a Smoker Hospital Discharge Instructions No hospital discharge instructions. Plan of Care Discharge Date 12/23/16 1:20pm Disposition 03 XFER SNF Instructions/Education Provided Preventing Falls in the Older Adult Forms Provided Rehab Team Conference Summary Prescriptions See Medication Section Referrals (Physical Medicine and Rehab) - (Physical Medicine and Rehab) - Additional Instructions/Education Patient to admit to [facility], under the care of Dr. Crow. Skilled PT,OT for strengthening and gait improvement related to right hip fracture. Follow up with Dr. Tucker, 12/25/2016 at 2:30 in [place], [place]. Care Plan and Goals Functional Status Query Response Date Recorded Patient Orientation Person Place Time Situation December 21, 2016 10:10am Patient Orientation Person Place Time Situation Eyes Open Normal For Age December 23, 2016 4:27pm Comprehension Ability Understands Concepts December 23, 2016 9:00am Allergies, Adverse Reactions, Alerts No known allergies. Immunizations No immunization records. Vital Signs Acute Vital Signs Vital Response Date/Time Temperature (Fahrenheit) 97.7 degrees F (97.6 - 99.5) 12/23/2016 6:00am Temperature (Calculated Celsius) 36.13775 degrees C (36.4 - 37.5) 12/23/2016 6:00am Temperature Source Tympanic 12/23/2016 6:00am Pulse Rate (adult) 74 bpm (60 - 90) 12/23/2016 6:00am Respiratory Rate 16 bpm (12 - 24) 12/23/2016 6:00am O2 Sat by Pulse Oximetry 93 % (88 - 100) 12/23/2016 6:00am Blood Pressure 159/70 mm Hg 12/23/2016 6:00am Blood Pressure Mean 99 mm Hg 12/23/2016 6:00am Pain Numeric Pain Scale 0-No Pain 12/23/2016 3:00pm Height (Feet) 5 feet 12/04/2016 2:44pm Height (Inches) 0.00 inches 12/04/2016 2:44pm Height (Calculated Centimeters) 152.329433 cm 12/04/2016 2:44pm Weight (Pounds) 148 pounds 12/18/2016 4:35am Weight (Ounces) 2.0 oz 12/04/2016 4:11pm Weight (Calculated Grams) 57411.671 gm 12/18/2016 4:35am Weight (Calculated Kilograms) 67.877747 kilograms 12/18/2016 4:35am Calculated BMI 29.9 12/04/2016 2:44pm Capillary Refill Capillary Refill Less Than 3 Seconds 12/04/2016 9:00am Results Laboratory Results Test Name Result Units Flags Reference Collection Date/Time Result Date/ Time Comments White Blood Count 9.5 10^3/uL 4.3-11.0 12/03/2016 4:45am 12/03/2016 5: 36am Red Blood Count 3.24 10^6/uL L 4.35-5.85 12/03/2016 4:45am 12/03/2016 5: 36am Hemoglobin 8.3 G/DL #L 11.5-16.0 12/04/2016 4:45am 12/04/2016 5:36am Hematocrit 26 % L 35-52 12/04/2016 4:45am 12/04/2016 5:36am Mean Corpuscular Volume 99 FL 80-99 12/03/2016 4:45am 12/03/2016 5: 36am Mean Corpuscular Hemoglobin 32 PG 25-34 12/03/2016 4:45am 12/03/2016 5: 36am Mean Corpuscular Hemoglobin Concent 32 G/DL 32-36 12/03/2016 4:45am 01/2017 5:36am Red Cell Distribution Width 12.9 % 10.0-14.5 12/03/2016 4:45am 2016 5:36am Platelet Count 131 10^3/uL 130-400 12/03/2016 4:45am 12/03/2016 5:36am Mean Platelet Volume 10.6 FL H 7.4-10.4 12/03/2016 4:45am 12/03/2016 5: 36am Neutrophils (%) (Auto) 81 % H 42-75 12/03/2016 4:45am 12/03/2016 5:36am Lymphocytes (%) (Auto) 10 % L 12-44 12/03/2016 4:45am 12/03/2016 5:36am Monocytes (%) (Auto) 9 % 0-12 12/03/2016 4:45am 12/03/2016 5:36am Eosinophils (%) (Auto) 0 % 0-10 12/03/2016 4:45am 12/03/2016 5:36am Basophils (%) (Auto) 0 % 0-10 12/03/2016 4:45am 12/03/2016 5:36am Neutrophils # (Auto) 7.8 X 10^3 1.8-7.8 12/03/2016 4:45am 12/03/2016 5: 36am Lymphocytes # (Auto) 0.9 X 10^3 L 1.0-4.0 12/03/2016 4:45am 12/03/2016 5: 36am Monocytes # (Auto) 0.8 X 10^3 0.0-1.0 12/03/2016 4:45am 12/03/2016 5: 36am Eosinophils # (Auto) 0.0 10^3/uL 0.0-0.3 12/03/2016 4:45am 12/03/2016 5 :36am Basophils # (Auto) 0.0 10^3/uL 0.0-0.1 12/03/2016 4:45am 12/03/2016 5: 36am Prothrombin Time 12.9 SEC 12.2-14.7 12/02/2016 11:15am 12/02/2016 12: 28pm INR Comment 1.0 0.8-1.4 12/02/2016 11:15am 12/02/2016 12:28pm INTERPRETIVE DATA SUGGESTED THERAPEUTIC RANGE FOR INR'S: VENOUS THROMBOSIS, PULMONARY EMBOLISM, OR PREVENTION OF SYSTEMIC EMBOLISM (EG. IN ATRIAL FIBRILLATION): 2.0 - 3.0 MECHANICAL PROSTHETIC HEART VALVES: 2.5 - 3.5* *NOTE: INR'S UP TO 4.5 MAY BE NECESSARY IN SELECTED GROUPS OF HIGH RISK PATIENTS. [employer] CONSENSUS CONFERENCE ON ANTITHROMBOTIC THERAPY (2000). Activated Partial Thromboplast Time 30 SEC 24-35 12/02/2016 11:15am 01/2017 12:28pm Urine Color YELLOW 12/02/2016 11:35am 12/02/2016 1:56pm Urine Clarity SLIGHTLY CLOUDY 12/02/2016 11:35am 12/02/2016 1:56pm Urine pH 8 5-9 12/02/2016 11:35am 12/02/2016 1:56pm Urine Specific [place] 1.015 * 1.016-1.022 12/02/2016 11:35am 2016 1:56pm Urine Protein NEGATIVE NEGATIVE 12/02/2016 11:35am 12/02/2016 1:56pm Urine Glucose (UA) NEGATIVE NEGATIVE 12/02/2016 11:35am 12/02/2016 1: 56pm Urine RBC (Auto) NEGATIVE NEGATIVE 12/02/2016 11:35am 12/02/2016 1: 56pm Urine Ketones NEGATIVE NEGATIVE 12/02/2016 11:35am 12/02/2016 1:56pm Urine Nitrite NEGATIVE NEGATIVE 12/02/2016 11:35am 12/02/2016 1:56pm Urine Bilirubin NEGATIVE NEGATIVE 12/02/2016 11:35am 12/02/2016 1: 56pm Urine Urobilinogen NORMAL MG/DL NORMAL 12/02/2016 11:35am 12/02/2016 1: 56pm Urine Leukocyte Esterase NEGATIVE NEGATIVE 12/02/2016 11:35am 2016 1:56pm Urine RBC NONE /HPF 12/02/2016 11:35am 12/02/2016 1:56pm Urine WBC NONE /HPF 12/02/2016 11:35am 12/02/2016 1:56pm Urine Bacteria NEGATIVE /HPF 12/02/2016 11:35am 12/02/2016 1:56pm Urine Squamous Epithelial Cells NONE /HPF 12/02/2016 11:35am 2016 1:56pm Urine Crystals NONE /LPF 12/02/2016 11:35am 12/02/2016 1:56pm Urine Amorphous Sediment LARGE PATSY PHOSPHATE /LPF * 12/02/2016 11:35am 12/02/2016 1:56pm Urine Casts NONE /LPF 12/02/2016 11:35am 12/02/2016 1:56pm Urine Mucus NEGATIVE /LPF 12/02/2016 11:35am 12/02/2016 1:56pm Urine Culture Indicated NO 12/02/2016 11:35am 12/02/2016 1:56pm Sodium Level 139 MMOL/L 135-145 12/03/2016 4:45am 12/03/2016 5:58am Potassium Level 4.7 MMOL/L 3.6-5.0 12/03/2016 4:45am 12/03/2016 5:58am Chloride Level 107 MMOL/L 98-107 12/03/2016 4:45am 12/03/2016 5:58am Carbon Dioxide Level 21 MMOL/L 21-32 12/03/2016 4:45am 12/03/2016 5: 58am Anion Gap 11 MMOL/L 5-14 12/03/2016 4:45am 12/03/2016 5:58am Blood Urea Nitrogen 25 MG/DL H 7-18 12/03/2016 4:45am 12/03/2016 5:58am Creatinine 0.87 MG/DL 0.60-1.30 12/03/2016 4:45am 12/03/2016 5:58am BUN/Creatinine Ratio 29 12/03/2016 4:45am 12/03/2016 5:58am Estimat Glomerular Filtration Rate > 60 12/03/2016 4:45am 2016 5:58am GFR INTERPRETIVE DATA UNITS FOR ESTIMATED GFR (eGFR): mL/min/1.73 M2 REFERENCE RANGE FOR ESTIMATED GFR (eGFR) eGFR NORMAL eGFR >60 MODERATELY DECREASED eGFR 30-59 SEVERLY DECREASED eGFR 15-29 KIDNEY FAILURE <15 (OR DIALYSIS) Glucose Level 167 MG/DL H 70-105 12/03/2016 4:45am 12/03/2016 5:58am Calcium Level 7.9 MG/DL L 8.5-10.1 12/03/2016 4:45am 12/03/2016 5:58am Total Bilirubin 0.5 MG/DL 0.1-1.0 12/03/2016 4:45am 12/03/2016 5:58am Alkaline Phosphatase 50 U/L 40-136 12/03/2016 4:45am 12/03/2016 5:58am Aspartate Amino Transf (AST/SGOT) 19 U/L 5-34 12/03/2016 4:45am 2016 5:58am Alanine Aminotransferase (ALT/SGPT) 16 U/L 0-55 12/03/2016 4:45am 12/03 5:58am Total Protein 4.9 G/DL L 6.4-8.2 12/03/2016 4:45am 12/03/2016 5:58am Albumin 3.2 G/DL 3.2-4.5 12/03/2016 4:45am 12/03/2016 5:58am Pending Laboratory Results Test Name Collection Date/Time Procedures Procedure Status Date Provider(s) Open reduction and internal fixation of right hip using intramedullary hip screw Completed 12/02/16 FIDE TUCKER MD Tracing only of electrocardiogram Completed 12/02/16 FIDE TUCKER MD Encounters Encounter Location Arrival/Admit Date Discharge/Depart Date Attending Provider Discharged Inpatient [facility] 12/04/16 10:25am 1:20pm MARCELL TYLER MD Discharged Inpatient [facility] 12/02/16 12:10pm 10:25am CASH CROW MD Recent Diagnosis Fracture, intertrochanteric, right femur
--- OUTSIDE RECORDS SUMMARY | 2018-08-15 17:48 | XMS REPORT | Continuity of Care Document ---
Author Author [facility] Organization [facility] Address Unknown Phone Unavailable Allergies Active Description Code Type Severity Reaction Onset Reported/Identified Relationship to Patient Clinical Status Yes No Known Drug Allergies [id number] Drug Allergy Unknown N/A 10/15/2011 Yes simvastatin [id number] Drug Allergy Unknown N/A 09/21/2015 Yes No Known Drug Allergies [id number] Drug Allergy Unknown N/A 12/02/2016 Medications There is no data. 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 11/02/2012 Ot 733.00 OSTEOPOROSIS NOS 11/02/2012 Ot V58.0 ENCOUNTER FOR RADIOTHERAPY 11/02/2012 Ot V58.69 OTH MED,LT, CURRENT USE 06/06/2013 Ot 174.9 MALIGN NEOPL BREAST NOS 06/06/2013 Ot 733.00 OSTEOPOROSIS NOS 06/06/2013 Ot V15.3 HX OF IRRADIATION 06/06/2013 Ot V58.69 OTH MED,LT, CURRENT USE 06/06/2013 Ot V86.0 ESTROGEN RECEPTOR POSITIVE STATUS [ER+] 09/05/2013 NICCI ALATORRE Ot 174.9 MALIGN NEOPL BREAST NOS 09/05/2013 NICCI ALATORRE Ot 733.00 OSTEOPOROSIS NOS 09/05/2013 NICCI ALATORRE Ot V15.3 HX OF IRRADIATION 09/05/2013 NICCI ALATORRE Ot V58.69 OTH MED,LT,CURRENT USE 09/05/2013 NICCI ALATORRE Ot V86.0 ESTROGEN RECEPTOR POSITIVE STATUS [ER+] 12/07/2013 NICCI ALATORRE N Ot 174.9 MALIGN NEOPL BREAST NOS 12/07/2013 NICCI ALATORRE N Ot 733.00 OSTEOPOROSIS NOS 12/07/2013 NICCI ALATORRE N Ot V15.3 HX OF IRRADIATION 12/07/2013 NICCI ALATORRE Ot V58.69 OTH MED,LT,CURRENT USE 12/07/2013 NICCI ALATORRE N Ot V86.0 ESTROGEN RECEPTOR POSITIVE STATUS [ER+] 03/08/2014 NICCI ALATORRE N Ot 174.9 MALIGN NEOPL BREAST NOS 03/08/2014 NICCI ALATORRE N Ot 733.00 OSTEOPOROSIS NOS 03/08/2014 NICCI ALATORRE N Ot V15.3 HX OF IRRADIATION 03/08/2014 NICCI ALATORRE Ot V58.69 OTH MED,LT,CURRENT USE 03/08/2014 NICCI ALATORRE N Ot V86.0 ESTROGEN RECEPTOR POSITIVE STATUS [ER+] 06/08/2014 NICCI ALATORRE N Ot 174.9 MALIGN NEOPL BREAST NOS 06/08/2014 NICCI ALATORRE N Ot 733.00 OSTEOPOROSIS NOS 06/08/2014 NICCI ALATORRE N Ot V15.3 HX OF IRRADIATION 06/08/2014 NICCI ALATORRE Ot V58.69 OTH MED,LT,CURRENT USE 06/08/2014 NICCI ALATORRE N Ot V86.0 ESTROGEN RECEPTOR POSITIVE STATUS [ER+] 10/14/2014 Ot 174.9 10/14/2014 Ot 401.9 10/14/2014 Ot 780.79 10/14/2014 Ot V72.63 10/14/2014 Ot V72.81 10/14/2014 Ot V74.8 10/17/2014 NAYELI LOZOYA, MARCELL E Ot 401.9 10/17/2014 NAYELI LOZOYA, MARCELL E Ot V43.65 10/17/2014 NAYELI LOZOYA, MARCELL E Ot V54.81 10/17/2014 NAYELI LOZOYA, MARCELL E Ot V57.89 10/21/2014 NAYELI LOZOYA, MARCELL E Ot 244.9 10/21/2014 NAYELI LOZOYA, MARCELL E Ot 401.9 10/21/2014 NAYELI LOZOYA, MARCELL E Ot 427.31 10/21/2014 MARCELL TYLER MD E Ot 564.00 10/21/2014 MARCELL TYLER MD E Ot 733.00 10/21/2014 MARCELL TYLER MD E Ot V43.65 10/21/2014 MARCELL TYLER MD E Ot V54.81 10/21/2014 MARCELL TYLER MD E Ot V57.89 10/24/2014 MARCELL TYLER MD E Ot 244.9 HYPOTHYROIDISM NOS 10/24/2014 CJ TYLER MDIC E Ot 285.9 ANEMIA NOS 10/24/2014 CJ TYLER MDIC E Ot 401.9 HYPERTENSION NOS 10/24/2014 MARCELL TYLER MD E Ot 427.31 ATRIAL FIBRILLATION 10/24/2014 MARCELL TYLER MD E Ot 564.00 UNSPEC CONSTIPATION 10/24/2014 MARCELL TYLER MD E Ot 715.36 LOC OSTEOARTH NOS-L/LEG 10/24/2014 MARCELL TYLER MD E Ot 733.00 OSTEOPOROSIS NOS 10/24/2014 MARCELL TYLER MD E Ot 787.02 NAUSEA ALONE 10/24/2014 MARCELL TYLER MD E Ot V43.65 KNEE JOINT REPLACEMENT STATUS 10/24/2014 MARCELL TYLER MD E Ot V54.81 AFTERCARE FOLLOWING JOINT REPLACEMENT 10/24/2014 MARCELL TYLER MD Ot V57.89 REHABILITATION PROC NEC 11/07/2014 NICCI ALATORRE Ot 174.9 11/07/2014 NICCI ALATORRE N Ot 733.00 11/07/2014 NICCI ALATORRE N Ot V15.3 11/07/2014 NICCI ALATORRE N Ot V58.69 11/07/2014 NICCI ALATORRE N Ot V86.0 11/29/2014 NICCI ALATORRE N Ot 174.9 MALIGN NEOPL BREAST NOS 11/29/2014 NICCI ALATORRE N Ot 733.00 OSTEOPOROSIS NOS 11/29/2014 NICCI ALATORRE N Ot V15.3 HX OF IRRADIATION 11/29/2014 NICCI ALATORRE Ot V58.69 OTH MED,LT,CURRENT USE 11/29/2014 NICCI ALATORRE N Ot V86.0 ESTROGEN RECEPTOR POSITIVE STATUS [ER+] 03/09/2015 NICCI ALATORRE Ot 174.9 03/09/2015 CELI, BOBAN N Ot 733.00 03/09/2015 CELI, BOBAN N Ot V15.3 03/09/2015 CELI, BOBAN N Ot V58.69 03/09/2015 CELI, BOBAN N Ot V86.0 03/09/2015 CELI, BOBAN N Ot 174.9 03/09/2015 CELI, BOBAN N Ot 733.00 03/09/2015 CELI, BOBAN N Ot V15.3 03/09/2015 CELI, BOBAN N Ot V58.69 03/09/2015 CELI, BOBAN N Ot V86.0 03/09/2015 CELI, BOBAN N Ot 174.9 03/09/2015 CELI, BOBAN N Ot 733.00 03/09/2015 CELI, BOBAN N Ot V15.3 03/09/2015 CELI, BOBAN N Ot V58.69 03/09/2015 CELI, BOBAN N Ot V86.0 03/10/2015 CELI, BOBAN N Ot 174.9 03/10/2015 CELI, BOBAN N Ot 733.00 03/10/2015 CELI, BOBAN N Ot V15.3 03/10/2015 CELI, BOBAN N Ot V58.69 03/10/2015 CELI, BOBAN N Ot V86.0 03/15/2015 CELI, BOBAN N Ot 174.9 03/15/2015 CELI, BOBAN N Ot 733.00 03/15/2015 CELI, BOBAN N Ot V15.3 03/15/2015 CELI, BOBAN N Ot V58.69 03/15/2015 CELI, BOBAN N Ot V86.0 03/15/2015 CELI, BOBAN N Ot 174.9 03/15/2015 CELI, BOBAN N Ot 733.00 03/15/2015 CELI, BOBAN N Ot V15.3 03/15/2015 CELI, BOBAN N Ot V58.69 03/15/2015 CELI, BOBAN N Ot V86.0 04/29/2015 EDELMIRA DICKERSON BUSINESS BANKING SALES ASSISTANT Ot V10.3 04/29/2015 EDELMIRA DICKERSON BUSINESS BANKING SALES ASSISTANT Ot V67.09 04/30/2015 EDELMIRA DICKERSON BUSINESS B[employer]ING SALES ASSISTANT Ot V10.3 04/30/2015 EDELMIRA DICKERSON BUSINESS B[employer]ING SALES ASSISTANT Ot V67.09 05/19/2015 GISSELL LINDQUIST BUSINESS B[employer]ING SALES ASSISTANT Ot 174.9 06/07/2015 CELI, BOBAN N Ot 174.9 MALIGN NEOPL BREAST NOS 06/07/2015 CELI, BOBAN N Ot 733.00 OSTEOPOROSIS NOS 06/07/2015 CELI, BOBAN N Ot V15.3 HX OF IRRADIATION 06/07/2015 CELI, BOBAN N Ot V58.69 OTH MED,LT,CURRENT USE 06/07/2015 CELI, BOBAN N Ot V86.0 ESTROGEN RECEPTOR POSITIVE STATUS [ER+] 08/31/2015 CELI, BOBAN N Ot 174.9 08/31/2015 CELI, BOBAN N Ot 733.00 08/31/2015 CELI, BOBAN N Ot V15.3 08/31/2015 CELI, BOBAN N Ot V58.69 08/31/2015 CELI, BOBAN N Ot V86.0 08/31/2015 CELI, BOBAN N Ot 174.9 08/31/2015 CELI, BOBAN N Ot 733.00 08/31/2015 CELI, BOBAN N Ot V15.3 08/31/2015 CELI, BOBAN N Ot V58.69 08/31/2015 CELI, BOBAN N Ot V86.0 09/13/2015 Ot 174.9 09/13/2015 Ot 401.9 09/13/2015 Ot 780.79 09/13/2015 Ot V72.63 09/13/2015 Ot V72.81 09/13/2015 Ot V74.8 09/13/2015 GISSELL LINDQUIST BUSINESS BANKING SALES ASSISTANT Ot 174.9 09/13/2015 EDELMIRA DICKERSON BUSINESS B[employer]ING SALES ASSISTANT Ot V10.3 09/13/2015 EDELMIRA DICKERSON BUSINESS B[employer]ING SALES ASSISTANT Ot V67.09 09/13/2015 GISSELL LINDQUIST BUSINESS B[employer]ING SALES ASSISTANT Ot M81.0 09/13/2015 GISSELL LINDQUIST BUSINESS BANKING SALES ASSISTANT Ot Z51.81 09/13/2015 CELI, BOBAN N Ot 174.9 09/13/2015 CELI, BOBAN N Ot 733.00 09/13/2015 CELI, BOBAN N Ot V15.3 09/13/2015 CELI, BOBAN N Ot V58.69 09/13/2015 CELI, BOBAN N Ot V86.0 09/25/2015 GISSELL LINDQUIST BUSINESS BANKING SALES ASSISTANT Ot M81.0 09/25/2015 GISSELL LINDQUIST BUSINESS B[employer]ING SALES ASSISTANT Ot Z51.81 09/28/2015 NAYELI LOZOYA, MARCELL Johnson Ot E78.0 PURE HYPERCHOLESTEROLEMIA 09/28/2015 NAYELI LOZOYA, MARCELL E Ot I10 ESSENTIAL (PRIMARY) HYPERTENSION 09/28/2015 NAYELI LOZOYA, MARCELL E Ot I48.91 UNSPECIFIED ATRIAL FIBRILLATION 09/28/2015 NAYELI LOZOYA, MARCELL E Ot Z47.1 AFTERCARE FOLLOWING JOINT REPLACEMENT MARIO 09/28/2015 MARCELL TYLER MD E Ot Z96.651 PRESENCE OF RIGHT ARTIFICIAL KNEE JOINT 10/04/2015 FREIDA LOZOYA, CASH Raya Ot I10 10/04/2015 FREIDA LOZOYA, CASH Raya Ot I25.10 10/04/2015 FREIDA LOZOYA, CASH Raya Ot Z01.810 10/09/2015 CELI, BOBAN N Ot 174.9 10/09/2015 CELI, BOBAN N Ot 733.00 10/09/2015 CELI, BOBAN N Ot V15.3 10/09/2015 CELI, BOBAN N Ot V58.69 10/09/2015 CELI, BOBAN N Ot V86.0 10/12/2015 FREIDA LOZOYA, CASH Raya Ot I10 10/12/2015 FREIDA LOZOYA, CASH A Ot I25.10 10/12/2015 FREIDA LOZOYA, CASH A Ot Z01.810 11/01/2015 CELI, BOBAN N Ot C50.919 11/01/2015 CELI, BOBAN N Ot M81.0 11/01/2015 CELI, BOBAN N Ot Z17.0 11/01/2015 CELI, BOBAN N Ot Z79.899 11/01/2015 CELI, BOBAN N Ot Z92.3 11/08/2015 CELI, BOBAN N Ot C50.919 11/08/2015 CELI, BOBAN N Ot M81.0 11/08/2015 CELI, BOBAN N Ot Z17.0 11/08/2015 CELI, BOBAN N Ot Z79.899 11/08/2015 CELI, BOBAN N Ot Z92.3 12/06/2015 NICCI ALATORRE N Ot C50.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 12/06/2015 NICCI ALATORRE N Ot C50.919 12/06/2015 NICCI ALATORRE N Ot M81.0 AGE-RELATED OSTEOPOROSIS 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 12/06/2015 NICCI ALATORRE N Ot Z17.0 ESTROGEN RECEPTOR POSITIVE STATUS [ER+] 12/06/2015 NICCI ALATORRE N Ot Z79.899 OTHER TRAFFIC CONTROLLER CABLE (CURRENT) DRUG THERAPY 12/06/2015 NICCI ALATORRE N Ot Z92.3 PERSONAL HISTORY OF IRRADIATION 03/08/2016 GISSELL LINDQUIST BUSINESS [employer]ING SALES ASSISTANT Ot C50.411 03/08/2016 GISSELL LINDQUIST BUSINESS BANKING SALES ASSISTANT Ot M81.0 03/08/2016 GISSELL LINDQUIST BUSINESS BANKING SALES ASSISTANT Ot Z17.0 03/08/2016 GISSELL LINDQUIST BUSINESS BANKING SALES ASSISTANT Ot Z79.899 03/08/2016 GISSELL LINDQUIST S BUSINESS BANKING SALES ASSISTANT Ot Z92.3 03/08/2016 NICCI ALATORRE N Ot C50.919 03/08/2016 NICCI ALATORRE N Ot M81.0 03/08/2016 NICCI ALATORRE N Ot Z17.0 03/08/2016 NICCI ALATORRE N Ot Z79.899 03/08/2016 NICCI ALATORRE N Ot Z92.3 03/27/2016 GISSELL LINDQUIST BUSINESS BANKING SALES ASSISTANT Ot C50.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 03/27/2016 GISSELL LINDQUISTP Ot M81.0 AGE-RELATED OSTEOPOROSIS 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 03/27/2016 GISSELL LINDQUIST BUSINESS BANKING SALES ASSISTANT Ot Z17.0 ESTROGEN RECEPTOR POSITIVE STATUS [ER+] 03/27/2016 GISSELL LINDQUIST BUSINESS BANKING SALES ASSISTANT Ot Z79.899 OTHER [facility] (CURRENT) DRUG THERAPY 03/27/2016 GISSELL LINDQUIST BUSINESS BANKING SALES ASSISTANT Ot Z92.3 PERSONAL HISTORY OF IRRADIATION 03/27/2016 Ot 401.9 HYPERTENSION NOS 03/27/2016 Ot 780.79 OTH MALAISE FATIGUE 03/27/2016 Ot 611.72 LUMP OR MASS IN BREAST 03/27/2016 Ot V76.12 OTH SCREEN MAMMO-MALIGN NEOPLASM OF [place] 03/27/2016 Ot 793.80 UNSPEC ABNORMAL MAMMOGRAM 03/27/2016 Ot 793.89 OTH (ABN) FINDINGS ON RADIOLOGICAL EXAMI 03/27/2016 Ot 174.9 MALIGN NEOPL BREAST NOS 03/27/2016 Ot 174.9 MALIGN NEOPL BREAST NOS 03/27/2016 Ot 401.9 HYPERTENSION NOS 03/27/2016 Ot 780.79 OTH MALAISE FATIGUE 03/27/2016 Ot V72.63 PRE- PROCEDURAL LABORATORY EXAMINATION 03/27/2016 Ot V72.81 EXAM-PRE- OPERATIVE CARDIOVASCULAR 03/27/2016 Ot V74.8 SCREEN- BACTERIAL DIS NEC 03/27/2016 Ot 174.9 MALIGN NEOPL BREAST NOS 03/27/2016 Ot 733.00 OSTEOPOROSIS NOS 03/27/2016 Ot V49.81 ASYMPT POSTMENOPAUSAL STATUS (AGE-RELATE 03/27/2016 Ot 174.9 MALIGN NEOPL BREAST NOS 03/27/2016 Ot 733.00 OSTEOPOROSIS NOS 03/27/2016 Ot V15.3 HX OF IRRADIATION 03/27/2016 Ot V58.69 OTH MED,LT, CURRENT USE 03/27/2016 Ot V86.0 ESTROGEN RECEPTOR POSITIVE STATUS [ER+] 03/27/2016 Ot 174.9 MALIGN NEOPL BREAST NOS 03/27/2016 Ot 733.00 OSTEOPOROSIS NOS 03/27/2016 Ot V15.3 HX OF IRRADIATION 03/27/2016 Ot V58.69 OTH MED,LT, CURRENT USE 03/27/2016 Ot V86.0 ESTROGEN RECEPTOR POSITIVE STATUS [ER+] 03/27/2016 Ot 174.9 MALIGN NEOPL BREAST NOS 03/27/2016 NICCI ALATORRE Ot 174.9 MALIGN NEOPL BREAST NOS 03/27/2016 NICCI ALATORRE Ot V67.9 FOLLOW-UP EXAM NOS 03/27/2016 GISSELL LINDQUISTP Ot 174.9 MALIGN NEOPL BREAST NOS 03/27/2016 GISSELL LINDQUISTP Ot 715.96 OSTEOARTHROS NOS-L/LEG 03/27/2016 GISSELL LINDQUISTP Ot 733.00 OSTEOPOROSIS NOS 03/27/2016 GISSELL LINDQUISTP Ot 782.1 NONSPECIF SKIN ERUPT NEC 03/27/2016 LINDQUIST, HILAH S BUSINESS BANKING SALES ASSISTANT Ot V15.3 HX OF IRRADIATION 03/27/2016 LNIDQUISTGISSELL Garcia BUSINESS BANKING SALES ASSISTANT Ot V58.69 OTH MED,LT,CURRENT USE 03/27/2016 LINDQUIST, JUSTYNTESFAYE Garcia BUSINESS BANKING SALES ASSISTANT Ot V86.0 ESTROGEN RECEPTOR POSITIVE STATUS [ER+] 03/27/2016 AMEENA GISSELL Garcia BUSINESS BANKING SALES ASSISTANT Ot 174.9 MALIGN NEOPL BREAST NOS 03/27/2016 GISSELL LINDQUIST Jose BUSINESS BANKING SALES ASSISTANT Ot 733.00 OSTEOPOROSIS NOS 03/27/2016 JUSTYN LINDQUISTTESFAYE Jose BUSINESS BANKING SALES ASSISTANT Ot V15.3 HX OF IRRADIATION 03/27/2016 LINDQUIST GISSELL Garcia BUSINESS BANKING SALES ASSISTANT Ot V58.69 OTH MED,LT,CURRENT USE 03/27/2016 JUSTYN LINDQUISTTESFAYE Garcia BUSINESS BANKING SALES ASSISTANT Ot V86.0 ESTROGEN RECEPTOR POSITIVE STATUS [ER+] 03/27/2016 JUSTYN LINDQUISTTESFAYE Garcia BUSINESS BANKING SALES ASSISTANT Ot 733.00 OSTEOPOROSIS NOS 03/27/2016 JUSTYN LINDQUISTTESFAYE Jose BUSINESS BANKING SALES ASSISTANT Ot V10.3 HX OF BREAST MALIGNANCY 03/27/2016 JUSTYN LINDQUISTTESFAYE Jose BUSINESS BANKING SALES ASSISTANT Ot V76.12 OTH SCREEN MAMMO-MALIGN NEOPLASM OF [place] 03/27/2016 GISSELL LINDQUIST BUSINESS BANKING SALES ASSISTANT Ot 174.9 MALIGN NEOPL BREAST NOS 03/27/2016 GISSELL LINDQUIST BUSINESS BANKING SALES ASSISTANT Ot 733.00 OSTEOPOROSIS NOS 03/27/2016 GISSELL LINDQUIST BUSINESS BANKING SALES ASSISTANT Ot V15.3 HX OF IRRADIATION 03/27/2016 GISSELL LINDQUISTP Ot V58.69 OTH MED,LT,CURRENT USE 03/27/2016 GISSELL LINDQUIST BUSINESS BANKING SALES ASSISTANT Ot V86.0 ESTROGEN RECEPTOR POSITIVE STATUS [ER+] 03/27/2016 GISSELL LINDQUIST BUSINESS BANKING SALES ASSISTANT Ot 174.9 MALIGN NEOPL BREAST NOS 03/27/2016 EDELMIRA DICKERSON BUSINESS BANKING SALES ASSISTANT Ot V10.3 HX OF BREAST MALIGNANCY 03/27/2016 EDELMIRA DICKERSON BUSINESS BANKING SALES ASSISTANT Ot V67.09 SURGERY FOLLOW-UP, OTHER SURGERY 03/27/2016 GISSELL LINDQUIST BUSINESS BANKING SALES ASSISTANT Ot M81.0 AGE-RELATED OSTEOPOROSIS 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 03/27/2016 GISSELL LINDQUIST BUSINESS BANKING SALES ASSISTANT Ot Z51.81 ENCOUNTER FOR THERAPEUTIC DRUG LEVEL MON 03/27/2016 FREIDA LOZOYA, CASH Raya Ot I10 ESSENTIAL (PRIMARY) HYPERTENSION 03/27/2016 FREIDA LOZOYA, CASH Raya Ot I25.10 ATHSCL HEART DISEASE OF [place] CORONARY 03/27/2016 FREIDA LOZOYA, CASH Raya Ot Z01.810 ENCOUNTER FOR PREPROCEDURAL CARDIOVASCUL 03/27/2016 NICCI ALATORRE Ot C50.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 03/27/2016 NICCI ALATORRE Ot M81.0 AGE-RELATED OSTEOPOROSIS 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 03/27/2016 NICCI ALATORRE Ot Z17.0 ESTROGEN RECEPTOR POSITIVE STATUS [ER+] 03/27/2016 NICCI ALATORRE Ot Z79.899 OTHER TRAFFIC CONTROLLER CABLE (CURRENT) DRUG THERAPY 03/27/2016 NICCI ALATORRE Ot Z92.3 PERSONAL HISTORY OF IRRADIATION 03/27/2016 GISSELL LINDQUIST BUSINESS BANKING SALES ASSISTANT Ot C50.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 03/27/2016 GISSELL LINDQUIST BUSINESS BANKING SALES ASSISTANT Ot M81.0 AGE-RELATED OSTEOPOROSIS 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 03/27/2016 GISSELL LINDQUIST BUSINESS BANKING SALES ASSISTANT Ot Z17.0 ESTROGEN RECEPTOR POSITIVE STATUS [ER+] 03/27/2016 GISSELL LINDQUIST BUSINESS BANKING SALES ASSISTANT Ot Z79.899 OTHER TRAFFIC CONTROLLER CABLE (CURRENT) DRUG THERAPY 03/27/2016 GISSELL LINDQUIST BUSINESS BANKING SALES ASSISTANT Ot Z92.3 PERSONAL HISTORY OF IRRADIATION 04/03/2016 GISSELL LINDQUIST BUSINESS BANKING SALES ASSISTANT Ot C50.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 04/03/2016 GISSELL LINDQUIST BUSINESS BANKING SALES ASSISTANT Ot M81.0 AGE-RELATED OSTEOPOROSIS 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 04/03/2016 GISSELL LINDQUIST BUSINESS BANKING SALES ASSISTANT Ot Z17.0 ESTROGEN RECEPTOR POSITIVE STATUS [ER+] 04/03/2016 GISSELL LINDQUIST BUSINESS BANKING SALES ASSISTANT Ot Z79.899 OTHER [facility] (CURRENT) DRUG THERAPY 04/03/2016 GISSELL LINDQUIST BUSINESS BANKING SALES ASSISTANT Ot Z92.3 PERSONAL HISTORY OF IRRADIATION 04/17/2016 GISSELL LINDQUIST BUSINESS BANKING SALES ASSISTANT Ot C50.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 04/22/2016 NICCI ALATORRE Ot C50.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 04/22/2016 CELI, BOBAN N Ot M81.0 AGE-RELATED OSTEOPOROSIS 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 04/22/2016 NICCI ALATORRE N Ot Z17.0 ESTROGEN RECEPTOR POSITIVE STATUS [ER+] 04/22/2016 NICCI ALATORRE N Ot Z79.899 OTHER TRAFFIC CONTROLLER CABLE (CURRENT) DRUG THERAPY 04/22/2016 NICCI ALATORRE N Ot Z92.3 PERSONAL HISTORY OF IRRADIATION 04/26/2016 GISSELL LINDQUISTP Ot C50.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 05/01/2016 NICCI ALATORRE N Ot C50.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 05/01/2016 NICCI ALATORRE N Ot M81.0 AGE-RELATED OSTEOPOROSIS 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 05/01/2016 NICCI ALATORRE Terra Ot Z17.0 ESTROGEN RECEPTOR POSITIVE STATUS [ER+] 05/01/2016 NICCI ALATORRE Terra Ot Z79.899 OTHER TRAFFIC CONTROLLER CABLE (CURRENT) DRUG THERAPY 05/01/2016 NICCI ALATORRE N Ot Z92.3 PERSONAL HISTORY OF IRRADIATION 05/22/2016 CHRIS LOZOYA, GHADA Esparza Ot Z01.818 ENCOUNTER FOR OTHER PREPROCEDURAL EXAMIN 05/22/2016 GHADA PEREZ MD Ot Z12.11 ENCOUNTER FOR SCREENING FOR MALIGNANT NE 05/23/2016 GHADA PEREZ MD Ot Z01.818 ENCOUNTER FOR OTHER PREPROCEDURAL EXAMIN 05/23/2016 GHADA PEREZ MD Ot Z12.11 ENCOUNTER FOR SCREENING FOR MALIGNANT NE 05/27/2016 GHADA PEREZ MD Ot K57.90 DVRTCLOS OF INTEST, PART UNSP, W/O PERF 05/27/2016 GHADA PEREZ MD Ot Z12.11 ENCOUNTER FOR SCREENING FOR MALIGNANT NE 05/28/2016 GHADA PEREZ MD Ot K57.90 DVRTCLOS OF INTEST, PART UNSP, W/O PERF 05/28/2016 GHADA PEREZ MD Ot Z12.11 ENCOUNTER FOR SCREENING FOR MALIGNANT NE 06/05/2016 CELI, MALUTESSA Terra Ot C50.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 06/05/2016 NICCI ALATORRE Terra Ot M81.0 AGE-RELATED OSTEOPOROSIS 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 06/05/2016 NICCI ALATORRE N Ot Z17.0 ESTROGEN RECEPTOR POSITIVE STATUS [ER+] 06/05/2016 NICCI ALATORRE N Ot Z79.899 OTHER [facility] (CURRENT) DRUG THERAPY 06/05/2016 NICCI ALATORRE N Ot Z92.3 PERSONAL HISTORY OF IRRADIATION 06/13/2016 CHRIS LOZOYA, GHADA Esparza Ot K57.90 DVRTCLOS OF INTEST, PART UNSP, W/O PERF 06/13/2016 CHRIS LOZOYA, GHADA Esparza Ot Z12.11 ENCOUNTER FOR SCREENING FOR MALIGNANT NE 06/21/2016 CHRIS LOZOYA, GHADA Esparza Ot K57.90 DVRTCLOS OF INTEST, PART UNSP, W/O PERF 06/21/2016 CHRIS LOZOYA, GHADA Esparza Ot Z12.11 ENCOUNTER FOR SCREENING FOR MALIGNANT NE 08/29/2016 NICCI ALATORRE Terra Ot C50.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 08/29/2016 NICCI ALATORRE N Ot M81.0 AGE-RELATED OSTEOPOROSIS 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 08/29/2016 NICCI ALATORRE N Ot Z17.0 ESTROGEN RECEPTOR POSITIVE STATUS [ER+] 08/29/2016 NICCI ALATORRE N Ot Z79.899 OTHER TRAFFIC CONTROLLER CABLE (CURRENT) DRUG THERAPY 08/29/2016 NICCI ALATORRE N Ot Z92.3 PERSONAL HISTORY OF IRRADIATION 09/06/2016 NICCI ALATORRE N Ot C50.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 09/06/2016 NICCI ALATORRE N Ot M81.0 AGE-RELATED OSTEOPOROSIS 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 09/06/2016 NICCI ALATORRE N Ot Z17.0 ESTROGEN RECEPTOR POSITIVE STATUS [ER+] 09/06/2016 NICCI ALATORRE N Ot Z79.899 OTHER [facility] (CURRENT) DRUG THERAPY 09/06/2016 NICCI ALATORRE N Ot Z92.3 PERSONAL HISTORY OF IRRADIATION 10/30/2016 NICCI ALATORRE N Ot C50.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 10/30/2016 NICCI ALATORRE N Ot M81.0 AGE-RELATED OSTEOPOROSIS 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 10/30/2016 NICCI ALATORRE N Ot Z17.0 ESTROGEN RECEPTOR POSITIVE STATUS [ER+] 10/30/2016 NICCI ALATORRE Ot Z79.899 OTHER TRAFFIC CONTROLLER CABLE (CURRENT) DRUG THERAPY 10/30/2016 NICCI ALATORRE Ot Z92.3 PERSONAL HISTORY OF IRRADIATION 10/30/2016 NICCI ALATORRE Ot C50.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 10/30/2016 NICCI ALATORRE Ot M81.0 AGE-RELATED OSTEOPOROSIS 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 10/30/2016 NICCI ALATORRE Ot Z17.0 ESTROGEN RECEPTOR POSITIVE STATUS [ER+] 10/30/2016 NICCI ALATORRE Ot Z79.899 OTHER [facility] (CURRENT) DRUG THERAPY 10/30/2016 NICCI ALATORRE Ot Z92.3 PERSONAL HISTORY OF IRRADIATION 12/02/2016 Ot 174.9 MALIGN NEOPL BREAST NOS 12/02/2016 Ot 401.9 HYPERTENSION NOS 12/02/2016 Ot 780.79 OTH MALAISE FATIGUE 12/02/2016 Ot V72.63 PRE- PROCEDURAL LABORATORY EXAMINATION 12/02/2016 Ot V72.81 EXAM-PRE- OPERATIVE CARDIOVASCULAR 12/02/2016 Ot V74.8 SCREEN- BACTERIAL DIS NEC 12/02/2016 GISSELL LINDQUIST Ot 174.9 MALIGN NEOPL BREAST NOS 12/02/2016 EDELMIRA DICKERSON Ot V10.3 HX OF BREAST MALIGNANCY 12/02/2016 EDELMIRA DICKERSON Ot V67.09 SURGERY FOLLOW-UP, OTHER SURGERY 12/02/2016 GISSELL LINDQUIST Ot M81.0 AGE-RELATED OSTEOPOROSIS 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 12/02/2016 GISSELL LINDQUIST Ot Z51.81 ENCOUNTER FOR THERAPEUTIC DRUG LEVEL MON 12/02/2016 CASH GUAN MD Ot I10 ESSENTIAL (PRIMARY) HYPERTENSION 12/02/2016 CASH GUAN MD Ot I25.10 ATHSCL HEART DISEASE OF [place] CORONARY 12/02/2016 CASH GUAN MD Ot Z01.810 ENCOUNTER FOR PREPROCEDURAL CARDIOVASCUL 12/02/2016 GISSELL LINDQUIST Ot C50.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 12/02/2016 GISSELL LINDQUIST Ot M81.0 AGE-RELATED OSTEOPOROSIS 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 12/02/2016 GISSELL LINDQUIST Ot Z17.0 ESTROGEN RECEPTOR POSITIVE STATUS [ER+] 12/02/2016 GISSELL LINDQUIST Ot Z79.899 OTHER TRAFFIC CONTROLLER CABLE (CURRENT) DRUG THERAPY 12/02/2016 GISSELL LINDQUIST Ot Z92.3 PERSONAL HISTORY OF IRRADIATION 12/02/2016 GISSELL LINDQUIST Ot C50.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 12/02/2016 NICCI ALATORRE Ot C50.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 12/02/2016 NICCI ALATORRE Ot M81.0 AGE-RELATED OSTEOPOROSIS 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 12/02/2016 NICCI ALATORRE Ot Z17.0 ESTROGEN RECEPTOR POSITIVE STATUS [ER+] 12/02/2016 NICCI ALATORRE Ot Z79.899 OTHER TRAFFIC CONTROLLER CABLE (CURRENT) DRUG THERAPY 12/02/2016 NICCI ALATORRE Ot Z92.3 PERSONAL HISTORY OF IRRADIATION 12/02/2016 Ot 611.72 LUMP OR MASS IN BREAST 12/02/2016 Ot V76.12 OTH SCREEN MAMMO-MALIGN NEOPLASM OF [place] 12/02/2016 Ot 793.80 UNSPEC ABNORMAL MAMMOGRAM 12/02/2016 Ot 793.89 OTH (ABN) FINDINGS ON RADIOLOGICAL EXAMI 12/02/2016 Ot 174.9 MALIGN NEOPL BREAST NOS 12/02/2016 Ot 174.9 MALIGN NEOPL BREAST NOS 12/02/2016 Ot 733.00 OSTEOPOROSIS NOS 12/02/2016 Ot V49.81 ASYMPT POSTMENOPAUSAL STATUS (AGE-RELATE 12/02/2016 Ot 174.9 MALIGN NEOPL BREAST NOS 12/02/2016 Ot 733.00 OSTEOPOROSIS NOS 12/02/2016 Ot V15.3 HX OF IRRADIATION 12/02/2016 Ot V58.69 OTH MED,LT, CURRENT USE 12/02/2016 Ot V86.0 ESTROGEN RECEPTOR POSITIVE STATUS [ER+] 12/02/2016 Ot 174.9 MALIGN NEOPL BREAST NOS 12/02/2016 Ot 733.00 OSTEOPOROSIS NOS 12/02/2016 Ot V15.3 HX OF IRRADIATION 12/02/2016 Ot V58.69 OTH MED,LT, CURRENT USE 12/02/2016 Ot V86.0 ESTROGEN RECEPTOR POSITIVE STATUS [ER+] 12/02/2016 Ot 174.9 MALIGN NEOPL BREAST NOS 12/02/2016 NICCI ALATORRE Ot 174.9 MALIGN NEOPL BREAST NOS 12/02/2016 NICCI ALATORRE Ot V67.9 FOLLOW-UP EXAM NOS 12/02/2016 GISSELL LINDQUIST [employer]IST[employer] Ot 174.9 MALIGN NEOPL BREAST NOS 12/02/2016 GISSELL LINDQUISTP Ot 715.96 OSTEOARTHROS NOS-L/LEG 12/02/2016 GISSELL LINDQUIST [employer] ASSIST[employer] Ot 733.00 OSTEOPOROSIS NOS 12/02/2016 GISSELL LINDQUISTP Ot 782.1 NONSPECIF SKIN ERUPT NEC 12/02/2016 GISSELL LINDQUISTP Ot V15.3 HX OF IRRADIATION 12/02/2016 GISSELL LINDQUIST Ot V58.69 OTH MED,LT,CURRENT USE 12/02/2016 GISSELL LINDQUISTP Ot V86.0 ESTROGEN RECEPTOR POSITIVE STATUS [ER+] 12/02/2016 GISSELL LINDQUISTP Ot 174.9 MALIGN NEOPL BREAST NOS 12/02/2016 GISSELL LINDQUISTP Ot 733.00 OSTEOPOROSIS NOS 12/02/2016 GISSELL LINDQUISTP Ot V15.3 HX OF IRRADIATION 12/02/2016 GISSELL LINDQUIST Ot V58.69 OTH MED,LT,CURRENT USE 12/02/2016 GISSELL LINDQUISTP Ot V86.0 ESTROGEN RECEPTOR POSITIVE STATUS [ER+] 12/02/2016 GISSELL LINDQUIST [employer] ASSISTANT Ot 733.00 OSTEOPOROSIS NOS 12/02/2016 GISSELL LINDQUISTP Ot V10.3 HX OF BREAST MALIGNANCY 12/02/2016 GISSELL LINDQUISTP Ot V76.12 OTH SCREEN MAMMO-MALIGN NEOPLASM OF [place] 12/02/2016 GISSELL LINDQUIST [employer] ASSIST[employer] Ot 174.9 MALIGN NEOPL BREAST NOS 12/02/2016 GISSELL LINDQUIST [employer] ASSISTANT Ot 733.00 OSTEOPOROSIS NOS 12/02/2016 GISSELL LINDQUIST [employer] ASSISTANT Ot V15.3 HX OF IRRADIATION 12/02/2016 GISSELL LINDQUIST [employer] SAL[employer] ASSISTANT Ot V58.69 OTH MED,LT,CURRENT USE 12/02/[address]INDQUIST [facility] Ot V86.0 ESTROGEN RECEPTOR POSITIVE STATUS [ER+] 12/04/2016 NICCI ALATORRE Ot C50.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 12/04/2016 NICCI ALATORRE Ot M81.0 AGE-RELATED OSTEOPOROSIS 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 12/04/2016 NICCI ALATORRE Ot Z17.0 ESTROGEN RECEPTOR POSITIVE STATUS [ER+] 12/04/2016 NICCI ALATORRE Ot Z79.899 OTHER TRAFFIC CONTROLLER CABLE (CURRENT) DRUG THERAPY 12/04/2016 NICCI ALATORRE Ot Z92.3 PERSONAL HISTORY OF IRRADIATION 12/04/2016 Ot D62 ACUTE POSTHEMORRHAGIC ANEMIA 12/04/2016 Ot E03.9 HYPOTHYROIDISM, UNSPECIFIED 12/04/2016 Ot I10 ESSENTIAL ( PRIMARY) HYPERTENSION 12/04/2016 Ot K59.00 CONSTIPATION , UNSPECIFIED 12/04/2016 Ot M19.90 UNSPECIFIED OSTEOARTHRITIS, UNSPECIFIED 12/04/2016 Ot S72.141A DISPLACED INTERTROCHANTERIC FRACTURE OF 12/04/2016 Ot W19.XXXA UNSPECIFIED FALL, INITIAL ENCOUNTER 12/04/[address] IN [facility] NON-[facility]IT[facility] (PRIVATE 12/04/2016 FREIDA LOZOYA, CASH Raya Ot D62 ACUTE POSTHEMORRHAGIC ANEMIA 12/04/2016 FREIDA LOZOYA, CASH Raya Ot D64.9 ANEMIA, UNSPECIFIED 12/04/2016 FREIDA LOZOYA, CASH Raya Ot E03.9 HYPOTHYROIDISM, UNSPECIFIED 12/04/2016 CASH GUAN MD Ot I10 ESSENTIAL (PRIMARY) HYPERTENSION 12/04/2016 FREIDA LOZOYA, CASH Raya Ot K59.00 CONSTIPATION, UNSPECIFIED 12/04/2016 FREIDA LOZOYA, CASH Raya Ot M19.90 UNSPECIFIED OSTEOARTHRITIS, UNSPECIFIED 12/04/2016 FREIDA LOZOYA, CASH Raya Ot S72.141A DISPLACED INTERTROCHANTERIC FRACTURE OF 12/04/2016 FREIDA LOZOYA, CASH Raya Ot W19.XXXA UNSPECIFIED FALL, INITIAL ENCOUNTER 12/04/2016 FREIDA LOZOYA, CASH Raya Ot Y92.[address] IN [facility] NON-INSTITUT (PRIVATE 12/05/2016 NICCI ALATORRE Terra Ot C50.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 12/05/2016 NICCI ALATORRE Ot M81.0 AGE-RELATED OSTEOPOROSIS 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 12/05/2016 NICCI ALATORRE Ot Z17.0 ESTROGEN RECEPTOR POSITIVE STATUS [ER+] 12/05/2016 NICCI ALATORRE Ot Z79.899 OTHER TRAFFIC CONTROLLER CABLE (CURRENT) DRUG THERAPY 12/05/2016 NICCI ALATORRE Ot Z92.3 PERSONAL HISTORY OF IRRADIATION 12/18/2016 MARCELL TYLER MD Ot D64.9 ANEMIA, UNSPECIFIED 12/18/2016 MARCELL TYLER MD Ot I10 ESSENTIAL (PRIMARY) HYPERTENSION 12/18/2016 MARCELL TYLER MD Ot R06.89 OTHER ABNORMALITIES OF BREATHING 12/18/2016 MARCELL TYLER MD Ot S72.141D DISPL INTERTROCH FX R FEMUR, SUBS FOR CL 12/18/2016 MARCELL TYLER MD Ot W19.XXXD UNSPECIFIED FALL, SUBSEQUENT ENCOUNTER 12/18/2016 MARCELL TYLER MD Ot Z96.653 PRESENCE OF ARTIFICIAL KNEE JOINT, BILAT 12/19/2016 MARCELL TYLER MD Ot D64.9 ANEMIA, UNSPECIFIED 12/19/2016 MARCELL TYLER MD Ot I10 ESSENTIAL (PRIMARY) HYPERTENSION 12/19/2016 MARCELL TYLER MD Ot R06.89 OTHER ABNORMALITIES OF BREATHING 12/19/2016 MARCELL TYLER MD Ot S72.141D DISPL INTERTROCH FX R FEMUR, SUBS FOR CL 12/19/2016 MARCELL TYLER MD Ot W19.XXXD UNSPECIFIED FALL, SUBSEQUENT ENCOUNTER 12/19/2016 MARCELL TYLER MD Ot Z96.653 PRESENCE OF ARTIFICIAL KNEE JOINT, BILAT 12/23/2016 Ot D64.9 ANEMIA, UNSPECIFIED 12/23/2016 Ot I10 ESSENTIAL ( PRIMARY) HYPERTENSION 12/23/2016 Ot K59.00 CONSTIPATION , UNSPECIFIED 12/23/2016 Ot N32.81 OVERACTIVE BLADDER 12/23/2016 Ot R06.89 OTHER ABNORMALITIES OF BREATHING 12/23/2016 Ot S72.141D DISPL INTERTROCH FX R FEMUR, SUBS FOR CL 12/23/2016 Ot W19.XXXD UNSPECIFIED FALL, SUBSEQUENT ENCOUNTER 12/23/2016 Ot Z96.653 PRESENCE OF ARTIFICIAL KNEE JOINT, BILAT 12/23/2016 MARCELL TYLER MD Ot D64.9 ANEMIA, UNSPECIFIED 12/23/2016 NAYELI LOZOYA, MARCELL E Ot I10 ESSENTIAL (PRIMARY) HYPERTENSION 12/23/2016 MARCELL TYLER MD Ot K59.00 CONSTIPATION, UNSPECIFIED 12/23/2016 MARCELL TYLER MD Ot N32.81 OVERACTIVE BLADDER 12/23/2016 MARCELL TYLER MD Ot R06.89 OTHER ABNORMALITIES OF BREATHING 12/23/2016 MARCELL TYLER MD Ot S72.141D DISPL INTERTROCH FX R FEMUR, SUBS FOR CL 12/23/2016 MARCELL TYLER MD Ot W19.XXXD UNSPECIFIED FALL, SUBSEQUENT ENCOUNTER 12/23/2016 MARCELL TYLER MD Ot Z96.653 PRESENCE OF ARTIFICIAL KNEE JOINT, BILAT 03/31/2017 Ot 793.89 OTH (ABN) FINDINGS ON RADIOLOGICAL EXAMI 03/31/2017 Ot 174.9 MALIGN NEOPL BREAST NOS 03/31/2017 Ot 174.9 MALIGN NEOPL BREAST NOS 03/31/2017 Ot 401.9 HYPERTENSION NOS 03/31/2017 Ot 780.79 OTH MALAISE FATIGUE 03/31/2017 Ot V72.63 PRE- PROCEDURAL LABORATORY EXAMINATION 03/31/2017 Ot V72.81 EXAM-PRE- OPERATIVE CARDIOVASCULAR 03/31/2017 Ot V74.8 SCREEN- BACTERIAL DIS NEC 03/31/2017 Ot 174.9 MALIGN NEOPL BREAST NOS 03/31/2017 Ot 733.00 OSTEOPOROSIS NOS 03/31/2017 Ot V49.81 ASYMPT POSTMENOPAUSAL STATUS (AGE-RELATE 03/31/2017 Ot 174.9 MALIGN NEOPL BREAST NOS 03/31/2017 Ot 733.00 OSTEOPOROSIS NOS 03/31/2017 Ot V15.3 HX OF IRRADIATION 03/31/2017 Ot V58.69 OTH MED,LT, CURRENT USE 03/31/2017 Ot V86.0 ESTROGEN RECEPTOR POSITIVE STATUS [ER+] 03/31/2017 Ot 174.9 MALIGN NEOPL BREAST NOS 03/31/2017 Ot 733.00 OSTEOPOROSIS NOS 03/31/2017 Ot V15.3 HX OF IRRADIATION 03/31/2017 Ot V58.69 OTH MED,LT, CURRENT USE 03/31/2017 Ot V86.0 ESTROGEN RECEPTOR POSITIVE STATUS [ER+] 03/31/2017 Ot 174.9 MALIGN NEOPL BREAST NOS 03/31/2017 NICCI ALATORRE Terra Ot 174.9 MALIGN NEOPL BREAST NOS 03/31/2017 NICCI ALATORRE N Ot V67.9 FOLLOW-UP EXAM NOS 03/31/2017 GISSELL LINDQUIST BUSINESS [employer]ANKING SALES ASSISTANT Ot 174.9 MALIGN NEOPL BREAST NOS 03/31/2017 GISSELL LINDQUIST BUSINESS BANKING SALES ASSISTANT Ot 715.96 OSTEOARTHROS NOS-L/LEG 03/31/2017 GISSELL LINDQUIST BUSINESS B[employer]ING SALES ASSISTANT Ot 733.00 OSTEOPOROSIS NOS 03/31/2017 GISSELL LINDQUIST BUSINESS BANKING SALES ASSISTANT Ot 782.1 NONSPECIF SKIN ERUPT NEC 03/31/2017 GISSELL LINDQUIST BUSINESS BANKING SALES ASSISTANT Ot V15.3 HX OF IRRADIATION 03/31/2017 GISSELL LINDQUISTP Ot V58.69 OTH MED,LT,CURRENT USE 03/31/2017 GISSELL LINDQUIST BUSINESS BANKING SALES ASSISTANT Ot V86.0 ESTROGEN RECEPTOR POSITIVE STATUS [ER+] 03/31/2017 GISSELL LINDQUISTP Ot 174.9 MALIGN NEOPL BREAST NOS 03/31/2017 GISSELL LINDQUIST BUSINESS BANKING SALES ASSISTANT Ot 733.00 OSTEOPOROSIS NOS 03/31/2017 GISSELL LINDQUIST BUSINESS BANKING SALES ASSISTANT Ot V15.3 HX OF IRRADIATION 03/31/2017 GISSELL LINDQUISTP Ot V58.69 OTH MED,LT,CURRENT USE 03/31/2017 GISSELL LINDQUIST BUSINESS BANKING SALES ASSISTANT Ot V86.0 ESTROGEN RECEPTOR POSITIVE STATUS [ER+] 03/31/2017 GISSELL LINDQUIST BUSINESS BANKING SALES ASSISTANT Ot 733.00 OSTEOPOROSIS NOS 03/31/2017 GISSELL LINDQUIST BUSINESS BANKING SALES ASSISTANT Ot V10.3 HX OF BREAST MALIGNANCY 03/31/2017 GISSELL LINDQUISTP Ot V76.12 OTH SCREEN MAMMO-MALIGN NEOPLASM OF [place] 03/31/2017 GISSELL LINDQUIST BUSINESS BANKING SALES ASSISTANT Ot 174.9 MALIGN NEOPL BREAST NOS 03/31/2017 GISSELL LINDQUIST BUSINESS BANKING SALES ASSISTANT Ot 733.00 OSTEOPOROSIS NOS 03/31/2017 GISSELL LINDQUIST BUSINESS BANKING SALES ASSISTANT Ot V15.3 HX OF IRRADIATION 03/31/2017 GISSELL LINDQUIST BUSINESS BANKING SALES ASSISTANT Ot V58.69 OTH MED,LT,CURRENT USE 03/31/2017 GISSELL LINDQUIST BUSINESS BANKING SALES ASSISTANT Ot V86.0 ESTROGEN RECEPTOR POSITIVE STATUS [ER+] 03/31/2017 GISSELL LINDQUIST BUSINESS BANKING SALES ASSISTANT Ot 174.9 MALIGN NEOPL BREAST NOS 03/31/2017 EDELMIRA DICKERSON BUSINESS BANKING SALES ASSISTANT Ot V10.3 HX OF BREAST MALIGNANCY 03/31/2017 EDELMIRA DICKERSON Ot V67.09 SURGERY FOLLOW-UP, OTHER SURGERY 03/31/2017 GISSELL LINDQUIST BUSINESS B[employer]ING SALES ASSISTANT Ot M81.0 AGE-RELATED OSTEOPOROSIS 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 03/31/2017 GISSELL LINDQUIST Ot Z51.81 ENCOUNTER FOR THERAPEUTIC DRUG LEVEL MON 03/31/2017 CASH GUAN MD Ot I10 ESSENTIAL (PRIMARY) HYPERTENSION 03/31/2017 CASH GUAN MD Ot I25.10 ATHSCL HEART DISEASE OF [place] CORONARY 03/31/2017 CASH GUAN MD Ot Z01.810 ENCOUNTER FOR PREPROCEDURAL CARDIOVASCUL 03/31/2017 GISSELL LINDQUISTP Ot C50.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 03/31/2017 GISSELL LINDQUISTP Ot M81.0 AGE-RELATED OSTEOPOROSIS 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 03/31/2017 GISSELL LINDQUIST BUSINESS BANKING SALES ASSISTANT Ot Z17.0 ESTROGEN RECEPTOR POSITIVE STATUS [ER+] 03/31/2017 GISSELL LINDQUIST BUSINESS BANKING SALES ASSISTANT Ot Z79.899 OTHER [facility] (CURRENT) DRUG THERAPY 03/31/2017 GISSELL LINDQUIST BUSINESS BANKING SALES ASSISTANT Ot Z92.3 PERSONAL HISTORY OF IRRADIATION 03/31/2017 GISSELL LINDQUISTP Ot C50.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 03/31/2017 NICCI ALATORRE Ot C50.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 03/31/2017 NICCI ALATORRE Ot M81.0 AGE-RELATED OSTEOPOROSIS 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 03/31/2017 NICCI ALATORRE Ot Z17.0 ESTROGEN RECEPTOR POSITIVE STATUS [ER+] 03/31/2017 NICCI ALATORRE Ot Z79.899 OTHER TRAFFIC CONTROLLER CABLE (CURRENT) DRUG THERAPY 03/31/2017 NICCI ALATORRE Ot Z92.3 PERSONAL HISTORY OF IRRADIATION 03/31/2017 Ot 174.9 MALIGN NEOPL BREAST NOS 03/31/2017 Ot 401.9 HYPERTENSION NOS 03/31/2017 Ot 780.79 OTH MALAISE FATIGUE 03/31/2017 Ot V72.63 PRE- PROCEDURAL LABORATORY EXAMINATION 03/31/2017 Ot V72.81 EXAM-PRE- OPERATIVE CARDIOVASCULAR 03/31/2017 Ot V74.8 SCREEN- BACTERIAL DIS NEC 03/31/2017 GISSELL LINDQUIST [employer] B[employer]ING SALES ASSISTANT Ot 174.9 MALIGN NEOPL BREAST NOS 03/31/2017 EDELMIRA DICKERSON BUSINESS BANKING SALES ASSISTANT Ot V10.3 HX OF BREAST MALIGNANCY 03/31/2017 EDELMIRA DICKERSON BUSINESS BANKING SALES ASSISTANT Ot V67.09 SURGERY FOLLOW-UP, OTHER SURGERY 03/31/2017 GISSELL LINDQUISTP Ot M81.0 AGE-RELATED OSTEOPOROSIS 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 03/31/2017 GISSELL LINDQUIST Ot Z51.81 ENCOUNTER FOR THERAPEUTIC DRUG LEVEL MON 03/31/2017 CASH GUAN MD Ot I10 ESSENTIAL (PRIMARY) HYPERTENSION 03/31/2017 CASH GUAN MD Ot I25.10 ATHSCL HEART DISEASE OF [place] CORONARY 03/31/2017 CASH GUAN MD Ot Z01.810 ENCOUNTER FOR PREPROCEDURAL CARDIOVASCUL 03/31/2017 GISSELL LINDQUIST Ot C50.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 03/31/2017 GISSELL LINDQUIST Ot M81.0 AGE-RELATED OSTEOPOROSIS 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 03/31/2017 GISSELL LINDQUIST Ot Z17.0 ESTROGEN RECEPTOR POSITIVE STATUS [ER+] 03/31/2017 GISSELL LINDQUIST Ot Z79.899 OTHER [facility] (CURRENT) DRUG THERAPY 03/31/2017 GISSELL LINDQUIST BUSINESS BANKING SALES ASSISTANT Ot Z92.3 PERSONAL HISTORY OF IRRADIATION 03/31/2017 GISSELL LINDQUISTP Ot C50.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 03/31/2017 NICCI ALATORRE Ot C50.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 03/31/2017 NICCI ALATORRE Ot M81.0 AGE-RELATED OSTEOPOROSIS 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 03/31/2017 NICCI ALATORRE Ot Z17.0 ESTROGEN RECEPTOR POSITIVE STATUS [ER+] 03/31/2017 NICCI ALATORRE Ot Z79.899 OTHER [facility] (CURRENT) DRUG THERAPY 03/31/2017 NICCI ALATORRE N Ot Z92.3 PERSONAL HISTORY OF IRRADIATION 04/01/2017 NICCI ALATORRE N Ot Z12.31 ENCNTR SCREEN MAMMOGRAM FOR MALIGNANT NE 04/01/2017 NICCI ALATORRE N Ot Z12.31 ENCNTR SCREEN MAMMOGRAM FOR MALIGNANT NE 04/01/2017 NICCI ALATORRE N Ot Z85.3 PERSONAL HISTORY OF MALIGNANT NEOPLASM O 04/03/2017 NICCI ALATORRE N Ot C50.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 04/03/2017 NICCI ALATORRE N Ot M81.0 AGE-RELATED OSTEOPOROSIS 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 04/03/2017 NICCI ALATORRE N Ot Z17.0 ESTROGEN RECEPTOR POSITIVE STATUS [ER+] 04/03/2017 NICCI ALATORRE N Ot Z79.899 OTHER TRAFFIC CONTROLLER CABLE (CURRENT) DRUG THERAPY 04/03/2017 NICCI ALATORRE N Ot Z92.3 PERSONAL HISTORY OF IRRADIATION 04/23/2017 NICCI ALATORRE N Ot Z12.31 ENCNTR SCREEN MAMMOGRAM FOR MALIGNANT NE 04/23/2017 NICCI ALATORRE N Ot Z85.3 PERSONAL HISTORY OF MALIGNANT NEOPLASM O 05/22/2017 NICCI ALATORRE N Ot C50.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 05/22/2017 NICCI ALATORRE N Ot M81.0 AGE-RELATED OSTEOPOROSIS 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 05/22/2017 NICCI ALATORRE N Ot Z17.0 ESTROGEN RECEPTOR POSITIVE STATUS [ER+] 05/22/2017 NICCI ALATORRE N Ot Z79.899 OTHER [facility] (CURRENT) DRUG THERAPY 05/22/2017 NICCI ALATORRE N Ot Z92.3 PERSONAL HISTORY OF IRRADIATION 05/29/2017 NICCI ALATORRE N Ot C50.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 05/29/2017 NICCI ALATORRE N Ot M81.0 AGE-RELATED OSTEOPOROSIS 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 05/29/2017 NICCI ALATORRE N Ot Z17.0 ESTROGEN RECEPTOR POSITIVE STATUS [ER+] 05/29/2017 NICCI ALATORRE N Ot Z79.899 OTHER [facility] (CURRENT) DRUG THERAPY 05/29/2017 NICCI ALATORRE N Ot Z92.3 PERSONAL HISTORY OF IRRADIATION 07/01/2017 NICCI ALATORRE Terra Ot C50.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 07/01/2017 NICCI ALATORRE N Ot M81.0 AGE-RELATED OSTEOPOROSIS 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 07/01/2017 NICCI ALATORRE N Ot Z17.0 ESTROGEN RECEPTOR POSITIVE STATUS [ER+] 07/01/2017 NICCI ALATORRE N Ot Z79.899 OTHER [facility] (CURRENT) DRUG THERAPY 07/01/2017 NICCI ALATORRE N Ot Z92.3 PERSONAL HISTORY OF IRRADIATION 10/14/2017 FREIDA LOZOYA, CASH Raya Ot M25.551 PAIN IN RIGHT HIP 10/24/2017 CASH GUAN MD Ot M25.551 PAIN IN RIGHT HIP 11/05/2017 GISSELL LINDQUIST Ot M81.0 AGE-RELATED OSTEOPOROSIS 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 11/18/2017 NICCI ALATORRE Terra Ot C50.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 11/18/2017 NICCI ALATORRE Ot E03.9 HYPOTHYROIDISM, UNSPECIFIED 11/18/2017 NICCI ALATORRE N Ot I10 ESSENTIAL (PRIMARY) HYPERTENSION 11/18/2017 NICCI ALATORRE Terra Ot K59.09 OTHER CONSTIPATION 11/18/2017 NICCI ALATORRE N Ot M19.91 PRIMARY OSTEOARTHRITIS, UNSPECIFIED SITE 11/18/2017 NICCI ALATORRE N Ot M81.0 AGE-RELATED OSTEOPOROSIS 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 11/18/2017 NICCI ALATORRE N Ot Z17.0 ESTROGEN RECEPTOR POSITIVE STATUS [ER+] 11/18/2017 NICCI ALATORRE N Ot Z79.811 TRAFFIC CONTROLLER CABLE (CURRENT) USE OF AROMATASE INH 11/18/2017 NICCI ALATORRE N Ot Z79.82 [facility] (CURRENT) USE OF ASPIRIN 11/18/2017 NICCI ALATORRE N Ot Z79.899 OTHER [facility] (CURRENT) DRUG THERAPY 11/18/2017 NICCI ALATORRE N Ot Z92.3 PERSONAL HISTORY OF IRRADIATION 11/27/2017 GISSELL LINDQUIST Ot 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, SITE UNSPECIFIED 11/27/2017 LINDQUIST, HILAH S BUSINESS BANKING SALES ASSISTANT Ot M81.0 AGE-RELATED OSTEOPOROSIS 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 11/27/2017 AMEENA GISSELL Garcia BUSINESS BANKING SALES ASSISTANT Ot Z87.81 PERSONAL HISTORY OF (HEALED) TRAUMATIC F 12/23/2017 NICCI ALATORRE Terra Ot C50.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 12/23/2017 NICCI ALATORRE N Ot E03.9 HYPOTHYROIDISM, UNSPECIFIED 12/23/2017 NICCI ALATORRE N Ot I10 ESSENTIAL (PRIMARY) HYPERTENSION 12/23/2017 MALU ALATORRETESSA N Ot K59.09 OTHER CONSTIPATION 12/23/2017 CELI MALUAN N Ot M19.91 PRIMARY OSTEOARTHRITIS, UNSPECIFIED SITE 12/23/2017 NICCI ALATORRE N Ot M81.0 AGE-RELATED OSTEOPOROSIS 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 12/23/2017 NICCI ALATORRE N Ot Z17.0 ESTROGEN RECEPTOR POSITIVE STATUS [ER+] 12/23/2017 NICCI ALATORRE N Ot Z79.811 TRAFFIC CONTROLLER CABLE (CURRENT) USE OF AROMATASE INH 12/23/2017 CELINICCI N Ot Z79.82 TRAFFIC CONTROLLER CABLE (CURRENT) USE OF ASPIRIN 12/23/2017 MALU ALATORRETESSA N Ot Z79.899 OTHER [facility] (CURRENT) DRUG THERAPY 12/23/2017 NICCI ALATORRE N Ot Z92.3 PERSONAL HISTORY OF IRRADIATION 12/31/2017 NICCI ALATORRE N Ot C50.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 12/31/2017 NICCI ALATORRE N Ot E03.9 HYPOTHYROIDISM, UNSPECIFIED 12/31/2017 CELI MALUTESSA N Ot I10 ESSENTIAL (PRIMARY) HYPERTENSION 12/31/2017 NICCI ALATORRE N Ot K59.09 OTHER CONSTIPATION 12/31/2017 CELI NICCI N Ot M19.91 PRIMARY OSTEOARTHRITIS, UNSPECIFIED SITE 12/31/2017 NICCI ALATORRE N Ot M81.0 AGE-RELATED OSTEOPOROSIS 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 12/31/2017 CELINICCI LORENZO N Ot Z17.0 ESTROGEN RECEPTOR POSITIVE STATUS [ER+] 12/31/2017 CELIMALU LORENZOTESSA N Ot Z79.811 TRAFFIC CONTROLLER CABLE (CURRENT) USE OF AROMATASE INH 12/31/2017 NICCI ALATORRE N Ot Z79.82 [facility] (CURRENT) USE OF ASPIRIN 12/31/2017 NICCI ALATORRE N Ot Z79.899 OTHER TRAFFIC CONTROLLER CABLE (CURRENT) DRUG THERAPY 12/31/2017 NICCI ALATORRE N Ot Z92.3 PERSONAL HISTORY OF IRRADIATION 01/17/2018 NICCI ALATORRE Ot C50.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 01/17/2018 NICCI ALATORRE N Ot E03.9 HYPOTHYROIDISM, UNSPECIFIED 01/17/2018 NICCI ALATORRE N Ot I10 ESSENTIAL (PRIMARY) HYPERTENSION 01/17/2018 NICCI ALATORRE N Ot K59.09 OTHER CONSTIPATION 01/17/2018 NICCI ALATORRE N Ot M19.91 PRIMARY OSTEOARTHRITIS, UNSPECIFIED SITE 01/17/2018 NICCI ALATORRE N Ot M81.0 AGE-RELATED OSTEOPOROSIS 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 01/17/2018 NICCI ALATORRE N Ot Z17.0 ESTROGEN RECEPTOR POSITIVE STATUS [ER+] 01/17/2018 NICCI ALATORRE N Ot Z79.811 [facility] (CURRENT) USE OF AROMATASE INH 01/17/2018 NICCI ALATORRE N Ot Z79.82 TRAFFIC CONTROLLER CABLE (CURRENT) USE OF ASPIRIN 01/17/2018 NICCI ALATORRE N Ot Z79.899 OTHER TRAFFIC CONTROLLER CABLE (CURRENT) DRUG THERAPY 01/17/2018 NICCI ALATORRE N Ot Z92.3 PERSONAL HISTORY OF IRRADIATION 02/11/2018 NICCI ALATORRE Terra Ot C50.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 02/11/2018 NICCI ALATORRE N Ot E03.9 HYPOTHYROIDISM, UNSPECIFIED 02/11/2018 NICCI ALATORRE N Ot I10 ESSENTIAL (PRIMARY) HYPERTENSION 02/11/2018 NICCI ALATORRE N Ot K59.09 OTHER CONSTIPATION 02/11/2018 NICCI ALATORRE N Ot M19.91 PRIMARY OSTEOARTHRITIS, UNSPECIFIED SITE 02/11/2018 NICCI ALATORRE N Ot M81.0 AGE-RELATED OSTEOPOROSIS 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 02/11/2018 NICCI ALATORRE N Ot Z17.0 ESTROGEN RECEPTOR POSITIVE STATUS [ER+] 02/11/2018 NICCI ALATORRE N Ot Z79.811 [facility] (CURRENT) USE OF AROMATASE INH 02/11/2018 CELI NICCI N Ot Z79.82 [facility] (CURRENT) USE OF ASPIRIN 02/11/2018 NICCI ALATORRE N Ot Z79.899 OTHER [facility] (CURRENT) DRUG THERAPY 02/11/2018 NICCI ALATORRE N Ot Z92.3 PERSONAL HISTORY OF IRRADIATION 02/12/2018 NICCI ALATORRE N Ot C50.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 02/12/2018 NICCI ALATORRE N Ot E03.9 HYPOTHYROIDISM, UNSPECIFIED 02/12/2018 NICCI ALATORRE N Ot I10 ESSENTIAL (PRIMARY) HYPERTENSION 02/12/2018 NICCI ALATORRE N Ot K59.09 OTHER CONSTIPATION 02/12/2018 NICCI ALATORRE N Ot M19.91 PRIMARY OSTEOARTHRITIS, UNSPECIFIED SITE 02/12/2018 NICCI ALATORRE N Ot M81.0 AGE-RELATED OSTEOPOROSIS 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 02/12/2018 NICCI ALATORRE N Ot Z17.0 ESTROGEN RECEPTOR POSITIVE STATUS [ER+] 02/12/2018 NICCI ALATORRE N Ot Z79.811 [facility] (CURRENT) USE OF AROMATASE INH 02/12/2018 NICCI ALATORRE N Ot Z79.82 TRAFFIC CONTROLLER CABLE (CURRENT) USE OF ASPIRIN 02/12/2018 NICCI ALATORRE N Ot Z79.899 OTHER [facility] (CURRENT) DRUG THERAPY 02/12/2018 NICCI ALATORRE N Ot Z92.3 PERSONAL HISTORY OF IRRADIATION 02/17/2018 NICCI ALATORRE N Ot C50.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 02/17/2018 NICCI ALATORRE N Ot E03.9 HYPOTHYROIDISM, UNSPECIFIED 02/17/2018 NICCI ALATORRE N Ot I10 ESSENTIAL (PRIMARY) HYPERTENSION 02/17/2018 NICCI ALATORRE N Ot K59.09 OTHER CONSTIPATION 02/17/2018 NICCI ALATORRE N Ot M19.91 PRIMARY OSTEOARTHRITIS, UNSPECIFIED SITE 02/17/2018 NICCI ALATORRE N Ot M81.0 AGE-RELATED OSTEOPOROSIS 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 02/17/2018 NICCI ALATORRE N Ot Z17.0 ESTROGEN RECEPTOR POSITIVE STATUS [ER+] 02/17/2018 NICCI ALATORRE N Ot Z79.811 [facility] (CURRENT) USE OF AROMATASE INH 02/17/2018 NICCI ALATORRE N Ot Z79.82 [facility] (CURRENT) USE OF ASPIRIN 02/17/2018 NICCI ALATORRE N Ot Z79.899 OTHER TRAFFIC CONTROLLER CABLE (CURRENT) DRUG THERAPY 02/17/2018 CELINICCI LORENZO Terra Ot Z92.3 PERSONAL HISTORY OF IRRADIATION 02/26/2018 CASH GUAN MD Ot M62.81 MUSCLE WEAKNESS (GENERALIZED) 02/26/2018 CASH GUAN MD Ot R29.6 REPEATED FALLS 03/20/2018 CASH GUAN MD Ot M62.81 MUSCLE WEAKNESS (GENERALIZED) 03/20/2018 CASH GUAN MD Ot R29.6 REPEATED FALLS 03/26/2018 CASH GUAN MD Ot M62.81 MUSCLE WEAKNESS (GENERALIZED) 03/26/2018 CASH GUAN MD Ot R29.6 REPEATED FALLS 03/30/2018 GISSELL LINDQUIST Ot Z12.31 ENCNTR SCREEN MAMMOGRAM FOR MALIGNANT NE 04/02/2018 GISSELL LINDQUIST Ot 174.9 MALIGN NEOPL BREAST NOS 04/02/2018 EDELMIRA DICKERSON Ot V10.3 HX OF BREAST MALIGNANCY 04/02/2018 EDELMIRA DICKERSON Ot V67.09 SURGERY FOLLOW-UP, OTHER SURGERY 04/02/2018 GISSELL LINDQUIST Ot M81.0 AGE-RELATED OSTEOPOROSIS 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 04/02/2018 GISSELL LINDQUIST Ot Z51.81 ENCOUNTER FOR THERAPEUTIC DRUG LEVEL MON 04/02/2018 CASH GUAN MD Ot I10 ESSENTIAL (PRIMARY) HYPERTENSION 04/02/2018 CASH GUAN MD Ot I25.10 ATHSCL HEART DISEASE OF [place] CORONARY 04/02/2018 CASH GUAN MD Ot Z01.810 ENCOUNTER FOR PREPROCEDURAL CARDIOVASCUL 04/02/2018 GISSELL LINDQUIST Ot C50.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 04/02/2018 GISSELL LINDQUIST Ot M81.0 AGE-RELATED OSTEOPOROSIS 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 04/02/2018 GISSELL LINDQUIST Ot Z17.0 ESTROGEN RECEPTOR POSITIVE STATUS [ER+] 04/02/2018 GISSELL LINDQUIST Ot Z79.899 OTHER TRAFFIC CONTROLLER CABLE (CURRENT) DRUG THERAPY 04/02/2018 LINDQUIST, HILAH S BUSINESS BANKING SALES ASSISTANT Ot Z92.3 PERSONAL HISTORY OF IRRADIATION 04/02/2018 LINDQUISTGISSELL Garcia S BUSINESS BANKING SALES ASSISTANT Ot C50.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 04/02/2018 NICCI ALATORRE Terra Ot Z12.31 ENCNTR SCREEN MAMMOGRAM FOR MALIGNANT NE 04/02/2018 NICCI ALATORRE N Ot Z85.3 PERSONAL HISTORY OF MALIGNANT NEOPLASM O 04/02/2018 LINDQUIST, GISSELL S BUSINESS BANKING SALES ASSISTANT Ot 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, SITE UNSPECIFIED 04/02/2018 LINDQUIST HILTESFAYE S BUSINESS BANKING SALES ASSISTANT Ot M81.0 AGE-RELATED OSTEOPOROSIS 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 04/02/2018 LINDQUIST GISSELL S BUSINESS BANKING SALES ASSISTANT Ot Z87.81 PERSONAL HISTORY OF (HEALED) TRAUMATIC F 04/02/2018 FREIDA LOZOYA, CASH Raya Ot M25.551 PAIN IN RIGHT HIP 04/02/2018 LINDQUIST, GISSELL S BUSINESS BANKING SALES ASSISTANT Ot Z12.31 ENCNTR SCREEN MAMMOGRAM FOR MALIGNANT NE 04/02/2018 NICCI ALATORRE Terra Ot C50.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 04/02/2018 NICCI ALATORRE Terra Ot E03.9 HYPOTHYROIDISM, UNSPECIFIED 04/02/2018 NICCI ALATORRE Terra Ot I10 ESSENTIAL (PRIMARY) HYPERTENSION 04/02/2018 CELI NICCI Terra Ot K59.09 OTHER CONSTIPATION 04/02/2018 NICCI ALATORRE Terra Ot M19.91 PRIMARY OSTEOARTHRITIS, UNSPECIFIED SITE 04/02/2018 NICCI ALATORRE N Ot M81.0 AGE-RELATED OSTEOPOROSIS 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 04/02/2018 CELINICCI Ot Z17.0 ESTROGEN RECEPTOR POSITIVE STATUS [ER+] 04/02/2018 CELI MALUTESSA N Ot Z79.811 TRAFFIC CONTROLLER CABLE (CURRENT) USE OF AROMATASE INH 04/02/2018 NICCI ALATORRE N Ot Z79.82 [facility] (CURRENT) USE OF ASPIRIN 04/02/2018 NICCI ALATORRE N Ot Z79.899 OTHER TRAFFIC CONTROLLER CABLE (CURRENT) DRUG THERAPY 04/02/2018 CELINICCI Ot Z92.3 PERSONAL HISTORY OF IRRADIATION 04/02/2018 FREIDA LOZOYA, CASH Raya Ot M62.81 MUSCLE WEAKNESS (GENERALIZED) 04/02/2018 FREIDA LOZOYA, CSAH A Ot R29.6 REPEATED FALLS 04/22/2018 GISSELL LINDQUIST BUSINESS BANKING SALES ASSISTANT Ot C50.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 04/22/2018 GISSELL LINDQUIST BUSINESS BANKING SALES ASSISTANT Ot Z12.31 ENCNTR SCREEN MAMMOGRAM FOR MALIGNANT NE 07/23/2018 Ot 174.9 MALIGN NEOPL BREAST NOS 07/23/2018 NICCI ALATORRE N Ot 174.9 MALIGN NEOPL BREAST NOS 07/23/2018 NICCI ALATORRE N Ot V67.9 FOLLOW-UP EXAM NOS 07/23/2018 GISSELL LINDQUIST BUSINESS BANKING SALES ASSISTANT Ot 174.9 MALIGN NEOPL BREAST NOS 07/23/2018 GISSELL LINDQUISTP Ot 715.96 OSTEOARTHROS NOS-L/LEG 07/23/2018 GISSELL LINDQUIST BUSINESS BANKING SALES ASSISTANT Ot 733.00 OSTEOPOROSIS NOS 07/23/2018 GISSELL LINDQUISTP Ot 782.1 NONSPECIF SKIN ERUPT NEC 07/23/2018 GISSELL LINDQUIST BUSINESS BANKING SALES ASSISTANT Ot V15.3 HX OF IRRADIATION 07/23/2018 GISSELL LINDQUIST BUSINESS BANKING SALES ASSISTANT Ot V58.69 OTH MED,LT,CURRENT USE 07/23/2018 GISSELL LINDQUIST BUSINESS BANKING SALES ASSISTANT Ot V86.0 ESTROGEN RECEPTOR POSITIVE STATUS [ER+] 07/23/2018 GISSELL LINDQUIST BUSINESS BANKING SALES ASSISTANT Ot 174.9 MALIGN NEOPL BREAST NOS 07/23/2018 GISSELL LINDQUIST BUSINESS BANKING SALES ASSISTANT Ot 733.00 OSTEOPOROSIS NOS 07/23/2018 GISSELL LINDQUISTP Ot V15.3 HX OF IRRADIATION 07/23/2018 GISSELL LINDQUIST BUSINESS BANKING SALES ASSISTANT Ot V58.69 OTH MED,LT,CURRENT USE 07/23/2018 GISSELL LINDQUIST BUSINESS BANKING SALES ASSISTANT Ot V86.0 ESTROGEN RECEPTOR POSITIVE STATUS [ER+] 07/23/2018 GISSELL LINDQUIST BUSINESS BANKING SALES ASSISTANT Ot 733.00 OSTEOPOROSIS NOS 07/23/2018 GISSELL LINDQUIST BUSINESS BANKING SALES ASSISTANT Ot V10.3 HX OF BREAST MALIGNANCY 07/23/2018 GISSELL LINDQUISTP Ot V76.12 OTH SCREEN MAMMO-MALIGN NEOPLASM OF [place] 07/23/2018 GISSELL LINDQUIST BUSINESS BANKING SALES ASSISTANT Ot 174.9 MALIGN NEOPL BREAST NOS 07/23/2018 GISSELL LINDQUIST BUSINESS BANKING SALES ASSISTANT Ot 733.00 OSTEOPOROSIS NOS 07/23/2018 GISSELL LINDQUIST BUSINESS BANKING SALES ASSISTANT Ot V15.3 HX OF IRRADIATION 07/23/2018 GISSELL LINDQUIST BUSINESS BANKING SALES ASSISTANT Ot V58.69 OTH MED,LT,CURRENT USE 07/23/2018 GISSELL LINDQUIST BUSINESS BANKING SALES ASSISTANT Ot V86.0 ESTROGEN RECEPTOR POSITIVE STATUS [ER+] 07/23/2018 GISSELL LINDQUIST BUSINESS BANKING SALES ASSISTANT Ot 174.9 MALIGN NEOPL BREAST NOS 07/23/2018 EDELMIRA DICKERSON BUSINESS BANKING SALES ASSISTANT Ot V10.3 HX OF BREAST MALIGNANCY 07/23/2018 EDELMIRA DICKERSON BUSINESS BANKING SALES ASSISTANT Ot V67.09 SURGERY FOLLOW-UP, OTHER SURGERY 07/23/2018 GISSELL LINDQUIST BUSINESS BANKING SALES ASSISTANT Ot M81.0 AGE-RELATED OSTEOPOROSIS 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 07/23/2018 GISSELL LINDQUISTP Ot Z51.81 ENCOUNTER FOR THERAPEUTIC DRUG LEVEL MON 07/23/2018 FREIDA LOZOYA, CASH Raya Ot I10 ESSENTIAL (PRIMARY) HYPERTENSION 07/23/2018 FREIDA LOZOYA, CASH Raya Ot I25.10 ATHSCL HEART DISEASE OF [place] CORONARY 07/23/2018 FREIDA LOZOYA, CASH Raya Ot Z01.810 ENCOUNTER FOR PREPROCEDURAL CARDIOVASCUL 07/23/2018 GISSELL LINDQUISTP Ot C50.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 07/23/2018 GISSELL LINDQUISTP Ot M81.0 AGE-RELATED OSTEOPOROSIS 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 07/23/2018 GISSELL LINDQUISTP Ot Z17.0 ESTROGEN RECEPTOR POSITIVE STATUS [ER+] 07/23/2018 GISSELL LINDQUIST [employer] SAL[employer]IST[employer] Ot Z79.899 OTHER [facility] (CURRENT) DRUG THERAPY 07/23/2018 GISSELL LINDQUIST [employer] SALES ASSIST[employer] Ot Z92.3 PERSONAL HISTORY OF IRRADIATION 07/23/2018 GISSELL LINDQUIST [employer] SALES ASSISTANT Ot C50.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 07/23/2018 NICCI ALATORRE Ot Z12.31 ENCNTR SCREEN MAMMOGRAM FOR MALIGNANT NE 07/23/2018 NICCI ALATORRE Ot Z85.3 PERSONAL HISTORY OF MALIGNANT NEOPLASM O 07/23/2018 GISSELL LINDQUIST [employer] SAL[employer] ASSISTANT Ot 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, SITE UNSPECIFIED 07/23/2018 LINDQUIST GISSELL Garcia PIA Ot M81.0 AGE-RELATED OSTEOPOROSIS 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 07/23/2018 JUSTYN LINDQUISTTESFAYE Garcia PIA Ot Z87.81 PERSONAL HISTORY OF (HEALED) TRAUMATIC F 07/23/2018 CASH GUAN MD, Ot M25.551 PAIN IN RIGHT HIP 07/23/2018 GISSELL LINDQUIST Ot C50.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 07/23/2018 JUSTYN LINDQUISTTESFAYE Garcia PIA Ot Z12.31 ENCNTR SCREEN MAMMOGRAM FOR MALIGNANT NE 07/23/2018 CASH GUAN MD Ot M62.81 MUSCLE WEAKNESS (GENERALIZED) 07/23/2018 CASH GUAN MD Ot R29.6 REPEATED FALLS Procedures Code Description Performed By Performed On [id number] REPOSITION R UP FEMUR WITH INTRAMED FIX, 12/02/2016 [id number] REPOSITION R UP FEMUR WITH INTRAMED FIX, 12/02/2016 Results Test Result Range Complete blood count (CBC) with automated white blood cell (WBC) differential - 12/02/16 11:15 Blood leukocytes automated count (number/volume) 8.3 10*3/uL 4.3-11.0 Blood erythrocytes automated count (number/volume) 4.23 10*6/uL 4.35-5.85 Venous blood hemoglobin measurement (mass/volume) 14.1 g/dL 11.5-16.0 Blood hematocrit (volume fraction) 41 % 35-52 Automated erythrocyte mean corpuscular volume 97 [foz_us] 80-99 Automated erythrocyte mean corpuscular hemoglobin (mass per erythrocyte) 33 pg 25-34 Automated erythrocyte mean corpuscular hemoglobin concentration measurement ( mass/volume) 34 g/dL 32-36 Automated erythrocyte distribution width ratio 13.1 % 10.0-14.5 Automated blood platelet count (count/volume) 148 10*3/uL 130-400 Automated blood platelet mean volume measurement 11.2 [foz_us] 7.4-10.4 Automated blood neutrophils/100 leukocytes 77 % 42-75 Automated blood lymphocytes/100 leukocytes 14 % 12-44 Blood monocytes/100 leukocytes 7 % 0-12 Automated blood eosinophils/100 leukocytes 1 % 0-10 Automated blood basophils/100 leukocytes 0 % 0-10 Blood neutrophils automated count (number/volume) 6.4 10*3 1.8-7.8 Blood lymphocytes automated count (number/volume) 1.2 10*3 1.0-4.0 Blood monocytes automated count (number/volume) 0.6 10*3 0.0-1.0 Automated eosinophil count 0.1 10*3/uL 0.0-0.3 Automated blood basophil count (count/volume) 0.0 10*3/uL 0.0-0.1 PT panel in platelet poor plasma by coagulation assay - 12/02/16 11:15 Prothrombin time (PT) in platelet poor plasma by coagulation assay 12.9 s 12.2-14.7 INR in platelet poor plasma or blood by coagulation assay 1.0 0.8-1.4 Activated partial thromboplastin time (aPTT) in platelet poor plasma bycoagulation assay - 12/02/16 11:15 Activated partial thromboplastin time (aPTT) in platelet poor plasma bycoagulation assay 30 s 24-35 Comprehensive metabolic panel - 12/02/16 11:15 Serum or plasma sodium measurement (moles/volume) 141 mmol/L 135-145 Serum or plasma potassium measurement (moles/volume) 3.9 mmol/L 3.6-5.0 Serum or plasma chloride measurement (moles/volume) 105 mmol/L 98-107 Carbon dioxide 28 mmol/L 21-32 Serum or plasma anion gap determination (moles/volume) 8 mmol/L 5-14 Serum or plasma urea nitrogen measurement (mass/volume) 17 mg/dL 7-18 Serum or plasma creatinine measurement (mass/volume) 0.73 mg/dL 0.60-1.30 Serum or plasma urea nitrogen/creatinine mass ratio 23 NRG Serum or plasma creatinine measurement with calculation of estimated glomerular filtration rate > NRG Serum or plasma glucose measurement (mass/volume) 149 mg/dL 70-105 Serum or plasma calcium measurement (mass/volume) 9.5 mg/dL 8.5-10.1 Serum or plasma total bilirubin measurement (mass/volume) 0.5 mg/dL 0.1-1.0 Serum or plasma alkaline phosphatase measurement (enzymatic activity/volume) 73 U/L 40-136 Serum or plasma aspartate aminotransferase measurement (enzymatic activity/ volume) 22 U/L 5-34 Serum or plasma alanine aminotransferase measurement (enzymatic activity/volume ) 20 U/L 0-55 Serum or plasma protein measurement (mass/volume) 6.5 g/dL 6.4-8.2 Serum or plasma albumin measurement (mass/volume) 4.1 g/dL 3.2-4.5 Complete urinalysis with reflex to culture - 12/02/16 11:35 Urine color determination YELLOW NRG Urine clarity determination SLIGHTLY CLOUDY NRG Urine pH measurement by test strip 8 5-9 Specific gravity of urine by test strip 1.015 1.016- 1.022 Urine protein assay by test strip, semi-quantitative NEGATIVE NEGATIVE Urine glucose detection by automated test strip NEGATIVE NEGATIVE Erythrocytes detection in urine sediment by light microscopy NEGATIVE NEGATIVE Urine ketones detection by automated test strip NEGATIVE NEGATIVE Urine nitrite detection by test strip NEGATIVE NEGATIVE Urine total bilirubin detection by test strip NEGATIVE NEGATIVE Urine urobilinogen measurement by automated test strip (mass/volume) NORMAL NORMAL Urine leukocyte esterase detection by dipstick NEGATIVE NEGATIVE Automated urine sediment erythrocyte count by microscopy (number/high power field) NONE NRG Automated urine sediment leukocyte count by microscopy (number/high power field ) NONE NRG Bacteria detection in urine sediment by light microscopy NEGATIVE NRG Squamous epithelial cells detection in urine sediment by light microscopy NONE NRG Crystals detection in urine sediment by light microscopy NONE NRG Casts detection in urine sediment by light microscopy NONE NRG Mucus detection in urine sediment by light microscopy NEGATIVE NRG Complete urinalysis with reflex to culture NO NRG Amorphous sediment detection in urine sediment by light microscopy LARGE PATSY PHOSPHATE NRG Blood type T Indirect antibody screen panel - 12/02/16 12:30 ABO+Rh group ON NRG Transfusion band number [id number] NRG Blood group antibody screen NEGATIVE NRG Complete blood count (CBC) with automated white blood cell (WBC) differential - 12/03/16 04:45 Blood leukocytes automated count (number/volume) 9.5 10*3/uL 4.3-11.0 Blood erythrocytes automated count (number/volume) 3.24 10*6/uL 4.35-5.85 Venous blood hemoglobin measurement (mass/volume) 10.4 g/dL 11.5-16.0 Blood hematocrit (volume fraction) 32 % 35-52 Automated erythrocyte mean corpuscular volume 99 [foz_us] 80-99 Automated erythrocyte mean corpuscular hemoglobin (mass per erythrocyte) 32 pg 25-34 Automated erythrocyte mean corpuscular hemoglobin concentration measurement ( mass/volume) 32 g/dL 32-36 Automated erythrocyte distribution width ratio 12.9 % 10.0-14.5 Automated blood platelet count (count/volume) 131 10*3/uL 130-400 Automated blood platelet mean volume measurement 10.6 [foz_us] 7.4-10.4 Automated blood neutrophils/100 leukocytes 81 % 42-75 Automated blood lymphocytes/100 leukocytes 10 % 12-44 Blood monocytes/100 leukocytes 9 % 0-12 Automated blood eosinophils/100 leukocytes 0 % 0-10 Automated blood basophils/100 leukocytes 0 % 0-10 Blood neutrophils automated count (number/volume) 7.8 10*3 1.8-7.8 Blood lymphocytes automated count (number/volume) 0.9 10*3 1.0-4.0 Blood monocytes automated count (number/volume) 0.8 10*3 0.0-1.0 Automated eosinophil count 0.0 10*3/uL 0.0-0.3 Automated blood basophil count (count/volume) 0.0 10*3/uL 0.0-0.1 Comprehensive metabolic panel - 12/03/16 04:45 Serum or plasma sodium measurement (moles/volume) 139 mmol/L 135-145 Serum or plasma potassium measurement (moles/volume) 4.7 mmol/L 3.6-5.0 Serum or plasma chloride measurement (moles/volume) 107 mmol/L 98-107 Carbon dioxide 21 mmol/L 21-32 Serum or plasma anion gap determination (moles/volume) 11 mmol/L 5-14 Serum or plasma urea nitrogen measurement (mass/volume) 25 mg/dL 7-18 Serum or plasma creatinine measurement (mass/volume) 0.87 mg/dL 0.60-1.30 Serum or plasma urea nitrogen/creatinine mass ratio 29 NRG Serum or plasma creatinine measurement with calculation of estimated glomerular filtration rate > NRG Serum or plasma glucose measurement (mass/volume) 167 mg/dL 70-105 Serum or plasma calcium measurement (mass/volume) 7.9 mg/dL 8.5-10.1 Serum or plasma total bilirubin measurement (mass/volume) 0.5 mg/dL 0.1-1.0 Serum or plasma alkaline phosphatase measurement (enzymatic activity/volume) 50 U/L 40-136 Serum or plasma aspartate aminotransferase measurement (enzymatic activity/ volume) 19 U/L 5-34 Serum or plasma alanine aminotransferase measurement (enzymatic activity/volume ) 16 U/L 0-55 Serum or plasma protein measurement (mass/volume) 4.9 g/dL 6.4-8.2 Serum or plasma albumin measurement (mass/volume) 3.2 g/dL 3.2-4.5 Whole blood hemoglobin and hematocrit panel - 12/04/16 04:45 Venous blood hemoglobin measurement (mass/volume) 8.3 g/dL 11.5-16.0 Blood hematocrit (volume fraction) 26 % 35-52 [id number] - 12/04/16 08:48 [id number] SPECIMEN AVAILABLE [facility] RED CELLS LEUKO REDUCED AS1 - 12/04/16 08:48 RED CELLS LEUKO REDUCED AS1 TRANSFUSED 12/05/16 1948 [facility] Blood type T Indirect antibody screen panel - 12/04/16 08:48 ABO+Rh group ON NRG Transfusion band number #[id number] NR Blood group antibody screen NEGATIVE NR Complete blood count (CBC) with automated white blood cell (WBC) differential - 12/05/16 06:00 Blood leukocytes automated count (number/volume) 7.4 10*3/uL 4.3-11.0 Blood erythrocytes automated count (number/volume) 2.45 10*6/uL 4.35-5.85 Venous blood hemoglobin measurement (mass/volume) 7.9 g/dL 11.5-16.0 Blood hematocrit (volume fraction) 25 % 35-52 Automated erythrocyte mean corpuscular volume 102 [foz_us] 80-99 Automated erythrocyte mean corpuscular hemoglobin (mass per erythrocyte) 32 pg 25-34 Automated erythrocyte mean corpuscular hemoglobin concentration measurement ( mass/volume) 32 g/dL 32-36 Automated erythrocyte distribution width ratio 13.2 % 10.0-14.5 Automated blood platelet count (count/volume) 107 10*3/uL 130-400 Automated blood platelet mean volume measurement 10.8 [foz_us] 7.4-10.4 Automated blood neutrophils/100 leukocytes 70 % 42-75 Automated blood lymphocytes/100 leukocytes 17 % 12-44 Blood monocytes/100 leukocytes 13 % 0-12 Automated blood eosinophils/100 leukocytes 0 % 0-10 Automated blood basophils/100 leukocytes 0 % 0-10 Blood neutrophils automated count (number/volume) 5.1 10*3 1.8-7.8 Blood lymphocytes automated count (number/volume) 1.3 10*3 1.0-4.0 Blood monocytes automated count (number/volume) 0.9 10*3 0.0-1.0 Automated eosinophil count 0.0 10*3/uL 0.0-0.3 Automated blood basophil count (count/volume) 0.0 10*3/uL 0.0-0.1 Comprehensive metabolic panel - 12/05/16 06:00 Serum or plasma sodium measurement (moles/volume) 138 mmol/L 135-145 Serum or plasma potassium measurement (moles/volume) 4.0 mmol/L 3.6-5.0 Serum or plasma chloride measurement (moles/volume) 108 mmol/L 98-107 Carbon dioxide 25 mmol/L 21-32 Serum or plasma anion gap determination (moles/volume) 5 mmol/L 5-14 Serum or plasma urea nitrogen measurement (mass/volume) 15 mg/dL 7-18 Serum or plasma creatinine measurement (mass/volume) 0.54 mg/dL 0.60-1.30 Serum or plasma urea nitrogen/creatinine mass ratio 28 NRG Serum or plasma creatinine measurement with calculation of estimated glomerular filtration rate > NRG Serum or plasma glucose measurement (mass/volume) 110 mg/dL 70-105 Serum or plasma calcium measurement (mass/volume) 7.7 mg/dL 8.5-10.1 Serum or plasma total bilirubin measurement (mass/volume) 0.5 mg/dL 0.1-1.0 Serum or plasma alkaline phosphatase measurement (enzymatic activity/volume) 44 U/L 40-136 Serum or plasma aspartate aminotransferase measurement (enzymatic activity/ volume) 20 U/L 5-34 Serum or plasma alanine aminotransferase measurement (enzymatic activity/volume ) 12 U/L 0-55 Serum or plasma protein measurement (mass/volume) 4.8 g/dL 6.4-8.2 Serum or plasma albumin measurement (mass/volume) 3.1 g/dL 3.2-4.5 Automated blood complete blood count (hemogram) panel - 12/07/16 10:35 Blood leukocytes automated count (number/volume) 9.1 10*3/uL 4.3-11.0 Blood erythrocytes automated count (number/volume) 3.02 10*6/uL 4.35-5.85 Venous blood hemoglobin measurement (mass/volume) 9.6 g/dL 11.5-16.0 Blood hematocrit (volume fraction) 30 % 35-52 Automated erythrocyte mean corpuscular volume 99 [foz_us] 80-99 Automated erythrocyte mean corpuscular hemoglobin (mass per erythrocyte) 32 pg 25-34 Automated erythrocyte mean corpuscular hemoglobin concentration measurement ( mass/volume) 32 g/dL 32-36 Automated erythrocyte distribution width ratio 15.0 % 10.0-14.5 Automated blood platelet count (count/volume) 191 10*3/uL 130-400 Automated blood platelet mean volume measurement 10.3 [foz_us] 7.4-10.4 Comprehensive metabolic panel - 12/07/16 10:35 Serum or plasma sodium measurement (moles/volume) 137 mmol/L 135-145 Serum or plasma potassium measurement (moles/volume) 4.2 mmol/L 3.6-5.0 Serum or plasma chloride measurement (moles/volume) 103 mmol/L 98-107 Carbon dioxide 25 mmol/L 21-32 Serum or plasma anion gap determination (moles/volume) 9 mmol/L 5-14 Serum or plasma urea nitrogen measurement (mass/volume) 18 mg/dL 7-18 Serum or plasma creatinine measurement (mass/volume) 0.59 mg/dL 0.60-1.30 Serum or plasma urea nitrogen/creatinine mass ratio 31 NRG Serum or plasma creatinine measurement with calculation of estimated glomerular filtration rate > NRG Serum or plasma glucose measurement (mass/volume) 118 mg/dL 70-105 Serum or plasma calcium measurement (mass/volume) 8.6 mg/dL 8.5-10.1 Serum or plasma total bilirubin measurement (mass/volume) 1.1 mg/dL 0.1-1.0 Serum or plasma alkaline phosphatase measurement (enzymatic activity/volume) 60 U/L 40-136 Serum or plasma aspartate aminotransferase measurement (enzymatic activity/ volume) 25 U/L 5-34 Serum or plasma alanine aminotransferase measurement (enzymatic activity/volume ) 19 U/L 0-55 Serum or plasma protein measurement (mass/volume) 5.7 g/dL 6.4-8.2 Serum or plasma albumin measurement (mass/volume) 3.5 g/dL 3.2-4.5 Complete blood count (CBC) with automated white blood cell (WBC) differential - 12/12/16 05:56 Blood leukocytes automated count (number/volume) 10.4 10*3/uL 4.3-11.0 Blood erythrocytes automated count (number/volume) 3.13 10*6/uL 4.35-5.85 Venous blood hemoglobin measurement (mass/volume) 10.0 g/dL 11.5-16.0 Blood hematocrit (volume fraction) 32 % 35-52 Automated erythrocyte mean corpuscular volume 101 [foz_us] 80-99 Automated erythrocyte mean corpuscular hemoglobin (mass per erythrocyte) 32 pg 25-34 Automated erythrocyte mean corpuscular hemoglobin concentration measurement ( mass/volume) 32 g/dL 32-36 Automated erythrocyte distribution width ratio 15.4 % 10.0-14.5 Automated blood platelet count (count/volume) 256 10*3/uL 130-400 Automated blood platelet mean volume measurement 10.2 [foz_us] 7.4-10.4 Automated blood neutrophils/100 leukocytes 77 % 42-75 Automated blood lymphocytes/100 leukocytes 10 % 12-44 Blood monocytes/100 leukocytes 12 % 0-12 Automated blood eosinophils/100 leukocytes 1 % 0-10 Automated blood basophils/100 leukocytes 0 % 0-10 Blood neutrophils automated count (number/volume) 8.0 10*3 1.8-7.8 Blood lymphocytes automated count (number/volume) 1.1 10*3 1.0-4.0 Blood monocytes automated count (number/volume) 1.2 10*3 0.0-1.0 Automated eosinophil count 0.1 10*3/uL 0.0-0.3 Automated blood basophil count (count/volume) 0.0 10*3/uL 0.0-0.1 Comprehensive metabolic panel - 12/12/16 05:56 Serum or plasma sodium measurement (moles/volume) 138 mmol/L 135-145 Serum or plasma potassium measurement (moles/volume) 4.1 mmol/L 3.6-5.0 Serum or plasma chloride measurement (moles/volume) 103 mmol/L 98-107 Carbon dioxide 26 mmol/L 21-32 Serum or plasma anion gap determination (moles/volume) 9 mmol/L 5-14 Serum or plasma urea nitrogen measurement (mass/volume) 15 mg/dL 7-18 Serum or plasma creatinine measurement (mass/volume) 0.59 mg/dL 0.60-1.30 Serum or plasma urea nitrogen/creatinine mass ratio 25 NRG Serum or plasma creatinine measurement with calculation of estimated glomerular filtration rate > NRG Serum or plasma glucose measurement (mass/volume) 120 mg/dL 70-105 Serum or plasma calcium measurement (mass/volume) 8.8 mg/dL 8.5-10.1 Serum or plasma total bilirubin measurement (mass/volume) 1.5 mg/dL 0.1-1.0 Serum or plasma alkaline phosphatase measurement (enzymatic activity/volume) 80 U/L 40-136 Serum or plasma aspartate aminotransferase measurement (enzymatic activity/ volume) 33 U/L 5-34 Serum or plasma alanine aminotransferase measurement (enzymatic activity/volume ) 33 U/L 0-55 Serum or plasma protein measurement (mass/volume) 5.9 g/dL 6.4-8.2 Serum or plasma albumin measurement (mass/volume) 3.7 g/dL 3.2-4.5 Encounters ACCT No. Visit Date/Time Discharge Status Pt. Type Provider Facility Loc./Unit Complaint [id number] 07/23/2018 10:06:00 07/23/2018 23:59:59 CLS Outpatient NICCI ALATORRE [facility] ONC [id number] 04/02/2018 10:08:00 04/02/2018 23:59:59 CLS Outpatient GISSELL LINDQUIST [facility] RAD SCREENING [id number] 02/25/2018 11:45:00 02/25/2018 23:59:59 CLS Outpatient CASH GUAN MD [facility] RAD WEAKNESS [id number] 01/30/2018 10:11:00 02/11/2018 00:01:00 DIS Outpatient NICCI ALATORRE [facility] ONC [id number] 11/06/2017 11:20:00 11/06/2017 23:59:59 CLS Outpatient GISSELL LINDQUIST [facility] RAD OSTEOPOROSIS M81.0 [id number] 09/23/2017 11:25:00 09/23/2017 23:59:59 CLS Outpatient CASH GUAN MD [facility] RAD M25.551 [id number] 05/14/2017 13:58:00 07/01/2017 00:01:00 DIS Outpatient NICCI ALATORRE [facility] ONC [id number] 03/31/2017 10:04:00 03/31/2017 23:59:59 CLS Outpatient NICCI ALATORRE [facility] RAD BREAST CANCER [id number] 09/05/2016 10:21:00 12/04/2016 00:01:00 DIS Outpatient NICCI ALATORRE [facility] ONC [id number] 03/07/2016 09:33:00 06/05/2016 00:01:00 DIS Outpatient NICCI ALATORRE [facility] ONC [id number] 05/27/2016 14:19:00 05/27/2016 20:00:00 DIS Outpatient GHADA PEREZ MD [facility] SDC SCREENING [id number] 05/22/2016 05:45:00 05/22/2016 10:41:00 DIS Outpatient GHADA PEREZ MD [facility] PREOP SCREENING, [id number] 03/27/2016 12:57:00 03/27/2016 23:59:59 CLS Outpatient GISSELL LINDQUIST [facility] RAD BREAST CANCER [id number] 03/07/2016 09:29:00 03/07/2016 23:59:59 CLS Outpatient GISSELL LINDQUISTP [facility] ONC [id number] 09/07/2015 09:30:00 12/06/2015 00:01:00 DIS Outpatient NICCI ALATORRE [facility] ONC [id number] 09/21/2015 16:02:00 09/28/2015 14:00:00 DIS Inpatient MARCELL TYLER MD [facility] IRF TOTAL KNEE REPLACEMENT [id number] 09/13/2015 11:10:00 09/13/2015 23:59:59 CLS Outpatient CASH GUAN MD [facility] CARD PRE OP,CAD [id number] 08/31/2015 09:18:00 08/31/2015 23:59:59 CLS Outpatient GISSELL LINDQUIST [facility] RAD OSTEOPOROSIS [id number] 03/09/2015 10:06:00 06/07/2015 00:01:00 DIS Outpatient NICCI ALATORRE [facility] ONC [id number] 03/15/2015 14:22:00 03/15/2015 23:59:59 CLS Outpatient EDELMIRA DICKERSON [facility] RAD FOLLOW UP [id number] 03/09/2015 10:04:00 03/09/2015 23:59:59 CLS Outpatient GISSELL LINDQUIST [employer] SAL[employer] ASSISTANT [facility] ONC [id number] 08/31/2014 09:57:00 11/29/2014 00:01:00 DIS Outpatient NICCI ALATORRE [facility] ONC [id number] 10/14/2014 10:34:00 10/24/2014 13:00:00 DIS Inpatient MARCELL TYLER MD [facility] IRF WEAKNESS [id number] 06/01/2014 09:01:00 06/08/2014 00:01:00 DIS Outpatient NICCI ALATORRE [facility] ONC [id number] 06/01/2014 08:59:00 06/01/2014 23:59:59 CLS Outpatient GISSELL LINDQUISTP [facility] ONC [id number] 12/08/2013 12:52:00 03/08/2014 13:05:00 DIS Outpatient NICCI ALATORRE [facility] ONC [id number] 03/04/2014 08:48:00 03/04/2014 23:59:59 CLS Outpatient GISSELL LINDQUIST [facility] RAD BREAST CA, OSTEOPOROSIS [id number] 12/08/2013 12:51:00 12/08/2013 23:59:59 CLS Outpatient GISSELL LINDQUIST [facility] ONC [id number] 09/08/2013 10:06:00 12/07/2013 00:01:00 DIS Outpatient NICCI ALATORRE [facility] ONC [id number] 06/07/2013 13:34:00 09/05/2013 00:01:00 DIS Outpatient NICCI ALATORRE [facility] ONC [id number] 08/31/2013 11:43:00 08/31/2013 23:59:59 CLS Outpatient NICCI ALATORRE [facility] RAD FOLLOW UP, HX OF BREAST CANCER [id number] 06/07/2013 11:00:00 06/07/2013 23:59:59 CLS Outpatient GISSELL LINDQUIST [facility] ONC [id number] 08/15/2018 17:40:00 ACT Emergency LUIS ENRIQUE LOZOYA, LUZMARIA Salguero [facility] ER BLEEDING FROM THE RECTUM [id number] 01/01/2017 11:13:00 Document Registration [id number] 01/01/2017 11:13:00 Document Registration [id number] 03/27/2016 12:56:00 Document Registration [id number] 09/21/2015 19:12:00 Document Registration [id number] 03/08/2013 10:37:00 Document Registration [id number] 03/01/2013 12:31:00 Document Registration [id number] 12/08/2012 09:13:00 Document Registration [id number] 09/14/2012 13:35:00 Document Registration [id number] 08/06/2012 10:10:00 Document Registration [id number] 07/31/2012 13:55:00 Document Registration [id number] 06/12/2012 08:45:00 Document Registration [id number] 05/07/2012 06:09:00 Document Registration [id number] 05/05/2012 13:51:00 Document Registration [id number] 04/13/2012 10:31:00 Document Registration [id number] 04/08/2012 10:25:00 Document Registration [id number] 10/15/2011 05:35:00 Document Registration [id number] 10/08/2011 13:20:00 Document Registration [id number] 09/19/2011 14:35:00 Document Registration [id number] 11/20/2010 06:20:00 Document Registration [id number] 12/04/2016 10:25:00 12/23/2016 13:20:00 DIS Outpatient NAYELI LOZOYA, MARCELL Johnson [facility] IRF R HIP FRACTURE [id number] 12/02/2016 12:10:00 12/04/2016 10:25:00 DIS Outpatient CASH GUAN MD [facility] 4TH R HIP FRACTURE [id number] 09/07/2015 09:30:39 ACT Document Registration 0000 10/09/2017 23:18:30 10/09/2017 23:59:59 CLS Outpatient Cash Guan
--- NOTE | 2018-08-15 18:06 | ED Abdominal Pain ---
General Chief Complaint: Rect Problems Stated Complaint: BLEEDING FROM THE RECTUM Source of Information: Patient Exam Limitations: No Limitations History of Present Illness Date Seen by Provider: Aug 15, 2018 Time Seen by Provider: 18:05 Initial Comments To ER with reports of bright red blood per rectum since earlier today. She did have some minimal suprapubic abdominal pain but took Tylenol for this and has gone. She has a history of diverticulitis. No nausea vomiting or fevers. Timing/Duration: 4-6 Hours Severity/Quality: Moderate Location: Suprapubic Radiation: No Radiation Activities at Onset: None (I) Associated Symptoms: No Fever/Chills Allergies and Home Medications Allergies Coded Allergies: simvastatin (Verified Allergy, Unknown, 09/21/15) Home Medications Acetaminophen 500 Mg Tablet, 500 MG PO Q4H PRN for MILD PAIN Prescribed by: MARCELL TYLER on 12/22/16 0944 Amlodipine Besylate 10 Mg Tablet, 10 MG PO DAILY, (Reported) Amlodipine Besylate 10 Mg Tablet, 10 MG PO DAILY, (Reported) Aspirin 81 Mg Tablet.dr, 81 MG PO DAILY, (Reported) Aspirin 81 Mg Tablet.dr, 81 MG PO DAILY, (Reported) Cholecalciferol (Vitamin D3) 5,000 Unit Capsule, 5,000 UNIT PO DAILY, (Reported) Cholecalciferol (Vitamin D3) 5,000 Unit Capsule, 5,000 UNIT PO DAILY, (Reported) Fosinopril Sodium 20 Mg Tablet, 20 MG PO DAILY, (Reported) Letrozole 2.5 Mg Tablet, 2.5 MG PO HS, (Reported) Letrozole 2.5 Mg Tablet, 2.5 MG PO DAILY, (Reported) Levothyroxine Sodium 25 Mcg Tablet, 1 EACH PO DAILY, (Reported) Levothyroxine Sodium 25 Mcg Tablet, 25 MG PO DAILY, (Reported) Lisinopril 20 Mg Tablet, 20 MG PO DAILY, (Reported) Loteprednol Etabonate 5 Gm Drops.gel, 1 DROP OU DAILY, (Reported) Metoprolol Succinate 25 Mg Tab.er.24h, 25 MG PO HS, (Reported) Metoprolol Tartrate 25 Mg Tablet, 25 MG PO HS Prescribed by: CASH GUAN on 10/24/14 0927 Multivitamins 1 Each Capsule, 1 EACH PO DAILY, (Reported) Niacin 250 Mg Tablet, 250 MG PO DAILY, (Reported) Niacin 250 Mg Tablet, 250 MG PO DAILY, (Reported) [place] 3 Polyunsat Fatty Acids 1,000 Mg Cap, 1,000 MG PO TID, (Reported) [place]-3/Dha/Epa/Fish Oil 1 Each Capsule, 1,000 MG PO TID, (Reported) Sennosides/Docusate Sodium 1 Each Tablet, 1 EA PO BID Prescribed by: MARCELL TYLER on 12/22/16 0944 Sod Borate/Boric AC/Water/NaCl 118 Ml Irrig.soln, OU BID, (Reported) Solifenacin Succinate 10 Mg Tablet, 10 MG PO DAILY, (Reported) Solifenacin Succinate 10 Mg Tablet, 10 MG PO HS, (Reported) Vit A/C/E/Zinc/Co 1 Cap Capsule, 1 CAP PO DAILY, (Reported) [Lotemax 0.5% Oint] , 1 EACH OS UD, (Reported) [Vitamin B-12 Sl] , SL DAILY, (Reported) Patient Home Medication List Home Medication List Reviewed: Yes Review of Systems Review of Systems Constitutional: see HPI EENTM: No Symptoms Reported Respiratory: No Symptoms Reported Cardiovascular: No Symptoms Reported Gastrointestinal: See HPI, Abdominal Pain, Rectal Bleeding Genitourinary: No Symptoms Reported Musculoskeletal: no symptoms reported Skin: no symptoms reported Psychiatric/Neurological: No Symptoms Reported Endocrine: No Symptoms Reported (well disabled for) Hematologic/Lymphatic: No Symptoms Reported Past Vhwgsdy-Gfxoim-Tsdolx Hx Patient Social History Recent Foreign Travel: No Contact w/Someone Who Travel: No Immunizations Up To Date Date of Pneumonia Vaccine: May 01, 2011 Date of Influenza Vaccine: Sep 13, 2015 Past Medical History Currently Using CPAP: No Currently Using BIPAP: No Reproductive Disorders: No Female Reproductive Disorders: Denies Sexually Transmitted Disease: No Diverticulosis Arthritis Hypothyroidsim Cataract, Macular Degeneration Loss of Vision: Denies Hearing Impairment: Denies Breast Family Medical History Cardiovascular disease 19 FATHER Osteoporosis 19 MOTHER Physical Exam Vital Signs Vital Signs - First Documented 08/15/18 18:00 Temp 97.9 Pulse 86 Resp 18 B/P (MAP) 199/96 (130) Pulse Ox 94 Capillary Refill : Height/Weight/BMI Height: 4'11.00" Weight: 149lbs. 9.6oz. 67.505628gl; 30.2 BMI Method: General Appearance: WD/WN, no apparent distress HEENT: PERRL/EOMI, normal ENT inspection Neck: non-tender, full range of motion Respiratory: no respiratory distress, no accessory muscle use Cardiovascular: regular rate, rhythm, no murmur Gastrointestinal: normal bowel sounds, non tender, soft; No tenderness Rectal: other (rectal exam done with Debbie GAMBOA at the bedside. There is some bright red blood at the rectum and there is a hemorrhoid which is macerated and raw but no active bleeding. ) Extremities: normal range of motion, non-tender Neurologic/Psychiatric: alert, normal mood/affect, oriented x 3 Skin: normal color, warm/dry Progress/Results/Core Measures Results/Orders Lab Results Laboratory Tests Test 08/15/18 18:33 Range/Units My Orders Orders - BELINDA GARDINER APRN Cbc With Automated Diff (08/15/18 18:03) Ct Abdomen/Pelvis Wo (08/15/18 18:03) Vital Signs/I&O 08/15/18 18:00 Temp 97.9 Pulse 86 Resp 18 B/P (MAP) 199/96 (130) Pulse Ox 94 Diagnostic Imaging Diagonstic Imaging: Xray, CT Comments NAME: [facility] REC#: [id number] PT STATUS: REG ER : [id number] PHYSICIAN: BELINDA GARDINER APRN ADMIT DATE: 08/15/18/ER Draft Date of Exam:08/15/18 CT ABDOMEN/PELVIS WO PROCEDURE: CT abdomen and pelvis without contrast. TECHNIQUE: Multiple contiguous axial images were obtained through the abdomen and pelvis without the use of intravenous contrast. INDICATION: Diverticulitis and rectal bleeding. FINDINGS: There are multiple colonic diverticuli most notably at the sigmoid. No convincing evidence for pericolonic or perisigmoidal edema or abscess. There is a nonobstructive left inguinal hernia comprised of fat as well as left lower quadrant small bowel loops. The appendix is visualized and normal. Some fatty umbilical hernia without inflammation. No other abdominal wall defect. Lung bases appear nonacute. The unopacified liver, gallbladder, spleen, adrenals and pancreas appear unremarkable. The aortoiliac vessels calcified but nonaneurysmal. There is no pneumatosis or free gas. 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 There are small punctate 2 mm stones within each of renal moiety. No opaque ureteral calculi. No stones within the urinary bladder lumen. The right proximal femur is postsurgical. The osseous structures are degenerated but appear nonacute. IMPRESSION: 1. Extensive diverticular disease without convincing CT evidence for segmental diverticulitis. 2. No abscess, obstruction or perforation. 3. Fatty umbilical hernia. Nonobstructive left inguinal hernia with small bowel and fat. 4. 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 No opaque ureteral or bladder stone found. Dictated on workstation # [id number] Dict: 08/15/18 1825 Trans: 08/15/18 1846 [facility] [id number] Interpreted by: SANDRA BRIZUELA Electronically signed by: Departure Impression Primary Impression: Hemorrhoids Additional Impression: Diverticulosis of colon without diverticulitis Disposition: 01 HOME, SELF-CARE Condition: Stable Departure-Patient Inst. Decision time for Depature: 18:28 Referrals: CASH GUAN MD (PCP/Family) Primary Care Physician Patient Instructions: Hemorrhoids (DC) Add. Discharge Instructions: 1. Return to ER for any concerns 2. Follow up with your doctor next week. 3. Take a stool softener (colace) which you can buy over the counter at [facility] once or twice daily. Also drinnk more water than usual to help soften your stools. All discharge instructions reviewed with patient and/or family. Voiced understanding. BELINDA GARDINER APRN Aug 15, 2018 18:06
--- NOTE | 2018-08-15 18:46 | Diagnostic Imaging Report ---
PROCEDURE: CT abdomen and pelvis without contrast. TECHNIQUE: Multiple contiguous axial images were obtained through the abdomen and pelvis without the use of intravenous contrast. INDICATION: Diverticulitis and rectal bleeding. FINDINGS: There are multiple colonic diverticuli most notably at the sigmoid. No convincing evidence for pericolonic or perisigmoidal edema or abscess. There is a nonobstructive left inguinal hernia comprised of fat as well as left lower quadrant small bowel loops. The appendix is visualized and normal. Some fatty umbilical hernia without inflammation. No other abdominal wall defect. Lung bases appear nonacute. The unopacified liver, gallbladder, spleen, adrenals and pancreas appear unremarkable. The aortoiliac vessels calcified but nonaneurysmal. There is no pneumatosis or free gas. 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 There are small punctate 2 mm stones within each of renal moiety. No opaque ureteral calculi. No stones within the urinary bladder lumen. The right proximal femur is postsurgical. The osseous structures are degenerated but appear nonacute. IMPRESSION: 1. Extensive diverticular disease without convincing CT evidence for segmental diverticulitis. 2. No abscess, obstruction or perforation. 3. Fatty umbilical hernia. Nonobstructive left inguinal hernia with small bowel and fat. 4. 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 No opaque ureteral or bladder stone found. Dictated by: Dictated on workstation # [id number]
[2018-08-15 18:48] LABS: BASOPHILS % (AUTO) 1 % (0-10); EOSINOPHILS # (AUTO) 0.1 10^3/uL (0.0-0.3); EOSINOPHILS % (AUTO) 3 % (0-10); HEMATOCRIT 42 % (35-52); LYMPHOCYTES # (AUTO) 1.8 X 10^3 (1.0-4.0); LYMPHOCYTES % (AUTO) 34 % (12-44); MEAN CORPUSCULAR HEMOGLOBIN 33 PG (25-34); MEAN CORPUSCULAR HGB CONC 33 G/DL (32-36); MEAN CORPUSCULAR VOLUME 99 FL (80-99); MEAN PLATELET VOLUME 10.5 FL (7.4-10.4); MONOCYTES # (AUTO) 0.6 X 10^3 (0.0-1.0); MONOCYTES % (AUTO) 12 % (0-12); NEUTROPHILS # (AUTO) 2.8 X 10^3 (1.8-7.8); NEUTROPHILS % (AUTO) 51 % (42-75); PLATELET COUNT 141 10^3/uL (130-400); RED BLOOD COUNT 4.26 10^6/uL (4.35-5.85); RED CELL DISTRIBUTION WIDTH 13.3 % (10.0-14.5); WHITE BLOOD COUNT 5.4 10^3/uL (4.3-11.0)
[2018-08-15 18:58] VITALS: BP 168/78
== END 2018-08-15 19:04 | disposition home or self-care (01) ==
LOC: EDUNIT# 17:39 → ER 17:40
DX: K64.4 Residual hemorrhoidal skin tags (principal); K57.30 Diverticulosis of large intestine without perforation or abscess without bleeding; E03.9 Hypothyroidism, unspecified; Z82.49 Family history of ischemic heart disease and other diseases of the circulatory system; Z88.8 Allergy status to other drugs, medicaments and biological substances; Z79.82 Long term (current) use of aspirin; Z87.19 Personal history of other diseases of the digestive system
CPT/HCPCS: 36415; 74176; 85025

== ENCOUNTER → 2018-10-27 | Outpatient (CLI) | payer MEDICARE ==
[~2018-10-27] MED LIST changes: +FOSI20TA PO; -FOSI20TA4 PO
--- NOTE | 2018-10-27 13:58 | Diagnostic Imaging Report ---
INDICATION: Back pain. TECHNIQUE: AP, Lateral and Spot imaging of the lumbar spine CORRELATION STUDY: None FINDINGS: Rather prominent gas distention of the stomach and gas and stool throughout the colon. This does limit assessment for lumbar spine, particularly in the frontal projection. There is rightward curvature present. Trace anterolisthesis of L4 on L5. There is marked compression deformity at L1 vertebral body, loss of at least 50% vertebral body height. Multilevel degenerative changes present. There is moderate calcification of the abdominal aorta. IMPRESSION: Approximately 50% loss of height at the L1 vertebral body. This is greatest on the right aspect. While age is indeterminate it does appear to be pretty acute to subacute as it appears changed from prior CT imaging of 2 months ago. Dictated by: Dictated on workstation # [id number]
--- NOTE | 2018-10-27 17:07 | Diagnostic Imaging Report ---
PATIENT HISTORY: BACK PAIN. TECHNIQUE: Three views of the thoracic spine. COMPARISON: None. FINDINGS: There is exaggerated kyphosis of the thoracic spine. There are flowing anterior osteophytes consistent with diffuse idiopathic skeletal hyperostosis. The upper thoracic spine is partially obscured. There is moderate left convex curvature of the thoracic spine which may be accentuated by patient rotation. There is mild height loss at L1, which may represent a compression fracture. IMPRESSION: 1. Exaggerated kyphosis of the lumbar spine with findings of diffuse idiopathic skeletal hyperostosis. 2. No acute fracture seen in the thoracic spine. Suspect compression fracture of L1. Dictated by: Dictated on workstation # [id number]
== END ==
LOC: RAD 11:01
PROVIDERS: ATTEND Nurse Practitioner Family
DX: M51.36 Other intervertebral disc degeneration, lumbar region (principal); M40.294 Other kyphosis, thoracic region; M48.14 Ankylosing hyperostosis [Forestier], thoracic region
CPT/HCPCS: 72072; 72100

== ENCOUNTER → 2018-11-12 | Outpatient (CLI) | payer MEDICARE ==
--- NOTE | 2018-11-12 11:07 | Diagnostic Imaging Report ---
PROCEDURE: MRI lumbar spine. TECHNIQUE: Multiplanar, multisequence MRI of the lumbar spine was performed without contrast. INDICATION: Back pain. FINDINGS: There is an acute compression fracture deformity of the L1 vertebral body. There is some minimal retropulsion of fracture fragments involving the superior endplate. The remaining lumbar vertebral body heights are well maintained. No spondylolysis or spondylolisthesis. No other marrow signal intensity abnormalities are appreciated. Conus medullaris is seen at L1 is normal in appearance. T11-T12 is unremarkable. At T12-L1, there is broad-based annular bulging and some slight retropulsion of fracture fragments. This results in effacement of ventral thecal sac. Mild bilateral neural foramen encroachment. The L1-L2 disc is unremarkable. At L2-L3, there is slight loss of disc height and signal intensity and some minimal annular bulging. At L3-L4, there is loss of disc height and signal intensity with some mild broad based annular bulging. There is also some facet disease with thickening of ligamentum flavum. At L4-L5, there is broad-based annular bulging, facet disease and thickening of ligament flavum. There is moderate central spinal stenosis with encroachment up on lateral recess bilaterally. There is moderate bilateral neural foramen encroachment. The L5-S1 disc demonstrates some lateral annular bulging on the right. This results in moderate neural foramen encroachment. The abdominal aorta is nonaneurysmal. There are no other focal soft tissue abnormalities. IMPRESSION: Acute compression fracture deformity of L1. This would likely be amenable to kyphoplasty if clinically warranted. Moderate lumbar spondylosis and multilevel degenerative disc disease as detailed above. Dictated by: Dictated on workstation # [id number]
== END ==
LOC: RAD 08:54
PROVIDERS: ATTEND Physician Assistant
DX: S32.010A Wedge compression fracture of first lumbar vertebra, initial encounter for closed fracture (principal); M47.816 Spondylosis without myelopathy or radiculopathy, lumbar region; M51.36 Other intervertebral disc degeneration, lumbar region; M51.27 Other intervertebral disc displacement, lumbosacral region; M48.061 Spinal stenosis, lumbar region without neurogenic claudication
CPT/HCPCS: 72148